=== PATIENT | female | born 1990 | race Caucasian/White ===

== ENCOUNTER 2018-03-30 11:39 | Emergency (ER) | payer OTHER ==
[~2018-03-30] VITALS: Ht 170.2 cm; Wt 98.9 kg
[~2018-03-30 11:39] MED LIST: CYCLOBENZAPRINE10 MG PO; DICLOFENAC SODI75 MG PO; FLONASE ALLERG9.9 ML NAS; GEODON40 MG PO; GRALISE600 MG PO; LAMICTAL200 MG PO; NORCO 10-325 T1 EACH PO; SUDAFED 12-HOU120 MG PO; VENLAFAXINE HC225 MG PO; XANAX1 MG PO
[2018-03-30] MEDS ORDERED: LASIX20 MG PO (11:56)
[2018-03-30] MEDS ORDERED: K-TAB ER20 MEQ PO (11:56)
--- NOTE | 2018-03-30 14:14 | EKG ---
[facility] [address] [address] [place], [place] [address] Signed Sinus tachycardia Otherwise normal ECG No previous ECGs available Confirmed by LETICIA FRANKLIN MD ([id number]) on 03/30/2018 2:14:15 PM Electronically Signed By: LETICIA FRANKLIN MD 03/30/18 1414 PATIENT NAME: SHADE WOLF KOURTNEY Electrocardiogram DATE OF : 86 PHYSICIAN: LETICIA FRANKLIN MD REPORT #: [id number] REPORT IS CONFIDENTIAL AND NOT TO BE RELEASED WITHOUT AUTHORIZATION
== END 2018-03-30 14:26 | disposition home or self-care (01) ==
LOC: ED 11:39
DX: R20.2 Paresthesia of skin (principal); G62.9 Polyneuropathy, unspecified; F32.9 Major depressive disorder, single episode, unspecified; F41.9 Anxiety disorder, unspecified; F31.9 Bipolar disorder, unspecified; F17.200 Nicotine dependence, unspecified, uncomplicated; Z79.891 Long term (current) use of opiate analgesic; Z79.899 Other long term (current) drug therapy
CPT/HCPCS: 70450; 80053; 81001; 83036; 83605; 83880; 84703; 85025; 85379; 93005; 93010; 99284; 99406

== ENCOUNTER 2020-02-27 16:36 | Inpatient (IN) | payer OTHER ==
[~2020-02-27] VITALS: Ht 170.2 cm; Wt 119.2 kg
--- OUTSIDE RECORDS SUMMARY | ~2020-02-27 | XMS | Encounter Summary ---
Demographics + + + | Address | [address] | | | [place] [address] | + + + | Home Phone | | + + + | Preferred Language | Unknown | + + + | Marital Status | Single | + + + | Sabianism Affiliation | NON | + + + | Race | White | + + + | Ethnic Group | Not or | + + + Author + + + | Author | [facility] | + + + | Organization | [facility] | + + + | Address | Unknown | + + + | Phone | Unavailable | + + + Support + + + + + | Name | Relationship | Address | Phone | + + + + + | Collette [place] | [place] | [place] | | + + + + + Care Team Providers + +------+ + | Care Process Worker Name | Role | Phone | + +------+ + | No Pcp Per Patient | PCP | Unavailable | + +------+ + Reason for Visit + + + | Reason | Comments | + + + | Pre-op evaluation | | + + + Encounter Details +--------+ + + + + | Date | Type | Department | Care Team | Description | +--------+ + + + + | 04/05/ | Telephone-S | Preoperative | | Pre-op evaluation | | 2019 | cheduled | Medicine Clinic at | | | | | | [facility] | | | | | | [address] | | | | | | Mail Code: OC8PM | | | | | | [facility] | | | | | | and Healing, | | | | | | [address] | | | | | | [place], [place] | | | | | | [address] | | | | | | [phone] | | | +--------+ + + + + Anesthesia Record + + + + + | Procedure Name | Responsible | Anesthesia Start | Anesthesia Stop Time | | | Anesthesiologist | Time | | + + + + + | EXCISIONAL BIOPSY | Saleem Rosas MD | 04/06/1916 | 04/06/19 1019 | | RIGHT THUMB SOFT | | | | | TISSUE MASS (Right ) | | | | + + + + + +----+---+ + + | Da | T | Event | Comment | | te | i | | | | | m | | | | | e | | | +----+---+ + + | 06 | 0 | Eq Check | Anesthesia machine checked Equipment verified | | /2 | 9 | | | | 7/ | 0 | | | | 20 | 9 | | | | 19 | | | | +----+---+ + + | | 0 | Pt. Check | Prior to anesthesia start, pt. Identified, examined, chart | | | 9 | | reviewed, PARQ held, anesthetic plan made or approved by | | | 1 | | attending anesthesiologist. NPO status confirmed as appropriate | | | 4 | | for procedure Preoperative evaluation: unchanged | +----+---+ + + | | 0 | | | | | 9 | | | | | 1 | | | | | 6 | | | +----+---+ + + | | 0 | An Start | | | | 9 | | | | | 1 | | | | | 6 | | | +----+---+ + + | | 0 | An Start | | | | 9 | Data | | | | 2 | | | | | 4 | | | +----+---+ + + | | 0 | O2 by FM | | | | 9 | | | | | 2 | | | | | 7 | | | +----+---+ + + | | 0 | Vitals | Monitors applied Vital signs checked Patient ready for anesthesia | | | 9 | Checked | | | | 2 | | | | | 7 | | | +----+---+ + + | | 0 | Ready | | | | 9 | | | | | 3 | | | | | 2 | | | +----+---+ + + | | 0 | Local | | | | 9 | Anesthetic | | | | 3 | by Surgeon | | | | 5 | | | +----+---+ + + | | 0 | Abx | | | | 9 | Administere | | | | 4 | d | | | | 1 | | | +----+---+ + + | | 0 | Timeout | | | | 9 | | | | | 4 | | | | | 4 | | | +----+---+ + + | | 0 | Incision | | | | 9 | | | | | 4 | | | | | 6 | | | +----+---+ + + | | 1 | Surgery end | | | | 0 | | | | | 0 | | | | | 8 | | | +----+---+ + + | | 1 | an stop | | | | 0 | data | | | | 1 | | | | | 4 | | | +----+---+ + + | | 1 | Anesthesia | | | | 0 | End | | | | 1 | | | | | 9 | | | +----+---+ + + | | 1 | Post-Op | | | | 1 | Page | | | | 0 | | | | | 0 | | | +----+---+ + + +------+ | Meds | +------+ + + + No medications | on file. | + + + + + | No agents on file. | + + + + | No blood administrations on file. | + + +--------+ + + + | Type | Details | Placement | Removal | +--------+ + + + | Incisi | 04/06/19; 936; Sameer Champion MD; | 04/06/19936 by | | | on | Right; thumb | Lata Connelly RN | | +--------+ + + + | Periph | 04/06/19; 0855; kai oliva rn; | 04/06/19 0855 by | 04/06/191116 by | | eral | Left; Hand; 20 g; None; Positive; | Kelly Kumar, | Grazyna Jeffrey RN | | IV | 04/06/19; 1117 | RN | | +--------+ + + + documented in this encounter Social History + + + +--------+ + | Tobacco Use | Types | Packs/Day | Years | Date | | | | | Used | | + + + +--------+ + | Current Every Day | Cigarettes | 0.5 | 10 | Started: 2006 | | Smoker | | | | | + + + +--------+ + + +------+---+---+ | Smokeless Tobacco: | Chew | | | | Current User | | | | + +------+---+---+ + + +---------+ + | Alcohol Use | Drinks/Week | oz/Week | Comments | + + +---------+ + | Not Currently | | | | + + +---------+ + + + + | Sex Assigned at [...] + + documented as of this encounter Patient Instructions Patient Instructions Zaida Orourke RN - 04/05/2019 11:31 AM PDTFormatting of this note m ight be different from the original. PREOPERATIVE INSTRUCTIONS Do not eat or drink anything after midnight the night before surgery. TAKE the following medications with a sip of water on the morning of surgery: GABAPENTIN 300 MG CAPSULE VENLAFAXINE ER 225 MG TABLET,EXTENDED RELEASE 24 HR OK to take the following medications with a sip of water on the morning of procedure As Nee ded/Directed: CYCLOBENZAPRINE 10 MG TABLET HYDROCODONE 5 MG-ACETAMINOPHEN 325 MG TABLET Do NOT take the following medications on the morning of surgery: KEFLEX ORAL DICLOFENAC 1 % TOPICAL GEL LAMOTRIGINE 200 MG TABLET HS TRAZODONE 150 MG TABLET ZIPRASIDONE 40 MG CAPSULE Unless Otherwise Directed by your Surgeon Do not take any Aspirin, vitamin E or non-ster oidal anti-inflammatory (NSAIDs i.e. Advil, Aleve, Ibuprofen) or herbal supplements seven da ys prior to your surgery. These drugs may interfere with normal blood clotting and may cause excessive bleeding and bruising during or after the surgery. If you are taking Coumadin (warfarin), Plavix or any other blood thinners please let you r surgical team know as medication changes will be necessary. If you need a pain medication for general purposes, use Tylenol as directed. If you are in doubt about any medications that you are taking, please contact our office . Important Guidelines Do not shave the surgical area Do not smoke, drink alcohol or use recreational drugs for 24 hours before your surgery Do not eat any hard candy or chew gum after midnight the night before your surgery. Watch for any change in your health condition. Let your surgeon know right away if you do not feel well. Do not wear makeup, perfume, lotions or powder. Do not wear any jewelry to the hospital. Wear loose, comfortable clothing. Bring the case and solution for your contact lenses or wear your glasses. Leave all your valuables at home. Allow enough travel time so you re not late for your check in for surgery. Take a bath or shower and remember to shampoo your hair using your usual hair product be fore your arrival at the hospital. Please remember to brush your teeth the night before and the morning of your procedure. Surgery Check in Locations Admitting [facility], ninth floor [facility] Surgery Check in Time: Someone from your surgeon's office or [facility] hospital will provide you with information regarding your check in time. If you have any questions about this, pl ease contact your surgeon's office. Going Home Your surgical team will decide when you are medically ready to go home. If you are released to go home on the same day as your procedure/surgery please note the following: You will not be able to drive. You will be required to have a competent adult drive you or accompany you by taxi or pub lic transportation on the day of discharge. It is also required that you have a competent adult assist you and look after you on the first night after you have undergone regional blocks (72 hours for patients going home with regional block pump), deep sedation, and/or general anesthesia. If you stayed in the hospital after surgery, please arrange for your ride to come for yo u around 9AM on the day your doctor says you can go home. Check out time is 11AM. If you have questions or concerns after you go home, call your doctor s office. If it is after office hours, call the [facility] radial drill operator for plastic at [phone] and ask them to page your doc tor. documented in this encounter Plan of Treatment Not on filedocumented as of this encounter Visit Diagnoses Not on filedocumented in this encounter"
--- OUTSIDE RECORDS SUMMARY | ~2020-02-27 | XMS | Encounter Summary ---
Demographics + + + | Address | [address] | | | [place] [address] | + + + | Home Phone | | + + + | Preferred Language | Unknown | + + + | Marital Status | Single | + + + | Taoist Affiliation | NON | + + + | Race | White | + + + | Ethnic Group | Not or | + + + Author + + + | Organization | Unknown | + + + | Address | Unknown | + + + | Phone | Unavailable | + + + Support + + + + + | Name | Relationship | Address | Phone | + + + + + | Collette [place] | [place] | [place] | | + + + + + Care Team Providers + +------+ + | Care Electromedical Equipment Technician Name | Role | Phone | + +------+ + | No Pcp Per Patient | PCP | Unavailable | + +------+ + Encounter Details +--------+--------+ + + + | Date | Type | Department | Care Team | Description | +--------+--------+ + + + | 05/31/ | Travel | | | | | 2019 | | | | | +--------+--------+ + + + Social History + + + +--------+ + [...] | | | + +------+---+---+ + + | Comments: 6-7 cigarettes/per day over the past week. | + + + + +---------+ + | Alcohol Use [...]
--- OUTSIDE RECORDS SUMMARY | ~2020-02-27 | XMS | Encounter Summary ---
Demographics + + + | Address | [address] | | | [place] [address] | + + + | Home Phone | | + + + | Preferred Language | Unknown | + + + | Marital Status | Single | + + + | Tenriism Affiliation | Unknown | + + + | Race | Unknown | + + + | Ethnic Group | Unknown | + + + Author + + + | Author | [facility] | | | and [place] | + + + | Organization | [facility] | | | [...] Team Providers + +------+ + | Care Tissue Technologist Name | Role | Phone | + +------+ + | Jerica Martinez | PCP | | + +------+ + Reason for Visit +---------+ + | Reason | Comments | +---------+ + | Results | | +---------+ + Encounter Details +--------+ + + + + | Date | Type | Department | Care Team | Description | +--------+ + + + + | 11/09/ | Telephone | [facility] | [place], | Results | | 2020 | | HOSPITAL NEUROLOGY | Jax, INSTRUMENT[address] | | | | | CLINIC [address] [place], | | | | | [address] [place], | [place] [address] | | | | | [place] [address] | [phone] | | | | | [phone] | | | +--------+ + + + [...] Description | +--------+---------+ + + + | 02/27/ | Office | Neurology | [place], | | | 2019 | Visit | | [address] | | | | | | [address] [place], | | | | | | [place] [address] | | | | | | [phone] | | | | | | | | | | | | Brittny Warren, | | | | | | MD [address] | | | | | | [place] | | | | | | [place] [address] | | | | | | [phone] | | | | | | | | +--------+---------+ + + + | 11/26/ | Office | Neurology | Seven Johns MD | | | 2020 | Visit | | [address] | | | | | | [place] | | | | | | [address] | | | | | | | | +--------+---------+ + + + documented as of this encounter Visit Diagnoses Not on filedocumented in this encounter"
--- OUTSIDE RECORDS SUMMARY | ~2020-02-27 | XMS | Encounter Summary ---
Demographics + + + | Address | [address] | | | [place] [address] | + + + | Home Phone [...] Author + + + | Author | [facility] | + + + | Organization | [facility] | + + + | Address [...] Team Providers + +------+ + | Care Combatant Swimmer Name | Role | Phone | + +------+ + | No Pcp Per Patient | PCP | Unavailable | + +------+ + Reason for Visit +--------+ + | Reason | Comments | +--------+ + | Pain | medication request | +--------+ + Encounter Details +--------+ + + + + | Date | Type | Department | Care Team | Description | +--------+ + + + + | 06/29/ | Telephone | Dermatology | [place], | Pain (medication | | 2019 | | Surgery at [facility] [address] | Kev Ashton MD [address] | request) | | | | [address] | [address] [place], | | | | | Mailcode: [id number] | [place] [address] | | | | | [facility] | [phone] | | | | | and Healing, | | | | | | Building [address], | | | | | | Floor [place], [place] | | | | | | [address] | | | | | | [phone] | | | +--------+ + + + [...]
--- OUTSIDE RECORDS SUMMARY | ~2020-02-27 | XMS | Encounter Summary ---
Demographics + + + | Address | [address] | | | [place] [address] | + + + | Home Phone | | + + + | Preferred Language | Unknown | + + + | Marital Status | Single | + + + | Alevism Affiliation | Unknown | + + + | Race | Unknown | + + + | Ethnic Group | Unknown | + + + Author + + + | Author | [facility] | | | and [place] | + + + | Organization | [facility] | | | and [...] Team Providers + +------+ + | Care Buckle Inspector Name | Role | Phone | + +------+ + | No, Physician | PCP | Unavailable | + +------+ + Encounter Details +--------+ + + + + | Date | Type | Department | Care Team | Description | +--------+ + + + + | 05/18/ | Orders Only | [facility] | Provider, | | | 2019 | | SYSTEM GENERIC OP | MD [address] | | | | | CONVERSION [address] | [place] | | | | | [address] [place], [place] | [place] [address] | | | | | [address] | | | | | | [phone] | | | +--------+ + + + [...] | | | | | | [address] [place], | | | | | | [place] [address] | | | | | | [phone] | | | | | | | | | | | | Brittny Warren, | | | | | | [address] | | | | | | [place] | | | | | | [place] [address] | | | | | | [phone] | | | | | | | | +--------+---------+ + + + | 11/26/ | Office | Neurology | Seven Johns MD | | | 2020 | Visit | | [address] | | | | | | [place], [place] | | | | | | [address] | | | | | | | | +--------+---------+ + + + documented as of this encounter Visit Diagnoses Not on filedocumented in this encounter"
--- OUTSIDE RECORDS SUMMARY | ~2020-02-27 | XMS | Encounter Summary ---
Demographics + + + | Address | [address] | | | [place] [address] | + + + | Home Phone | | + + + | Preferred Language | Unknown | + + + | Marital Status | Single | + + + | Scientology Affiliation | NON | + + + | Race | White | + + + | Ethnic Group | Not or | + + + Author + + + | Author | [facility] | + + + | Organization | [facility] | + + + | [...] Team Providers + +------+ + | Care Nursing Educator Name | Role | Phone | + +------+ + | No Pcp Per Patient | PCP | Unavailable | + +------+ + Encounter Details +--------+ + + + + | Date | Type | Department | Care Team | Description | +--------+ + + + + | 06/26/ | Pharmacy | [facility] | | | | 2019 | Visit | & [facility] | | | | | | [address] | | | | | | Mailcode: [place] | | | | | | [facility] and | | | | | | Healing, [address] | | | | | | [place], [place] | | | | | | [address] | | | | | | [phone] | | | +--------+ + + + [...]
--- OUTSIDE RECORDS SUMMARY | ~2020-02-27 | XMS | Encounter Summary ---
Demographics + + + | Address | [address] | | | [place] [address] | + + + | Home Phone | | + + + | Preferred Language | Unknown | + + + | Marital Status | Single | + + + | Restorationism Affiliation | NON | + + + | Race | White | + + + | Ethnic Group | Not or | + + + Author + + + | Author | [facility] | + + + | Organization | [facility] | + + + | Address [...] Team Providers + +------+ + | Care Packing House Laborer Name | Role | Phone | + +------+ + | No Pcp Per Patient | PCP | Unavailable | + +------+ + Encounter Details +--------+ + + + + | Date | Type | Department | Care Team | Description | +--------+ + + + + | 04/06/ | Procedure | [facility] Op [address] | | | | 2019 | Pass | [facility] | | | | | | [facility] | | | | | | Hospital Admitting | | | | | | Desk Located on the | | | | | | 9th floor | | | | | | [place], [place] | | | | | | [address] | | | +--------+ + + + [...]
--- OUTSIDE RECORDS SUMMARY | ~2020-02-27 | XMS | Encounter Summary ---
Demographics + + + | Address | [address] | | | [place] [address] | + + + | Home Phone | | + + + | Preferred Language | Unknown | + + + | Marital Status | Single | + + + | Sikhism Affiliation | Unknown | + + + | Race | Unknown | + + + | Ethnic Group | Unknown | + + + Author + + + | Author | [facility] | | | and [place] | + + + | Organization | [facility] | | | and [...] Team Providers + +------+ + | Care Multi Sensor Operator Name | Role | Phone | + +------+ + | Jerica Martinez | PCP | | + +------+ + Encounter Details +--------+ + + + + | Date | Type | Department | Care Team | Description | +--------+ + + + + | 11/08/ | Hospital | [facility] | [place], | Thoracic spine pain | | 2020 | Encounter | HOSPITAL XRAY [address] | [address] | | | | | [address] | [address] [place], | | | | | [place], [place] | [place] [address] | | | | | [address] | [phone] | | | | | [phone] | | | +--------+ + + + [...] under the | | 0 | | | | HCl-Naloxone HCl | tongue. | [...] | | | | | | [address] [place], | | | | | | [place] [address] | | | | | | [phone] | | | | | | | | | | | | Brittny Warren, | | | | | | MD [address] | | | | | | [place] | | | | | | [place] [address] | | | | | | [phone] | | | | | | | | +--------+---------+ + + + | 11/26/ | Office | Neurology | Seven Johns MD | | | 2020 | Visit | | [address] | | | | | | [place] | | | | | | [address] | | | | | | | | +--------+---------+ + + + documented as of this encounter Procedures + +--------+ + + + | Procedure Name | Priori | Date/Time | Associated Diagnosis | Comments | | | ty | | | | + +--------+ + + + | XR THORACIC SPINE 3 | Routin | 11/08/2019 | Thoracic spine | Results for this | | VW | e | 11:31 AM | pain | procedure are in the | | | | PST | | results section. | + +--------+ + + + documented in this encounter Results XR Thoracic Spine 3 Vw (11/08/2019 11:31 [...] + | Diagnosis | + + | Thoracic spine pain Pain in thoracic spine | + + documented in this encounter"
--- OUTSIDE RECORDS SUMMARY | ~2020-02-27 | XMS | Encounter Summary ---
Demographics + + + | Address | [address] | | | [place] [address] | + + + | Home Phone | | + + + | Preferred Language | Unknown | + + + | Marital Status | Single | + + + | Congregational Affiliation | NON | + + + [...] Team Providers + +------+ + | Care Terminal Superintendent Name | Role | Phone | + +------+ + | No Pcp Per Patient | PCP | Unavailable | + +------+ + Encounter Details +--------+ + + + + | Date | Type | Department | Care Team | Description | +--------+ + + + + | 06/05/ | MyChart | Orthopaedics | Isael Champion, | RE: thumb pain | | 2019 | Encounter | [facility] [place] | [address] | | | | | for Health and | [address] | | | | | Healing [address] | [place], [place] | | | | | Ave Mailcode: | [address] | | | | | [facility] | [phone] | | | | | Health and Healing, | | | | | | | | | | | | Floor [place], [place] | | | | | | [address] | | | | | | [phone] | | | +--------+ + + + [...]
--- OUTSIDE RECORDS SUMMARY | ~2020-02-27 | XMS | Encounter Summary ---
Demographics + + + | Address | [address] | | | [place] [address] | + + + | Home Phone | | + + + | Preferred Language | Unknown | + + + | Marital Status | Single | + + + | Sikhism Affiliation | NON | + + + | Race | White | + + + | Ethnic Group | Not or | + + + Author + + + | Author | [facility] | + + + | Organization | [facility] | + + + | [...] Team Providers + +------+ + | Care Peer Health Promoter Name | Role | Phone | + +------+ + | No Pcp Per Patient | PCP | Unavailable | + +------+ + Reason for Visit + + + | Reason | Comments | + + + | Medication requested | Pain meds question | + + + Encounter Details +--------+ + + + + | Date | Type | Department | Care Team | Description | +--------+ + + + + | 06/30/ | Telephone | Dermatology | Ryan, | Medication requested | | 2019 | | Surgery at [facility] [address] | Kev Ashton MD [address] | (Pain meds | | | | [address] | [address] [facility], | question) | | | | Mailcode: CH16D | [place] [address] | | | | | [facility] | [phone] | | | | | and Healing, | | | | | | Building | | | | | | [facility], [place] | | | | | | [address] | | | | | | [phone] | | | +--------+ + + + [...]
--- OUTSIDE RECORDS SUMMARY | ~2020-02-27 | XMS | Encounter Summary ---
Demographics + + + | Address | [address] | | | [place] [address] | + + + | Home Phone | | + + + | Preferred Language | Unknown | + + + | Marital Status | Single | + + + | Caodaism Affiliation | Unknown | + + + | Race | Unknown | + + + | Ethnic Group | Unknown | + + + Author + + + | Author | [facility] | | | and [place] | + + + | Organization | [facility] | | | [...] Team Providers + +------+ + | Care Esol Teacher Assistant Name | Role | Phone | + [...] [address] | | | | | [place] [address] | | | | | | [phone] | | | +--------+ + + + [...] | Neurology | Wayne, | | | 2020 | Visit | | [address] | | | | | | [address] [place], | | | | | | [place] [address] | | | | | | [phone] | | | | | | | | | | | | Brittny Warren, | | | | | | [address] | [address] | | [address], [place] | | | | | | [place] [address] | | | | | | [phone] | | | | | | | | +--------+---------+ + + + | 11/26/ | Office | Neurology | Seven Johns MD | | | 2020 | Visit | | [address] | | | | | | [place] | | | | | | [address] | | | | | | | | +--------+---------+ + + + documented as of this encounter Visit Diagnoses Not on filedocumented in this encounter"
--- OUTSIDE RECORDS SUMMARY | ~2020-02-27 | XMS | Encounter Summary ---
Demographics + + + | Address | [address] | | | [place] [address] | + + + | Home Phone | | + + + | Preferred Language | Unknown | + + + | Marital Status | Single | + + + | Congregation Affiliation | Unknown | + + + | Race | Unknown | + + + | Ethnic Group | Unknown | + + + Author + + + | Author | [facility] | | | and [place] | + + + | Organization | [facility] | | [...] Team Providers + +------+ + | Care Engineer Sergeant Name | Role | Phone | + +------+ + | Mindy Stewart | PCP | | | PA | | | + +------+ + Encounter Details +--------+ + + + + | Date | Type | Department | Care Team | Description | +--------+ + + + + | 12/28/ | Documentati Kapil LUX | Lili Serrano RN | | | 2019 | on | [facility] | | | | | | CLINIC [address] | | | | | | [address] [place], | | | | | | [place] [address] | | | | | | [phone] | | | +--------+ + + + [...] documented as of this encounter Progress Notes Lili Serrano RN - 12/28/2018 4:02 PM PDTSpoke with pt, and faxed lab orders from 9 to [facility] lab in [facility] for pt to /JUSTINE Adams documented in this encounter Plan of Treatment +--------+---------+ + + + | Date | Type | Specialty | Care Team | Description | +--------+---------+ + + + | 02/27/ | Office | Neurology | [place], | | | 2019 | Visit | | [address] | | | | | | [address] [place], | | | | | | [place] [address] | | | | | | [phone] | | | | | | | | | | | | Brittny Warren, | | | | | | [address] | | | | | | [address] | | | | | | [place] [address] | | | | | | [phone] | | | | | | | | +--------+---------+ + + + | 11/26/ | Office | Neurology | Seven Johns MD | | | 2020 | Visit | | [address] | | | | | | [place] | | | | | | [address] | | | | | | | | +--------+---------+ + + + documented as of this encounter Visit Diagnoses Not on filedocumented in this encounter"
--- OUTSIDE RECORDS SUMMARY | ~2020-02-27 | XMS | Encounter Summary ---
Demographics + + + | Address | [address] | | | [place] [address] | + + + | Home Phone | | + + + | Preferred Language | Unknown | + + + | Marital Status | Single | + + + | Mu-Ism Affiliation | NON | + + + [...] Team Providers + +------+ + | Care Surface Hydrologist Name | Role | Phone | + [...] Rd | | | | | [facility] | [place], [place] | | | | | Health and Healing, | [address] | | | | | | [phone] | | | | | Floor [place], [place] | | | | | | [address] | | | | | | [phone] | | | +--------+ + + + [...]
--- OUTSIDE RECORDS SUMMARY | ~2020-02-27 | XMS | Encounter Summary ---
Demographics + + + | Address | [address] | | | [place] [address] | + + + | Home Phone [...] Team Providers + +------+ + | Care Awning Hanger Helper Name | Role | Phone | + [...] | | | [address] [place], | [address] | | | | | [place] [address] | | | | | | [phone] | | | +--------+ + + + [...] | | | | | | [place] [address] | | | | | | [phone] | | | | | | | | | | | | Brittny Warren, | | | | | | [address] | | | | | | [address] [place] | | | | | | [place] [address] | | | | | | [phone] | | | | | | | | +--------+---------+ + + + | 11/26/ | Office | Neurology | Seven Johns MD | | | 2020 | Visit | | [address] | | | | | | [place] | | | | | | [address] | | | | | | | | +--------+---------+ + + + documented as of this encounter Visit Diagnoses + + | Diagnosis | + + | Chronic migraine - Primary Chronic migraine without aura, without mention of | | intractable migraine without mention of status migrainosus | + + documented in this encounter"
--- OUTSIDE RECORDS SUMMARY | ~2020-02-27 | XMS | Encounter Summary ---
Demographics + + + | Address | [address] | | | [place] [address] | + + + | Home Phone | | + + + | Preferred Language | Unknown | + + + | Marital Status | Single | + + + | Islam Affiliation | Unknown | + + + | Race | Unknown | + + + | Ethnic Group | Unknown | + + + Author + + + | Author | [facility] | | | and [place] | + + + | Organization | [facility] | | | [...] Team Providers + +------+ + | Care Art Education Professor Name | Role | Phone | + [...] [address] | | | | | [place] [address] | | | | | | [phone] | | | +--------+ + + + [...] | | | | | | [place] [address] | | | | | | [phone] | | | | | | | | | | | | Brittny Warren, | | | | | | [address] | | [address] | [address], [place] | | | | | | [place] [address] | | | | | | [phone] | | | | | | | | +--------+---------+ + + + | 11/26/ | Office | Neurology | Seven Johns MD | | | 2020 | Visit | | [address] | | | | | | [place] | | | | | | [id number] | | | | | | | | +--------+---------+ + + + documented as of this encounter Visit Diagnoses Not on filedocumented in this encounter"
--- OUTSIDE RECORDS SUMMARY | ~2020-02-27 | XMS | Encounter Summary ---
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[place] [address] | [phone] | radiculopathy; | | | | [phone] | | Chronic bilateral | | | [...] | | | | | [address] [place], | | | | | | [place] [address] | | | | | | [phone] | | | | | | | | | | | | Brittny Warren, | | | | | | MD [address] | | | | | | [address], [place] | | | | | | [place] [address] | | | | | | [phone] | | | | | | | | +--------+---------+ + + + | 11/26/ | Office | Neurology | Seven Johns MD | | | 2020 | Visit | | [address] | | | | | | [place] | | | | | | [address] | | | | | | | | +--------+---------+ + + + documented as of this encounter Procedures + +--------+ + + + | Procedure Name | Priori | Date/Time | Associated Diagnosis | Comments | | | ty | | | | + +--------+ + + + | UT INJECT TRIGGER | Routin | 09/19/2019 | [...]
--- OUTSIDE RECORDS SUMMARY | ~2020-02-27 | XMS | Encounter Summary ---
Demographics + + + | Address | [address] | | | [place] [address] | + + + | Home Phone [...] Author + + + | Author | [facility] | + + + | Organization | [facility] | + + + | Address [...] Team Providers + +------+ + | Care Web Press Operator Assistant Name | Role | Phone | + +------+ + | No Pcp Per Patient | PCP | Unavailable | + +------+ + Encounter Details +--------+--------+ + + + | Date | Type | Department | Care Team | Description | +--------+--------+ + + + | 03/17/ | Intake | Transfer Center | | N/A | | 2019 | | [address] | | | | | | [place], | | | | | | [place] [address] | | | +--------+--------+ + + + [...]
--- OUTSIDE RECORDS SUMMARY | ~2020-02-27 | XMS | Clinical Summary ---
Demographics + + + | Address | [address] | | | [place] [address] | + + + | Home Phone [...] Author + + + | Author | NON REVENUE LOCATIONS | + + + | Organization | NON REVENUE LOCATIONS | + + + | Address | Unknown | + + + | Phone | Unavailable | + + + Support + + + + + | Name | Relationship | Address | Phone | + + + + + | Collette [place] | ECON | [place] | | + + + + + Care Team Providers + +------+ + | Care Corporate Strategy Associate Name | Role | Phone | + +------+ + | No Pcp Per Patient | PCP | Unavailable | + +------+ + Source Comments CHIKI is fully live on both [facility] and [facility] InPatient.[facility] Allergies + + + + + + | Active Allergy | Reactions | Severity | Noted | Comments | | | | | Date | | + + + + + + | Sulfa (Sulfonamide | Nausea and Vomiting | Low | 03/17/20 | | | Antibiotics) | | | 19 | | + [...] | + + + +---------+------+------+-------+ | cyclobenzaprine 10 | Take 10 mg by mouth | | 0 | 06/0 | | Activ | | mg oral tablet | as needed. | | | 6/20 | | e | | | | | | 19 | | | + + + +---------+------+------+-------+ | gabapentin 300 mg | Take 300 mg by mouth | | 0 | 06/0 | | Activ | | oral capsule | four times daily. | | | 6/20 | | e | | | | | | 19 | | | + + + +---------+------+------+-------+ | lamoTRIgine 200 mg | Take 200 mg by mouth | | 0 | | | Activ | | oral tablet | once daily at | | | | | e | | | bedtime. | | | | | | + + + +---------+------+------+-------+ | ziprasidone | Take 40 mg by mouth | | 0 | | | Activ | | (GEODON) 40 mg oral | once daily at | | | | | e | | capsule | bedtime. | | | | | | + + + +---------+------+------+-------+ | traZODone 150 mg | Take 150 mg by mouth | | 0 | | | Activ | | oral tablet | once daily at | | | | | e | | | bedtime. | | | | | | + + + +---------+------+------+-------+ | diclofenac 1 % | Apply to affected | 100 g | 3 | 06/1 | | Activ | | topical gel | area four times | | | 9/20 | | e | | | daily as needed. | | | 19 | | | + + + +---------+------+------+-------+ | venlafaxine 225 mg | Take 225 mg by mouth | | 0 | | | Activ | | oral tablet | once daily in the | | | | | e | | extended release | morning. | | | | | | | 24hr | | | | | | | + + + +---------+------+------+-------+ | | Take 1 tablet by | 20 | 0 | 07/0 | | Activ | | HYDROcodone-acetamin | mouth every four | tablet | | 5/20 | | e | | ophen (NORCO) 10-325 | hours as needed (for | | | 19 | | | | mg oral tablet | pain.). Taper off | | | | | | | | medication. | | | | | | + + + +---------+------+------+-------+ +---+ + | | Additional | | | InformationPatient | | | not taking. Reported | | | on 04/19/2019 9:56 | | | AM | +---+ + + + +--------+---+------+---+-------+ | | Take 1 tablet by | 15 | 0 | 07/1 | | Activ | | HYDROcodone-acetamin | mouth every six | tablet | | 5/20 | | e | | ophen (NORCO) 5-325 | hours as needed (for | | | 19 | | | | mg oral tablet | pain.). Not to | | | | | | | | exceed 6 in 24 | | | | | | | | hours. | | | | | | + + +--------+---+------+---+-------+ | cloNIDine HCl 0.1 | Take 0.1 mg by | | 0 | | | Activ | | mg oral tablet | mouth. | | | | | e | + + +--------+---+------+---+-------+ | | Take 1 tablet by | 5 | 0 | 09/1 | | Activ | | HYDROcodone-acetamin | mouth every six | tablet | | 6/20 | | e | | ophen 5-325 mg oral | hours as needed for | | | 19 | | | | tablet | moderate pain. | | | | | | + + +--------+---+------+---+-------+ Active Problems + + + | Problem | Noted Date | + + + | Tobacco dependence due to cigarettes | 03/29/2019 | + + + | Finger mass, right | 03/29/2019 | + + + | Cigarette smoker | 03/29/2019 | + + + | Idiopathic peripheral neuropathy | 11/03/2018 | + + + + + | Overview: Current Treatment:Gabapentin | + + + + + | Fibromyalgia | 11/03/2018 | + + + | Cardiomyopathy | 09/23/2018 | + + + + + | Overview: - echo 09/06/18: Overall LV systolic function is | | mildly impaired with mild global hypokinesis and an EF between | | 45-50%, RV is normal in size and function, no clinically | | significant valvular abnormalities are present.- echo 09/06/18: | | Overall LV systolic function is mildly impaired with mild global | | hypokinesis and an EF between 45-50%, RV is normal in size and | | function, no clinically significant valvular abnormalities are | | present. | + + + + + | Thyroid nodule | 09/07/2018 | + + + | Abnormal thyroid blood test | 09/07/2018 | + + + Social History + + [...] + + + | Blood Pressure | 95/57 | 06/26/2019 7:45 AM | | | | | PDT | | + + + + + | Pulse | 68 | 06/26/2019 7:45 AM | | | | | PDT | | + + + + + | Temperature | 36.6 C (97.9 F) | 04/19/2019 9:55 AM | | | | | PDT | | + + + + + | Respiratory Rate | 12 | 06/26/2019 7:45 AM | | | | | PDT [...] + + + + Plan of Treatment + + + + + | Health Maintenance | Due Date | Last Done | Comments | + + + + + | Pneumococcal | | | | | vaccination (1 of 1 | 4 | | | | - PPSV23) | | | | + + + + + | Influenza (Flu) | | 07/04/2013 | | | vaccination (#1) | 9 | | | + + + + + Results Not on filefrom Last 3 Months Insurance + +--------+ +--------+-------+---------+--------+ | Payer | Benefi | Subscriber | Effect | Phone | Address | Type | | | t Plan | ID | anish | | | | | | / | | Dates | | | | | | Group | | | | | | + +--------+ +--------+-------+---------+--------+ | TELEVISION TECHNICIAN MEDICAID | TELEVISION TECHNICIAN | xxxxxxxx | 02/15/20 | | | Medica | | | [place] | | 18-Pre | | | id | | | [place] | | sent | | | | + +--------+ +--------+-------+---------+--------+ + +--------+ +--------+ + + | Guarantor Name | Accoun | Relation to | Date | Phone | Billing Address | | | t Type | Patient | of | | | | | | | | | | + +--------+ +--------+ + + | Linda Singleton | Person | Self | [birth year] | | [address] [place], | | | al/Aj | | 1990 | [phone] | [place] [address] | | | [place] | | | 6 (Home) | | + +--------+ +--------+ + + Advance Directives + + + + + | Code Status | Date | Date | Comments | | | Activated | Inactivated | | + + + + + | Full Code | 04/06/2019 | 04/06/2019 | | | | 8:17 AM | 5:23 PM | | + + + + +
--- OUTSIDE RECORDS SUMMARY | ~2020-02-27 | XMS | Encounter Summary ---
Demographics + + + | Address | [address] | | | [place] [address] | + + + | Home Phone | | + + + | Preferred Language | Unknown | + + + | Marital Status | Single | + + + | Jewish Affiliation | Unknown | + + + | Race | Unknown | + + + | Ethnic Group | Unknown | + + + Author + + + | Author | [facility] | | | and [place] | + + + | Organization | [facility] | | [...] Team Providers + +------+ + | Care Front End Loader Operator Name | Role | Phone | [...] | | [address] [place], [place] | [place] [address] | extremities | | | | [address] | [phone] | | | | | [phone] | | | +--------+ + + + [...] Office | Neurology | Wayne, | | 2019 | Visit | | [address] | | | | | | [address] [facility] [place], | | | | | | [place] [address] | | | | | | [phone] | | | | | | | | | | | | Brittny Warren, | | | | | | [address] | | | | | | [address] | | | | | | [place] [address] | | | | | | [phone] | | | | | | | | +--------+---------+ + + + | 11/26/ | Office | Neurology | Seven Johns MD | | | 2020 | Visit | | [address] | | | | | | [place], [place] | | | | | | [address] | | | | | | | | +--------+---------+ + + + documented as of this encounter Procedures + +--------+ + + + | Procedure Name | Priori | Date/Time | Associated Diagnosis | Comments | | | ty | | | | + +--------+ + + + | *TERMED* TX EEG | Routin | 11/27/2019 | Altered [...] was | | | reviewed using the Liftopia EEG digital system. During the | | [...]
--- OUTSIDE RECORDS SUMMARY | ~2020-02-27 | XMS | Encounter Summary ---
Demographics + + + | Address | [address] | | | [place] [address] | + + + | Home Phone | | + + + | Preferred Language | Unknown | + + + | Marital Status | Single | + + + | Oriental Orthodox Affiliation | Unknown | + + + | Race | Unknown | + + + | Ethnic Group | Unknown | + + + Author + + + | Author | [facility] | | | and [place] | + + + | Organization | [facility] | | [...] Team Providers + +------+ + | Care Apprentice Cosmetologist Name | Role | Phone | + +------+ + | No, Physician | PCP | Unavailable | + +------+ + Encounter Details +--------+ + + + + | Date | Type | Department | Care Team | Description | +--------+ + + + + | 03/26/ | Emergency | [facility] | Alejo Marino | Periosteal chondroma | | 2019 | | MEDICAL CENTER | DO Jef [address] | | | | | EMERGENCY CENTER | [address] [place], [place] | | | | | [address] [facility] | [address] | | | | | [place], [place] | | | | | | [address] | | | | | | [phone] | | | +--------+ + + + [...] | | | | | [address] [place], | | | | | | [place] [address] | | | | | | [phone] | | | | | | | | | | | | [place], | | | | | | MD [address] | | | | | | [address] | | | | | | [place] [address] | | | | | | [phone] | | | | | | | | +--------+---------+ + + + | 11/26/ | Office | Neurology | Seven Johns MD | | | 2020 | Visit | | [address] | | | | | | [place] | | | | | | [address] | | | | | | | [...] mass is mildly hyperintense to muscle on P0oxxcgbazfim with | | prominent predominant peripheral enhancement. [...] reaction wouldprobably be less likely.Signed by: Lashawn Rodriguez BruceSign Date/Time: | | 03/26/2019 9:11 PM [...] - 1.030 | EXTERNAL | | | [place], | | | LAB | | | [...] | | | Urine | performed at [facility];[address] | | LAB | | | | [address];[place] | | | | | | [address] | | | | + + + [...] | | | Ur | performed at [facility];[address] | | LAB | | | | [address];[place], [place] | | | | | | [address] | | | | + + + [...] EXTERNAL | | | | performed at [facility];888 | mmol/L | LAB | | | | [address];[place] | | | | | | [address] | | | | + + + [...] EXTERNAL | | | | performed at [facility] | | LAB | | | | [address];[place] | | | | | | [address] | | | | + + + [...] | | | Basophils | performed at [facility];[address] | K/uL | LAB | | | | [address];[place] | | | | | | [address] | | | | + + + [...] EXTERNAL | | | | performed at [facility] | | LAB | | | | [address];[place], [place] | | | | | | [address] | | | | + + + [...] | | | | | | [facility] traceable | | | | | | equation.Testing | | | | | | performed at [facility];[address] | | | | | | [facility];[place], [place] | | | | | | [address] | | | | + + + [...]
--- OUTSIDE RECORDS SUMMARY | ~2020-02-27 | XMS | Encounter Summary ---
Demographics + + + | Address | [address] | | | [place], [place] [address] | + + + | Home Phone | | + + + | Preferred Language | Unknown | + + + | Marital Status | Single | + + + | Pentecostalism Affiliation | NON | + + + | Race | White | + + + | Ethnic Group | Not or | + + + Author + + + | Author | [facility] | + + + | Organization | [facility] | + + + | [...] Team Providers + +------+ + | Care Guncotton Packer Name | Role | Phone | [...] | and other | [address] | [place], [place] | | | | | soft tissue | [address] | [address] | | | | | Neoplasm of | [place], | Phone: | | | | | uncertain | [place] [address] | [phone] | | | | | behavior of | Phone: | Fax: | | | | | bone and | [phone] | [phone] | | | | | articular | Fax: | | | | | | cartilage | [phone] | | | | | | Procedures | | | | | | | REQUEST TO | | | | | | | SURGERY | | | | | | | ANALYSIS CONSULTANT | | | | | | | MN EXCIS | | | | | | | SOFT TISSUE | | | | | | | LESION HAND | | | | | | | DEEP MN EXC | | | | | | | HAND TURN | | | | | | | DEEP>1.5CM | | | | | | | MN EXCIS | | | | | | | BENIGN BONE | | | | | | | LESN,PHALANX | | | | | | | MN PART | | | | | | | REMV | | | | | | | BONE,PROX/VA | | | | | | | D PHALANX | | | | | | | MN PART REMV | | | | | [...] | 2019 | Visit | [facility] [employer] | [address] | of skin of finger, | | | | for Health and | [address] | right (Primary Dx) | | | | Healing [address] | [place], [place] | | | | | Ave Mailcode: | [address] | | | | | [address] [facility] | [phone] | | | | | Health and Healing, | | | | | | [facility] | | | | | | Floor [place], [place] | | | | | | [address] | | | | | | [phone] | | | +--------+---------+ + + + [...] for consultation if would like. Defer to [facility] on systemic surveillance/staging as well. - will follow up with me as needed. Happy to see back for amputation if that is deemed nece ssary, or post-surgery if functional issues. Patient expressed understanding and agreement with plan. Please note - [employer] may be used in the creation of this note. While yessica cked, errors may still occur. Contact if questions/concerns. Isael Champion MD Log Cutter, Orthopaedic Oncology [facility] | Department of Orthopaedics & Rehabilitation documented [...]
--- OUTSIDE RECORDS SUMMARY | ~2020-02-27 | XMS | Clinical Summary ---
Demographics + + + | Address | [address] | | | [place] [address] | + + + | Home Phone | | + + + | Preferred Language | Unknown | + + + | Marital Status | Single | + + + | Denominational Affiliation | Unknown | + + + | Race | Unknown | + + + | Ethnic Group | Unknown | + + + Author + + + | Author | [facility] | | | and [place] | + + + | Organization | [facility] | | [...] Team Providers + +------+ + | Care Pediatric Hospitalist Name | Role | Phone | + [...] | 09/07/2018 | + + + Encounters +--------+ + + + + | Date | Type | Specialty | Care Team | Description | +--------+ + + + + | 02/20/ | Office | Neurology | [place], | Idiopathic | 2019 | Visit | | [address]ara | peripheral | | | | | | neuropathy (Primary | | | | | | Dx); Lumbosacral | | | | | | radiculopathy; | | | | | | Fibromyalgia | +--------+ + + + + | 12/10/ | Refill | Neurology | Sherrie Underwood MD | Medication Refill | 2019 | | | | | +--------+ + + + + | 12/08/ | Procedure | Neurology | Sherrie Underwood MD | Thoracic spine pain | 2019 | visit | | | (Primary Dx) | +--------+ + + + + | 11/30/ | Telephone | Neurology | Elinor Davidson RN | Results (EEG) | | 2020 | | | | | +--------+ + + + + from Last 3 Months [...] | | | | | | [place] [address] | | | | | | [phone] | | | | | | | | | | | | [place]ny [place], | | | | | | [address] | | | | | | [address] | | | | | | [place] [address] | | | | | | [phone] | | | | | | | | +--------+---------+ + + + | 11/26/ | Office | Neurology | Sherrie Underwood MD | | | 2020 | Visit | | [address] | | | | | | [place], [place] | | | | | | [address] | | | | | | | [...] | | + + + + + Procedures + +--------+ + + + | Procedure Name | Priori | Date/Time | Associated Diagnosis | Comments | | | ty | | | | + +--------+ + + + | IN INJECT TRIGGER | Routin | 12/08/2019 | Thoracic spine | Results for this | | POINT, 3+ MUSCLES | e | 3:45 PM | pain | procedure are in the | | | | PST | | results section. | + +--------+ + + + from Last 3 Months Results Trigger Point Injection Procedure (12/08/2019 3:45 PM PST) + + + | Narrative | Performed At | + + + | Sherrie Underwood MD 12/08/2019 4:13 PM Linda Singleton is [...] your patient. | | | Sincerely, SHERRIE UNDERWOOD M.D. Neurologist [phone] | | | Electronically signed NOTE: Part of this report was transcribed | | | using voice recognition software. Every effort | | | was made to ensure accuracy. However, inadvertent | | | computerize oil spraying machine operator errors may be present | | | | | + + + from Last 3 Months Insurance + +--------+ +--------+ [...] | [employer] | MODA | [id number] | | [phone] | | Medica | | MEDICAID HMO | HEALTH | | [id number]-Pr | 1 | | id | | | MDCD | | esent | | | | | | [place] | | | | | | + +--------+ +--------+ +---------+--------+ | [employer] | MODA | [id number] | | [phone] | | Medica | | MEDICAID HMO [...] [address] | | | al/Fam | | 1990 | [id number] | [place] [address] | | | [place]andro | | | 6 (Home) | | + +--------+ +--------+ + + | Linda Singleton | Person | Self | [birth year] | | [address] | | | al/Fam | | 1990 | [phone] | [place] [address] | | | alexandro | | | 6 (Home) | | + +--------+ +--------+ + + | Linda Singleton | Person | Self | [birth year] | | [address] | | | al/Fam | | 1990 | [phone] | [place] [address] | | | alexandro | | | 6 (Home) | | + +--------+ +--------+ + + Advance Directives + + + + + | Type | Date Recorded | Patient | Explanation | | | | Apprentice Lineman Third Step | | + + + + + | Power of | | | | | Dust Box Tender | | | | + + + + + | Advance | 11/27/2019 10:38 | | | | Directive | AM | | | + + + + +
--- OUTSIDE RECORDS SUMMARY | ~2020-02-27 | XMS | Encounter Summary ---
Demographics + + + | Address | [address] | | | [place], [place] [address] | + + + | Home Phone | | + + + | Preferred Language | Unknown | + + + | Marital Status | Single | + + + | Buddhist Affiliation | NON | + + + [...] Team Providers + +------+ + | Care Supervisor Microwave Name | Role | Phone | + [...]
--- OUTSIDE RECORDS SUMMARY | ~2020-02-27 | XMS | Encounter Summary ---
Demographics + + + | Address | [address] | | | [place] [address] | + + + | Home Phone | | + + + | Preferred Language | Unknown | + + + | Marital Status | Single | + + + | Confucianist Affiliation | Unknown | + + + | Race | Unknown | + + + | Ethnic Group | Unknown | + + + Author + + + | Author | [facility] | | | and [place] | + + + | Organization | [facility] | | | and [...] Team Providers + +------+ + | Care Sales And Service Specialist Name | Role | Phone | [...] | +--------+ + + + + | 03/18/ | Telephone | [place] [facility] | Seven Johns MD | Lab Results | | 2019 | | HOSPITAL NEUROLOGY | [address] | | | | | CLINIC [address] | [place], [place] | | | | | DR [place], | [address] | | | | | [place] [address] | | | | | | [phone] | | | +--------+ + + + [...] | | | | | | [place] [address] | | | | | | [phone] | | | | | | | | | | | | Brittny Warren, | | | | | | [address] | | | | | | [place] | | | | | | [place] [address] | | | | | | [phone] | | | | | | | | +--------+---------+ + + + | 11/26/ | Office | Neurology | Seven Johns MD | | | 2020 | Visit | | [address] | | | | | | [place] | | | | | | [phone] | | | | | | | | +--------+---------+ + + + documented as of this encounter Visit Diagnoses Not on filedocumented in this encounter"
--- OUTSIDE RECORDS SUMMARY | ~2020-02-27 | XMS | Encounter Summary ---
Demographics + + + | Address | [address] | | | [place] [address] | + + + | Home Phone | | + + + | Preferred Language | Unknown | + + + | Marital Status | Single | + + + | Quaker Affiliation | NON | + + + [...] Team Providers + +------+ + | Care Scrap Hooker Name | Role | Phone | + [...] [address] | | | | | Rd [facility] | [facility] | | | | | Hospital Admitting | [place], [place] | | | | | Desk Located on the | [address] | | | | | 9th floor | [phone] | | | | | [place], [place] | | | | | | [address] | Coleen Carpenter, | | | | | | [address] | | | | | | [facility] | | | | | | [place], [place] | | | | | | [address] | | | | | | [phone] | | | | | | | [...]
--- OUTSIDE RECORDS SUMMARY | ~2020-02-27 | XMS | Encounter Summary ---
Demographics + + + | Address | [address] | | | [place] [address] | + + + | Home Phone | | + + + | Preferred Language | Unknown | + + + | Marital Status | Single | + + + | Congregational Affiliation | Unknown | + + + | Race | Unknown | + + + | Ethnic Group | Unknown | + + + Author + + + | Author | [facility] | | | and [place] | + + + | Organization | [facility] | | | [...] Team Providers + +------+ + | Care Certified Welding Inspector Name | Role | Phone | [...] | DR [place], | [place] [address] | | | | | [place] [address] | [phone] | | | | | [phone] | | | +--------+ + + + [...] | | | | | | [place] [address] | | | | | | [phone] | | | | | | | | | | | | Brittny Warren, | | | | | | [address] | | | | | | [place] | | | | | | [place] [address] | | | | | | [phone] | | | | | | | | +--------+---------+ + + + | 11/26/ | Office | Neurology | Seven Johns MD | | | 2020 | Visit | | [address] | | | | | | [place] | | | | | | [address] | | | | | | | [...]
--- OUTSIDE RECORDS SUMMARY | ~2020-02-27 | XMS | Encounter Summary ---
Demographics + + + | Address | [address] | | | [place] [address] | + + + | Home Phone | | + + + | Preferred Language | Unknown | + + + | Marital Status | Single | + + + | Druze Affiliation | Unknown | + + + | Race | Unknown | + + + | Ethnic Group | Unknown | + + + Author + + + | Author | [facility] | | | and [place] | + + + | Organization | [facility] | | | and [...] Team Providers + +------+ + | Care Therapeutic Sales Specialist Name | Role | Phone | [...] 2019 | | HOSPITAL NEUROLOGY | Jax, FINISHING TUNNEL OPERATOR [address] | | | | | CLINIC [address] | [address] [place], | | | | | [address] [place], | [place] [address] | | | | | [place] [address] | [phone] | | | | | [phone] | | | +--------+--------+ + + + [...] | | | | | | [place] [address] | | | | | | [phone] | | | | | | | | | | | | Britt[place], | | | | | | MD [address] | | | | | | [address]IVE, [place] | | | | | | [place] [address] | | | | | | [phone] | | | | | | | | +--------+---------+ + + + | 11/26/ | Office | Neurology | Seven Johns MD | | | 2020 | Visit | | [address] | | | | | | [place] | | | | | | [address] | | | | | | | [...]
--- OUTSIDE RECORDS SUMMARY | ~2020-02-27 | XMS | Encounter Summary ---
Demographics + + + | Address | [address] | | | [place] [address] | + + + | Home Phone [...] Author + + + | Author | [facility] | + + + | Organization | [facility] | + + + | Address [...] Team Providers + +------+ + | Care Casing Flusher Name | Role | Phone | + [...] | | | Rd CHIKI Christianson | [facility] [address] | [place] | | | | Hospital Admitting | [place], [place] | | | | | Desk Located on the | [address] | | | | | 9th floor | [phone] | | | | | [place], [place] | | | | | | [address] | | | +--------+---------+ + + + [...] 04/06/2019 | | Attending Surgeon:Isael Champion MD Furnace Packer(s):Kev Strickland, | | Munir Pinon MD Preoperative [...] | | bluntly dissected off with a [place] and lesion grossly removed. I also used a rongeur | | to diamond picker some additional slightly abnormal-looking tissue. Once the [...] 04/06/2019 | | 10:12:33DT: 04/06/2019 10:42:16Job #: [id number] | |I, Isael Champion, was present and scrubbed for the entire procedure. | | | |Counts were correct at the end. | | | | | | | |Isael Champion MD | |DIANE/GHAZALA | | | | | | /[id number] | + + SURGICAL PATHOLOGY (04/06/2019 9:56 [...] PathologistPathology, | | | | | | [facility] | | | | | | [...] | | | | | | number [id number].A. | | | | | | Hand, [...] | + + + + + | [facility] | [address] | [place] [address] | | | PATHOLOGY | [address] [...] [place] | [address] | [place], [place] | | | [place] [facility] [place] | [address] | [address] | | | TESTS | | | [...] PDT | | | | | Starting [facility] 04/06/19 at 0817, | | | | | | | Until [facility] 04/06/19 at 0900 | | | | | | + +--------+ + +------+------+ + +---+ | | | + +---+ | acetaminophen (TYLENOL) tablet | | | 1 dose, Starting [facility] 04/06/19 at | | | 0819, Until [facility] 04/06/19 at 0900 | | + +---+ | | | + +---+ | fentaNYL (SUBLIMAZE) injection | | | 25-50 mcg 25-50 mcg, | | | intravenous, POSTPROCEDURE PRN, 8 | | | doses, Starting [facility] 04/06/19 at | | | 0948, Until [facility] 04/06/19 at 1718, | | | [...] PDT | | | | | Starting [facility] 04/06/19 at 0817, | | | | | | | Until [facility] 04/06/19 at 0901 | | | | | | + +-------+ +--------+---+---+ + +---+ | | | + +---+ | gabapentin (NEURONTIN) capsule | | | 1 dose, Starting [facility] 04/06/19 at | | | 0820, Until [facility] 04/06/19 at 0901 | | + +---+ | | | + +---+ + +-------+ +---------+---+---+ | HYDROcodone-acetaminophen | Given | 04/06/20 | 2 | | | | (NORCO) 5-325 mg tablet 1-2 | | 19 10:31 | tablets | | | | tablet 1-2 tablet, oral, EVERY 4 | | AM PDT | | | | | HOURS NEEDED, Starting [facility] | | | | | | | 04/06/19 at 1021, Until [facility] | | | | | | | 04/06/19 at 1718, moderate pain | | | | | | + +-------+ +---------+---+---+ + +---+ | | | + +---+ | HYDROcodone-acetaminophen | | | (NORCO) 5-325 mg tablet 1 dose, | | | Starting [facility] 04/06/19 at 1025, | | | Until [facility] 04/06/19 at 1031 | | + +---+ | | | + +---+ + +-------+ +--------+---+---+ | HYDROmorphone (DILAUDID) | Given | 04/06/20 | 0.5 mg | | | | injection 0.2-0.5 mg 0.2-0.5 mg, | | 19 10:40 | | | | | intravenous, POSTPROCEDURE PRN, | | AM PDT | | | | | Starting [facility] 04/06/19 at 0948, | | | | | | | Until [facility] 04/06/19 at 1718, | | | [...] | | | PRN, 1 dose, Starting [facility] 04/06/19 | | | at 0948, Until [facility] 04/06/19 at | | | 1718, nausea/vomiting, 1st line | | + +---+ | | | + +---+ documented in this encounter
--- OUTSIDE RECORDS SUMMARY | ~2020-02-27 | XMS | Encounter Summary ---
Demographics + + + | Address | [address] | | | [place] [address] | + + + | Home Phone [...] Author + + + | Author | [facility] | + + + | Organization | [facility] | + + + | Address [...] Team Providers + +------+ + | Care Energy Infrastructure Engineer Name | Role | Phone | [...] | | | uncertain | Good | [address] [facility] | | | | | behavior of | Carlos | [place] | | | | | connective | Medical | Rd | | | | | and other | [place] [address] | [place], [place] | | | | | soft tissue | Nw | [address] | | | | | Neoplasm of | [place], | Phone: | | | | | uncertain | [place] [address] | [phone] | | | | | behavior of | Phone: | Fax: | | | | | bone and | [phone] | [phone] | | | | | articular | Fax: | | | | | | cartilage | [phone] | | | | | | Procedures | | | | | | | REQUEST TO | | | | | | | SURGERY | | | | | | | ECHO VASCULAR TECHNOLOGIST | | | | | | | NV EXCIS | | | | | | | SOFT TISSUE | | | | | | | LESION HAND | | | | | | | DEEP NV EXC | | | | | | | HAND TURN | | | | | | | DEEP>1.5CM | | | | | | | NV EXCIS | | | | | | | BENIGN BONE | | | | | | | LESN,PHALANX | | | | | | | NV PART | | | | | | | REMV | | | | | | | BONE,PROX/MA | | | | | | | D PHALANX | | | | | | | NV PART REMV | | | | | [...] | 2019 | Orders | [facility] [facility] | [address] | | | | | for [facility] and | [place] | | | | | Healing [address] | [place], [place] | | | | | Marcie Mailcode: | [address] | | | | | [facility] | [phone] | | | | | Health and Healing, | | | | | | [facility] | | | | | | Floor [place], [place] | | | | | | [address] | | | | | | [phone] | | | +--------+ + + + [...]
--- OUTSIDE RECORDS SUMMARY | ~2020-02-27 | XMS | Encounter Summary ---
Demographics + + + | Address | [address] | | | [place] [address] | + + + | Home Phone [...] Providers + +------+ + | Care Manager Food Name | Role | Phone | + [...] | | | | CENTER [address] | [address] [place] | (Primary Dx) | | | | [place], [place] | [place] [address] | | | | | [address] | [phone] | | | | | [phone] | | | +--------+ + + + [...] be sent through Care Everywhere.Abdominal Pain, Adult (Wolof)documented in this encounter Medications at Time of [...] | | | | | | [address] [facility], | | | | | | [place] [address] | | | | | | [phone] | | | | | | | | | | | | Brittny Warren, | | | | | | [address] | | | | | | [place] | | | | | | [place] [address] | | | | | | [phone] | | | | | | | | +--------+---------+ + + + | 11/26/ | Office | Neurology | Seven Johns MD | | | 2020 | Visit | | [address] | | | | | | [place], [place] | | | | | | [address] | | | | | | | [...] - 1.030 | [facility] | | | [place], | | | [facility] | | [...] | | Urine | | | [facility] | | | | | | MEDICAL [...] Few (A) | None Seen /HPF | [facility] | | | Crystals, | | | [facility] | | [...] ST. | [address] | [place] | [phone] | | [facility] | | [address] | | | - LABORATORY | | [...] | Top Tube | | | [facility] | | [...] + + | [facility] | [address] | [place] | [phone] | | [facility] | | [address] | | | - LABORATORY | | [...] | | | Lavender | | | [facility] | | | Top Tube | | [...] + + | [facility] | [address] | [place] | [phone] | | [facility] | | [address] | | | - LABORATORY | | | | + + + + + Extra Blue Top Tube (05/30/2017 12:26 PM PDT) + +-------+ + + + | Component | Value | Ref Range | Performed | Pathologist | | | | | At | Signature | + +-------+ + + + | Extra Blue | Done | | [facility] | | [...] + | [facility] | [address] | [place] | [phone] | | [facility] | | [address] | | | - LABORATORY | | [...] | | | Serum | | | [facility] | | | | [...] + + | [facility] | [address] | [place] | [phone] | | [facility] | | [address] | | | - LABORATORY | | | | + + + + + Lipase (05/30/2017 12:26 PM PDT) + +-------+ + + + | Component | Value | Ref Range | Performed | Pathologist | | | | | At | Signature | + +-------+ + + + | Lipase | 26 | 0 - 60 U/L | [facility] | | | | | | [facility] | | | | | | MEDICAL | | | | | | CENTER - | | | | | | LABORATORY | | + +-------+ + + + + + | Specimen | + + | Blood | + + + + + + + | Performing | Address | City/State/[facility] | Phone Number | | Organization | | | | + + + + + | [facility] | [address] | [place] | [phone] | | [facility] | | [address] | | | - LABORATORY | | [...] | | | | mmol/L | [facility] | | | | | | MEDICAL | | | | | | CENTER - | | | | | | LABORATORY | | + + + + + + | K | 4.7 | 3.5 - 5.1 | [facility] | | | | | mmol/L | [facility] | | | | | [...] 10 | 7 - 18 mg/dL | [facility] | | | | | | [facility] | | | | | | MEDICAL | | | | | | CENTER - | | | | | | LABORATORY | | + + + + + + | Creatinine | 0.84 | 0.60 - 1.30 | [facility] | | | | | mg/dL | [facility] | | | | | | MEDICAL | | | | | | CENTER - | | | | | | LABORATORY | | + + + + + + | eGFR if not | >60Comment: GLOMERULAR | >=60 | [facility] | | | | FILTRATION | mL/min/1.73m2 | [facility] | | | TAJIK | RATE,ESTIMATED | | MEDICAL | | | | mL/min/1.56d2Ctph than | | CENTER - | | [...] 4.1 | 3.2 - 5.0 g/dL | [facility] | | | | [...] | bulin Ratio | | | [facility] | | | | | | MEDICAL | | | | | | CENTER - | | | | | | LABORATORY | | + + + + + + | BUN/Creatin | 11.9 | | [facility] | | | ine Ratio | | | [facility] | | [...] ST. | [address] | [place], [place] | [phone] | | [facility] | | [address] | | | - LABORATORY | | [...] | | | | M/uL | [facility] | | | | [...] | | | Eosinophils | | | [facility] | | [...] | | Lymphocytes | | K/uL | [facility] | | | | | | MEDICAL | | | | | | CENTER - | | | | | | LABORATORY | | + + + + + + | Absolute | 0.70 | 0.00 - 1.00 | [facility] | | | Monocytes | | K/uL | [facility] | | | | | | MEDICAL | | | | | | CENTER - | | | | | | LABORATORY | | + + + + + + | Absolute | 0.60 (H) | 0.00 - 0.40 | [facility] | | | Eosinophils | | K/uL | [facility] | | | | | | MEDICAL | | | | | | CENTER - | | | | | | LABORATORY | | + + + + + + | Absolute | 0.10 | 0.00 - 0.10 | [facility] | | | Basophils | | K/uL | [facility] | [...] + + | [facility] | [address] | [place] | [phone] | | [facility] | | [address] | | | - LABORATORY | | [...] | | | | | | Maalox. Shake well., | | | | | | + [...] | | | | | MAALOX. Erasmo mcclure., | | | | | | + +-------+ +--------+---+---+ +---+---+ | | | +---+---+ + +-------+ +------+---+---+ | ondansetron (ZOFRGAYLE MORET) | Given | 05/30/20 | 4 mg [...]
--- OUTSIDE RECORDS SUMMARY | ~2020-02-27 | XMS | Encounter Summary ---
Demographics + + + | Address | [address] | | | [place] [address] | + + + | Home Phone | | + + + | Preferred Language | Unknown | + + + | Marital Status | Single | + + + | Islam Affiliation | NON | + + + [...] Team Providers + +------+ + | Care Slipcover Cutter Name | Role | Phone | + [...]
--- OUTSIDE RECORDS SUMMARY | ~2020-02-27 | XMS | Encounter Summary ---
Demographics + + + | Address | [address] | | | [place] [address] | + + + | Home Phone [...] Team Providers + +------+ + | Care Contact Lens Edge Buffer Name | Role | Phone | + [...] | | | | | Procedures | [address] | [phone] | | | | | CONSULT TO | Phone: | Phone: | | | | | [facility] | [phone] | [phone] | | | | | SURGERY DC | Fax: | Fax: | | | | | MOHS,1 | [phone] | [phone] | | | | | STAGE,H/N/HF | | | | | | | /G DC MOHS | | | | | | | ADDL STAGE | | | | | | | DC MOHS | | | | | | | SURG, ADDL | | | | | | | BLOCK DC | | | | | | | REPR CMPL | | | | | | | WND | | | | | | | HEAD,FAC,SMILEY | | | | | | | D 1.1-2.5 | | | | | | | DC REPR CMPL | | | | | | | WND | | | | | | | HEAD,FAC,SMILEY | | | | | | | D 2.6-7.5 | | | | | | | DC | | | | | | | REP,FACE,GEN | | | | | | | ITAL,HAND,FT | | | | | | | +5CM/< DC | | | | | | | ADJ TISS | | | | | | | XFER | | | | | | | HEAD,FAC,SMILEY | | | | | | | D <10SQCM | | | | | | | DC ADJ TISS | | | | | | | XFER | | | | | | | HEAD,FAC,SMILEY | | | | | | | D 10.1-30 | | | | | | | DC SKIN | | | | | | | TISSUE | | | | | | | REARRANGEMEN | | | | | | | T DC SKIN | | | | | | | TISSUE | | | | | | | REARRANGEMEN | | | | | | | T ADD-ON DC | | | | | | | SPLIT | | | | | | | GRFT,HEAD,FA | | | | | | | C,HAND,FEET | | | | | | | <100CM DC | | | | | | | FULL THICK | | | | | | | GRFT | | | | | | | HEAD,FAC,SMILEY | | | | | | | D <20SQC DC | | | | | | | FULL THICK | | | | | | | GRFT | | | | | | | HEAD,FAC,MAX | | | | | | | ADD 20SQ DC | | | | | | | FORM SKIN | | | | | | | PEDICLE FLAP | | | | | | | | | | | | | | FACE,GEN,SMILEY | | | | | | | D DC | | | | | | | [...] | 2019 | | Surgery at [facility] [address] | Kev Ashton MD [address] | (SCC right thumb ) | | | | [address] | [address] [place], | | | | | Mailcode: [id number] | [place] [address] | | | | | [facility] | [phone] | | | | | and Healing, | | | | | | Building | | | | | | [place], [place] | | | | | | [address] | | | | | | [phone] | | | +--------+ + + + [...] mes. Repeat this process 3-5 times daily. [facility] DEPARTMENT OF DERMATOLOGY [address] [place] [address], WOUND CARE INSTRUCTIONS General Care-All Wounds [...] the second week, the graft should become environmental research scientist pink and will turn flesh colored, tho [...] than the day before. How to Reach [phone] Toll-free [phone] Evenings and Weekends: [phone] [facility] DEPARTMENT OF DERMATOLOGY [address] [place] [address], GRANULATING WOUND CARE INSTRUCTIONS General Care-All Wounds [...] redness, warmth and drainage) How to Reach [phone] Toll-free [phone] Evenings and Weekends: [phone] documented in this encounter Progress Notes Sumeet [...] procedure was processed, read and resulted in [facility] Dermatologic Surgery, [address] [facility] [place] [place] [address] MOHS MICROGRAPHIC SURGERY PROCEDURE NOTE 06/26/2019 ATTENDING SURGEON: Kev Davis M.D. INSTALLER APPRENTICE: Sumeet Baca M.D. Pretreatment lesion size of [...]
--- OUTSIDE RECORDS SUMMARY | ~2020-02-27 | XMS | Encounter Summary ---
Demographics + + + | Address | [address] | | | [place] [address] | + + + | Home Phone [...] Team Providers + +------+ + | Care Gas Tester Name | Role | Phone | + [...]
--- OUTSIDE RECORDS SUMMARY | ~2020-02-27 | XMS | Encounter Summary ---
Demographics + + + | Address | [address] | | | [place] [address] | + + + | Home Phone | | + + + | Preferred Language | Unknown | + + + | Marital Status | Single | + + + | Sikh Affiliation | Unknown | + + + [...] Team Providers + +------+ + | Care Fish Hatchery Specialist Name | Role | Phone | [...] | | | [address] [place], | [address] | | | | | [place] [address] | | | | | | [phone] | | | +--------+ + + + [...] this encounter Progress Notes Pedro Brock CC [facility] - 12/08/2019 3:45 PM PSTTrigger Point Thoracic. Patient had no c omplaints after trigger point, BP 110/65 Pulse 95. Patient given instructions verbally and tyron thapa, patient stated understanding and ambulated to [facility] without difficulty or assistance . Electronically signed by: TORI Alicia [facility] 12/08/2019 4:17 PM documented in this enc ounter Plan of Treatment +--------+---------+ + + + | Date | Type | Specialty | Care Team | Description | +--------+---------+ + + + | 02/27/ | Office | Neurology | [place], | | | 2019 | Visit | | [address] | | | | | [address] [place], | | | | | | [place] [address] | | | | | | [phone] | | | | | | | | | | | | Brittny Warren, | | | | | | [address] | | | | | | [address] | | | | | | [place] [address] | | | | | | [phone] | | | | | | | | +--------+---------+ + + + | 11/26/ | Office | Neurology | Seven Johns MD | | | 2020 | Visit | | [address] | | | | | | [place], [place] | | | | | | [address] | | | | | | | | +--------+---------+ + + + documented as of this encounter Procedures + +--------+ + + + | Procedure Name | Priori | Date/Time | Associated Diagnosis | Comments | | | ty | | | | + +--------+ + + + | ND INJECT TRIGGER | Routin | 12/08/2019 | [...]
--- OUTSIDE RECORDS SUMMARY | ~2020-02-27 | XMS | Encounter Summary ---
Demographics + + + | Address | [address] | | | [place], [place] [address] | + + + | Home Phone [...] Team Providers + +------+ + | Care Compliance Technician Name | Role | Phone | [...] | | | | cell cancer | [address] | Kev Ashton MD | | | | | of skin of | Earl Gonzalez | [address] | | | | | finger, | [address] | [address] | | | | | right | [place], [place] | [place] | | | | | Procedures | [address] | [address] | | | | | CONSULT TO | Phone: | Phone: | | | | | [facility] | [phone] | [phone] | | | | | SURGERY MO | Fax: | Fax: | | | | | MOHS,1 | [phone] | [phone] | | | | | STAGE,H/N/HF | | | | | | | /G MO MOHS | | | | | | | ADDL STAGE | | | | | | | MO MOHS | | | | | | | SURG, ADDL | | | | | | | BLOCK MO | | | | | | | REPR CMPL | | | | | | | WND | | | | | | | HEAD,FAC,SMILEY | | | | | | | D 1.1-2.5 | | | | | | | MO REPR CMPL | | | | | | | WND | | | | | | | HEAD,FAC,SMILEY | | | | | | | D 2.6-7.5 | | | | | | | MO | | | | | | | REP,FACE,GEN | | | | | | | ITAL,HAND,FT | | | | | | | +5CM/< MO | | | | | | | ADJ TISS | | | | | | | XFER | | | | | | | HEAD,FAC,SMILEY | | | | | | | D <10SQCM | | | | | | | MO ADJ TISS | | | | | | | XFER | | | | | | | HEAD,FAC,SMILEY | | | | | | | D 10.1-30 | | | | | | | MO SKIN | | | | | | | TISSUE | | | | | | | REARRANGEMEN | | | | | | | T MO SKIN | | | | | | | TISSUE | | | | | | | REARRANGEMEN | | | | | | | T ADD-ON MO | | | | | | | SPLIT | | | | | | | GRFT,HEAD,FA | | | | | | | C,HAND,FEET | | | | | | | <100CM MO | | | | | | | FULL THICK | | | | | | | GRFT | | | | | | | HEAD,FAC,SMILEY | | | | | | | D <20SQC MO | | | | | | | FULL THICK | | | | | | | GRFT | | | | | | | HEAD,FAC,MAX | | | | | | | ADD 20SQ MO | | | | | | | FORM SKIN | | | | | | | PEDICLE FLAP | | | | | | | | | | | | | | FACE,GEN,SMILEY | | | | | | | D MO | | | | | | | [...] | and other | [address] | [place], [place] | | | | | soft tissue | Nw | [address] | | | | | Neoplasm of | [place], | Phone: | | | | | uncertain | [place] [address] | [phone] | | | | | behavior of | Phone: | Fax: | | | | | bone and | [phone] | [phone] | | | | | articular | Fax: | | | | | | cartilage | [phone] | | | | | | Procedures | | | | | | | REQUEST TO | | | | | | | SURGERY | | | | | | | 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 | | | | | | | MO EXCIS | | | | | | | SOFT TISSUE | | | | | | | LESION HAND | | | | | | | DEEP MO EXC | | | | | | | HAND TURN | | | | | | | DEEP>1.5CM | | | | | | | MO EXCIS | | | | | | | BENIGN BONE | | | | | | | LESN,PHALANX | | | | | | | MO PART | | | | | | | REMV | | | | | | | BONE,PROX/VA | | | | | | | D PHALANX | | | | | | | MO PART REMV | | | | | [...] | 2019 | Visit | [facility] at [place] | Alvina Goldberg PA-C [address] | (Primary Dx); | | | | for Health and | [address] | Squamous cell cancer | | | | Healing [address] | [place], [place] | of skin of finger, | | | | Ave Mailcode: | [address] | right | | | | [address] [facility] | [phone] | | | | | Health and Healing, | | | | | | [facility] | | | | | | Floor [place], [place] | | | | | | [address] | | | | | | [phone] | | | +--------+---------+ + + + [...] next visit. ALVINA DAILEY PA-C [facility] [address] Mailcode: [place] [address] Associated attestation - Isael Champion [...]
--- OUTSIDE RECORDS SUMMARY | ~2020-02-27 | XMS | Clinical Summary ---
Demographics + + + | Address | [address] | | | [place] [address] | + + + | Home Phone | | + + + | Preferred Language | Unknown | + + + | Marital Status | Single | + + + | Zoroastrianism Affiliation | Unknown | + + + | Race | Unknown | + + + | Ethnic Group | Unknown | + + + Author + + + | Author | [facility] (Historical as of | | | 05-27-19) | + + + | Organization | [facility] (Historical as of | | | 05-27-19) | + + + | Address | Unknown | + + + | Phone | Unavailable | + + + Support + + +---------+ + | Name | Relationship | Address | Phone | + + +---------+ + | Collette Benavides | ECON | Unknown | | + + +---------+ + Care Team Providers + +------+ + | Care Galley Hand Name | Role | Phone | + +------+ + | None, Per Pt | PP | [phone] | + +------+ + Allergies + + [...] | + + + + + + Current Medications + + +-------+---------+------+------+-------+ | Prescription | Sig. | Disp. | Refills | Star | End | Statu | | | | | | t | Date | s | | | | | | Date | | | + + +-------+---------+------+------+-------+ | | Take 1 tablet by | | | | | Activ | | oxyCODONE-acetaminop | mouth every 4 (four) | | | | | e | | hen (PERCOCET) | hours as needed for | | | | | | | 10-325 MG per tablet | Pain. | | | | | | + + +-------+---------+------+------+-------+ | | Take 1 tablet by | | | | | Activ | | HYDROcodone-acetamin | mouth every 6 (six) | | | | | e | | ophen (NORCO) 10-325 | hours as needed for | | | | | | | MG per tablet | Pain. | | | | | | + + +-------+---------+------+------+-------+ | Venlafaxine HCl | Take by mouth. | | | | | Activ | | 225 MG TB24 | | | | | | e | + + +-------+---------+------+------+-------+ | cyclobenzaprine | Take 10 mg by mouth | | | | | Activ | | (FLEXERIL) 10 MG | 3 (three) times | | | | | e | | tablet | daily as needed for | | | | | | | | Muscle spasms. | | | | | | + + +-------+---------+------+------+-------+ | diclofenac | Take 75 mg by mouth | | | | | Activ | | (VOLTAREN) 50 MG EC | 2 (two) times daily. | | | | | e | | tablet | | | | | | | + + +-------+---------+------+------+-------+ | gabapentin | Take 300 mg by mouth | | | | | Activ | | (NEURONTIN) 600 MG | daily. | | | | | e | | tablet | | | | | | | + + +-------+---------+------+------+-------+ | LamoTRIgine 200 MG | Take 200 mg by mouth | | | | | Activ | | TB24 | daily. | | | | | e | + + +-------+---------+------+------+-------+ | ziprasidone | Take 40 mg by mouth | | | | | Activ | | (GEODON) 40 MG | 2 (two) times daily | | | | | e | | capsule | with meals. | | | | | | + + +-------+---------+------+------+-------+ | melatonin 3 MG | Take 12 mg by mouth | | | | | Activ | | TABS | nightly. | | | | | e | + + +-------+---------+------+------+-------+ Active Problems Not on file Social History + +-------+ +--------+------+ | Tobacco Use | Types | Packs/Day | Years | Date | | | | | Used | | + +-------+ +--------+------+ | Current Every Day | | 1 | | | | Smoker | | | | | + +-------+ +--------+------+ + + +---------+ + | Alcohol Use | Drinks/We | oz/Week | Comments | | | ek | | | + + +---------+ + | Yes | | | rare | + + +---------+ + + + + | Sex Assigned at | Date Recorded | | | | + + + | Not on file | | + + + Last Filed Vital Signs + + + + | Vital Sign | Reading | Time Taken | + + + + | Blood Pressure | 139/92 | 03/26/2019 10:40 PM PDT | + + + + | Pulse | 88 | 03/26/2019 10:40 PM PDT | + + + + | Temperature | 37.3 C (99.1 F) | 03/26/2019 5:28 PM PDT | + + + + | Respiratory Rate | 16 | 03/26/2019 10:40 PM PDT | + + + + | Oxygen Saturation | 99% | 03/26/2019 10:40 PM PDT | + + + + | Inhaled Oxygen | - | - | | Concentration | | | + + + + | Weight | 104.3 kg (230 lb) | 03/26/2019 8:16 PM PDT | + + + + | Height | - | - | + + + + | Body Mass Index | - | - | + + + + Plan of Treatment + + + + + | Health Maintenance | Due Date | Last Done | Comments | + + + + + | Vaccine: | 07/05/ | | | | Pneumococcal 19-64 | 7 | | | | (PPSV23 only) Medium | | | | | Risk (1 of 1 - | | | | | PPSV23) | | | | + + + + + | Vaccine: | | 03/02/2006, 05/12/2002 | | | Dtap/Tdap/Td (3 - | 1 | | | | Td) | | | | + + + + + | Cervical Cancer | | | | | Screening (Pap) | 8 | | | + + + + + | Vaccine: Influenza | | | | | (Season Ended) | 0 | | | + + + + + Results Not on filefrom Last 3 Months Insurance + +--------+ +------+-------+ + | Payer | Benefi | Subscriber | Type | Phone | Address | | | t Plan | ID | | | | | | / | | | | | | | Group | | | | | + +--------+ +------+-------+ + | MEDICAID | [employer] | [id number] | | | [address] | | | N | | | | [place], [place] | | | [place] | | | | [address] | | | [facility] | | | | | + +--------+ +------+-------+ + + +--------+ +--------+ + + | Guarantor Name | Accoun | Relation to | Date | Phone | Billing Address | | | t Type | Patient | of | | | | | | | | | | + +--------+ +--------+ + + | LINDA SINGLETON | Person | Self | [birth year] | Home: | [address] | | | al/Fam | | 1989 | [phone] [place] [address] | | | alexandro | | | [phone] | | + +--------+ +--------+ + +
--- OUTSIDE RECORDS SUMMARY | ~2020-02-27 | XMS | Encounter Summary ---
Demographics + + + | Address | [address] | | | [place] [address] | + + + | Home Phone [...] Providers + +------+ + | Care Front Office Supervisor Name | Role | Phone | [...] [facility] | | | | | | [address] | | | | | | Loop Physician's | | | | | | [place], [address] Floor | | | | | | [place], [place] | | | | | | [address] | | | | | | [phone] | | | +--------+ + + + [...]
--- OUTSIDE RECORDS SUMMARY | ~2020-02-27 | XMS | Encounter Summary ---
Demographics + + + | Address | [address] | | | [place] [address] | + + + | Home Phone | | + + + | Preferred Language | Unknown | + + + | Marital Status | Single | + + + | Church Affiliation | NON | + + + | Race | White | + + + | Ethnic Group | Not or | + + + Author + + + | Author | [facility] | + + + | Organization | [facility] | + + + | [...] Team Providers + +------+ + | Care Hay Baler Name | Role | Phone | + [...] | | | | | | | [place], [place] | | | | | | | [address] | | | | | | | Phone: | | | | | | | [phone] | | | | | | | Fax: | | | | | | | [phone] | + +--------+ + + + + Encounter Details +--------+---------+ + + + | Date | Type | Department | Care Team | Description | +--------+---------+ + + + | 03/29/ | Office | Orthopaedics | Isael Champion, | Finger mass, right | | 2019 | Visit | [facility] at [place] | [address] | (Primary Dx); | | | | for Health and | [address] | Tobacco dependence | | | | Healing [address] | [place], [place] | due to cigarettes; | | | | Ave Mailcode: | [address] | Cigarette smoker | | | | [address] [facility] | [phone] | | | | | Health and Healing, | | | | | | [facility] | | | | | | Floor [place], [place] | | | | | | [address] | | | | | | [phone] | | | +--------+---------+ + + + [...] - 03/29/2019 8:00 AM PDT [place] | [facility] Orthopaedic Oncology New Patient Visit Note Brief [...] referred from by Dr Fraser from the [facility] ED for a Chief Concern of right rene mb possible tumor. HPI: Ms Singleton is a 28 year old woman who lives in the [facility] who is here for evaluation of her [...] lives in [facility], works in [employer], smokes half pack a day, and d [...] signs are noted as recorded by the Catalogue Compiler. General: Alert, awake, and oriented x 3. [...] 03/26/19 was not immediately available (is at [facility]) but report notes possible per iosteal [...] occur. Contact if questions/concerns. Isael Champion MD Carbide Tool Maker, Orthopaedic Oncology [facility] | Department of Orthopaedics & Rehabilitation [...]
--- OUTSIDE RECORDS SUMMARY | ~2020-02-27 | XMS | Encounter Summary ---
Demographics + + + | Address | [address] | | | [place] [address] | + + + | Home Phone | | + + + | Preferred Language | Unknown | + + + | Marital Status | Single | + + + | Sabianist Affiliation | Unknown | + + + | Race | Unknown | + + + | Ethnic Group | Unknown | + + + Author + + + | Author | [facility] | | | and [place] | + + + | Organization | [facility] | | [...] Team Providers + +------+ + | Care Feather Baler Name | Role | Phone | [...] [address] | | | | | [place] [address] | | | | | | [phone] | | | +--------+--------+ + + + [...] | | | | | | [address] [facility], | | | | | | [place] [address] | | | | | | [phone] | | | | | | | | | | | | Brittny Warren, | | | | | | MD [address] | | | | | | [address] | | | | | | [place] [address] | | | | | | [phone] | | | | | | | | +--------+---------+ + + + | 11/26/ | Office | Neurology | Seven Johns MD | | | 2020 | Visit | | [address] | | | | | | [place] | | | | | | [id number] | | | | | | | | +--------+---------+ + + + documented as of this encounter Visit Diagnoses Not on filedocumented in this encounter"
--- OUTSIDE RECORDS SUMMARY | ~2020-02-27 | XMS | Encounter Summary ---
Demographics + + + | Address | [address] | | | [place] [address] | + + + | Home Phone [...] + + + | Author | [facility] | | | and [place] | + + + | Organization | [facility] | | | [...] Team Providers + +------+ + | Care Executive Assistant Name | Role | Phone | [...] | | | unspecified | [place], | [address] Phone: | | | | | Procedures | [place] | [phone] | | | | | Evaluate & | [address] | Fax: | | | | | Treat | Phone: | [phone] | | | | | | [phone] | | | | | | | Fax: | | | | | | | [phone] | | +--------+ + + + + + Encounter Details +--------+---------+ + + + | Date | Type | Department | Care Team | Description | +--------+---------+ + + + | 11/03/ | Office | [place] | Seven Johns MD | Other cardiomyopathy | | 2019 | Visit | HOSPITAL NEUROLOGY | [address] | ([facility]) (Primary Dx); | | | | CLINIC [address] | [place] | Fibromyalgia; | | | | DR RAMSEY [place], | [address] | 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 Patient Instructions [facility] Neurology Clinic Dr. Seven Johns, Neurologist Date:11/03/2018 [...] call JUSTINE Pearson or Dr. Johns at [facility] Neurology Clinic General Neck and Back Pain [...] are taking other medicines. You may use jmiy-usm-qfgyyow medicine to control pain, unless another pain [...] by your healthcare provider Date Last Reviewed: 04/10/201619994575-4503 The [employer]. [address] [place] [address], [place] [address]. All righ ts reserved. This information is [...] When you eat out, ask that the pipe and tank fabricator not add any salt to your dish. Don't eat fried or greasy foods. Be careful of bottled beverages. They can contain a lot of salt. Also check the labels of iwwr-pcl-xtttmgr medicines and supplements. They may be high [...] heart. These programs may be covered by [employer]. Other tips for home care: Limit how [...] talking to your healthcare provider first. Some zffp-ser-rjlofoy medicines and herbal supplements can increase your [...] hands, feet, or ankles Date Last Reviewed: 11/11/201619997996-[address] [employer] [place] [address], [place] [address]. All righ ts reserved. This information is [...] Arthritis Foundation www.arthritis.org National Fibromyalgia Association www.fmaware.org [place] Fibromyalgia Syndrome Association www.afsafund.org Date Last Reviewed: 11/24/201519991216-9072 The [employer] Report. [address] [place] [address], [place] [address]. All righ ts reserved. This information is [...] acupuncture, massage, and others. Date Last Reviewed: 09/10/201719996335-9201 The [employer] Report. [address] [place] [address], [place] [address]. All righ ts reserved. This information is [...] massage, and other methods. Date Last Reviewed: 10/11/201719993517-7310 The [employer] Report. [address] [place] [address], [place] [address]. All righ ts reserved. This information is [...] | | | | | | [place] [address] | | | | | | [phone] | | | | | | | | | | | | Brittny Warren | | | | | | [address] | | | | | | [address] | | | | | | [place] [address] | | | | | | [phone] | | | | | | | | +--------+---------+ + + + | 11/26/ | Office | Neurology | Seven Johns MD | | | 2020 | Visit | | [address] | | | | | | [place] | | | | | | [id number] | | | | | | | [...]
--- OUTSIDE RECORDS SUMMARY | ~2020-02-27 | XMS | Encounter Summary ---
Demographics + + + | Address | [address] | | | [place] [address] | + + + | Home Phone | | + + + | Preferred Language | Unknown | + + + | Marital Status | Single | + + + | Rastafari Affiliation | Unknown | + + + | Race | Unknown | + + + | Ethnic Group | Unknown | + + + Author + + + | Author | [facility] | | | and [place] | + + + | Organization | [facility] | | [...] Providers + +------+ + | Care Law Secretary Name | Role | Phone | + [...] | | [address] | | | | | [address] | [address] | | | | | [place] | [place] | | | | | [address] | [address] | | | | | [phone] | | | | | | | [...] | | | | | | [place] [address] | | | | | | [phone] | | | | | | | | | | | | Brittny Warren, | | | | | | [address] | | | | | | [address] | | | | | | [place] [address] | | | | | | [phone] | | | | | | | | +--------+---------+ + + + | 11/26/ | Office | Neurology | Seven Johns MD | | | 2020 | Visit | | [address] | | | | | | [place] | | | | | | [address] | | | | | | | [...] | color flow Doppler was perfomed at [facility]. Study: This was a technically | [...] 0.65 m/s | | | MV Dec [place]: 3.53 m/s2 MV DecT: 141.98 ms MV E Kamron: 0.50 | | | m/s MV E/A Ratio: 0.76 MV PHT: 41.17 ms MVA By PHT: 5.34 | | | cm2 Septal e': 0.07 m/s Septal E/e': 6.62 Lateral e': 0.09 | | | m/s Lateral E/e': 5.26 TR maxP.50 mmHg TR Vmax: 1.76 | | | m/s Pulmonary Function Technician: DBS Authenticated by: LILLIAM TEMPLE MD | | | Report Date/Time: 09-06-2018 19:15:59 | | + + + + + | Procedure Note | + + | Rufino Jules Conversion - 06/01/2019 5:01 PM PDT Patient Name: Carina Singleton of | | : 1990 Performing Physician: LILLIAM TEMPLE, | | MD INDICATIONS f | | luid overload CONCLUSIONS [...] | color flow Doppler was perfomed at [facility].Study: This was a technically adequate study.Left [...] cmLVIDd: 4.24 cmLVPWd: 1.03 cmLVOT Area: 3.57 qg5WIUA Diam: | | 2.13 cm%FS: 24.76 %EF(Teich): [...] (A-L): 16.54 ml/m2LAAs | | A2C: 12.34 ft0OJQWM A-L A2C: 34.87 mlLALs A2C: 3.70 cmLAAs A4C: 12.94 mv9LDJPZ | | A-L A4C: 37.17 mlLALs A4C: 3.82 cmRAAs: 12.97 dm2CTZNN A-L: 35.50 mlRAESV MOD: | | 33.85 mlRALs: 4.02 cmTAPSE: 1.97 cmAV maxP.44 mmHgAV meanP.72 mmHgAV | | Vmax: 1.16 m/Coco Vmean: 0.75 m/Coco VTI: 15.80 cmAVA Vmax: 2.77 cm2AVA (VTI): | | 3.00 mm7IGKS (Vmax): 0.00 cm2/m2AVAI (VTI): 0.00 cm2/m2LVOT maxP.28 mmHgLVOT | | meanP.74 mmHgLVSI Dopp: 21.48 ml/m2LVSV Dopp: 47.47 mlLVOT Vmax: 0.90 | | m/sLVOT Vmean: 0.62 m/sLVOT VTI: 13.27 cmMV A Kamron: 0.65 m/sMV Dec Loud[place]: 3.53 | | m/s2MV DecT: 141.98 msMV E Kamron: 0.50 m/sMV E/A Ratio: 0.76MV PHT: 41.17 msMVA By | | PHT: 5.34 lq8Lnuecx e': 0.07 m/sSeptal E/e': 6.62Lateral e': 0.09 m/sLateral | | E/e': 5.26TR maxP.50 mmHgTR Vmax: 1.76 m/s Pulmonary Function Technician: DBSAuthenticated by: | | Connie BRUNO Date/Time: [...] A Kamron: 0.65 m/s | |MV Dec Loud[place]: 3.53 m/s2 | |MV DecT: 141.98 ms | |MV E Kamron: 0.50 m/s | |MV E/A Ratio: 0.76 | |MV PHT: 41.17 ms | |MVA By PHT: 5.34 cm2 | |Septal e': 0.07 m/s | |Septal E/e': 6.62 | |Lateral e': 0.09 m/s | |Lateral E/e': 5.26 | |TR maxP.50 mmHg | |TR Vmax: 1.76 m/s | | | |Pulmonary Function Technician: DBS | |Authenticated by: LILLIAM TEMPLE MD [...]
--- OUTSIDE RECORDS SUMMARY | ~2020-02-27 | XMS | Encounter Summary ---
Demographics + + + | Address | [address] | | | [place] [address] | + + + | Home Phone | | + + + | Preferred Language | Unknown | + + + | Marital Status | Single | + + + | Restorationist Affiliation | NON | + + + [...] Team Providers + +------+ + | Care Grants Specialist Name | Role | Phone | [...] | | 2019 | | [facility] at [place] | [address] | | | | | for Health and | [address] | | | | | Healing [address] | [facility] [place] | | | | | Ave Mailcode: | [address] | | | | | [address] | [phone] | | | | | Health and Healing, | | | | | | | | | | | | Floor [place], [place] | | | | | | [address] | | | | | | [phone] | | | +--------+ + + + [...]
--- OUTSIDE RECORDS SUMMARY | ~2020-02-27 | XMS | Encounter Summary ---
Demographics + + + | Address | [address] | | | [place] [address] | + + + | Home Phone | | + + + | Preferred Language | Unknown | + + + | Marital Status | Single | + + + | Zoroastrianism Affiliation | NON | + + + | Race | White | + + + | Ethnic Group | Not or | + + + Author + + + | Author | [facility] | + + + | Organization | [facility] | + + + | Address | Unknown | + + + | Phone | Unavailable | + + + Support + + + + + | Name | Relationship | Address | Phone | + + + + + | Collette [place] | [place] | [place] | | + + + + + Care Team Providers + +------+ + | Care Boom Cat Operator Name | Role | Phone | [...] | 2019 | Visit | Medical at [facility] [address] | Surgical [address] | examination (Primary | | | | [address] | [address] | Dx) | | | | Mailcode: [id number] | Road [place], [place] | | | | | [facility] | [address] | | | | | and [place], | | | | | | Building | | | | | | Floor [place], [place] | | | | | | [address] | | | | | | [phone] | | | +--------+---------+ + + + [...]
--- OUTSIDE RECORDS SUMMARY | ~2020-02-27 | XMS | Encounter Summary ---
Demographics + + + | Address | [address] | | | [place] [address] | + + + | Home Phone [...] Team Providers + +------+ + | Care Personal Development Mentor Name | Role | Phone | + [...]
--- OUTSIDE RECORDS SUMMARY | ~2020-02-27 | XMS | Encounter Summary ---
Demographics + + + | Address | [address] | | | [place] [address] | + + + | Home Phone [...] Team Providers + +------+ + | Care Outside Contractor Sales Name | Role | Phone | + +------+ + | No Pcp Per Patient | PCP | Unavailable | + +------+ + Encounter Details +--------+ + + + + | Date | Type | Department | Care Team | Description | +--------+ + + + + | 06/27/ | Telephone | Dermatology | Ryan, | | | 2019 | | Surgery at [facility] [address] | Kev [place] MD [address] | | | | | [address] | [address] [place], | | | | | Mailcode: [address] | [place] [address] | | | | | [facility] | [phone] | | | | | and Healing, | | | | | | | | | | | | Floor [place], [place] | | | | | | [address] | | | | | | [phone] | | | +--------+ + + + [...]
--- OUTSIDE RECORDS SUMMARY | ~2020-02-27 | XMS | Encounter Summary ---
Demographics + + + | Address | [address] | | | [place] [address] | + + + | Home Phone [...] + + + | Author | [facility] | + + + | Organization | [facility] | + + + | [...] Team Providers + +------+ + | Care Cane Furniture Maker Name | Role | Phone | [...] | | | | | | [address] [place], [place] | | | | | | [address] | | | | | | [phone] | | | +--------+ + + + [...]
--- OUTSIDE RECORDS SUMMARY | ~2020-02-27 | XMS | Encounter Summary ---
Demographics + + + | Address | [address] | | | [place] [address] | + + + | Home Phone [...] + + + | Author | [facility] | + + + | Organization | [facility] | + + + | Address | [...] Providers + +------+ + | Care Pediatric Physician Assistant Name | Role | Phone | [...] [address] | | | | | [address] | [address] | | | | | [place], | [place], [place] | | | | | [place] [address] | [address] | | | | | [phone] | [phone] | | | | | | | [...] 04/06/2019 | | Attending Surgeon:Isael Champion MD Recooperer(s):Kev Strickland, | | Munir Pinon MD Preoperative [...] | | bluntly dissected off with a [place] and lesion grossly removed. I also used a rongeur | | to shrimp picker some additional slightly abnormal-looking tissue. Once [...] procedure. Counts were correct at the end.SAMIR Solnao/JOELDD: 04/06/2019 | | 10:12:33DT: 04/06/2019 10:42:16Job #: [id number] | |I, Isael Champion, was present and scrubbed for the entire procedure. | | | |Counts were correct at the end. | | | | | | | |Isael Champion MD | |DIANE/GHAZALA | | | | | | /[id number] | + + SURGICAL PATHOLOGY (04/06/2019 9:56 [...] PathologistPathology, | | | | | | [facility] | | | | | | University [...] | | | | | | number [id number].A. | | | | | | Hand, [...] | + + + + + | [facility] | [address] | [place] [address] | | | PATHOLOGY | [address] [...] CAL[place] | [address] | [place], [place] | | | [facility] | [address] | [address] | | | TESTS | | | [...] | | | | Starting [facility] 04/06/19 at 0817, | | | | | | | Until [facility] 04/06/19 at 0900 | | | | | | + +--------+ + +------+------+ + +---+ | | | + +---+ | acetaminophen (TYLENOL) tablet | | | 1 dose, Starting [facility] 04/06/19 at | | | 0819, Until [facility] 04/06/19 at 0900 | | + +---+ | | | + +---+ | fentaNYL (SUBLIMAZE) injection | | | 25-50 mcg 25-50 mcg, | | | intravenous, POSTPROCEDURE PRN, 8 | | | doses, Starting [facility] 04/06/19 at | | | 0948, Until [facility] 6/27/19 at 1718, | | | [...] | | | | Starting [facility] 04/06/19 at 0817, | | | [...] | | | | Starting [facility] 04/06/19 at 0948, | | | | | | | Until [facility] 04/06/19 at 1718, | | | [...] | | | | | CONTINUOUS, Starting [facility] 04/06/19 | anesthes | AM PDT [...] PRN, 1 | | | dose, Starting [facility] 04/06/19 at | | | 0948, [...] PRN, 1 dose, | | | Starting [facility] 04/06/19 at 0948, | | | Until [facility] 04/06/19 at 1718, | | | nausea/vomiting, 2nd line | | + +---+ | | | + +---+ | promethazine (PHENERGAN) | | | injection 6.25-12.5 mg 6.25-12.5 | | | mg, intravenous, POSTPROCEDURE | | | PRN, 1 dose, Starting [facility] 04/06/19 | | | at 0948, Until [facility] 04/06/19 at | | | 1718, nausea/vomiting, 1st line | | + +---+ | | | + +---+ documented in this encounter
--- OUTSIDE RECORDS SUMMARY | ~2020-02-27 | XMS | Encounter Summary ---
Demographics + + + | Address | [address] | | | [place] [address] | + + + | Home Phone | | + + + | Preferred Language | Unknown | + + + | Marital Status | Single | + + + | Mu-Ism Affiliation | Unknown | + + + | Race | Unknown | + + + | Ethnic Group | Unknown | + + + Author + + + | Author | [facility] | | | and [place] | + + + | Organization | [facility] | | | [...] Team Providers + +------+ + | Care Athlete Marketing Agent Name | Role | Phone | [...] | | | | | | [place] [address] | | | | | | [phone] | | | +--------+ + + + [...] | | | | | | [place] [address] | | | | | | [phone] | | | | | | | | | | | | Brittny Warren, | | | | | | [address] | | | | | | [place] | | | | | | [place] [address] | | | | | | [phone] | | | | | | | [...]
--- OUTSIDE RECORDS SUMMARY | ~2020-02-27 | XMS | Encounter Summary ---
Demographics + + + | Address | [address] | | | [place] [address] | + + + | Home Phone | | + + + | Preferred Language | Unknown | + + + | Marital Status | Single | + + + | Yazidism Affiliation | NON | + + + [...] Team Providers + +------+ + | Care Film Casting Operator Name | Role | Phone | [...] | 2019 | Encounter | [facility] at [employer] | [address] | | | | | for Health and | [address] | | | | | Healing [address] | [facility] [place] | | | | | Ave Mailcode: | [address] | | | | | [facility] | [phone] | | | | | Health and Healing, | | | | | | [facility] | | | | | | Floor [place], [place] | | | | | | [address] | | | | | | [phone] | | | +--------+ + + + [...]
--- OUTSIDE RECORDS SUMMARY | ~2020-02-27 | XMS | Encounter Summary ---
Demographics + + + | Address | [address] | | | [place] [address] | + + + | Home Phone [...] Team Providers + +------+ + | Care Ore Charger Name | Role | Phone | + [...] as of this encounter Progress Notes Interface, Nature Photographer In - 10/21/2006 1:03 AM PSTCLINIC DATE: 07/18/1998 MULTIDISCIPLINARY BREAST CLINIC REFERRING PHYSICIAN: Unknown. CHIEF COMPLAINT: Breast mass. HISTORY OF THE PRESENT ILLNESS: This is a 8-year-old female who recently noticed a breast lump on one side. Her mother says that a physician in [place] was concerned with possible cancer and may [...] M.D. Resident, General Surgery Shubham Aparicio M.D. Anesthesiology Medical Doctor, General Surgery Section of Surgical Oncology UGO/curtis cc: documente d in this encounter Plan of Treatment Not on filedocumented as of this encounter Visit Diagnoses Not on filedocumented in this encounter"
--- OUTSIDE RECORDS SUMMARY | ~2020-02-27 | XMS | Encounter Summary ---
Demographics + + + | Address | [address] | | | [place] [address] | + + + | Home Phone [...] Providers + +------+ + | Care Pediatric Surgeon Name | Role | Phone | + [...] Rd | | | | | [facility] | [place], [place] | | | | | Health and Healing, | [address] | | | | | | [phone] | | | | | Floor [place], [place] | | | | | | [address] | | | | | | [phone] | | | +--------+ + + + [...]
--- OUTSIDE RECORDS SUMMARY | ~2020-02-27 | XMS | Encounter Summary ---
Demographics + + + | Address | [address] | | | [place] [address] | + + + | Home Phone | | + + + | Preferred Language | Unknown | + + + | Marital Status | Single | + + + | Scientology Affiliation | Unknown | + + + | Race | Unknown | + + + | Ethnic Group | Unknown | + + + Author + + + | Author | [facility] | | | and [place] | + + + | Organization | [facility] | | | and [...] Team Providers + +------+ + | Care Utility Arborist Name | Role | Phone | + [...] | Visit | HOSPITAL NEUROLOGY | Jax, LAMINA SEARCH[address] | peripheral | | | | CLINIC [address] | [address] [place], | neuropathy (Primary | | | | [place], | [place] [address] | Dx); Lumbosacral | | | | [place] [address] | [phone] | radiculopathy; | | | | [phone] | | Fibromyalgia | +--------+---------+ + + [...] are taking other medicines. You may use zpvu-wer-uonmxhk medicine to control pain, unless another pain [...] by your healthcare provider Date Last Reviewed: 04/10/201619993721-1985 The [employer]. [address] [place] [address]. All righ ts reserved. This information is not intended as a substitute for professional medical care. Always follow your healthcare professional's instructions. documented in this encounter Progress Notes Jax Black, LAMINA SEARCHER - 02/21/2020 9:30 AM PDT Patient: Linda Singleton Medical Record: [id number] Date of Services: 02/21/2020 Referring Doctor: MADHAV [...] without any improvement in her symptoms. [facility] also uses essential oils, [...] are intact. There is no dysmetria on lilcnh-bl-txtr and vrtd-blow-rjdx. There are no abnormal or extraneous movements. [...] | | | | | | [place] [address] | | | | | | [phone] | | | | | | | | | | | | Brittny Warren, | | | | | | [address] | | | | | | [place] | | | | | | [place] [address] | | | | | | [phone] | | | | | | | | +--------+---------+ + + + | 11/26/ | Office | Neurology | Seven Johns MD | | | 2020 | Visit | | [address] | | | | | | [place], [place] | | | | | | [address] | | | | | | | [...]
--- OUTSIDE RECORDS SUMMARY | ~2020-02-27 | XMS | Encounter Summary ---
Demographics + + + | Address | [address] | | | [place] [address] | + + + | Home Phone | | + + + | Preferred Language | Unknown | + + + | Marital Status | Single | + + + | Taoism Affiliation | Unknown | + + + [...] Team Providers + +------+ + | Care Program Director Scouting Name | Role | Phone | + +------+ + PCP | Unavailable | + +------+ + Encounter Details +--------+ + + + + | Date | Type | Department | Care Team | Description | +--------+ + + + + | 11/07/ | Hospital | [facility] | | | | 2004 | Encounter | [facility] | | | | | | CENTER [address] | | | | | | [place] | | | | | | [address] | | | | | | [phone] | | | +--------+ + + + [...] | | | | | | [place] [address] | | | | | | [phone] | | | | | | | | | | | | Britt[place], | | | | | | MD [address] | | | | | | [place] | | | | | | [place] [address] | | | | | | [phone] | | | | | | | | +--------+---------+ + + + | 11/26/ | Office | Neurology | Seven Johns MD | | | 2020 | Visit | | [address] | | | | | | [place] | | | | | | [address] | | | | | | | | +--------+---------+ + + + documented as of this encounter Visit Diagnoses Not on filedocumented in this encounter"
--- OUTSIDE RECORDS SUMMARY | ~2020-02-27 | XMS | Encounter Summary ---
Demographics + + + | Address | [address] | | | [place] [address] | + + + | Home Phone [...] Providers + +------+ + | Care Polishing Wheel Setter Name | Role | Phone | [...] | 2019 | Encounter | [facility] [place] | [address] | | | | | for Health and | [address] | | | | | Healing [address] | [facility] [place] | | | | | Ave Mailcode: | [address] | | | | | [facility] | [phone] | | | | | Health and Healing, | | | | | | | | | | | | Floor [place], [place] | | | | | | [address] | | | | | | [phone] | | | +--------+ + + + [...]
--- OUTSIDE RECORDS SUMMARY | ~2020-02-27 | XMS | Encounter Summary ---
Demographics + + + | Address | [address] | | | [place] [address] | + + + | Home Phone [...] + + + | Author | [facility] | | | and [place] | + + + | Organization | [facility] | | [...] Team Providers + +------+ + | Care Vacuum System Tester Name | Role | Phone | + +------+ + PCP | Unavailable | + +------+ + Encounter Details +--------+ + + + + | Date | Type | Department | Care Team | Description | +--------+ + + + + | 05/07/ | Hospital | [facility] | Stacy Crawley, | | | 2012 | Encounter | HOSPITAL EMERGENCY | [address] | | | | | [address] | [place], [place] | | | | | [address] [place], [place] | [address] | | | | | [address] | [phone] | | | | | [phone] | | | +--------+ + + + [...] | | | | | | [address] [facility], | | | | | | [place] [address] | | | | | | [phone] | | | | | | | | | | | | Brittny Warren, | | | | | | [address] | | | | | | [place] | | | | | | [place] [address] | | | | | | [phone] | | | | | | | | +--------+---------+ + + + | 11/26/ | Office | Neurology | Seven Johns MD | | | 2020 | Visit | | [address] | | | | | | [place], [place] | | | | | | [address] | | | | | | | | +--------+---------+ + + + documented as of this encounter Visit Diagnoses Not on filedocumented in this encounter"
--- OUTSIDE RECORDS SUMMARY | ~2020-02-27 | XMS | Encounter Summary ---
Demographics + + + | Address | [address] | | | [place] [address] | + + + | Home Phone [...] + + + | Author | [facility] | + + + | Organization | [facility] | + + + | Address [...] Team Providers + +------+ + | Care Varnish Maker Name | Role | Phone | [...] | | 2019 | | [facility] at [place] | Clinic | | | | | for Health and | | | | | | Healing [address] | | | | | | Ave Mailcode: | | | | | | [address] [facility] | | | | | | Health and Healing, | | | | | | [facility] | | | | | | Floor [place], [place] | | | | | | [address] | | | | | | [phone] | | | +--------+ + + + [...] PDT MEDICAL REVIEW #3 Patient: Linda Singleton [id number] Problem: R thumb tumor, infection Records: CE Referring Provider: Dr Fraser [facility] ED Direct referral: N o History of cancer: None Images: March XR, CT Traveling to [facility]? YES past [place] Notes: Tumor vs UE? CAMELIA needed? Can [...] Have you [facility] this [facility] Hernan [facility] CE Do you have a referring provider? 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 no Note: We do not accept WC under [place] as they do not pay at [place] rates. Other out of state claims will only be accepted if they agree to pay at [place] rates docume nted in writing from adjustor. Can you confirm the insurance we will be billing for this visit? Medicaid Note: If OHP, please note which type. E.g. [place], [place], [employer], etc .) Reminder: Please create referrals for pts with: HMO, OHP, [place], Self-Pay, W/C, TPL an d ED Post- Ops Can you verify your Primary Care Provider? no Note: Please update Primary Care Provider in Therapydia. Are you a current smoker or tobacco [...] they d like to sign up for Thing5hart ? Don t forget to pull in CareEveryWhere Additional Comments: documented in this encounte r Plan of Treatment Not on filedocumented as of this encounter Visit Diagnoses Not on filedocumented in this encounter
--- OUTSIDE RECORDS SUMMARY | ~2020-02-27 | XMS | Encounter Summary ---
Demographics + + + | Address | [address] | | | [place] [address] | + + + | Home Phone | | + + + | Preferred Language | Unknown | + + + | Marital Status | Single | + + + | Shinto Affiliation | Unknown | + + + [...] Team Providers + +------+ + | Care [employer] Dean Name | Role | Phone | + [...] | Appointment | | 2018 | | [facility] NEUROLOGY | CC CRYOGENICS ENGINEER | | | | | CLINIC [address] | | | | | | DR [place], | | | | | | [place] [address] | | | | | | [phone] | | | +--------+ + + + [...] | | | | | | [place] [address] | | | | | | [phone] | | | | | | | | | | | | Brittny Warren, | | | | | | [address] | | | | | | [place] | | | | | | [place] [address] | | | | | | [phone] | | | | | | | | +--------+---------+ + + + | 11/26/ | Office | Neurology | Seven Johns MD | | | 2020 | Visit | | [address] | | | | | | [place] | | | | | | [address] | | | | | | | | +--------+---------+ + + + documented as of this encounter Procedures + +--------+ + + + | Procedure Name | Priori | Date/Time | Associated Diagnosis | Comments | | | ty | | | | + +--------+ + + + | YUE DUR[place], | Routin | 03/13/2019 | | [...] Performed at: [facility] [place] [facility] [facility] CLIA: [id number] - [address] | REFERENCE LAB | | [place] [address] | [facility] | + + + + + + + + | Performing | Address | City/State/Zipcode | Phone Number | | Organization | | | | + + + + + | REFERENCE LAB | [address] | [place] | [phone] | | [facility] | | [address] | | + + + + + | REFERENCE LAB | [address] | [place], [place] | [phone] | | [facility] | | [address] | | + + + + + [...] Performed at: [facility] CLIA: [id number] - [address] | REFERENCE LAB | | [place] [address] | [facility] | + + + + + + + + | Performing | Address | City/State/Zipcode | Phone Number | | Organization | | | | + + + + + | REFERENCE LAB | [address] | [place] | [phone] | | [facility] | | [address] | | + + + + + | REFERENCE LAB | [address] | [place], [place] | [phone] | | [facility] | | [address] | | + + + + + [place] Screen, Qual, Reflex (03/13/2019 2:03 PM PDT) + + [...] Performed at: [facility] CLIA: [id number] - [address] | REFERENCE LAB | | [place] [address] | [facility] | + + + + + + + + | Performing | Address | City/State/Zipcode | Phone Number | | Organization | | | | + + + + + | REFERENCE LAB | [facility] [place] | [place] | [phone] | | [facility] | | [address] | | + + + + + | REFERENCE LAB | [facility] [place] | [place] | [phone] | | [facility] | | [address] | | + + + + + Vitamin B-12 03/13/2019 2:03 PM PDT) + + + + + + | Component | Value | Ref Range | Performed | Pathologist | | | | | At | Signature | + + + + + + | Vitamin B12 | 1108Comment: Please | 232 - 1245 | REFERENCE | | | | note [...] + + | Testing Performed at: [facility] [place] [facility] CLIA: [id number] - [address] | REFERENCE LAB | | [place] [address] | [facility] | + + + + + + + + | Performing | Address | City/State/Zipcode | Phone Number | | Organization | | | | + + + + + | REFERENCE LAB | [address] | [place] | [phone] | | [facility] | | [address] | | + + + + + | REFERENCE LAB | [address] [facility] | [place] | [phone] | | [facility] | | [address] | | + + + + + documented in this encounter Visit Diagnoses Not on filedocumented in this encounter"
--- OUTSIDE RECORDS SUMMARY | ~2020-02-27 | XMS | Encounter Summary ---
Demographics + + + | Address | [address] | | | [place] [address] | + + + | Home Phone [...] Team Providers + +------+ + | Care Flower Grader Name | Role | Phone | + +------+ + PCP | Unavailable | + +------+ + Encounter Details +--------+ + + + + | Date | Type | Department | Care Team | Description | +--------+ + + + + | 03/19/ | Emergency | [facility] | Hunter Hernandez, | Contusion of right | | 2017 | | MEDICAL CENTER | [address] | thigh, initial | | | | EMERGENCY CENTER | [place], [place] | encounter; Elevated | | | | [address] | [address] | BP; Personal history | | | | [place] | | of fibromyalgia; | | | | [address] | | Acute leg pain, | | | | [phone] | | right | +--------+ + + [...] | | | | | | [place] [address] | | | | | | [phone] | | | | | | | | | | | | Brittny Warren, | | | | | | [address] | | | | | | [place] | | | | | | [place] [address] | | | | | | [phone] | | | | | | | | +--------+---------+ + + + | 11/26/ | Office | Neurology | Seven Johns MD | | | 2020 | Visit | | [address] | | | | | | [place], [place] | | | | | | [address] | | | | | | | [...] | | Waveform EIA Distal: , , FILM PRINTER Prox: 111.9, , triphasic FILM PRINTER Distal: , | | | , DFA Prox: 66.3, , triphasic SFA Prox: 96.1, , triphasic SFA Mid: | | | 123, , triphasic SFA Distal: 65, , triphasic POP Prox: 53, , | | | triphasic POP Mid: , , POP Distal: 58.5, , triphasic TRUE Prox: | | | 40.3, , triphasic TRUE Distal: 25.9, , triphasic REVENUE FIELD AGENT Prox: 43.6, , | | | triphasic REVENUE FIELD AGENT Distal: 49.9, , triphasic DAE Prox: 42.1, [...] Stenosis/ Doppler WaveformEIA Distal: , | | ,FILM PRINTER Prox: 111.9, , triphasicCFA Distal: , ,DFA [...] | |TRUE Distal: 25.9, , triphasic | |REVENUE FIELD AGENT Prox: 43.6, , triphasic | |REVENUE FIELD AGENT Distal: 49.9, , triphasic | |DAE Prox: [...]
--- OUTSIDE RECORDS SUMMARY | ~2020-02-27 | XMS | Encounter Summary ---
Demographics + + + | Address | [address] | | | [place] [address] | + + + | Home Phone | | + + + | Preferred Language | Unknown | + + + | Marital Status | Single | + + + | Nondenominational Affiliation | Unknown | + + + | Race | Unknown | + + + | Ethnic Group | Unknown | + + + Author + + + | Author | [facility] | | | and [place] | + + + | Organization | [facility] [...] Team Providers + +------+ + | Care Internal Combustion Engine Inspector Name | Role | Phone | [...] | | | | | Altered | [facility] | | | | | level of | [address] | [address] | | | | | consciousnes | [address] | [address] | | | | | s Jerking | [place], [place] | [place], [place] | | | | | movements of | [address] | [address] | | | | | extremities | Phone: | Phone: | | | | | Procedures | [phone] | [phone] | | | | | MRI Brain | Fax: | Fax: | | | | | w wo | [phone] | [phone] | | | | | Contrast | [...] | Required | | level of | [address] | [address] | | | | | [address]nes | [address] | [address], | | | | | s Jerking | [place], [place] | [place] | | | | | movements of | [address] | [place] | | | | | extremities | Phone: | [phone] Phone: | | | | | | [phone] | [phone] | | | | | | Fax: | Fax: | | | | | | [phone] | [phone] | + + + + + + [...] | CLINIC [address] | [address] [facility], | neuropathy (Primary | | | | [place], | [place] [address] | Dx); Lumbosacral | | | | [place] [address] | [phone] | radiculopathy; | | | | [phone] | | Fibromyalgia; | | | | [...] are taking other medicines. You may use uwud-yok-yhpmxwg medicine to control pain, unless another pain [...] by your healthcare provider Date Last Reviewed: 04/10/201619999832-8229 [employer]. [address] [place] [address]. All righ ts reserved. This information is [...] Injection education declined by patient. TORI Diaz STAMP PRESS OPERATOR pangler, JUVENTINO Neri - 11/08/2019 10:30 AM PST . Patient: Linda Singleton Medical Record: [id number] Date of Services: 11/08/2019 Referring Doctor: MADHAV [...] find a primary care provider in the [place] area after her PCP suddenly lef t. [...] undergoing workup with her PCP and an hydraulic billet maker for sig nificant hormone and white blood cell count abnormalities. Encounter Problem List Idiopathic peripheral neuropathy (Primary) Overview: Current Treatment:Gabapentin September 15, 2019: EMG/NCS: No evidence of peripheral neuropathy Lumbosacral radiculopathy Overview: September 15, 2018: EMG/NCS: No evidence of lumbosacral radiculopathy. Orders: - ketorolac (TORADOL) injection 60 mg Fibromyalgia Altered level of consciousness - * [place] [facility] Neurology - AMB Referral - EEG 24 [...] are intact. There is no dysmetria on vwstjx-wx-bxey and ivey-wykp-ktkh. There are no abnormal or extraneous movements. [...] | | 2019 | Visit | | [address] | | | | | | [address] [place], | | | | | | [place] [address] | | | | | | [phone] | | | | | | | | | | | | Brittny Warren, | | | | | | [address] | | | | | | [place], [place] | | | | | | [place] [address] | | | | | | [phone] | | | | | | | | +--------+---------+ + + + | 11/26/ | Office | Neurology | Sherrie Johns MD | | | 2020 | Visit | | [address] | | | | | | [place], [place] | | | | | | [address] | | | | | | | [...] | | Sincerely, SHERRIE JOHNS M.D. Neurologist [phone] | | | Electronically signed NOTE: Part of this report was transcribed | | | using voice recognition software. Every effort | | | was made to ensure accuracy. However, inadvertent | | | computerize solutions analyst errors may be present | | | | | + + + EEG 24 HR AMBULATORY MONITORING (11/27/2019 1:00 PM PST) + + + | Narrative | Performed At | + + + | [place] MD 11/28/2019 7:12 PM Name:Linda Dick | | Mani :1990 DATE OF SERVICE:11/27/2019 [...] was | | | reviewed using the [employer] EEG digital system. During the | | [...] this patient. | | | [place] MD11/28/20197:10 PM Electronically signed | | | | [...] is | | unremarkable.IMPRESSION: Normal.Dictated by: Hernan Bejaranoam | |COMPARISON STUDY: | |None | | [...]
--- OUTSIDE RECORDS SUMMARY | ~2020-02-27 | XMS | Encounter Summary ---
Demographics + + + | Address | [address] | | | [place] [address] | + + + | Home Phone | | + + + | Preferred Language | Unknown | + + + | Marital Status | Single | + + + | Muslim Affiliation | Unknown | + + + [...] Team Providers + +------+ + | Care Employee Development Manager Name | Role | Phone | [...] | | | [place], [place] | [place] [address] | | | | | [address] | [phone] | | | | | [phone] | | | +--------+ + + + [...] | | | | | | [place] [address] | | | | | | [phone] | | | | | | | | | | | | Brittny Warren | | | | | | [address] | | | | | | [place] | | | | | | [place] [address] | | | | | | [phone] | | | | | | | | +--------+---------+ + + + | 11/26/ | Office | Neurology | Seven Johns MD | | | 2020 | Visit | | [address] | | | | | | [place], [place] | | | | | | [address] | | | | | | | [...] + + | IMPRESSION: Transitional vertebrae lowest zoy-zpe-kzugqst | [facility] | | vertebrae. This [...] | vertebrae is present at the lowest yzd-mum-xyugmxs vertebrae with the | | | left transverse process articulating with the sacrum. Sclerosis is | | | present at this articulation. 5 rzf-yvr-kxqkkfy vertebrae are | | | present. For numbering purposes the lowest psy-bte-nwtihgq vertebrae | | | will be termed [...] | | is present at the lowest bde-qgt-gpqwfjs vertebrae with the left transverse process | | articulating with the sacrum. Sclerosis is present at this articulation.5 | | vha-uze-yntrmyb vertebrae are present. For numbering purposes the lowest | | gcd-emh-oeljjxa vertebrae will be termed L5.Pedicles are intact. The disc spaces and | | vertebral body heights are maintained. IUD device present..IMPRESSION: | | IMPRESSION:Transitional vertebrae lowest ykz-htx-usyrptr vertebrae. This finding can be | | associated with back pain.Dictated by: Bobby Chamberlain | |A transitional vertebrae is present at the lowest mzm-onj-ohknato vertebrae with the left t ransverse process articulating with the sacrum. Sclerosis is present at this articulation. | | | |5 ovj-asp-xzfgotc vertebrae are present. For numbering purposes the lowest urs-phw-cnxainl vertebrae will be termed L5. | | | |Pedicles are intact. The disc spaces and vertebral body heights are maintained. IUD devic e present.. | | | |IMPRESSION: | |IMPRESSION: | |Transitional vertebrae lowest vcs-rlg-rytuvqk vertebrae. This finding can be associated wi [...]
--- OUTSIDE RECORDS SUMMARY | ~2020-02-27 | XMS | Encounter Summary ---
Demographics + + + | Address | [address] | | | [place] [address] | + + + | Home Phone [...] + + + | Author | [facility] | | | and [place] | + + + | Organization | [facility] | | | [...] Providers + +------+ + | Care Wood Fence Erector Name | Role | Phone | + [...] 2020 | | HOSPITAL NEUROLOGY | Jax, MUSEUM EXHIBIT DESIGNER [address] | | | | | CLINIC [address] | [address] [place], | | | | | [address] [place], | [place] [address] | | | | | [place] [address] | [phone] | | | | | [phone] | | | +--------+ + + + [...] | | | | | [address] [place], | | | | | | [place] [address] | | | | | | [phone] | | | | | | | | | | | | Brittny Warren, | | | | | | MD [address] | | | | | | [place] | | | | | | [place] [address] | | | | | | [phone] | | | | | | | [...]
--- OUTSIDE RECORDS SUMMARY | ~2020-02-27 | XMS | Encounter Summary ---
Demographics + + + | Address | [address] | | | [place] [address] | + + + | Home Phone | | + + + | Preferred Language | Unknown | + + + | Marital Status | Single | + + + | Adventist Affiliation | Unknown | + + + [...] Team Providers + +------+ + | Care Covering Machine Operator Name | Role | Phone [...] | THERAPY [address] [place], | | | | | [place], [place] | [place] [address] | | | | | [address] | [phone] | | | | | [phone] | | | +--------+ + + + [...] of this encounter Progress Notes Lamin Palacios, ELECTRIC TRUCK DRIVER - 09/22/2019 11:00 AM PSTAwake and drowsy EEG performed, patient delmis ated study well. Win ented in this encounter Plan of Treatment +--------+---------+ + + + | Date | Type | Specialty | Care Team | Description | +--------+---------+ + + + | 02/27/ | Office | Neurology | Wayne, | | | 2019 | Visit | | [address] | | | | | | [address] [place], | | | | | | [place] [address] | | | | | | [phone] | | | | | | | | | | | | Brittny Warren | | | | | | [address] | | | | | | [place] | | | | | | [place] [address] | | | | | | [phone] | | | | | | | [...]
--- OUTSIDE RECORDS SUMMARY | ~2020-02-27 | XMS | Encounter Summary ---
Demographics + + + | Address | [address] | | | [place] [address] | + + + | Home Phone [...] Team Providers + +------+ + | Care Barn Operator Name | Role | Phone | [...] | | 2019 | | Faculty at [place] | [address] | | | | | for [facility] and | [address] | | | | | [place] [address] | [facility] [place] | | | | | Ave Mailcode: | [address] | | | | | [facility] | [phone] | | | | | Health and Healing, | | | | | | [facility] | | | | | | [place], [place] | | | | | | [address] | | | | | | [phone] | | | +--------+ + + + [...]
--- OUTSIDE RECORDS SUMMARY | ~2020-02-27 | XMS | Encounter Summary ---
Demographics + + + | Address | [address] | | | [place] [address] | + + + | Home Phone | | + + + | Preferred Language | Unknown | + + + | Marital Status | Single | + + + | Faith Affiliation | Unknown | + + + [...] Team Providers + +------+ + | Care Gynecology Teacher Name | Role | Phone | [...] | | hy (HCC) | Commercial | [address] | | | | | Procedures | [address] | Phone: | | | | | ECHO Stress | [address], | [phone] | | | | | Test | [place] | Fax: | | | | | Exercise [place] | [address] | [phone] | | | | | ECHO HEART | Phone: | | | | | | XTHORACIC, | [phone] | | | | | | STRESS/REST | Fax: | | | | | | [place] CV STRS | [phone] | | | | | | TST [...] | cardiomyopathy (HCC) | | | | [place], | [address] | | | | | [place] [address] | [address] | | | | | [phone] | [address] | | | | | | [phone] | | | | | | | [...] | | | | | | [place] [address] | | | | | | [phone] | | | | | | | | | | | | Brittny Warren, | | | | | | MD [address] | | | | | | [address], [place] | | | | | | [place] [address] | | | | | | [phone] | | | | | | | | +--------+---------+ + + + | 11/26/ | Office | Neurology | Seven Johns MD | | | 2020 | Visit | | [address] | | | | | | A [place] | | | | | | [address] | | | | | | | [...]
--- OUTSIDE RECORDS SUMMARY | ~2020-02-27 | XMS | Encounter Summary ---
Demographics + + + | Address | [address] | | | [place] [address] | + + + | Home Phone [...] Team Providers + +------+ + | Care Wheel Inspector Name | Role | Phone | [...] 2019 | | HOSPITAL NEUROLOGY | Jax, GERM DRIER [address] | | | | | CLINIC [address] | [address] [place], | | | | | [address] [place], | [place] [address] | | | | | [place] [address] | [phone] | | | | | [phone] | | | +--------+ + + + [...] | | | | | | [place] [address] | | | | | | [phone] | | | | | | | | | | | | Brittny Warren, | | | | | | MD [address] | | | | | | [place] | | | | | | [place] [address] | | | | | | [phone] | | | | | | | | +--------+---------+ + + + | 11/26/ | Office | Neurology | Seven Johns MD | | | 2020 | Visit | | [address] | | | | | | [place] | | | | | | [address] | | | | | | | | +--------+---------+ + + + documented as of this encounter Visit Diagnoses Not on filedocumented in this encounter"
--- OUTSIDE RECORDS SUMMARY | ~2020-02-27 | XMS | Encounter Summary ---
Demographics + + + | Address | [address] | | | [place] [address] | + + + | Home Phone [...] Team Providers + +------+ + | Care Museum Security Chief Name | Role | Phone | + [...] | | | | | unspecified | [place], | [address] Phone: | | | | | Procedures | [place] | [phone] | | | | | Evaluate & | [address] | Fax: | | | | | Treat | Phone: | [phone] | | | | | | [phone] | | | | | | | Fax: | | | | | | | [phone] | | +--------+ + + + + + Encounter Details +--------+---------+ + + + | Date | Type | Department | Care Team | Description | +--------+---------+ + + + | 06/06/ | Office | [place] [facility] | Wayne, | Chronic bilateral | | 2019 | Visit | HOSPITAL NEUROLOGY | Jax, 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 You may use ejon-cri-jlkqeny medicine to control pain, unless another pain [...] by your healthcare provider Date Last Reviewed: 04/10/201619994247-9965 [employer]. [address] [place] [address]. All righ ts reserved. This information is [...] you take. This includes prescription an d rpii-ncm-msuhvno medicines, vitamins, and herbs. Ask if any [...] speaking, walking, or seeing Date Last Reviewed: 12/09/201719998579-5438 [employer]. [address] [place] [address]. [address] [facility] ts reserved. This information is not intended as a substitute for professional medical care. Always follow your healthcare professional's instructions. documented in this encounter Progress Notes Jax Black FNP - 03/16/2019 9:45 AM PDT Patient: Linda Singleton Medical Record: [id number] Date of Services: 03/16/2019 Referring Doctor: MADHAV [...] find a primary care provider in the [place] area after her PCP suddenly lef t. [...] are intact. There is no dysmetria on aaohty-oi-ilps and aouu-lree-anuu. There are no abnormal or extraneous movements. [...] | | | | | | [place] [address] | | | | | | [phone] | | | | | | | | | | | | Brittny Warren | | | | | | [address] | | | | | | [place] | | | | | | [place] [address] | | | | | | [phone] | | | | | | | | +--------+---------+ + + + | 11/26/ | Office | Neurology | Seven Johns MD | | 2020 | Visit | | [address] | | | | | | [place], [place] | | | | | | [address] | | | | | | | | +--------+---------+ + + + documented as of this encounter Results Trigger Point Injection Procedure (09/19/2019 1:30 PM PST) + + + | Narrative | Performed At | + + + | Jax Black, [facility] 09/19/2019 2:00 PM WAYNE LUMBAR | | [...] | such as acupuncture treatments, massage therapy, qyex-vev-kbnwsou | | | heat patches, relaxation therapy, [...] + + | IMPRESSION: Transitional vertebrae lowest gcu-sto-aweqqti | [facility] | | vertebrae. This [...] | vertebrae is present at the lowest irh-pus-xfczlhx vertebrae with the | | | left transverse process articulating with the sacrum. Sclerosis is | | | present at this articulation. 5 kht-qir-uzenmzt vertebrae are | | | present. For numbering purposes the lowest rql-mvl-jzjpmxq vertebrae | | | will be termed [...] | | is present at the lowest uxp-jpo-zzljrro vertebrae with the left transverse process | | articulating with the sacrum. Sclerosis is present at this articulation.5 | | ewm-nhv-vwkohpg vertebrae are present. For numbering purposes the lowest | | hmz-znx-vueufpi vertebrae will be termed L5.Pedicles are intact. The disc spaces and | | vertebral body heights are maintained. IUD device present..IMPRESSION: | | IMPRESSION:Transitional vertebrae lowest slz-pbl-oqmhhrw vertebrae. This finding can be | | associated with back pain.Dictated by: Bobby Chamberlain | |A transitional vertebrae is present at the lowest mom-lpw-advudph vertebrae with the left t ransverse process articulating with the sacrum. Sclerosis is present at this articulation. | | | |5 eyb-sxs-kcvlite vertebrae are present. For numbering purposes the lowest jen-zms-fsjjapt vertebrae will be termed L5. | | | |Pedicles are intact. The disc spaces and vertebral body heights are maintained. IUD devic e present.. | | | |IMPRESSION: | |IMPRESSION: | |Transitional vertebrae lowest hxt-cdz-ekehhqy vertebrae. This finding can be associated wi [...]
--- OUTSIDE RECORDS SUMMARY | ~2020-02-27 | XMS | Encounter Summary ---
Demographics + + + | Address | [address] | | | [place] [address] | + + + | Home Phone | | + + + | Preferred Language | Unknown | + + + | Marital Status | Single | + + + | Mandaen Affiliation | NON | + + + [...] Team Providers + +------+ + | Care Order Administrator Name | Role | Phone | [...]
--- OUTSIDE RECORDS SUMMARY | ~2020-02-27 | XMS | Encounter Summary ---
Demographics + + + | Address | [address] | | | [place] [address] | + + + | Home Phone [...] Team Providers + +------+ + | Care Aeronautical Test Engineer Name | Role | Phone | [...] | 2019 | Encounter | Surgery at [facility] [address] | Kev Ashton MD [address] | | | | | [address] | [address] [place], | | | | | Mailcode: CH16D | [place] [address] | | | | | [facility] | [phone] | | | | | and Healing, | | | | | | Building | | | | | | Floor [place], [place] | | | | | | [address] | | | | | | [phone] | | | +--------+ + + + [...]
[~2020-02-27 16:36] MED LIST changes: -FLONASE ALLERG9.9 ML NAS; +FLUTICASONE PRO16 GM NAS; -GRALISE600 MG PO; +K-TAB ER20 MEQ PO; +LAMICTAL XR200 MG PO; -LAMICTAL200 MG PO; +LASIX20 MG PO; +NEURONTIN800 MG PO; -SUDAFED 12-HOU120 MG PO; +SUDOGEST30 MG PO
--- OUTSIDE RECORDS SUMMARY | 2020-02-27 16:40 | XMS ---
PreManage Notification: SHADE WOLF Security Bi Tri Operator Events No recent Security Events currently on file CRITERIA MET - [facility] - Has Care Guidelines - PDMP - [facility] - 2 Visits in 30 Days CARE PROVIDERS Jeff Junior Community Health Worker 05/29/2019-Current PHONE: [phone] RENATO FERNANDEZ Physician Mechanic Current PHONE: Unknown Guidelines Source: [employer] [facility] Guidelines Date: 03/17/2019 Care Coordination: Receives mental health services with [employer].\T\nbsp; Please contact [employer] with mental health concerns.\T\nbsp; [place]/Ton[place] Horowitz:\T\nbsp; \T\nbsp; Virgil:\T\nbsp; [phone]. E.D. VISIT COUNT (12 MO.) [address] [address] HUGO RienziSneha Avnedano TOTAL 5 NOTE: Visits indicate total known visits. ED/UCC VISIT TRACKING (12 MO.) 02/27/2020 16:37 [place] TYPE: Emergency COMPLAINT: - SOB, HEART RACING, L ARM NUMBNESS 02/17/2020 14:09 [facility] [place] TYPE: Emergency DIAGNOSES: - Other specified soft tissue disorders - LEFT FOOT PAIN 05/26/2019 15:20 [facility] [place] [facility] DIAGNOSES: - Headache - SEVERE HEADACHE [facility] TYPE: Emergency DIAGNOSES: - Thumb Pain - Hematuria - Benign neoplasm of bone and articular cartilage, unspecified 03/17/2019 09:13 [facility] [place] [facility]: Emergency DIAGNOSES: - POSSIBLE INFECTION RIGHT THUMB - Neoplasm of unspecified behavior of unspecified site INPATIENT VISIT TRACKING (12 MO.) No inpatient visits to display in this time frame [email or web address]
[2020-02-27] MEDS ORDERED: VALTREX500 MG PO (16:55)
[2020-02-27] MEDS ORDERED: DOXYCYCLINE HY100 MG PO (16:55)
[2020-02-27] MEDS ORDERED: LEVOXYL75 MCG PO (16:56)
[2020-02-27] MEDS ORDERED: TOPROL XL25 MG PO (16:56)
--- NOTE | 2020-02-28 12:10 | EKG ---
[facility] [address] [facility] [place], [place] [address] Signed Sinus tachycardia Otherwise normal ECG When compared with ECG of 30-MAR-2018 12:00, No significant change was found Confirmed by YINKA MARTINEZ DO ([id number]) on 02/28/2020 12:10:25 PM Electronically Signed By: YINKA MARTINEZ DO 02/28/20 1210 PATIENT NAME: SHADE WOLF KOURTNEY Electrocardiogram DATE OF : 86 PHYSICIAN: YINKA MARTINEZ DO REPORT #: [id number] REPORT IS CONFIDENTIAL AND NOT TO BE RELEASED WITHOUT AUTHORIZATION
[2020-02-29] MEDS ORDERED: AUGMENTIN 875-1 EACH PO (09:24)
[2020-02-29] MEDS ORDERED: VENLAFAXINE HC225 MG PO (09:47)
[2020-02-29] MEDS ORDERED: TRAZODONE HCL300 MG PO (09:48)
[2020-02-29] MEDS ORDERED: SUBOXONE 8 MG-1 EAC1 SL (09:48)
[2020-02-29] MEDS ORDERED: BUSPIRONE HCL30 MG PO (09:49)
[2020-02-29] MEDS ORDERED: ALDACTONE100 MG PO (09:50)
[2020-02-29] MEDS ORDERED: DICLOFENAC SODI75 MG PO (09:51)
[2020-02-29] MEDS ORDERED: FLOMAX0.4 MG PO (10:06)
[2020-02-29] MEDS ORDERED: VISTARIL25 MG PO (10:06)
[2020-02-29] MEDS ORDERED: IMITREX100 MG PO (10:10)
== END 2020-02-29 11:35 | disposition home or self-care (01) | DRG 871 ==
LOC: ED 16:36 → CCU 19:50 → MS 02-28 17:00
PROVIDERS: ADMIT Student in an Organized Health Care Education/Training Program
DX: A41.9 Sepsis, unspecified organism (principal); J18.9 Pneumonia, unspecified organism; J96.01 Acute respiratory failure with hypoxia; G43.909 Migraine, unspecified, not intractable, without status migrainosus; F17.220 Nicotine dependence, chewing tobacco, uncomplicated; F39 Unspecified mood [affective] disorder; G89.4 Chronic pain syndrome; M79.7 Fibromyalgia; E03.9 Hypothyroidism, unspecified; R00.0 Tachycardia, unspecified; Z88.2 Allergy status to sulfonamides; Z20.828 Contact with and (suspected) exposure to other viral communicable diseases; Z79.899 Other long term (current) drug therapy; Z79.51 Long term (current) use of inhaled steroids
CPT/HCPCS: 36415; 71045; 80048; 80053; 81001; 83605; 83735; 83880; 84484; 85025; 85379; 93005; 93010; 94760; 96365; 96375; 99285-25; 99406; J0456; J0696; J1650; J1885; J2405; J7030; J7060; J7121; U0002

== ENCOUNTER 2020-03-19 19:27 | Inpatient (IN) | payer OTHER ==
[~2020-03-19] VITALS: Ht 170.2 cm; Wt 122.5 kg
--- OUTSIDE RECORDS SUMMARY | ~2020-03-19 | XMS | Encounter Summary ---
Demographics + + + | Address | [address] | | | [place] [address] | + + + | Home Phone | | + + + | Preferred Language | Unknown | + + + | Marital Status | Single | + + + | Confucianist Affiliation | NON | + + + | Race | White | + + + | Ethnic Group | Not or | + + + Author + + + | Author | [facility] | + + + | Organization | [facility] | + + + | Address | Unknown | + + + | Phone | Unavailable | + + + Support + + + + + | Name | Relationship | Address | Phone | + + + + + | Collette [place]ame | [place] | [place] | | + + + + + Care Team Providers + +------+ + | Care Unemployment Benefits Claims Taker Name | Role | Phone | + +------+ + | Unknown | PCP | Unavailable | + +------+ + Reason for Visit + + + | Reason | Comments | + + + | Referral | R thumb | + + + Encounter Details +--------+ + + + + | Date | Type | Department | Care Team | Description | +--------+ + + + + | 03/17/ | Abstract | Orthopaedics | Note, Orthopedics | Referral (R thumb) | | 2019 | | [facility] at [facility] | Clinic | | | | | for Health and | | | | | | Healing [address] | | | | | | [address] Mailcode: | | | | | | [facility] | | | | | | Health and Healing, | | | | | | [facility] | | | | | | Floor [place], [place] | | | | | | [address] | | | | | | [phone] | | | +--------+ + + + + Social History + +-------+ +--------+------+ | Tobacco Use | Types | Packs/Day | Years | Date | | | | | Used | | + +-------+ +--------+------+ | Never Assessed | | | | | + +-------+ +--------+------+ + + + | Sex Assigned at | Date Recorded | | | | + + + | Not on file | | + + + + + + + | Job Start Date | Occupation | Industry | + + + + | Not on file | Not on file | Not on file | + + + + + + + + | Travel History | Travel Start | Travel End | + + + + + + | No recent travel history available. | + + documented as of this encounter Progress Noni Gimenez - 03/17/2019 4:12 PM PDT MEDICAL REVIEW #3 Patient: Linda Singleton [id number] Problem: R thumb tumor, infection Records: CE Referring Provider: Dr Fraser [facility] ED Direct referral: N o History of cancer: None Images: March XR, [facility] Traveling to [facility]? YES past [place] Notes: Tumor vs UE? CAMELIA needed? Can intake be placed ahead of time if applicable given distance? Imelda Campos - 2018 4:12 PM PDT Orthopaedics New Patient Record Check List Please ask the following questions: Comments Date requested Records/Imaging received? If so, what format? Where? What would you like to be seen for (body part and laterality)? R thumb tumor, infection Hx CA no Prior Surgery (for this body part)? no Have you seen anyone for this yet? [facility] ED, Hernan Fraser CE Do you have a referring provider? 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 no Note: We do not accept WC under [place] as they do not pay at [place] rates. Other out of state claims will only be accepted if they agree to pay at [place] rates docume nted in writing from adjustor. Can you confirm the insurance we will be billing for this visit? Medicaid Note: If OHP, please note which type. E.g. [place], [place], [employer], etc .) Reminder: Please create referrals for pts with: HMO, OHP, [place], Self-Pay, W/C, TPL an d ED Post- Ops Can you verify your Primary Care Provider? no Note: Please update Primary Care Provider in [employer] [place] Are you a current smoker or tobacco user? yes Height & Weight, if unable to locate in notes or chart. Last recorded patient height: No data found for Ht No data found for this vital: BMI Patient reported height: 5'7" Patient reported weight: 224 Note: If over provider BMI preference, for REVIEW. Are you diabetic? no Note: If over provider A1C preference, for REVIEW. Medical Review needed? Yes, no MRI. UE vs tumor? CAMELIA? Reminders: ? Ask patient if they d like to sign up for [facility] ? Don t forget to pull in CareEveryWhere Additional Comments: documented in this encounte r Plan of Treatment Not on filedocumented as of this encounter Visit Diagnoses Not on filedocumented in this encounter
--- OUTSIDE RECORDS SUMMARY | ~2020-03-19 | XMS | Encounter Summary ---
Demographics + + + | Address | [address] | | | [place] [address] | + + + | Home Phone | | + + + | Preferred Language | Unknown | + + + | Marital Status | Single | + + + | Jew Affiliation | NON | + + + | Race | White | + + + | Ethnic Group | Not or | + + + Author + + + | Author | [facility] | + + + | Organization | [facility] | + + + | Address [...] Team Providers + +------+ + | Care Tree Inspector Name | Role | Phone | + +------+ + PCP | Unavailable | + +------+ + Encounter Details +--------+ + + + + | Date | Type | Department | Care Team | Description | +--------+ + + + + | 07/27/ | Abstract | Rheumatology at | Unknown . | | | 2018 | | [facility] | | | | | | [address] | | | | | | [address] | | | | | | [place], [address] Floor | | | | | | [place], [place] | | | | | | [address] | | | | | | [phone] | | | +--------+ + + + [...] + + documented as of this encounter Plan of Treatment Not on filedocumented as of this encounter Visit Diagnoses Not on filedocumented in this encounter"
--- OUTSIDE RECORDS SUMMARY | ~2020-03-19 | XMS | Encounter Summary ---
Demographics + + + | Address | [address] | | | [place] [address] | + + + | Home Phone | | + + + | Preferred Language | Unknown | + + + | Marital Status | Single | + + + | Druze Affiliation | NON | + + + | Race | White | + + + | Ethnic Group | Not or | + + + Author + + + | Author | [facility] | + + + | Organization | [facility] | + + + | [...] Team Providers + +------+ + | Care Data Systems Manager Name | Role | Phone | + +------+ + | No Pcp Per Patient | PCP | Unavailable | + +------+ + Encounter Details +--------+ + + + + | Date | Type | Department | Care Team | Description | +--------+ + + + + | 04/06/ | Pharmacy | Outpatient Retail | | | | 2019 | Visit | [facility] | | | | | | [address] | | | | | | [address] [place], [place] | | | | | | [address] | | | | | | [phone] | | | +--------+ + + + + Social History + + [...]
--- OUTSIDE RECORDS SUMMARY | ~2020-03-19 | XMS | Encounter Summary ---
Demographics + + + | Address | [address] | | | [place] [address] | + + + | Home Phone | | + + + | Preferred Language | Unknown | + + + | Marital Status | Single | + + + | Episcopal Affiliation | NON | + + + | Race | White | + + + | Ethnic Group | Not or | + + + Author + + + | Author | [facility] | + + + | Organization | [facility] | + + + | [...] Team Providers + +------+ + | Care Junior Systems Administrator Name | Role | Phone | + +------+ + | No Pcp Per Patient | PCP | Unavailable | + +------+ + Encounter Details +--------+ + + + + | Date | Type | Department | Care Team | Description | +--------+ + + + + | 05/31/ | Hospital | Radiology/Imaging | Isael Champion, | | | 2019 | Encounter | Lab at [facility] [address] | [address] | | | | | Ranjit Jack Mailcode: | [address] | | | | | [facility] | [place], [place] | | | | | [facility], | [address] | | | | | | [phone] | | | | | Floor [place], [place] | | | | | | [address] | | | | | | [phone] | | | +--------+ + + + [...] + + documented as of this encounter Medications at Time of Discharge + + + +---------+ + + | Medication | Sig | Dispensed | Refills | Start | End Date | | | | | | Date | | + + + +---------+ + + | cloNIDine HCl 0.1 | Take 0.1 mg by | | 0 | | | | mg oral tablet | mouth. | | | | | + + + +---------+ + + | cyclobenzaprine 10 | Take 10 mg by mouth | | 0 | 03/16/20 | | | mg oral tablet | as needed. | | | 19 | | + + + +---------+ + + | diclofenac 1 % | Apply to affected | 100 g | 3 | 03/29/20 | | | topical gel | area four times | | | 19 | | | | daily as needed. | | | | | + + + +---------+ + + | gabapentin 300 mg | Take 300 mg by mouth | | 0 | 03/16/20 | | | oral capsule | four times daily. | | | 19 | | + + + +---------+ + + | | Take 1 tablet by | 20 | 0 | 04/14/20 | | | HYDROcodone-acetamin | mouth every four | tablet | | 19 | | | ophen (NORCO) 10-325 | hours as needed (for | | | | | | mg oral tablet | pain.). Taper off | | | | | | | medication. | | | | | + + + +---------+ + + | | Take 1 tablet by | 15 | 0 | 07/15/20 | | | HYDROcodone-acetamin | mouth every six | tablet | | 19 | | | ophen (NORCO) 5-325 | hours as needed (for | | | | | | mg oral tablet | pain.). Not to | | | | | | | exceed 6 in 24 | | | | | | | hours. | | | | | + + + +---------+ + + | lamoTRIgine 200 mg | Take 200 mg by mouth | | 0 | | | | oral tablet | once daily at | | | | | | | bedtime. | | | | | + + + +---------+ + + | traZODone 150 mg | Take 150 mg by mouth | | 0 | | | | oral tablet | once daily at | | | | | | | bedtime. | | | | | + + + +---------+ + + | venlafaxine 225 mg | Take 225 mg by mouth | | 0 | | | | oral tablet | once daily in the | | | | | | extended release | morning. | | | | | | 24hr | | | | | | + + + +---------+ + + | ziprasidone | Take 40 mg by mouth | | 0 | | | | (GEODON) 40 mg oral | once daily at | | | | | | capsule | bedtime. | | | | | + + + +---------+ + + documented as of this encounter Plan of Treatment Not on filedocumented as of this encounter Procedures + +--------+ + + + | Procedure Name | Priori | Date/Time | Associated Diagnosis | Comments | | | ty | | | | + +--------+ + + + | X-RAY HAND 3 VIEWS | Routin | 05/31/2019 | Squamous cell | Results for this | | RIGHT | e | 9:06 AM | cancer of skin of | procedure are in the | | | | PDT | finger, right | results section. | + +--------+ + + + documented in this encounter Results X-RAY HAND 3 VIEWS RIGHT (05/31/2019 9:06 AM PDT) + + | Specimen | + + | | + + + + + | Narrative | Performed At | + + + | EXAM: FINGER 3 VIEWS RIGHT, HAND 3 VIEWS RIGHT HISTORY: | [facility] | | Follow-up excision of right thumb mass on 04/06/2019. COMPARISON: | RADIOLOGY VOICE | | Outside radiograph and CT from 03/17/2019. FINDINGS: There has | RECOGNITION 2 | | been interval resection of the right thumb soft tissue mass. There is | | | increased cortication of the previously noted pressure erosion of the | | | thumb distal phalanx. There is no fracture or focal osseous | | | destruction noted. The joint spaces are preserved and is normal. There | | | is no significant soft tissue swelling. IMPRESSION: Interval | | | removal of right thumb soft tissue mass with increased cortication of | | | the distal phalanx mechanical erosion. I have personally reviewed | | | the images and, if necessary, edited the report. I agree with the | | | report as now presented. Final signature: Renetta Roca MD | | | 05/31/2019 10:47 AM Preliminary: Roberta Albarran MD Dictation | | | initiated: Roberta Albarran MD 05/31/2019 9:42 AM | | + + + + + | Procedure Note | + + | Service Account, Radiant Res In Interface - 05/31/2019 10:48 AM PDT EXAM: FINGER 3 | | VIEWS RIGHT, HAND 3 VIEWS RIGHT HISTORY: Follow-up excision of right thumb mass on | | 04/06/2019. COMPARISON: Outside radiograph and CT from 03/17/2019. FINDINGS: There has been | | interval resection of the right thumb soft tissue mass. There is increased cortication | | of the previously noted pressure erosion of the thumb distal phalanx. There is no | | fracture or focal osseous destruction noted. The joint spaces are preserved and is | | normal. There is no significant soft tissue swelling. IMPRESSION: Interval removal of | | right thumb soft tissue mass with increased cortication of the distal phalanx mechanical | | erosion. I have personally reviewed the images and, if necessary, edited the report. I | | agree with the report as now presented. Final signature: Renetta Roca MD | | 05/31/2019 10:47 AM Preliminary: Roberta Albarran MD Dictation initiated: Roberta Albarran MD | | 05/31/2019 9:42 AM | | | |Interval removal of right thumb soft tissue mass with increased cortication of the distal p halanx mechanical erosion. | | | |I have personally reviewed the images and, if necessary, edited the report. I agree with th e report as now presented. 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
--- OUTSIDE RECORDS SUMMARY | ~2020-03-19 | XMS | Encounter Summary ---
Demographics + + + | Address | [address] | | | [place] [address] | + + + | Home Phone | | + + + | Preferred Language | Unknown | + + + | Marital Status | Single | + + + | Adventist Affiliation | NON | + + + | Race | White | + + + | Ethnic Group | Not or | + + + Author + + + | Author | [facility] | + + + | Organization | [facility] | + + + | [...] Team Providers + +------+ + | Care Bridge Saw Operator Name | Role | Phone | + [...] [address] | | | | | [facility] | [place], [place] | | | | | [facility], | [address] | | | | | | [phone] | | | | | Floor [place], [place] | | | | | | [address] | | | | | | [phone] | | | +--------+ + + + [...] + +--------+ + + + | X-RAY FINGER 3 VIEWS | Routin | 05/31/2019 | Squamous cell | Results for this | | RIGHT | e | 9:05 AM | cancer of skin of | procedure are in the | | | | PDT | finger, right | results section. | + +--------+ + + + documented in this encounter Results X-RAY FINGER 3 VIEWS RIGHT (05/31/2019 9:05 AM PDT) + + | Specimen | [...] | report as now presented. Final signature: eRnetta Roca MD | | | 05/31/2019 10:47 [...]
--- OUTSIDE RECORDS SUMMARY | ~2020-03-19 | XMS | Encounter Summary ---
Demographics + + + | Address | [address] | | | [place] [address] | + + + | Home Phone | | + + + | Preferred Language | Unknown | + + + | Marital Status | Single | + + + | Sikhism Affiliation | Unknown | + + + | Race | Unknown | + + + | Ethnic Group | Unknown | + + + Author + + + | Author | [facility] | | | and [place] | + + + | Organization | [facility] | | | and [place] | + + + | Address | Unknown | + + + | Phone | Unavailable | + + + Support + + +---------+ + | Name | Relationship | Address | Phone | + + +---------+ + | Collette Benavides | ECON | Unknown | | + + +---------+ + Care Team Providers + +------+ + | Care Oracle Adf Consultant Name | Role | Phone | + +------+ + | Jerica Martinez | PCP | | + +------+ + Reason for Referral Diagnostic/Screening (Routine) +--------+--------+ + + + + | Status | Reason | Specialty | Diagnoses / | Referred By | Referred To | | | | | Procedures | Contact | Contact | +--------+--------+ + + + + | Closed | | | Diagnoses | Wayne | [facility] | | | | | Altered | [facility] | | | | | level of | AEST[address]TICIAN [address] | [address] | | | | | consciousnes | [address] [place] | [address] | | | | | s Jerking | [place], [place] | [place], [place] | | | | | movements of | [address] | [address] | | | | | extremities | Phone: | Phone: | | | | | Procedures | [phone] | [phone] | | | | | MRI Brain | Fax: | Fax: | | | | | w wo | [phone] | [phone] | | | | | Contrast | | | +--------+--------+ + + + + Consultation (Urgent) + + + + + + + | Status | Reason | Specialty | Diagnoses / | Referred By | Referred To | | | | | Procedures | Contact | Contact | + + + + + + + | Authorized | Specialty | Neurology | Diagnoses | Wayne, | Kelvin, | | | Services | | Altered | Jax, | Brittny Ashton, | | | Required | | level of | [address] | MD [address] | | | | | consciousnes | [address] | [address], | | | | | s Jerking | [place], [place] | [place] | | | | | movements of | [id number] | [place], [place] | | | | | extremities | Phone: | [phone] Phone: | | | | | | [phone] | [phone] | | | | | | Fax: | Fax: | | | | | | [phone] | [phone] | + + + + + + + Reason for Visit + + + | Reason | Comments | + + + | Back Pain | | + + + Encounter Details +--------+---------+ + + + | Date | Type | Department | Care Team | Description | +--------+---------+ + + + | 11/08/ | Office | [place] [facility] | [place], | Idiopathic | | 2020 | Visit | [facility] | JUVENTINO [address] | peripheral | | | | CL[facility] [address] | [address] [facility], | neuropathy (Primary | | | | [place], | [place] [address] | Dx); Lumbosacral | | | | [place] [address] | [phone] | radiculopathy; | | | | [phone] | | Fibromyalgia; | | | | | | Altered level of | | | | | | consciousness; | | | | | | Jerking movements of | | | | | | extremities; | | | | | | Thoracic spine pain | +--------+---------+ + + + Social History + + + +--------+------+ | Tobacco Use | Types | Packs/Day | Years | Date | | | | | Used | | + + + +--------+------+ | Current Every Day | Cigarettes | 1 | | | | Smoker | | | | | + + + +--------+------+ + +---+---+---+ | Smokeless Tobacco: | | | | | Never Used | | | | + +---+---+---+ + + +---------+ + | Alcohol Use | Drinks/Week | oz/Week | Comments | + + +---------+ + | No | | | Alcoholic | | | | | Drinks/day: rare | + + +---------+ + + + [...] + + documented as of this encounter Last Filed Vital Signs + + + + + | Vital Sign | Reading | Time Taken | Comments | + + + + + | Blood Pressure | 130/80 | 11/08/2019 10:30 AM | | | | | PST | | + + + + + | Pulse | 109 | 11/08/2019 10:30 AM | | | | | PST | | + + + + + | Temperature | - | - | | + + + + + | Respiratory Rate | 18 | 11/08/2019 10:30 AM | | | | | PST | | + + + + + | Oxygen Saturation | 94% | 11/08/2019 10:30 AM | | | | | PST | | + + + + + | Inhaled Oxygen | - | - | | | Concentration | | | | + + + + + | Weight | 114.8 kg (253 lb) | 11/08/2019 10:30 AM | | | | | PST | | + + + + + | Height | 167.6 cm (5' 6") | 11/08/2019 10:30 AM | | | | | PST | | + + + + + | Body Mass Index | 40.84 | 11/08/2019 10:30 AM | | | | | PST | | + + + + + documented in this encounter Patient Instructions Patient Instructions Jax Black FNP - 11/08/2019 10:30 AM PST General Neck and Back Pain Both neck and back pain are usually caused by injury to the muscles or ligaments of the spi ne. Sometimes the disks that separate each bone of the spine may cause pain by pressing on a nearby nerve. Back and neck pain may appear after a sudden twisting or bending force (such as in a car accident), or sometimes after a simple awkward movement. In either case, muscle spasm is often present and adds to the pain. Acute neck and back pain usually gets better in 1 to 2 weeks. Pain related to disk disease, arthritis in the spinal joints or spinal stenosis (narrowing of the spinal canal) can becom e chronic and last for months or years. Back and neck pain are common problems. Most people feel better in 1 or 2 weeks, and most o f the rest in 1 to 2 months. Most people can remain active. People have anddescribe pain differently. Pain can be sharp, stabbing, shooting, aching, cramping, or burning Movement, standing, bending, lifting, sitting, or walking may worsen the pain Pain can be localized to one spot or area, or it can be more generalized Pain can spread or radiate upwards, downwards, to the front, or go down your arms Muscle spasm may occur. Most of the time mechanical problems with the muscles or spine cause the pain. it is usuall y caused by an injury, whether known or not, to the muscles or ligaments. While illnesses ca n cause back pain, it is usually not caused by a serious illness. Pain is usually related to physical activity, whether sports, exercise, work, or normal activity. Sometimes it can occ ur without an identifiable cause. This can happen simply by stretching or moving wrong, with out noting pain at the time. Other causes include: Overexertion, lifting, pushing, pulling incorrectly or too aggressively. Sudden twisting, bending or stretching from an accident (car or fall), or accidental mov ement. Poor posture Poor conditioning, lack of regular exercise Spinal disc disease or arthritis Stress , or illness like appendicitis, bladder or kidney infection, pelvic infections Home care Forneck pain:Use a comfortable pillow that supports the head and keeps the spine in a neutral position. The position of the head should not be tilted forward or backward. When in bed, try to find a position of comfort. A firm mattress is best. Try lying flat on your back with pillows under your knees. You can also try lying on your side with your kn ees bent up towards your chest and a pillow between your knees. At first, do not try to stretch out the sore spots. If there is a strain, it is not like the good soreness you get after exercising without an injury. In this case, stretching may make it worse. Don't sit for long periods, as inlong car rides orother travel. This puts more stres s on the lower back than standing or walking. During the first 24 to 72 hours after an injury, apply an ice pack to the painful area f or 20 minutes and then remove it for 20 minutes over a period of 60 to 90 minutes or several times a day. You can alternate ice and heat therapies. Talk with your healthcare provider about the b est treatment for your back or neck pain. As a safety precaution, do not use a heating pad a t bedtime. Sleeping with a heating pad can lead to skin barnard or tissue damage. Therapeutic massage can help relax the back and neck muscles without stretching them. Be aware of safe lifting methods and do not lift anything over 15 pounds until all the p ain is gone. Medicines Talk to your healthcare provider before using medicine, especially if you have other medica l problems or are taking other medicines. You may use epqp-ekg-jnmfuqh medicine to control pain, unless another pain medicine was prescribed. If you have chronic conditions like diabetes, liver or kidney disease, stomach u lcers, gastrointestinal bleeding, or are taking blood thinner medicines. Be careful if you are given pain medicines, narcotics, or medicine for muscle spasm. The y can cause drowsiness, and can affect your coordination, reflexes, and judgment. Do not dri ve or operate heavy machinery. Follow-up care Follow up with your healthcare provider, or as advised. Physical therapy or further tests m ay be needed. If X-rays were taken, you will be notified of any new findings that may affect your care. Call 911 Call 911 if any of the following occur: Trouble breathing Confusion Very drowsy or trouble awakening Fainting or loss of consciousness Rapid or very slow heart rate Loss of bowel or bladder control When to seek medical advice Call your healthcare provider right away if any of these occur: Pain becomes worse or spreads into your arms or legs Weakness, numbness or pain in one or both arms or legs Numbness in the groin area Difficulty walking Fever of 100.4F (38C) or higher, or as directed by your healthcare provider Date Last Reviewed: 04/10/201619995397-4959 [employer]. [address] [place] [address]. All righ ts reserved. This information is not intended as a substitute for professional medical care. Always follow your healthcare professional's instructions. documented in this encounter Progress Notes Niyah Merlos CC CMA - 11/08/2019 10:30 AM PSTAfter obtaining consent, and per orders of Jax Black NP, injection of Toradol 60 mg was given by TORI Diaz MA. Patient tolerated well with no difficulties. Patient instructed to report any adverse re action to me immediately. Total Vial Size: 2 ml Amount Wasted: none Expiration Date: 08/11/21 Diagnosis: back pain Patient's own med: no Injection education declined by patient. TORI Diaz FLOOR MECHANIC pangler, JUVENTINO Neri - 11/08/2019 10:30 AM PST . Patient: Linda Singleton Medical Record: [id number] Date of Services: 11/08/2019 Referring Doctor: MADHAV Domingo Chief Complaint: Chronic low back pain, fibromyalgia, peripheral neuropathy History of Present Illness: The patient presents to the Neurology Clinic today for follow u p. This is an established patient of Dr. Johns, but is not known to me. The patient has a long-standing history, greater than 15 years of chronic low back pain. S he reports that her symptoms developed gradually with no inciting injury. The patient repor ts that she does have significant muscle spasms and tightness in both her upper and lower ba ck. She also continues to have radicular type pain and nerve pain extending down her bilate ral legs, left side greater than right. The patient did have x-rays of the lumbar spine in March 2019 which did not show any acute problems. She does have transitional vertebrae at th e lowest nonrib-bearing vertebrae. The patient also had an EMG/NCS done in September 2019 wh ich did not show any evidence of lumbosacral radiculopathy. She had a trigger point injecti on of the lumbar region done on September 19, 2019 with significant relief of her symptoms. The patient reports that she's been taking gabapentin 300 mg 4 times daily to help with her neuropathic pain. She also has cyclobenzaprine 10 mg 3 times daily to help with continued m uscle spasms. She reports that using this regimen, her pain is very tolerable. The patient has previously tried physical therapy in the past. She tried physical therapy approximatel y 1 year ago and went 1-2 times per week for 4 months with no improvement of her symptoms. She also had been following with a chiropractor without any improvement in her symptoms. Th e patient also uses essential oils, massage therapy, muscle rubs and heat to help with her c hronic pain symptoms. The patient also was found to have some numbness and tingling in her bilateral lower extrem ities with decreased sensation. An EMG/NCS was done in September 2019 and did not show any e vidence of neuropathy. She reports that the gabapentin also helps with the tingling and bur jeffry pain that she has in her bilateral lower extremities. The patient also has a history of fibromyalgia. The patient reports that the gabapentin al so helps her with her fibromyalgia pain. She reports that this is currently well controlled . The patient also has a history of bipolar depression. She also takes Lamictal for this. T he mental may also help her with some of her neuropathic symptoms. The patient is currently struggling to find a primary care provider in the [place] area after her PCP suddenly lef t. The patient reports that she has been having episodes of altered level of consciousness and rhythmic jerking in her sleep. At times, the patient is able to remember the episodes and she will feel very stiff and sore in the morning. No loss of bowel or bladder control, no t ongue biting. The patient reports that she has also been having episodes that she does not remember. She reports that the most recent episode occurred on the night of October 28 0. She reports that she had a friend staying with her. The friend told her that she had se veral episodes of rhythmic full body jerking which occurred during her sleep. This occurred off and on for approximately 1 hour. Again there was no loss of bowel or bladder control a nd no tongue biting. However, the patient did feel very stiff and sore the next day. She h ad no memory of this event. She does not typically have anyone staying with their associate d unsure if this is happening regularly during her sleep or not. The patient's mother does have a history of epilepsy. The patient is also currently undergoing workup with her PCP and an felt hat flanging operator for sig nificant hormone and white blood cell count abnormalities. Encounter Problem List Idiopathic peripheral neuropathy (Primary) Overview: Current Treatment:Gabapentin September 15, 2019: EMG/NCS: No evidence of peripheral neuropathy Lumbosacral radiculopathy Overview: September 15, 2018: EMG/NCS: No evidence of lumbosacral radiculopathy. Orders: - ketorolac (TORADOL) injection 60 mg Fibromyalgia Altered level of consciousness - * [facility] Neurology - AMB Referral - EEG 24 HR AMBULATORY MONITORING; Future; Expected date: 11/08/2019 Jerking movements of extremities - * [facility] Neu[facility] - AMB Referral - EEG 24 HR AMBULATORY MONITORING; Future; Expected date: 11/08/2019 Thoracic spine pain - XR Thoracic Spine 3 Vw; Future; Expected date: 11/08/2019 - Trigger Point Injection Procedure - ketorolac (TORADOL) injection 60 mg Past Surgical History: Procedure Laterality Date DILATION AND CURETTAGE OF UTERUS ORTHOPEDIC SURGERY Right ankle repair TONSILLECTOMY Allergies Allergen Reactions Sulfa Antibiotics Nausea And Vomiting Sulfamethoxazole-Trimethoprim Anxiety "out of body experience." Buprenorphine HCl-Naloxone HCl (SUBOXONE SL) busPIRone cyclobenzaprine diclofenac doxycycline fluconazole fluticasone gabapentin gabapentin lamoTRIgine levonorgestrel melatonin ondansetron spironolactone SUMAtriptan tamsulosin traZODone venlafaxine VENTOLIN HFA ziprasidone ketorolac, 60 mg, Intramuscular, Once Review of Symptoms: CONSTITUTIONAL: No weight loss, fever, chills, weakness or fatigue. HEENT: Eyes: No visual loss, blurred vision, double vision or yellow sclerae. Ears, Nose, Throat: No hearing loss, sneezing, congestion, runny nose or sore throat. SKIN: No rash or itching. CARDIOVASCULAR: No chest pain, chest pressure or chest discomfort. No palpitations or edema . RESPIRATORY: No shortness of breath, cough or sputum. GASTROINTESTINAL: No anorexia, nausea, vomiting or diarrhea. No abdominal pain or blood. GENITOURINARY: No burning on urination. NEUROLOGICAL: No headache, dizziness, syncope, paralysis, ataxia. No change in bowel or vidal dder control. + Neuropathy symptoms in bilateral lower extremities. Episodes of altered lev el of consciousness stiffness and rhythmic jerking occurring in sleep MUSCULOSKELETAL: No muscle, joint pain or stiffness. + Chronic low back pain with sciatica and radiculopathy. PSYCHIATRIC: No depression or anxiety. Neurological Examination: Vitals: 11/08/19 1030 BP: 130/80 Pulse: 109 Resp: 18 PainSc: 7 PainLoc: Back Mental status: The patient is alert, attentive, and oriented. Speech is clear and fluent with good repetit ion, comprehension, and naming. Cranial nerves: CN II: Visual jackson are full to confrontation. Fundoscopic exam is normal with sharp discs and no vascular changes. Pupils are 4 mm and briskly reactive to light with accomodation. CN III, IV, : Gaze in conjugate. No blurred or double vision. No visual field cuts. EOM intact. CN V: Facial sensation is intact. CN VII: Face is symmetric with normal eye closure and smile. CN VII: Hearing is normal to rubbing fingers CN IX, X: Palate elevates symmetrically. Phonation is normal. CN XI: Head turning and shoulder shrug are intact CN XII: Tongue is midline with normal movements and no atrophy. Motor: There is no pronator drift of out-stretched arms. Muscle bulk and tone are normal. Strength is 5/5 bilaterally. Reflexes: Reflexes are 1+ and symmetric at the biceps, triceps, knees, and ankles. Sensory: Light touch, pinprick, position sense, and vibration sense are impaired in bilateral lower extremities in stocking distribution up to the ankles. Coordination: Rapid alternating movements and fine finger movements are intact. There is no dysmetria on byzlvo-cf-uyum and ssgq-ehrs-olkc. There are no abnormal or extraneous movements. Romberg is absent. Gait/Stance: Posture is normal. Gait is steady with normal steps, base, arm swing, and turning. Heel and toe walking with mild difficulty. Clinical Impression: ICD-10-CM ICD-9-CM 1. Idiopathic peripheral neuropathy G60.9 356.9 2. Lumbosacral radiculopathy M54.17 724.4 ketorolac (TORADOL) injection 60 mg 3. Fibromyalgia M79.7 729.1 4. Altered level of consciousness R40.4 780.09 * [facility] Neurology - AMB Referr al EEG 24 HR AMBULATORY MONITORING MRI Brain w wo Contrast 5. Jerking movements of extremities R25.2 781.0 * [facility] - AMB Refer ral EEG 24 HR AMBULATORY MONITORING MRI Brain w wo Contrast 6. Thoracic spine pain M54.6 724.1 XR Thoracic Spine 3 Vw Trigger Point Injection Procedure ketorolac (TORADOL) injection 60 mg Plan: Chronic low back pain: Continue taking gabapentin 300 mg 4 times daily to help with neuropa thic pain. Plan for x-rays of the thoracic spine to further assess for the cause of her silvia n. Pending x-ray results, plan for trigger point injection of the mid back. Continue takin g Flexeril 10 mg 3 times daily as needed for muscle spasms. We also discussed home exercise and weight loss regimen Which can help her manage her chronic pain symptoms. Toradol 60 mg IM administered in clinic today for an acute flare of her chronic pain. Peripheral neuropathy: Continue to take gabapentin 300 mg 4 times daily to help with neurop athic pain. Fibromyalgia: The patient reports that her symptoms have been relatively stable. She repor ts that her pain is well-controlled using gabapentin and Flexeril at this time. She also co ntinues to use essential oils, CBD oil, massage and muscle rubs as well as heat to help with her chronic pain symptoms. No additional interventions needed at this time. Episodes of altered level of consciousness which occurred during sleep: Due to the patient' s family history of epilepsy, repeated stereotypical episodes occurring during sleep, and ab normal hormone levels. The patient should have an MRI of the brain with and without contras t to further investigate his symptoms. Rule out tumor and structural lesion causing seizure s. The patient will also be referred to Dr. Warren for a sleep evaluation. The patient mika uld also have a 24-hour EEG which is left on while she is sleeping to further characterize h er spells. Plan to follow up in 3 months with me and next available with Dr. Johns. JUVENTINO Dinh Electronically signed This note was transcribed using voice recognition software. There may be speech recognitio n errors which escaped detection during review. documented in thi s encounter Plan of Treatment +--------+---------+ + + + | Date | Type | Specialty | Care Team | Description | +--------+---------+ + + + | 11/26/ | Office | Neurology | Sherrie Johns MD | | | 2020 | Visit | | [address] | | | | | | [place] | | | | | | [address] | | | | | | | | +--------+---------+ + + + + +---------+--------+ + + | Name | Type | Priori | Associated Diagnoses | Order Schedule | | | | ty | | | + +---------+--------+ + + | MRI Brain w wo | Imaging | Routin | Altered level of | Expected: | | Contrast | | e | consciousness | 11/08/2019, Expires: | | | | | Jerking movements of | 11/08/2020 | | | | | extremities | | + +---------+--------+ + + + + +--------+ + + | Name | Type | Priori | Associated Diagnoses | Order Schedule | | | | ty | | | + + +--------+ + + | * [facility] | Outpatient | Routin | Altered level of | Ordered: 11/08/2019 | | [facility] - AMB | Referral | e | consciousness | | | Referral | | | Jerking movements of | | | | | | extremities | | + + +--------+ + + documented as of this encounter Results Trigger Point Injection Procedure (12/08/2019 3:45 PM PST) + + + | Narrative | Performed At | + + + | Sherrie Johns MD 12/08/2019 4:13 PM Linda Singleton is | | | a 29 y.o. female right handed seen for neurologic evaluation | | | with history of chronic , persistent thoracic spine pain with | | | acute exacerbation with prominent spasms and pain. she received | | | a trigger point injection today in the bilateral paraspinal T 6-7, | | | right paraspinal T 7-8 spine,and left paraspinal T9-10 muscles. | | | She initially received Lidocaine 1 % and once tolerated, given a | | | combination of Marcaine 5 % and Depomedrol. A total of depomedrol | | | 10 ml, 40 mg/ml were injected. she did not experience | | | palpitations, diaphoresis, chest pain, or near syncopal symptoms. | | | It is medically necessary she receives another trigger point | | | injection in 4-5 months if her symptoms recur to improve her quality | | | of life and activities of daily living. she was advised to place | | | a warm compress in the injected areas , 20 mins on and 20 mins off, | | | for a couple of hours, 2-3 times a day. I advised the patient | | | to call for any side effects or questions. Thank you for | | | allowing us in participating in the care of your patient. | | | Sincerely, SHERRIE JOHNS M.D. Neurologist [phone] | | | Electronically signed NOTE: Part of this report was transcribed | | | using voice recognition software. Every effort | | | was made to ensure accuracy. However, inadvertent | | | computerize set up mechanic stamping machines errors may be present | | | | | + + + EEG 24 HR AMBULATORY MONITORING (11/27/2019 1:00 PM PST) + + + | Narrative | Performed At | + + + | Brittny Warren MD 11/28/2019 7:12 PM Name:Linda Blair | | | Mani :1990 DATE OF SERVICE:11/27/2019 | | | 24 HOUR ELECTROENCEPHALOGRAM INTRODUCTION: This a digital | | | ambulatory video EEG recording of a 29 y.o. year-old female with | | | episodes of altered level of consciousness. This study was | | | performed to further ascertain the nature of the patient's spells. | | | This study utilized 20 channels of EEG derived from 21 scalp | | | electrodes placed over the frontal, temporal, parietal, occipital, | | | and central regions. The [employer] 10 | | | | | | 20 system of electrode placement was used. The recording was | | | started at 2:37 PM on 11/27/2019 and ended at 1:22 PM on 11/28/2019 | | | for a total record duration of approximately 22.5 hours. More than | | | 80% of the study included recorded video. RESULTS: The study was | | | reviewed using the [place] EEG digital system. During the | | | awake portions of the recording, a normal background pattern | | | consisting of 10 Hz was noted. The patient was asleep between | | | 11:53 PM and 10:13 AM. ABNORMAL POTENTIALS: No focal slow waves | | | or epileptiform discharges were seen. PUSH BUTTON/VOICE ENTRY | | | EVENTS: There were none IMPRESSION: Normal video ambulatory EEG | | | study. There was no electrographic evidence of a seizure disorder | | | during the 22.5 hour duration of this recording. Thank you for | | | the opportunity to participate in the care of this patient. | | | Brittny Warren, 11/28/20197:10 PM Electronically signed | | | | | + + + XR Thoracic Spine 3 Vw (11/08/2019 11:31 AM PST) + + | Specimen | + + | | + + + + + | Impressions | Performed At | + + + | Normal. Dictated by: Hernan Chamorro | | + + + + + + | Narrative | Performed At | + + + | EXAMINATION: XR THORACIC SPINE 3 VW HISTORY: thoracic spine | [facility] | | pain COMPARISON STUDY: None FINDINGS: Rib-bearing thoracic | | | vertebral bodies are normally aligned. Disc heights are normal. No | | | fracture or subluxation. No endplate degenerative change. | | | Visualized thorax is unremarkable. | | + + + + --+ | Procedure Note | + --+ | Jorge A, Rad Results In - 11/08/2019 2:01 PM PST EXAMINATION:XR THORACIC SPINE 3 | | VWHISTORY:thoracic spine painCOMPARISON STUDY:NoneFINDINGS:Rib-bearing thoracic | | vertebral bodies are normally aligned. Disc heights are normal. No fracture or | | subluxation. No endplate degenerative change. Visualized thorax is | | unremarkable.IMPRESSION: Normal.Dictated by: Hernan Tysonectronically Signed by: | | Hernan Chamorro on 11/08/2019 1:57 PM | |COMPARISON STUDY: | |None | | | |FINDINGS: | |Rib-bearing thoracic vertebral bodies are normally aligned. Disc heights are normal. No f racture or subluxation. No endplate degenerative change. Visualized thorax is unremarkable . | | | |IMPRESSION: | |Normal. | | | |Dictated by: Hernan Chamorro | | | | | + --+ + +---------+ + + | Performing | Address | City/State/Zipcode | Phone Number | | Organization | | | | + +---------+ + + | [facility] | | | | + +---------+ + + documented in this encounter Visit Diagnoses + + | Diagnosis | + + | Idiopathic peripheral neuropathy - Primary Unspecified hereditary and idiopathic | | peripheral neuropathy | + + | Lumbosacral radiculopathy Thoracic or lumbosacral neuritis or radiculitis, | | unspecified | + + | Fibromyalgia Mylagia and myositis, unspecified | + + | Altered level of consciousness Other alteration of consciousness | + + | Jerking movements of extremities Abnormal involuntary movements | + + | Thoracic spine pain Pain in thoracic spine | + + documented in this encounter Administered Medications + +--------+ +-------+------+ + | Medication Order | MAR | Action | Dose | Rate | Site | | | Action | Date | | | | + +--------+ +-------+------+ + | ketorolac (TORADOL) injection | Given | 11/08/19 | 60 mg | | Glut-Rig | | 60 mg 60 mg, Intramuscular, | | 20 11:27 | | | ht | | ONCE, 11/08/19 at 1115, For 1 | | AM PST | | | | | dose | | | | | | + +--------+ +-------+------+ + +---+---+ | | | +---+---+ documented in this encounter
--- OUTSIDE RECORDS SUMMARY | ~2020-03-19 | XMS | Encounter Summary ---
Demographics + + + | Address | [address] | | | [place] [address] | + + + | Home Phone | | + + + | Preferred Language | Unknown | + + + | Marital Status | Single | + + + | Presybeterian Affiliation | Unknown | + + + | Race | Unknown | + + + | Ethnic Group | Unknown | + + + Author + + + | Author | [facility] | | | and [place] | + + + | Organization | [facility] | | | and [...] Team Providers + +------+ + | Care Mural Artist Name | Role | Phone | + +------+ + | No, Physician | PCP | Unavailable | + +------+ + Reason for Visit + + + | Reason | Comments | + + + | Medication Question | | + + + Encounter Details +--------+ + + + + | Date | Type | Department | Care Team | Description | +--------+ + + + + | 10/19/ | Telephone | [facility] | [place], | Medication Question | | 2020 | | [facility] | Jax, [employer] [address] | | | | | [address] [place], | | | | | [address] [place], | [place] [address] | | | | | [place] [address] | [phone] | | | | | [phone] | | | +--------+ + + + [...] as of this encounter Plan of Treatment +--------+---------+ + + + | Date | Type | Specialty | Care Team | Description | +--------+---------+ + + + | 11/26/ | Office | Neurology | Seven Johns MD | | | 2020 | Visit | | [address] | | | | | | [place] | | | | | | [address] | | | | | | | | +--------+---------+ + + + documented as of this encounter Visit Diagnoses Not on filedocumented in this encounter"
--- OUTSIDE RECORDS SUMMARY | ~2020-03-19 | XMS | Encounter Summary ---
Demographics + + + | Address | [address] | | | [place] [address] | + + + | Home Phone | | + + + | Preferred Language | Unknown | + + + | Marital Status | Single | + + + | Religion Affiliation | Unknown | + + + | Race | Unknown | + + + | Ethnic Group | Unknown | + + + Author + + + | Author | [facility] | | | and [place] | + + + | Organization | [facility] | | | and [...] Team Providers + +------+ + | Care Scale Expert Name | Role | Phone | + +------+ + | Jerica Martinez | PCP | | + +------+ + Reason for Visit +---------+ + | Reason | Comments | +---------+ + | Results | EEG | +---------+ + Encounter Details +--------+ + + + + | Date | Type | Department | Care Team | Description | +--------+ + + + + | 11/30/ | Telephone | [facility] | Elinor Davidson RN | Results (EEG) | | 2019 | | HOSPITAL [facility]OLOGY | | | | | | CLINIC [address] | | | | | | [address] [place], | | | | | | [place] [address] | | | | | | [phone] | | | +--------+ + + + [...] [place] | | | | | | [address] | | | | | | | | +--------+---------+ + + + documented as of this encounter Visit Diagnoses Not on filedocumented in this encounter"
--- OUTSIDE RECORDS SUMMARY | ~2020-03-19 | XMS | Encounter Summary ---
Demographics + + + | Address | [address] | | | [place] [address] | + + + | Home Phone [...] Team Providers + +------+ + | Care Conservation Planner Name | Role | Phone | + +------+ + | No Pcp Per Patient | PCP | Unavailable | + +------+ + Encounter Details +--------+--------+ + + + | Date | Type | Department | Care Team | Description | +--------+--------+ + + + | 03/29/ | Travel | | | | | 2019 | | | | | +--------+--------+ + + + Social History + +-------+ +--------+------+ | Tobacco Use | Types | Packs/Day | Years | Date | | | | | Used | | + +-------+ +--------+------+ | Current Every Day | | | | | | Smoker | | | | | + +-------+ +--------+------+ + +------+---+---+ | Smokeless Tobacco: | Chew | | | | Current User | | | | + +------+---+---+ + + +---------+ + | Alcohol Use | Drinks/Week | oz/Week | Comments | + + +---------+ + | Yes | | | | + + +---------+ + + + + + | Alcohol Habits | Answer | Date Recorded | + + + + | How often do you have a drink containing | Monthly or less | 03/29/2019 | | alcohol? | | | + + + + | How many drinks containing alcohol do you | Not asked | | | have on a typical day when you are | | | | drinking? | | | + + + + | How often do you have six or more drinks on | Not asked | | | one occasion? | | | + + + + + + + | Sex Assigned [...]
--- OUTSIDE RECORDS SUMMARY | ~2020-03-19 | XMS | Encounter Summary ---
Demographics + + + | Address | [address] | | | [place] [address] | + + + | Home Phone | | + + + | Preferred Language | Unknown | + + + | Marital Status | Single | + + + | Alevism Affiliation | Unknown | + + + | Race | Unknown | + + + | Ethnic Group | Unknown | + + + Author + + + | Author | [facility] | | | and [place] | + + + | Organization | [facility] | | | and [...] Team Providers + +------+ + | Care Fitness Coordinator Name | Role | Phone | + +------+ + | No, Physician | PCP | Unavailable | + +------+ + Reason for Visit + + + | Reason | Comments | + + + | Medication Refill | | + + + Encounter Details +--------+ + + + + | Date | Type | Department | Care Team | Description | +--------+ + + + + | 05/05/ | Telephone | [facility] | Seven Johns MD | Medication Refill | | 2019 | | HOSPITAL [facility] | [address] | | | | | CL[address] | [place], [place] | | | | | [address] [place], | [address] | | | | | [place] [address] | | | | | | [phone] | | | +--------+ + + + [...] [place] | | | | | | [place] | | | | | | [id number] | | | | | | | | +--------+---------+ + + + documented as of this encounter Visit Diagnoses Not on filedocumented in this encounter"
--- OUTSIDE RECORDS SUMMARY | ~2020-03-19 | XMS | Encounter Summary ---
Demographics + + + | Address | [address] | | | [place] [address] | + + + | Home Phone | | + + + | Preferred Language | Unknown | + + + | Marital Status | Single | + + + | Confucianist Affiliation | Unknown | + + + | Race | Unknown | + + + | Ethnic Group | Unknown | + + + Author + + + | Author | [facility] | | | and [place] | + + + | Organization | [facility] | | | [...] Team Providers + +------+ + | Care Direct Of Real Estate Name | Role | Phone | + +------+ + | No, Physician | PCP | Unavailable | + +------+ + Reason for Visit + + + | Reason | Comments | + + + | Test Results | | + + + Encounter Details +--------+ + + + + | Date | Type | Department | Care Team | Description | +--------+ + + + + | 09/25/ | Telephone | [facility] | [place], | Test Results | | 2019 | | [facility] | Jax, SHELTERED [employer] EXECUTIVE [address] | | | | | [address] | [address] [place], | | | | | [address] [place], | [place] [address] | | | | | [place] [address] | [phone] | | | | | [phone] | | | +--------+ + + + [...] [place] | | | | | | [address] | | | | | | | | +--------+---------+ + + + documented as of this encounter Visit Diagnoses Not on filedocumented in this encounter"
--- OUTSIDE RECORDS SUMMARY | ~2020-03-19 | XMS | Encounter Summary ---
Demographics + + + | Address | [address] | | | [place] [address] | + + + | Home Phone | | + + + | Preferred Language | Unknown | + + + | Marital Status | Single | + + + | Evangelical Affiliation | Unknown | + + + | Race | Unknown | + + + | Ethnic Group | Unknown | + + + Author + + + | Author | [facility] | | | and [place] | + + + | Organization | [facility] | | | and [...] Team Providers + +------+ + | Care Vp Clinical Name | Role | Phone | + +------+ + | Mindy Stewart | PCP | | | PA | | | + +------+ + Reason for Visit + + + | Reason | Comments | + + + | Lab Results | | + + + Encounter Details +--------+ + + + + | Date | Type | Department | Care Team | Description | +--------+ + + + + | 03/15/ | Telephone | [facility] | Seven Johns MD | Lab Results | | 2019 | | HOSPITAL NE[facility]Y | [address] | | | | | CL[address] | [place], [place] | | | | | [address] [place], | [address] | | | | | [place] [address] | | | | | | [phone] | | | +--------+ + + + + Social History + + + +--------+------+ | Tobacco Use | Types | Packs/Day | Years | Date | | | | | Used | | + + + +--------+------+ | Current Every Day | Cigarettes | 0.5 | | | | Smoker | | | | | + + + +--------+------+ + +---+---+---+ | Smokeless Tobacco: | | | | | Never Used | | | | + +---+---+---+ + + +---------+ + | Alcohol Use | Drinks/Week | oz/Week | Comments | + + +---------+ + | No | | | | + + +---------+ [...] [place] | | | | | | [id number] | | | | | | | | +--------+---------+ + + + documented as of this encounter Visit Diagnoses Not on filedocumented in this encounter"
--- OUTSIDE RECORDS SUMMARY | ~2020-03-19 | XMS | Clinical Summary ---
Demographics + + + | Address | [address] | | | [place] [address] | + + + | Home Phone | | + + + | Preferred Language | Unknown | + + + | Marital Status | Single | + + + | Buddhism Affiliation | Unknown | + + + | Race | Unknown | + + + | Ethnic Group | Unknown | + + + Author + + + | Author | [facility] | | | and [place] | + + + | Organization | [facility] | | | [...] Team Providers + +------+ + | Care Desktop Publishing Operator Name | Role | Phone | + +------+ + | Jerica Martinez | PCP | | + +------+ + Allergies + + + + + + | Active Allergy | Reactions | Severity | Noted | Comments | | | | | Date | | + + + + + + | Sulfa Antibiotics | Nausea And Vomiting | Low | 03/17/20 | | | | | | 19 | | + + + + + + | Sulfamethoxazole-Tri | Anxiety | Low | 03/26/20 | "out of body | | methoprim | | | 19 | experience." | + + + + + + Medications + + + +---------+------+------+-------+ | Medication | Sig | Dispensed | Refills | Star | End | Statu | | | | | | t | Date | s | | | | | | Date | | | + + + +---------+------+------+-------+ | tamsulosin | Take 0.8 mg by mouth | | 0 | | | Activ | | (FLOMAX) 0.4 mg CAPS | nightly. | | | | | e | + + + +---------+------+------+-------+ | melatonin 5 mg | Take 10 mg by mouth | | 0 | | | Activ | | tablet | nightly as needed | | | | | e | | | for Insomnia. | | | | | | + + + +---------+------+------+-------+ | VENTOLIN HFA 108 | | | 0 | 06/1 | | Activ | | (90 Base) MCG/ACT | | | | 8/20 | | e | | inhaler | | | | 18 | | | + + + +---------+------+------+-------+ | diclofenac | | | 0 | 05/1 | | Activ | | (VOLTAREN) 75 mg EC | | | | 7/20 | | e | | tablet | | | | 19 | | | + + + +---------+------+------+-------+ | fluconazole | | | 0 | 07/1 | | Activ | | (DIFLUCAN) 150 mg | | | | 3/20 | | e | | tablet | | | | 18 | | | + + + +---------+------+------+-------+ | fluticasone | | | 0 | 05/2 | | Activ | | (FLONASE) 50 | | | | 0/20 | | e | | mcg/nasal spray | | | | 19 | | | + + + +---------+------+------+-------+ | levonorgestrel | 1 each by | | 0 | 05/1 | 05/1 | Activ | | (MIRENA, 52 MG,) 20 | Intrauterine route. | | | 4/20 | 2/20 | e | | MCG/24HR IUD | | | | 19 | 24 | | + + + +---------+------+------+-------+ | ondansetron | | | 0 | 09/1 | | Activ | | (ZOFRAN ODT) 8 mg | | | | 2/20 | | e | | disintegrating | | | | 18 | | | | tablet | | | | | | | + + + +---------+------+------+-------+ | cyclobenzaprine | Take 1 tablet by | 90 | 1 | 06/0 | | Activ | | (FLEXERIL) 10 mg | mouth 3 times daily | tablet | | 6/20 | | e | | tabletIndications: | as needed for Muscle | | | 19 | | | | Chronic bilateral | spasms. | | | | | | | low back pain with | | | | | | | | left-sided sciatica | | | | | | | + + + +---------+------+------+-------+ | SUMAtriptan | One tab at onset of | 20 | 2 | 07/2 | | Activ | | (IMITREX) 100 mg | migraine and can | tablet | | 620 | | e | | tablet | repeat in 45 mins up | | | 19 | | | | | to 2 per day | | | | | | + + + +---------+------+------+-------+ | lamoTRIgine | Take 200 mg by mouth | | 0 | | | Activ | | (LAMICTAL) 200 MG | once daily at | | | | | e | | tablet | bedtime. | | | | | | + + + +---------+------+------+-------+ | traZODone | 300 mg. | | 0 | | | Activ | | (DESYREL) 150 MG | | | | | | e | | tablet | | | | | | | + + + +---------+------+------+-------+ | venlafaxine | Take 225 mg by mouth | | 0 | | | Activ | | (EFFEXOR XR) 225 mg | once daily in the | | | | | e | | ER tablet | morning. | | | | | | + + + +---------+------+------+-------+ | ziprasidone | Take 40 mg by mouth | | 0 | | | Activ | | (GEODON) 40 mg | once daily at | | | | | e | | capsule | bedtime. | | | | | | + + + +---------+------+------+-------+ | doxycycline | Take 100 mg by mouth | | 0 | | | Activ | | (MONODOX) 100 mg | 2 times daily. | | | | | e | | capsule | | | | | | | + + + +---------+------+------+-------+ | spironolactone | Take 100 mg by mouth | | 0 | | | Activ | | (ALDACTONE) 100 MG | 2 times daily. | | | | | e | | tablet | | | | | | | + + + +---------+------+------+-------+ | busPIRone (BUSPAR) | Take 15 mg by mouth | | 0 | | | Activ | | 15 mg tablet | 3 times daily. | | | | | e | + + + +---------+------+------+-------+ | valACYclovir | | | 0 | 02/0 | | Activ | | (VALTREX) 500 mg | | | | 3/20 | | e | | tablet | | | | 20 | | | + + + +---------+------+------+-------+ | ergocalciferol | | | 0 | 02/1 | | Activ | | (VITAMIN D2) 1.25 mg | | | | 9/20 | | e | | (50,000 units) | | | | 20 | | | | capsule | | | | | | | + + + +---------+------+------+-------+ | | Take 1 tablet by | | 0 | 05/0 | | Activ | | HYDROcodone-acetamin | mouth. | | | 20 | | e | | ophen (NORCO) 5-325 | | | | 20 | | | | mg per tablet | | | | | | | + + + +---------+------+------+-------+ | hydrOXYzine | | | 0 | 04/0 | | Activ | | pamoate (VISTARIL) | | | | 7/20 | | e | | 25 mg capsule | | | | 20 | | | + + + +---------+------+------+-------+ | levothyroxine | Take 75 mcg by mouth | | 0 | 05/1 | | Activ | | (SYNTHROID) 75 mcg | Daily. | | | 1/20 | | e | | tablet | | | | 20 | | | + + + +---------+------+------+-------+ | | | | 0 | 04/2 | | Activ | | buprenorphine-naloxo | | | | 9/20 | | e | | ne (SUBOXONE) 8-2 mg | | | | 20 | | | | SL film | | | | | | | + + + +---------+------+------+-------+ | gabapentin | Take 1,200 mg by | | 0 | 04/2 | | Activ | | (NEURONTIN) 800 MG | mouth 3 times daily. | | | 720 | | e | | tablet | | | | 20 | | | + + + +---------+------+------+-------+ | metoprolol | Take 50 mg by mouth | | 0 | 02/0 | | Activ | | succinate | Daily. | | | 3/20 | | e | | (TOPROL-XL) 50 mg 24 | | | | 20 | | | | hr tablet | | | | | | | + + + +---------+------+------+-------+ | gabapentin | Take 100 mg by mouth | | 0 | | 05/1 | Disco | | (NEURONTIN) 100 mg | 4 times daily. One | | | | 3/20 | ntinu | | capsule | to two capsules | | | | 20 | ed | + + + +---------+------+------+-------+ | Buprenorphine | Place under the | | 0 | | 05/1 | Disco | | HCl-Naloxone HCl | tongue. | | | | 3/20 | ntinu | | (SUBOXONE SL) | | | | | 20 | ed | + + + +---------+------+------+-------+ | metoprolol | | | 0 | 02/0 | 05/1 | Disco | | succinate | | | | 3/20 | 3/20 | ntinu | | (TOPROL-XL) 50 mg 24 | | | | 20 | 20 | ed | | hr tablet | | | | | | | + + + +---------+------+------+-------+ | gabapentin | | | 0 | 02/1 | 05/1 | Disco | | (NEURONTIN) 400 mg | | | | 0/20 | 3/20 | ntinu | | capsule | | | | 20 | 20 | ed | + + + +---------+------+------+-------+ | gabapentin | TAKE ONE CAPSULE BY | 120 | 3 | 03/0 | 05/1 | Disco | | (NEURONTIN) 300 mg | MOUTH FOUR TIMES A | capsule | | 2/20 | 3/20 | ntinu | | capsule | DAY | | | 20 | 20 | ed | + + + +---------+------+------+-------+ Active Problems + + + | Problem | Noted Date | + + + | Lumbosacral radiculopathy | 09/15/2019 | + + + + + | Overview: September 15, 2018: EMG/NCS: No evidence of | | lumbosacral radiculopathy. | + + + + + | Cigarette smoker | 03/29/2019 | + + + | Finger mass, right | 03/29/2019 | + + + | Tobacco dependence due to cigarettes | 03/29/2019 | + + + | Mass of soft tissue of right upper extremity | 03/18/2019 | + + + + + | Overview: Mass right thumb. Symptomatic. Radial dorsal distal | | phalanx. By CT 1.2cm by 9cm by 1.0cm. | + + + + + | Fibromyalgia | 11/03/2018 | + + + | Idiopathic peripheral neuropathy | 11/03/2018 | + + + + + | Overview: Current Treatment:Gabapentin September 15, | | 2019: EMG/NCS: No evidence of peripheral neuropathy | + + + + + | Cardiomyopathy | 09/27/2018 | + + + + + | Overview: Overview: - echo 09/06/18: Overall LV systolic | | function is mildly impaired with mild global hypokinesis and an | | EF between 45-50%, RV is normal in size and function, no | | clinically significant valvular abnormalities are present. - echo | | 09/06/18: Overall LV systolic function is mildly impaired with | | mild global hypokinesis and an EF between 45-50%, RV is normal in | | size and function, no clinically significant valvular | | abnormalities are present.- echo 09/06/18: Overall LV systolic | | function is mildly impaired with mild global hypokinesis and an | | EF between 45-50%, RV is normal in size and function, no | | clinically significant valvular abnormalities are present. | + + + + + | Abnormal thyroid blood test | 09/07/2018 | + + + | Thyroid nodule | 09/07/2018 | + + + Encounters +--------+---------+ + + + | Date | Type | Specialty | Care Team | Description | +--------+---------+ + + + | 02/20/ | Office | Neurology | [place], | Idiopathic | | 2019 | Visit | | JUVENTINO Camara | peripheral | | | | | | neuropathy (Primary | | | | | | Dx); Lumbosacral | | | | | | radiculopathy; | | | | | | Fibromyalgia | +--------+---------+ + + + from Last 3 Months Immunizations + + + + | Name | Administration Dates | Next Due | + + + + | HIB, UNSPECIFIED | 12/01/1990 | | | FORMULATION | | | + + + + Social History + [...] recent travel history available. | + + Last Filed Vital Signs + + + + + | Vital Sign | Reading | Time Taken | Comments | + + + + + | Blood Pressure | 126/75 | 02/21/2020 9:57 AM | | | | | PDT | | + + + + + | Pulse | 102 | 02/21/2020 9:57 AM | | | | | PDT | | + + + + + | Temperature | 36.4 C (97.5 F) | 02/21/2020 9:57 AM | | | | | PDT | | + + + + + | Respiratory Rate | 16 | 02/21/2020 9:57 AM | | | | | PDT | | + + + + + | Oxygen Saturation | 98% | 02/21/2020 9:57 AM | | | | | PDT | | + + + + + | Inhaled Oxygen | - | - | | | Concentration | | | | + + + + + | Weight | 115.2 kg (254 lb) | 02/21/2020 9:57 AM | | | | | PDT | | + + + + + | Height | 170.2 cm (5' 7") | 02/21/2020 9:57 AM | | | | | PDT | | + + + + + | Body Mass Index | 39.78 | 02/21/2020 9:57 AM | | | | | PDT | | + + + + + Plan of Treatment +--------+---------+ + + + | Date | Type | Specialty | Care Team | Description | +--------+---------+ + + + | 11/26/ | Office | Neurology | Seven Johns MD | | | 2020 | Visit | | [address] | | | | | | [place] | | | | | | [address] | | | | | | | | +--------+---------+ + + + + + + + + | Health Maintenance | Due Date | Last Done | Comments | + + + + + | Vaccine: | | | | | Pneumococcal 19-64 | 4 | | | | (1 of 1 - PPSV23) | | | | + + + + + | Vaccine: | | | | | Dtap/Tdap/Td (1 - | 9 | | | | Tdap) | | | | + + + + + | Urine Drug Screening | | | | | | 4 | | | + + + + + | Cervical Cancer | | | | | Screening (Pap) | 8 | | | + + + + + | Vaccine: Influenza | | | | | (Season Ended) | 0 | | | + + + + + Results Not on filefrom Last 3 Months Insurance + +--------+ +--------+ +---------+--------+ | Payer | Benefi | Subscriber | Effect | Phone | Address | Type | | | t Plan | ID | anish | | | | | | / | | Dates | | | | | | Group | | | | | | + +--------+ +--------+ +---------+--------+ | [employer] | [employer] | [id number] | | [phone] | | Medica | | MEDICAID HMO | HEALTH | | [id number]-Pr | 1 | | id | | | MDCD | | esent | | | | | | [place] | | | | | | + +--------+ +--------+ +---------+--------+ | [employer] | [employer] | [id number] | | [phone] | | Medica | | MEDICAID HMO | HEALTH | | 018-Pr | 1 | | id | | | MDCD | | esent | | | | | | [place] | | | | | | + +--------+ +--------+ +---------+--------+ + +--------+ +--------+ + + | Guarantor Name | Accoun | Relation to | Date | Phone | Billing Address | | | t Type | Patient | of | | | | | | | | | | + +--------+ +--------+ + + | Linda Singleton | Person | Self | [birth year] | | [address] | | | al/Fam | | 1989 | [phone] | [place] [address] | | | [place] | | | 6 (Home) | | + +--------+ +--------+ + + | Linda Singleton | Person | Self | [birth year] | | [address] | | | al/Fam | | 1989 | [phone] | [place] [address] | | | alexandro | | | 6 (Home) | | + +--------+ +--------+ + + | Linda Singleton | Person | Self | [birth year] | | [address] | | | al/Fam | | 1989 | [phone] | [place] [address] | | | alexandro | | | 6 (Home) | | + +--------+ +--------+ + + Advance Directives + + + + + | Type | Date Recorded | Patient | Explanation | | | | Nurse Esthetician | | + + + + + | Power of | | | | | Mallet Cutter | | | | + + + + + | Advance | 11/27/2019 10:38 | | | | Directive | AM | | | + + + + +
--- OUTSIDE RECORDS SUMMARY | ~2020-03-19 | XMS | Encounter Summary ---
Demographics + + + | Address | [address] | | | [place] [address] | + + + | Home Phone | | + + + | Preferred Language | Unknown | + + + | Marital Status | Single | + + + | Druze Affiliation | Unknown | + + + | Race | Unknown | + + + | Ethnic Group | Unknown | + + + Author + + + | Author | [facility] | | | and [place] | + + + | Organization | [facility] | | | [...] Team Providers + +------+ + | Care Electrician Apprentice Powerhouse Name | Role | Phone | + +------+ + | No, Physician | PCP | Unavailable | + +------+ + Encounter Details +--------+ + + + + | Date | Type | Department | Care Team | Description | +--------+ + + + + | 05/18/ | Orders Only | [facility] | Provider, | | | 2019 | | SYSTEM GENERIC OP | MD [address] | | | | | CONVERSION [address] | [place]rie [place] | | | | | [address] [place], [place] | [place] [address] | | | | | [address] | | | | | | [phone] | | | +--------+ + + + [...] | 2020 | Visit | | [address] | | | | | | [place] | | | | | | [id number] | | | | | | | | +--------+---------+ + + + documented as of this encounter Visit Diagnoses Not on filedocumented in this encounter"
--- OUTSIDE RECORDS SUMMARY | ~2020-03-19 | XMS | Encounter Summary ---
Demographics + + + | Address | [address] | | | [place] [address] | + + + | Home Phone | | + + + | Preferred Language | Unknown | + + + | Marital Status | Single | + + + | Baptist Affiliation | NON | + + + [...] Team Providers + +------+ + | Care Colored Leather Setter Name | Role | Phone | + +------+ + | No Pcp Per Patient | PCP | Unavailable | + +------+ + Encounter Details +--------+--------+ + + + | Date | Type | Department | Care Team | Description | +--------+--------+ + + + | 04/19/ | Travel | | | | | [...]
--- OUTSIDE RECORDS SUMMARY | ~2020-03-19 | XMS | Encounter Summary ---
Demographics + + + | Address | [address] | | | [place] [address] | + + + | Home Phone | | + + + | Preferred Language | Unknown | + + + | Marital Status | Single | + + + | Mandaen Affiliation | Unknown | + + + | Race | Unknown | + + + | Ethnic Group | Unknown | + + + Author + + + | Author | [facility] | | | and [place] | + + + | Organization | [facility] | | | [...] Team Providers + +------+ + | Care Environmental Health Safety Engineer Name | Role | Phone | + +------+ + | No, Physician | PCP | Unavailable | + +------+ + Encounter Details +--------+ + + + + | Date | Type | Department | Care Team | Description | +--------+ + + + + | 05/05/ | Orders Only | [facility] | Seven Johns MD | Chronic migraine | | 2019 | | HOSPITAL NEUROLOGY | [address] | (Primary Dx) | | | | CLINIC [address] | [place] | | | | | [address] [place], | [address] | | | | | [place] [address] | | | | | | [phone] | | | +--------+ + + + [...] [place] | | | | | | [address] | | | | | | | | +--------+---------+ + + + documented as of this encounter Visit Diagnoses + + | Diagnosis | + + | Chronic migraine - Primary Chronic migraine without aura, without mention of | | intractable migraine without mention of status migrainosus | + + documented in this encounter"
--- OUTSIDE RECORDS SUMMARY | ~2020-03-19 | XMS | Encounter Summary ---
Demographics + + + | Address | [address] | | | [place] [address] | + + + | Home Phone | | + + + | Preferred Language | Unknown | + + + | Marital Status | Single | + + + | Hinduism Affiliation | NON | + + + | Race | White | + + + | Ethnic Group | Not or | + + + Author + + + | Author | [facility] | + + + | Organization | [facility] | + + + | Address [...] Team Providers + +------+ + | Care Risk Prevention Engineer Name | Role | Phone | + +------+ + | No Pcp Per Patient | PCP | Unavailable | + +------+ + Reason for Visit +---------+ + | Reason | Comments | +---------+ + | Post Op | excisional biopsy right thumb | +---------+ + PROC - Outpatient Surgery (Routine) +--------+--------+ + + + + | Status | Reason | Specialty | Diagnoses / | Referred By | Referred To | | | | | Procedures | Contact | Contact | +--------+--------+ + + + + | Closed | | Orthopedics | Diagnoses | [place], | Jaycee, | | | | | Neoplasm of | MD Jonathan | Isael Goldberg MD | | | | | uncertain | Good | [address] | | | | | behavior of | [place] | [address] | | | | | connective | Medical | [address] | | | | | and other | [address] | [place], [place] | | | | | soft tissue | [address] | [address] | | | | | Neoplasm of | [place], | Phone: | | | | | uncertain | [place] [address] | [phone] | | | | | behavior of | Phone: | Fax: | | | | | bone and | [phone] | [phone] | | | | | articular | Fax: | | | | | | cartilage | [phone] | | | | | | Procedures | | | | | | | REQUEST TO | | | | | | | SURGERY | | | | | | | SENIOR DIRECTOR OF STRATEGY | | | | | | | NH EXCIS | | | | | | | SOFT TISSUE | | | | | | | LESION HAND | | | | | | | DEEP NH EXC | | | | | | | HAND TURN | | | | | | | DEEP>1.5CM | | | | | | | NH EXCIS | | | | | | | BENIGN BONE | | | | | | | LESN,PHALANX | | | | | | | NH PART | | | | | | | REMV | | | | | | | BONE,PROX/OH | | | | | | | D PHALANX | | | | | | | NH PART REMV | | | | | | | BONE,DISTAL | | | | | | | PHALANX | | | +--------+--------+ + + + + Encounter Details +--------+---------+ + + + | Date | Type | Department | Care Team | Description | +--------+---------+ + + + | 05/31/ | Office | Orthopaedics | Isael Champion, | Squamous cell cancer | | 2019 | Visit | Faculty at [facility] | [address] | of skin of finger, | | | | for Health and | [address] | right (Primary Dx) | | | | Healing [address] | [place], [place] | | | | | Ave Mailcode: | [address] | | | | | [address] [facility] | [phone] | | | | | Health and Healing, | | | | | | [facility] | | | | | | Floor [place], [place] | | | | | | [address] | | | | | | [phone] | | | +--------+---------+ + + + Social History [...] | | + +------+---+---+ + + | Tobacco Cessation: Ready to Quit: No; Counseling Given: No | | Comments: 6-7 cigarettes/per day over the [...] + + + | Blood Pressure | - | - | | + + + + + | Pulse | - | - | | + + + + + | Temperature | - | - | | + + + + + | Respiratory Rate | - | - | | + + + + + | Oxygen Saturation | - | - | | + + + + + | Inhaled Oxygen | - | - | | | Concentration | | | | + + + + + | Weight | 99.3 kg (219 lb) | 05/31/2019 9:12 AM | | | | | PDT | | + + + + + | Height | 170.2 cm (5' 7") | 05/31/2019 9:12 AM | | | | | PDT | | + + + + + | Body Mass Index | 34.3 | 05/31/2019 9:12 AM | | | | | PDT | | + + + + + documented in this encounter Progress Notes Isael Champion MD - 05/31/2019 9:00 AM PDTOHSU | Orthopaedic Oncology Follow-up Note Diagnosis: 1. 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 Excision right thumb soft tissue mass 04/06/19 CC: f/u and planning HPI: Ms Singleton returns to clinic. The swelling in the right thumb has decreased. There is a small area of the wound which is painful and the skin has widened a bit but no drainage. No fevers/chills. Has stiffness. No new lumps/bumps. In the interim, discussed at [facility] and Hakan Reed and [place]. Referred t o Dr Davis for further opinion about management options. PE: Height 1.702 m (5' 7"), weight 99.3 kg (219 lb). Gen: NAD, A&Ox4 Resp: No increased WOB, no audible wheeze, no accessory breathing RUE with thumb wound on radial aspect. No drainage. Tenderness at mid portion. No palpable mass. The nail bed radial third has some chronic changes in the nail itself. Active FPL/EPL but stiff at MCP, IP joins ~25 deg. Decreased sensation at radial aspect of thumb, intact to light touch at distal and ulna aspect of thumb. Prompt cap refill. No epitrochlear or axill fernando lymphadenopathy. XR with some mechanical erosion of distal phalanx without cortical destruction or e/o eri bony invasion. 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 Again went over the diagnosis, and treatment options. Have discussed with Dr Reed and Dr Riley de los santos. Recommend MOHS procedure to attempt clearance/margins to minimize risk of local recurrence. There is still a risk of LR, or ultimately going on to amputation. We talked ab out this as well. - recommend calling Dr Davis's office for directly scheduling for MOHS procedure, as he had recommended. Can see him first in clinic for consultation if would like. Defer to [facility] on systemic surveillance/staging as well. - will follow up with me as needed. Happy to see back for amputation if that is deemed nece ssary, or post-surgery if functional issues. Patient expressed understanding and agreement with plan. Please note - [employer] may be used in the creation of this note. While yessica cked, errors may still occur. Contact if questions/concerns. Isael Champion MD Organisational Psychologist, Orthopaedic Oncology [facility] | Department of Orthopaedics & Rehabilitation documented in this encounter Plan of Treatment Not on filedocumented as of this encounter Results X-RAY HAND 3 VIEWS RIGHT (05/31/2019 9:06 AM PDT) + + | Specimen | + + | | + + + + + | Narrative | Performed At | + + + | EXAM: FINGER 3 VIEWS RIGHT, HAND 3 VIEWS RIGHT HISTORY: | [place] | | Follow-up excision of right thumb [...] Note | + + | Service Account, Radimos[facility] Res In Interface - 05/31/2019 10:48 AM [...] | | | + +---------+ + + X-RAY FINGER 3 VIEWS RIGHT (05/31/2019 9:05 [...] AM Preliminary: Roberta Albarran MD Dictation initiated: Robetra Albarran MD | | 05/31/2019 9:42 AM [...] cell cancer of skin of finger, right - Primary | + + documented in this encounter
--- OUTSIDE RECORDS SUMMARY | ~2020-03-19 | XMS | Encounter Summary ---
Demographics + + + | Address | [address] | | | [place] [address] | + + + | Home Phone | | + + + | Preferred Language | Unknown | + + + | Marital Status | Single | + + + | Latter-Day Affiliation | Unknown | + + + | Race | Unknown | + + + | Ethnic Group | Unknown | + + + Author + + + | Author | [facility] | | | and [place] | + + + | Organization | [facility] | | | [...] Team Providers + +------+ + | Care Digital Computer Operator Name | Role | Phone | + +------+ + | Jerica Martinez | PCP | | + +------+ + Encounter Details +--------+ + + + + | Date | Type | Department | Care Team | Description | +--------+ + + + + | 11/27/ | Hospital | [facility] | [place], | Altered level of | | 2020 | Encounter | HOSPITAL RESPIRATORY | [address] | consciousness; | | | | THERAPY [address] | [address] [place], | Jerking movements of | | | | [address] [place], [place] | [place] [address] | extremities | | | | [address] | [phone] | | | | | [phone] | | | +--------+ + + + [...] + + + +---------+ + + | busPIRone (BUSPAR) | Take 15 mg by mouth | | 0 | | | | 15 mg tablet | 3 times daily. | | | | | + + + +---------+ + + | cyclobenzaprine | Take 1 tablet by | 90 | 1 | 03/16/20 | | | (FLEXERIL) 10 mg | mouth 3 times daily | tablet | | 19 | | | tabletIndications: | as needed for Muscle | | | | | | Chronic bilateral | spasms. | | | | | | low back pain with | | | | | | | left-sided sciatica | | | | | | + + + +---------+ + + | diclofenac | | | 0 | 02/25/20 | | | (VOLTAREN) 75 mg EC | | | | 19 | | | tablet | | | | | | + + + +---------+ + + | doxycycline | Take 100 mg by mouth | | 0 | | | | (MONODOX) 100 mg | 2 times daily. | | | | | | capsule | | | | | | + + + +---------+ + + | fluconazole | | | 0 | 04/22/20 | | | (DIFLUCAN) 150 mg | | | | 18 | | | tablet | | | | | | + + + +---------+ + + | fluticasone | | | 0 | 02/28/20 | | | (FLONASE) 50 | | | | 19 | | | mcg/nasal spray | | | | | | + + + +---------+ + + | lamoTRIgine | Take 200 mg by mouth | | 0 | | | | (LAMICTAL) 200 MG | once daily at | | | | | | tablet | bedtime. | | | | | + + + +---------+ + + | levonorgestrel | 1 each by | | 0 | 02/22/20 | | | (MIRENA, 52 MG,) 20 | Intrauterine route. | | | 19 | 4 | | MCG/24HR IUD | | | | | | + + + +---------+ + + | melatonin 5 mg | Take 10 mg by mouth | | 0 | | | | tablet | nightly as needed | | | | | | | for Insomnia. | | | | | + + + +---------+ + + | metoprolol | Take 50 mg by mouth | | 0 | 11/13/19 | | | succinate | Daily. | | | 20 | | | (TOPROL-XL) 50 mg 24 | | | | | | | hr tablet | | | | | | + + + +---------+ + + | ondansetron | | | 0 | 06/22/20 | | | (ZOFRAN ODT) 8 mg | | | | 18 | | | disintegrating | | | | | | | tablet | | | | | | + + + +---------+ + + | spironolactone | Take 100 mg by mouth | | 0 | | | | (ALDACTONE) 100 MG | 2 times daily. | | | | | | tablet | | | | | | + + + +---------+ + + | SUMAtriptan | One tab at onset of | 20 | 2 | 05/05/20 | | | (IMITREX) 100 mg | migraine and can | tablet | | 19 | | | tablet | repeat in 45 mins up | | | | | | | to 2 per day | | | | | + + + +---------+ + + | tamsulosin | Take 0.8 mg by mouth | | 0 | | | | (FLOMAX) 0.4 mg CAPS | nightly. | | | | | + + + +---------+ + + | traZODone | 300 mg. | | 0 | | | | (DESYREL) 150 MG | | | | | | | tablet | | | | | | + + + +---------+ + + | valACYclovir | | | 0 | 11/13/19 | | | (VALTREX) 500 mg | | | | 20 | | | tablet | | | | | | + + + +---------+ + + | venlafaxine | Take 225 mg by mouth | | 0 | | | | (EFFEXOR XR) 225 mg | once daily in the | | | | | | ER tablet | morning. | | | | | + + + +---------+ + + | VENTOLIN HFA 108 | | | 0 | 06/18/20 | | | (90 Base) MCG/ACT | | | | 18 | | | inhaler | | | | | | + + + +---------+ + + | ziprasidone | Take 40 mg by mouth | | 0 | | | | (GEODON) 40 mg | once daily at | | | | | | capsule | bedtime. | | | | | + + + +---------+ + + | Buprenorphine | Place under the | | 0 | | 05/13/202 | | HCl-Naloxone HCl | tongue. | | | | 0 | | (SUBOXONE SL) | | | | | | + + + +---------+ + + | gabapentin | Take 100 mg by mouth | | 0 | | | | (NEURONTIN) 100 mg | 4 times daily. One | | | | 0 | | capsule | to two capsules | | | | | + + + +---------+ + + | gabapentin | Take 1 capsule by | 120 | 0 | 07/18/20 | | | (NEURONTIN) 300 mg | mouth 4 times daily. | capsule | | 19 | 0 | | capsule | | | | | | + + + +---------+ + + | gabapentin | | | 0 | 11/20/19 | | | (NEURONTIN) 400 mg | | | | 20 | 0 | | capsule | | | | | | + + + +---------+ + + | metoprolol | | | 0 | 11/13/19 | | | succinate | | | | 20 | 0 | | (TOPROL-XL) 50 mg 24 | | | | | | | hr tablet | | | | | | + + + +---------+ + + documented as of this encounter Progress Notes Lamin Palacios RRT - 11/27/2019 1:00 PM PST Setup Ambulatory EEG with video. Explain use of equipment to the patient. Linda will return EEG equipment tomorrow and staff will kodak nload study. document ed in this encounter Plan of Treatment +--------+---------+ + + + | Date | Type | Specialty | Care Team | Description | +--------+---------+ + + + | 11/26/ | Office | Neurology | Seven Johns MD | | | 2020 | Visit | | [address] | | | | | | [place] | | | | | | [address] | | | | | | | | +--------+---------+ + + + documented as of this encounter Procedures + +--------+ + + + | Procedure Name | Priori | Date/Time | Associated Diagnosis | Comments | | | ty | | | | + +--------+ + + + | *TERMED* ME EEG | Routin | 11/27/2019 | Altered level of | Results for this | | MONITORING/VIDEORECO | e | 1:00 PM | consciousness | procedure are in the | | RD | | PST | Jerking movements of | results section. | | | | | extremities | | + +--------+ + + + documented in this encounter Results EEG 24 HR AMBULATORY MONITORING (11/27/2019 1:00 [...] was | | | reviewed using the itzbig EEG digital system. During the | | [...] of this patient. | | | Brittny Warren MD:10 PM Electronically signed | | | | | + + + documented in this encounter Visit Diagnoses + + | Diagnosis | + + | Altered level of consciousness Other alteration of consciousness | + + | Jerking movements of extremities Abnormal involuntary movements | + + documented in this encounter"
--- OUTSIDE RECORDS SUMMARY | ~2020-03-19 | XMS | Encounter Summary ---
Demographics + + + | Address | [address] | | | [place] [address] | + + + | Home Phone | | + + + | Preferred Language | Unknown | + + + | Marital Status | Single | + + + | Samaritan Affiliation | Unknown | + + + | Race | Unknown | + + + | Ethnic Group | Unknown | + + + Author + + + | Author | [facility] | | | and [place] | + + + | Organization | [facility] | | [...] Team Providers + +------+ + | Care Global Category Manager Name | Role | Phone | [...] | | | | | | [place] [address] | | | | | | [phone] | | | +--------+ + + + [...] [place] | | | | | | [address] | | | | | | | | +--------+---------+ + + + documented as of this encounter Visit Diagnoses Not on filedocumented in this encounter"
--- OUTSIDE RECORDS SUMMARY | ~2020-03-19 | XMS | Encounter Summary ---
Demographics + + + | Address | [address] | | | [place], [place] [address] | + + + | Home Phone | | + + + | Preferred Language | Unknown | + + + | Marital Status | Single | + + + | Mandaeism Affiliation | NON | + + + | Race | White | + + + | Ethnic Group | Not or | + + + Author + + + | Author | [facility] | + + + | Organization | [facility] | + + + | [...] Team Providers + +------+ + | Care Ammunition Assembly Laborer Name | Role | Phone | + +------+ + | No Pcp Per Patient | PCP | Unavailable | + +------+ + Encounter Details +--------+ + + + + | Date | Type | Department | Care Team | Description | +--------+ + + + + | 03/29/ | Telephone | Orthopaedics | Isael Champion, | | | 2019 | | Faculty at [place] | [address] | | | | | for Health and | [address] | | | | | Healing [address] | [facility] [place] | | | | | Ave Mailcode: | [address] | | | | | [facility] | [phone] | | | | | Health and Healing, | | | | | | | | | | | | Floor [place], [place] | | | | | | [address] | | | | | | [phone] | | | +--------+ + + + [...]
--- OUTSIDE RECORDS SUMMARY | ~2020-03-19 | XMS | Encounter Summary ---
Demographics + + + | Address | [address] | | | [place], [place] [address] | + + + | Home Phone | | + + + | Preferred Language | Unknown | + + + | Marital Status | Single | + + + | Tenriism Affiliation | NON | + + + | Race | White | + + + | Ethnic Group | Not or | + + + Author + + + | Author | [facility] | + + + | Organization | [facility] | + + + [...] Team Providers + +------+ + | Care Seed Packer Name | Role | Phone | + +------+ + | No Pcp Per Patient | PCP | Unavailable | + +------+ + Encounter Details +--------+ + + + + | Date | Type | Department | Care Team | Description | +--------+ + + + + | 06/27/ | Telephone | Dermatology | [place], | | | 2019 | | Surgery at [facility] [address] | Kev Ashton MD [address] | | | | | [address] | [address] [place], | | | | | Mailcode: [id number] | [place] [address] | | | | | [facility] | [phone] | | | | | and Healing, | | | | | | | | | | | | Floor [place], [place] | | | | | | [address] | | | | | | [phone] | | | +--------+ + + + [...]
--- OUTSIDE RECORDS SUMMARY | ~2020-03-19 | XMS | Encounter Summary ---
Demographics + + + | Address | [address] | | | [place] [address] | + + + | Home Phone | | + + + | Preferred Language | Unknown | + + + | Marital Status | Single | + + + | Christian Affiliation | Unknown | + + + | Race | Unknown | + + + | Ethnic Group | Unknown | + + + Author + + + | Author | [facility] | | | and [place] | + + + | Organization | [facility] | | | [...] Team Providers + +------+ + | Care Knife Edger Name | Role | Phone | + +------+ + | Mindy Stewart | PCP | | | [place] | | | + +------+ + Reason for Visit + + + | Reason | Comments | + + + | 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 | + + + Evaluate & Treat (Routine) +--------+ + + + + + | Status | Reason | Specialty | Diagnoses / | Referred By | Referred To | | | | | Procedures | Contact | Contact | +--------+ + + + + + | Closed | Specialty | Neurology | Diagnoses | Terry, | Andreas, | | | Services | | Hereditary | Mindy | Seven Goldberg MD | | | Required | | and | MADHAV Mejia | [address] | | | | | idiopathic | [address] [place] | | | | | neuropathy, | [address] | [place], [place] | | | | | unspecified | [place], | [address] Phone: | | | | | Procedures | [place] | [phone] | | | | | Evaluate & | [address] | Fax: | | | | | Treat | Phone: | [phone] | | | | | | [phone] | | | | | | | Fax: | | | | | | | [phone] | | +--------+ + + + + + Encounter Details +--------+---------+ + + + | Date | Type | Department | Care Team | Description | +--------+---------+ + + + | 11/03/ | Office | [place] [facility] | Seven Johns MD | Other cardiomyopathy | | 2019 | Visit | [facility] | [address] | ([facility]) (Primary Dx); | | | | CLINIC [address] | [place] | Fibromyalgia; | | | | [address] [place], | [id number] | Idiopathic | | | | [place] [address] | | peripheral | | | | [phone] | | neuropathy; Numbness | +--------+---------+ + + + Social History [...] + + + | Blood Pressure | 125/80 | 11/03/2018 10:10 AM | | | | | PST | | + + + + + | Pulse | 97 | 11/03/2018 10:10 AM | | | | | PST | | + + + + + | Temperature | - | - | | + + + + + | Respiratory Rate | 16 | 11/03/2018 10:10 AM | | | | | PST | | + + + + + | Oxygen Saturation | 97% | 11/03/2018 10:10 AM | | | | | PST | | + + + + + | Inhaled Oxygen | - | - | | | Concentration | | | | + + + + + | Weight | 114.3 kg (252 lb) | 11/03/2018 10:10 AM | | | | | PST | | + + + + + | Height | 170.2 cm (5' 7") | 11/03/2018 10:10 AM | | | | | PST | | + + + + + | Body Mass Index | 39.47 | 11/03/2018 10:10 AM | | | | | PST | | + + + + + documented in this encounter Patient Instructions Patient Instructions Seven Johns MD - 11/03/2018 10:15 AM PSTFormatting of this note mi ght be different from the original. Patient Instructions [facility] Dr. Seven Johns, Neurologist Date:11/03/2018 Name:Linda Singleton :..1990 Please schedule next follow up appt with Vignesh in 4 months for Peripheral neuropathy, idi opathic Hx Cardiomyopathy Hx Depression You have the following tests/procedures ordered: Orders Placed This Encounter Procedures EMG Study- Lower Extremity ADINA Screen, Qual, Reflex Cryoglobulin Protein Electrophoresis, Serum Vitamin B-12 Treatment Option- massage, Acupuncture, Over the counter heat patches (icy hot, thermacare, salonpas) , over the counter creams (aspercream, bengay cream, emu oi l), Relaxation therapy, Water therapy, Cortisone shots, Toradol Injections Increase gabapentin at bedtime dose, 700 mg at bedtime, daytime, one ab TID while awake Obtain radiologic tests and blood test Any Questions please call JUSTINE Pearson or Dr. Johns at [facility] General Neck and Back Pain Both neck [...] are taking other medicines. You may use hafd-lwc-xxkaufg medicine to control pain, unless another pain [...] by your healthcare provider Date Last Reviewed: 04/10/201619993398-8684 [facility]. [address] [place] [address], [place] [address]. All righ ts reserved. This information is not intended as a substitute for professional medical care. Always follow your healthcare professional's instructions. Discharge Instructions for Cardiomyopathy Cardiomyopathymeans that your heart is not working as itnormally should. This condition can make it more difficult to do things that may have been easy for you in the past. But wi th proper treatment and some lifestyle changes,you and your healthcare provider can help y our heart do its job. Home care Work hard to remove the salt from your diet. Here are tips: Limit canned, dried, packaged, and fast foods. Don t add salt to your food at the table. Season foods with herbs instead of salt when you cook. When you eat out, ask that the second chef not add any salt to your dish. Don't eat fried or greasy foods. Be careful of bottled beverages. They can contain a lot of salt. Also check the labels of pyez-ocd-dmqgowv medicines and supplements. They may be high in so dium. Ask your pharmacist or provider if you need help finding a low-salt product. Be as active as you can. Ask your healthcare provider how to get started: Simple activities such as walking or gardening can help. Find activities you enjoy and make them a priority. Cardiac rehabilitation programs can help you reach your activity goals. You exercise whi le staff closely watches the stress on your heart. These programs may be covered by [employer]. Other tips for home care: Limit how much fluid you have each day. Your healthcare provider will tell you how much is safe. Break the smoking habit. Enroll in a stop-smoking program to improve your chances of suc cess. Join smoking cessation support groups or ask your healthcare provider about nicotine r eplacement products. Take your medicines exactly as directed. Don t skip doses. Don t stop taking your me dicines without talking to your healthcare provider first. Some jabl-roy-hekjbpu medicines and herbal supplements can increase your heart rate or b lood pressure. This can put extra stress on your heart. Check with your pharmacist to see if products are heart-safe and won't interact with other medicines you take. Visit your healthcare provider regularly. Mention any problems with your treatment plan. Together you can find a plan that works for you. Weigh yourself at the same time each day. The best time is in the morning after you wake up and after urinating. Wear the same clothing each time. Keep a written record of your roxana ly weight. Limit how much alcohol you drink. Too much alcohol isn't good for the heart. Healthcare providers advise no more than 1 drink per day for women and 2 drinks per day for men. Follow-up care Make a follow-up appointment as directed by our staff. When to call your healthcare provider Call your healthcare provider right away if you have any of the following: You gain more than 2 pounds in 1 day, more than 5 pounds in 1 week, or whatever weight g ain you were told to report by your healthcare provider New or increasedchest pain that doesn't get better with medicine New or increasedshortness of breath or coughing Weakness in the muscles of your face, arms, or legs Trouble speaking Rapid pulse or pounding heartbeat Fainting, or feeling dizzy or lightheaded New or increased swelling in your hands, feet, or ankles Date Last Reviewed: 11/11/201619998225-1303 [employer]. [address] [place] [address], [place] [address]. All righ ts reserved. This information is not intended as a substitute for professional medical care. Always follow your healthcare professional's instructions. Managing Fibromyalgia Fibromyalgia is a chronic illness that causes pain in specific points on the body, stiffnes s, and fatigue. But it doesn t have to keep you from doing what you enjoy. You can feel be tter. You and your healthcare provider can work together to develop a plan. Take medications as directed You may be given medications to help reduce pain and improve sleep. Several medications are approved to treat fibromyalgia. Two were originally designed to alonzo at depression. They are duloxetine, andmilnacipran.A third, called pregaballin, was crow quintero to treat nerve pain. Other medications include pain relievers such as acetaminophen or stronger narcotics. These may be prescribed short term. NSAIDs (non-steroidal anti-inflammatory drugs) include aspirin, ibuprofen and naproxen are used to relieve pain. Get exercise Gentle exercise can help lessen your pain. Try these tips: Choose activities that are gentle on your joints, such as walking, biking, and swimming or other water exercises. Don t push yourself too hard. Build up your strength and endurance slowly, over time. Stick to it. For the most relief, exercise should become part of your daily life. Get a good night s rest To help you get more sleep, try the tips below: Sleep only in a bed, not on a couch or chair. Don t watch TV, read, or work in bed. Go to bed and get up at the same time each day. Try to avoid naps. Avoid alcohol, caffeine, and tobacco for at least 3 hours before going to bed. Avoid fluids in the evening to avoid having to get up to urinate. Other things you can do No one knows what causes fibromyalgia. But stress, poor eating habits, and extra weight can make it worse. These tips may help you feel better: Eat a balanced diet with plenty of fruits and vegetables, whole grains, lean protein, an d low-fat or nonfat dairy products. Maintain a healthy weight. Learn ways to reduce or manage the stress in your life. Ask your healthcare provider for resources to help you make changes. Or check out the re sources below. Resources Arthritis Foundation www.arthritis.org National Fibromyalgia Association www.fmaware.org [place] Fibromy[employer] Association www.afsafund.org Date Last Reviewed: 11/24/201519993478-1017 [facility]. [address] [place] [address], [place] [address]. All righ ts reserved. This information is not intended as a substitute for professional medical care. Always follow your healthcare professional's instructions. What is Peripheral Neuropathy? Peripheral neuropathy symptoms often start in the toes and move up the foot. Peripheral neuropathy is a disease of the nerves. It most often startsin your feet and ma y also eventually affect the arms. It can affect sensory, motor, or both functions. It may c ause pain or make you unable to sense pain. Sometimes, weakness occurs as well. Lack of pain and weakness makes you more likely to injure yourself without knowing it. But you can learn ways to protect your feet from injury. When nerves are diseased Nerves in your feet carry signals to your brain. Your brain reads those signals and interpr ets them as sensations. When nerves in your feet are diseased, signals may be disrupted or c hanged.The result may be a lack of feeling (numbness)in your feet or other symptoms, suc h as tingling or pain. Symptoms mask pain Symptoms of peripheral neuropathy usually start in your toes. The symptoms slowly spread up your feet and legs as more nerve is affected. These symptoms may decrease sensation in your feet or mask pain. Without pain, you may not notice a cut or even a bone fracture. Cuts may become infected. Fractures may heal poorly and lead to foot deformity. Common causes of peripheral neuropathy Some common causes of peripheral neuropathy include: Diabetes or other endocrine disorders Toxins (such as alcohol) Nutritional deficiencies (such as Vitamin B-12) Kidney disease Injury Repetitive stress (such as carpal tunnel syndrome) Autoimmune disease Cancer and tumors Chemotherapy cancer treatment Arthritis Advanced age Neurological disorders Infection Diagnosis and treatment Diagnosis of peripheral neuropathy includes a complete history and physical exam. Tests i nclude blood tests and imaging often help find the cause. Special nerve tests are often help ful including nerve conduction velocity studies (NCV), and electromyography (EMG). NCV helps find evidence of poor conduction of nerve signals. EMG helps tell whether symptoms are caus ed by muscle or nerve disorders. Treatment focuses on treating the underlying disorder and treating the symptoms usingmedi cines, injections, TENS (transcutaneous electrical nerve stimulation), acupuncture, massage, and others. Date Last Reviewed: 09/10/201719997488-0473 [facility]. [address] [place] [address], [place] [address]. All righ ts reserved. This information is not intended as a substitute for professional medical care. Always follow your healthcare professional's instructions. Treating Peripheral Neuropathy Peripheral neuropathy is a disease of the nerves. It most often startsin your feet andm ay alsoeventuallyaffect the arms.Itmay cause pain ormay make you unable to sense p ain.Sometimes, weakness occurs as well.Lack of painand weaknessmakesyou more likel y to injure yourself without knowing it. Learn ways to protect your feet. Check your feet daily for wounds you may not have felt. Av oid barnard by testing bath water with your elbow before stepping in. Also,always wear shoes to prevent injury. Regular foot care If you have foot numbness, you may not notice cutting yourself while trimming your nails. T o prevent problems, your healthcare provider may ask you to visit for nail and callus trimmi ng. See your provider for foot care as often as suggested. Check your feet daily Catch problems early by checking your feet every day for changes. Look at the top and botto m of your feet, your heels, and between your toes. It may help to use a mirror. If this is h mounika, ask someone to check for you. Call your healthcare provider if you notice a wound, ulce ration, ingrown nail, or any changes in your feet. This includes increased heat, swelling, n umbness, tingling, pain, and redness. Wear proper footwear Always wear shoes and socks, even indoors. Ask your healthcare provider how to choose the r ight shoe. After buying shoes, bring them to your doctor to be checked for proper fit. Take new shoes off every hour or so to check for red pressure areas on your feet. Each time you p ut on your shoes, use your fingers first to feel inside for foreign objects. Common causes of peripheral neuropathy Some common causes of peripheral neuropathy include: Diabetes or other endocrine disorders Toxins (such as alcohol) Nutritional deficiencies (such as Vitamin B-12) Kidney disease Injury Repetitive stress (such as carpal tunnel syndrome) Autoimmune disease Cancer and tumors Chemotherapy Arthritis Advanced age Heredity Infection Diagnosis and treatment Diagnosis of peripheral neuropathy includes a complete history and physical exam. Lab jose luis ts including blood work and imaging often help determine the cause. Special nerve tests are often helpful including nerve conduction velocity studies (NCV), and electromyography (EMG). Treatment focuses on treating the underlying disorder and treating symptoms through the use of medicines, injections, TENS (transcutaneous electrical nerve stimulation), acupuncture, massage, and other methods. Date Last Reviewed: 10/11/201719990604-9142 [facility]. [address] [place] [address], [place] [address]. All righ ts reserved. This information is not intended as a substitute for professional medical care. Always follow your healthcare professional's instructions. documented in this encounter Plan of Treatment +--------+---------+ + + + | Date | Type | Specialty | Care Team | Description | +--------+---------+ + + + | 11/26/ | Office | Neurology | Seven Johns MD | | | 2020 | Visit | | [address] | | | | | | [place] | | | | | | [address] | | | | | | | | +--------+---------+ + + + + + +--------+ + + | Name | Type | Priori | Associated Diagnoses | Order Schedule | | | | ty | | | + + +--------+ + + | EMG Study- Lower | Procedures | Routin | Idiopathic | Ordered: 11/03/2018 | | Extremity | | e | peripheral | | | | | | neuropathy Numbness | | + + +--------+ + + | ADINA Screen, Qual, | Lab | Routin | Idiopathic | 1 Occurrences | | Reflex | | e | peripheral | starting 11/03/2018 | | | | | neuropathy Numbness | until 11/03/2019 | + + +--------+ + + | Cryoglobulin | Lab | Routin | Idiopathic | 1 Occurrences | | | | e | peripheral | starting 11/03/2018 | | | | | neuropathy Numbness | until 11/03/2019 | + + +--------+ + + | Protein | Lab | Routin | Idiopathic | 1 Occurrences | | Electrophoresis, | | e | peripheral | starting 11/03/2018 | | Serum | | | neuropathy Numbness | until 11/03/2019 | + + +--------+ + + | Vitamin B-12 | Lab | Routin | Idiopathic | 1 Occurrences | | | | e | peripheral | starting 11/03/2018 | | | | | neuropathy Numbness | until 11/03/2019 | + + +--------+ + + documented as of this encounter Procedures + +--------+ + + + | Procedure Name | Priori | Date/Time | Associated Diagnosis | Comments | | | ty | | | | + +--------+ + + + | LABS - EXTERNAL SCAN | | 12/12/2018 | | Results for this | | | | 12:00 AM | | procedure are in the | | | | PST | | results section. | + +--------+ + + + documented in this encounter Results LABS - EXTERNAL SCAN (12/12/2018 12:00 AM PST) + + + | Narrative | Performed At | + + + | Ordered by an | | | unspecified provider. | | + + + documented in this encounter Visit Diagnoses + + | Diagnosis | + + | Other cardiomyopathy (HCC) - Primary | + + | Fibromyalgia Mylagia and myositis, unspecified | + + | Idiopathic peripheral neuropathy Unspecified hereditary and idiopathic peripheral | | neuropathy | + + | Numbness Disturbance of skin sensation | + + documented in this encounter
--- OUTSIDE RECORDS SUMMARY | ~2020-03-19 | XMS | Encounter Summary ---
Demographics + + + | Address | [address] | | | [place], [place] [address] | + + + | Home Phone [...] Team Providers + +------+ + | Care Ged Tutor Name | Role | Phone | + +------+ + | No Pcp Per Patient | PCP | Unavailable | + +------+ + Reason for Visit AUTH/CERT +--------+--------+ + + + + | Status | Reason | Specialty | Diagnoses / | Referred By | Referred To | | | | | Procedures | Contact | Contact | +--------+--------+ + + + + | | | | | | | +--------+--------+ + + + + Encounter Details +--------+---------+ + + + | Date | Type | Department | Care Team | Description | +--------+---------+ + + + | 04/06/ | Surgery | 6A Intra Op [id number] | Isael Champion, | EXCISIONAL BIOPSY | | 2019 | | [facility] | [address] | RIGHT THUMB SOFT | | | | Rd [facility] [place] | [facility] [address] | TISSUE MASS | | | | Hospital Admitting | [place], [place] | | | | | Desk Located on the | [address] | | | | | 9th floor | [phone] | | | | | [place], [place] | | | | | | [address] | | | +--------+---------+ + + + [...] + + + | Blood Pressure | 109/64 | 04/06/2019 11:00 AM | | | | | PDT | | + + + + + | Pulse | 91 | 04/06/2019 11:00 AM | | | | | PDT | | + + + + + | Temperature | 36.5 C (97.7 F) | 04/06/2019 10:45 AM | | | | | PDT | | + + + + + | Respiratory Rate | 24 | 04/06/2019 11:00 AM | | | | | PDT | | + + + + + | Oxygen Saturation | 96% | 04/06/2019 11:00 AM | | | | | PDT | | + + + + + | Inhaled Oxygen | - | - | | | Concentration | | | | + + + + + | Weight | 105 kg (231 lb 7.7 | 04/06/2019 8:00 AM | | | | oz) | PDT | | + + + + + | Height | 170.2 cm (5' 7") | 04/06/2019 8:00 AM | | | | | PDT | | + + + + + | Body Mass Index | 36.26 | 04/06/2019 8:00 AM | | | | | PDT | | + + + + + documented in this encounter Medications at Time of Discharge [...] as of this encounter Plan of Treatment + +---------+--------+ + + | Name | Type | Priori | Associated Diagnoses | Order Schedule | | | | ty | | | + +---------+--------+ + + | INTRAPROCEDURE | Imaging | Routin | | One Time for 1 | | IMAGING | | e | | Occurrences starting | | | | | | 04/06/2019 until | | | | | | 04/06/2019, 1 | | | | | | completed | + +---------+--------+ + + documented as of this encounter Procedures + +--------+ + + + | Procedure Name | Priori | Date/Time | Associated Diagnosis | Comments | | | ty | | | | + +--------+ + + + | OPERATION RECORD | | 04/06/2019 | | Results for this | | | | 10:42 AM | | procedure are in the | | | | PDT | | results section. | + +--------+ + + + | SURGICAL PATHOLOGY | Routin | 04/06/2019 | | Results for this | | | e | 9:56 AM | | procedure are in the | | | | PDT | | results section. | + +--------+ + + + | UPPER EXTREMITY SOFT | Electi | 04/06/2019 | RIGHT THUMB SOFT | | | TISSUE PROCEDURE | ve | 9:21 AM | TISSUE MASS | | | | Surgic | PDT | | | | | al | | | | + +--------+ + + + | HCG URINE, POC | Urgent | 04/06/2019 | Mass of finger of | Results for this | | | | 9:05 AM | right hand | procedure are in the | | | | PDT | | results section. | + +--------+ + + + | INTRAPROCEDURE | Routin | 04/06/2019 | | Results for this | | IMAGING | e | 8:17 AM | | procedure are in the | | | | PDT | | results section. | + +--------+ + + + | CARDIOLOGY | | 04/06/2019 | | Results for this | | | | 12:00 AM | | procedure are in the | | | | PDT | | results section. | + +--------+ + + + documented in this encounter Results OPERATION RECORD (04/06/2019 10:42 AM PDT) + + | Procedure Note | + + | Isael Champion MD - 04/06/2019 10:42 AM PDT Date of Service: 04/06/2019 | | Attending Surgeon:Isael Champion MD Datastage Developer(s):Kev Strickland, | | Munir Pinon MD Preoperative Diagnosis: Right thumb surface | | lesion of soft tissue, but on or arising from the periosteum.Postoperative Diagnosis: | | Right thumb surface lesion of soft tissue, but on or arising from the | | periosteum.Procedures Performed: 1.Excision, right thumb soft tissue mass, deep, 2 x 2 | | x 2.5 cm.2.Curettage, right thumb distal phalanx.Anesthesia: MAC with local | | anesthetic.Estimated Blood Loss: 15 cc.Implants: None.Specimens: Thumb soft tissue | | mass for permanent pathology.Complications: None.Findings: There was a soft tissue | | lesion which was partially translucent and solid, but soft, that was down to and | | involving the periosteum with some bone effacement, but was not grossly invading it. It | | was grossly completely removed. There was also some evidence of a prior incision into | | the mass.Indications: Ms. Singleton is a 28-year-old woman who had the slow onset of a | | soft tissue mass of the right thumb that became increasingly painful. She was | | previously seen in the emergency department, there was concern for abscess and went a | | jesus it, found a soft tissue mass, then obtained imaging and she was referred. Talked | | to her about options for treatment and recommended an excisional biopsy of soft tissue | | and potentially bone. Talked about risks, including ongoing pain, damage to surrounding | | structures, recurrence, need for further surgery. 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 | | She expressed a good understanding, wished to proceed, and signed informed | | consent.Description Of Procedure: The patient was greeted in the preoperative holding | | area. Consent was confirmed, site was marked. She was brought to the operating | | theater, received some sedation, monitored anesthetic care. We initially prepped the | | hand and infiltrated a thumb block at the metacarpal level with 1% lidocaine and 0.25% | | bupivacaine without epinephrine. We then prepped and draped the right upper extremity. | | She received preoperative antibiotics per routine and time-out was done. We marked out | | a longitudinal radial, slightly dorsal longitudinal incision over the soft tissue mass, | | but avoiding the nail bed. We came sharply through skin and down onto the capsule of | | the lesion. We then carefully dissected around it using scissors. It did look like the | | tumor capsule had previously been violated, making this a bit challenging to remove the | | entire mass. We worked proximally, distally, volarly and dorsally, carefully | | spreading. It did have some attachments to the underlying periosteum, but then this was | | bluntly dissected off with a [place] and lesion grossly removed. I also used a rongeur | | to sheepskin pickler some additional slightly abnormal-looking tissue. Once the soft tissue | | component had been grossly removed we then used a curette to curettage the distal | | phalanx and especially the periosteum. There was an indentation of the bone and some | | effacement, but no evidence of gross invasion. To supplement this curettage and | | hopefully limit the risk of recurrence then used an argon beam on the distal phalanx. | | Once we were satisfied with the curettage we then copiously irrigated. There was | | complete hemostasis. We used a 3-0 nylon in horizontal mattress fashion for 2 stitches. | | The hand was washed and dried. A sterile dressing was placed. She was transferred to | | a stretcher and taken to PACU in stable condition.Postoperative Plan: To go home | | today. Pain control. She should elevate. She can take anti-inflammatories. We will | | follow permanent pathology and see her back in a couple of weeks for a wound check and | | to remove her stitches. I, Isael Champion, was present and scrubbed for the entire | | procedure. Counts were correct at the end.SAMIR Solano/DIANAD: 04/06/2019 | | 10:12:33DT: 04/06/2019 10:42:16Job #: [id number] | |I, Isael Champion, was present and scrubbed for the entire procedure. | | | |Counts were correct at the end. | | | | | | | |Isael Champion MD | |DIANE/GHAZALA | | | | | | /[id number] | + + SURGICAL PATHOLOGY (04/06/2019 9:56 AM PDT) + + + + + + | Component | Value | Ref Range | Performed | Pathologist | | | | | At | Signature | + + + + + + | Clinical | The patient is a 28 | | [facility] | | | History | year-old woman with a | | DEPARTMENT | | | | right thumb soft tissue | | OF | | | | mass. | | PATHOLOGY | | + + + + + + | Final | Skin, right thumb soft | | [facility] | Electronically | | Pathologic | tissue mass, excision: | | DEPARTMENT | signed by | | Diagnosis | Verrucous | | OF | Beata Lin | | | proliferation suspicious | | PATHOLOGY | MD Vincent on | | | for | | | 04/14/2019 at | | | verrucous/well-different | | | 2:00 PM | | | iated squamous cell | | | | | | carcinoma; see | | | | | | comment.Comment: H&E | | | | | | sections show | | | | | | keratinocytic | | | | | | verruciform | | | | | | proliferation with an | | | | | | endophytic, broad and | | | | | | rounded base and | | | | | | numerous dyskeratotic | | | | | | keratinocytes; many | | | | | | sections have marked | | | | | | tangential sectioning | | | | | | making evaluation | | | | | | challenging. 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 It is noted | | | | | | that tumor is adjacent | | | | | | to the nailbed; if the | | | | | | tumor involves the nail, | | | | | | the differential | | | | | | diagnosis would include | | | | | | nail keratoacanthoma | | | | | | (another form of | | | | | | well-differentiated | | | | | | squamous cell | | | | | | carcinoma). The | | | | | | specimen/tumor is | | | | | | received fragmented, | | | | | | precluding margin | | | | | | assessment. Dr. Muse | | | | | | [facility] | | | | | | Dermatopathology, has | | | | | | reviewed this case and | | | | | | agrees.Case seen by:Eliel | | | | | | MD Ceasar | | | | | | | | | | | | Pathology | | | | | | Lauro Kimbrough | | | | | | MD Vincent | | | | | | | | | | | | PathologistPathology, | | | | | | [facility] | | | | | | University electronic | | | | | | signature indicates that | | | | | | I have personally | | | | | | reviewed all diagnostic | | | | | | slides, the gross and/or | | | | | | microscopic portion of | | | | | | this report and | | | | | | formulated the final | | | | | | diagnosis. | | | | + + + + + + | Gross | Received is one specimen | | [facility] | | | Description | in a fresh container | | DEPARTMENT | | | | labeled with the | | OF | | | | patient's name (initials | | PATHOLOGY | | | | AAR) and medical record | | | | | | number [id number]. | | | | | | Hand, RIGHT THUMB SOFT | | | | | | TISSUE MASS: Received | | | | | | labeled "hand right | | | | | | thumb soft tissue | | | | | | mass-1" 2 Telfa pads and | | | | | | a 1.5 x 1.4 x 1.0 cm | | | | | | aggregate of pink-white | | | | | | to red-brown, nodular, | | | | | | firm fragments of | | | | | | tissue. The cut | | | | | | surfaces white-kevin, | | | | | | homogenous and dull. | | | | | | Specimen is entirely | | | | | | submitted in cassette | | | | | | A1.(MED) | | | | + + + + + + | Ancillary | Analyte specific | | [facility] | | | Information | reagents are used in | | DEPARTMENT | | | | many laboratory tests | | OF | | | | necessary for standard | | PATHOLOGY | | | | medical care. This test | | | | | | was developed and its | | | | | | performance | | | | | | characteristics | | | | | | determined by [facility] | | | | | | laboratories. It has | | | | | | not been cleared or | | | | | | approved by the US Food | | | | | | and Drug Administration | | | | | | (FDA). FDA does not | | | | | | require this test to go | | | | | | through premarket FDA | | | | | | review. This test is | | | | | | used for clinical | | | | | | purposes. It should not | | | | | | be regarded as | | | | | | investigational or for | | | | | | research. This | | | | | | laboratory is certified | | | | | | under the Clinical | | | | | | Laboratory Improvement | | | | | | Amendments (CLIA) as | | | | | | qualified to perform | | | | | | high complexity clinical | | | | | | laboratory testing. | | | | + + + + + + + + | Specimen | + + | Tissue - Hand | | structure (body | | structure) | + + + + + + + | Performing | Address | City/State/Zipcode | Phone Number | | Organization | | | | + + + + + | [facility] | [address] | [place] [address] | | | PATHOLOGY | [address] | | | + + + + + HCG URINE, POC (04/06/2019 9:05 AM PDT) + + + + + + | Component | Value | Ref Range | Performed | Pathologist | | | | | At | Signature | + + + + + + | HCG URINE, | Negative | Negative | [facility] - | | | POC | | | [facility] | | | | | | [facility] | | | | | | OF CARE | | | | | | TESTS | | + + + + + + + + | Specimen | + + | Urine - Urine | | (substance) | + + + + + + + | Performing | Address | City/State/Zipcode | Phone Number | | Organization | | | | + + + + + | [facility] | [address] | [place], [place] | | | [facility] | [address] | [address] | | | TESTS | | | | + + + + + INTRAPROCEDURE IMAGING (04/06/2019 8:17 AM PDT) + + | Specimen | + + | | + + + + + | Narrative | Performed At | + + + | See admission or procedure notes for details of any intraprocedure | [facility] | | images obtained. | RADIOLOGY | + + + + +---------+ + + | Performing | Address | City/State/Zipcode | Phone Number | | Organization | | | | + +---------+ + + | [facility] | | | | + +---------+ + + CARDIOLOGY (04/06/2019 12:00 AM PDT) + + + | Narrative | Performed At | + + + | | | + + + documented in this encounter Visit Diagnoses Not on filedocumented in this encounter Administered Medications + +--------+ + +------+------+ | Medication Order | MAR | Action | Dose | Rate | Site | | | Action | Date | | | | + +--------+ + +------+------+ | acetaminophen (TYLENOL) tablet | Given | 04/06/20 | 1,000 mg | | | | 1,000 mg 1,000 mg, oral, | | 19 9:00 | | | | | PREPROCEDURE ONCE, 1 dose, | | AM PDT | | | | | Starting [facility] 04/06/19 at 0817, | | | | | | | Until [facility] 04/06/19 at 0900 | | | | | | + +--------+ + +------+------+ + +---+ | | | + +---+ | acetaminophen (TYLENOL) tablet | | | 1 dose, Starting [facility] 04/06/19 at | | | 0819, Until [facility] 04/06/19 at 0900 | | + +---+ | | | + +---+ | fentaNYL (SUBLIMAZE) injection | | | 25-50 mcg 25-50 mcg, | | | intravenous, POSTPROCEDURE PRN, 8 | | | doses, Starting [facility] 04/06/19 at | | | 0948, Until [facility] 04/06/19 at 1718, | | | severe pain while in Phase I | | | Recovery | | + +---+ | | | + +---+ + +-------+ +--------+---+---+ | gabapentin (NEURONTIN) capsule | Given | 04/06/20 | 300 mg | | | | 600 mg 600 mg, oral, | | 19 9:01 | | | | | PREPROCEDURE ONCE, 1 dose, | | AM PDT | | | | | Starting [facility] 04/06/19 at 0817, | | | | | | | Until [facility] 04/06/19 at 0901 | | | | | | + +-------+ +--------+---+---+ + +---+ | | | + +---+ | gabapentin (NEURONTIN) capsule | | | 1 dose, Starting [facility] 04/06/19 at | | | 0820, Until [facility] 04/06/19 at 0901 | | + +---+ | | | + +---+ + +-------+ +---------+---+---+ | HYDROcodone-acetaminophen | Given | 04/06/20 | 2 | | | | (NORCO) 5-325 mg tablet 1-2 | | 19 10:31 | tablets | | | | tablet 1-2 tablet, oral, EVERY 4 | | AM PDT | | | | | HOURS NEEDED, Starting [facility] | | | | | | | 04/06/19 at 1021, Until [facility] | | | | | | | 04/06/19 at 1718, moderate pain | | | | | | + +-------+ +---------+---+---+ + +---+ | | | + +---+ | HYDROcodone-acetaminophen | | | (NORCO) 5-325 mg tablet 1 dose, | | | Starting [facility] 04/06/19 at 1025, | | | Until [facility] 04/06/19 at 1031 | | + +---+ | | | + +---+ + +-------+ +--------+---+---+ | HYDROmorphone (DILAUDID) | Given | 04/06/20 | 0.5 mg | | | | injection 0.2-0.5 mg 0.2-0.5 mg, | | 19 10:40 | | | | | intravenous, POSTPROCEDURE PRN, | | AM PDT | | | | | Starting [facility] 04/06/19 at 0948, | | | | | | | Until [facility] 04/06/19 at 1718, | | | | | | | moderate pain while in Phase I | | | | | | | Recovery | | | | | | + +-------+ +--------+---+---+ +-------+ +--------+---+---+ | Given | 04/06/20 | 0.2 mg | | | | | 19 10:27 | | | | | | AM PDT | | | | +-------+ +--------+---+---+ +---+---+ | | | +---+---+ + + + +---+---+---+ | lactated ringers IV 10 mL/hr, | given by | 04/06/20 | | | | | intravenous, PROCEDURE | | 19 9:53 | | | | | CONTINUOUS, Starting [facility] 04/06/19 | anesthes | AM PDT | | | | | at 0830, Until Wed04/06/19 at | iology | | | | | | 1718 | | | | | | + + + +---+---+---+ +---------+ + + +---+ | New Bag | 06/27/20 | 10 mL/hr | 10 mL/hr | | | | 19 9:02 | | | | | | AM PDT | | | | +---------+ + + +---+ + +---+ | | | + +---+ | lactated ringers IV 500 mL, | | | intravenous, POSTPROCEDURE PRN, 1 | | | dose, Starting [facility] 04/06/19 at | | | 0948, Until [facility] 04/06/19 at 1718, | | | nausea/vomiting due to | | | dehydration | | + +---+ | | | + +---+ | lactated ringers IV 500 mL, | | | intravenous, POSTPROCEDURE PRN, 1 | | | dose, Starting [facility] 04/06/19 at | | | 0948, Until [facility] 04/06/19 at 1718, | | | systolic blood pressure less than | | | 80 mmHg. 1st line | | + +---+ | | | + +---+ | lidocaine (XYLOCAINE) 10 mg/mL | | | (1 %) injection subcutaneous, | | | PREPROCEDURE PRN, Starting [facility] | | | 04/06/19 at 0817, Until [facility] | | | 04/06/19 at 1718, IV start | | + +---+ | | | + +---+ + +-------+ +-------+---+ + | lidocaine 1%-bupivacine 0.25% | Given | 04/06/20 | 10 mL | | Surgical | | injection INTRAPROCEDURE PRN, | | 19 10:04 | | | Site | | [facility] 04/06/19 at 0923, | | AM PDT | | | | | Until [facility] 04/06/19 at 1013 | | | | | | + +-------+ +-------+---+ + +-------+ +-------+---+ + | Given | 04/06/20 | 10 mL | | Surgical | | | 19 9:37 | | | Site | | | AM PDT | | | | +-------+ +-------+---+ + +---+---+ | | | +---+---+ + +-------+ + +---+ + | NaCl 0.9 % irrigation | Given | 04/06/20 | 1,000 mL | | Surgical | | INTRAPROCEDURE PRN, Starting [facility] | | 19 9:27 | | | Site | | 04/06/19 at 0927, Until [facility] | | AM PDT | | | | | 04/06/19 at 1013 | | | | | | + +-------+ + +---+ + + +---+ | | | + +---+ | naloxone (NARCAN) injection | | | intravenous, POSTPROCEDURE PRN, | | | [facility] 04/06/19 at 0948, | | | Until [facility] 04/06/19 at 1718, | | | hypopnea | | + +---+ | | | + +---+ | ondansetron (ZOFRAN) injection | | | 4 mg 4 mg, intravenous, | | | POSTPROCEDURE PRN, 1 dose, | | | Starting [facility] 04/06/19 at 0948, | | | Until [facility] 04/06/19 at 1718, | | | nausea/vomiting, 2nd line | | + +---+ | | | + +---+ | promethazine (PHENERGAN) | | | injection 6.25-12.5 mg 6.25-12.5 | | | mg, intravenous, POSTPROCEDURE | | | PRN, 1 dose, Starting [facility] 04/06/19 | | | at 0948, Until [facility] 04/06/19 at | | | 1718, nausea/vomiting, 1st line | | + +---+ | | | + +---+ documented in this encounter
--- OUTSIDE RECORDS SUMMARY | ~2020-03-19 | XMS | Encounter Summary ---
Demographics + + + | Address | [address] | | | [place] [address] | + + + | Home Phone | | + + + | Preferred Language | Unknown | + + + | Marital Status | Single | + + + | Anabaptist Affiliation | NON | + + + | Race | White | + + + | Ethnic Group | Not or | + + + Author + + + | Author | [facility] | + + + | Organization | [facility] | + + + | Address | Unknown | + + + | Phone | Unavailable | + + + Support + + + + + | Name | Relationship | Address | Phone | + + + + + | Collette Adame | [place] | [place] | | + + + + + Care Team Providers + +------+ + | Care Embalmer Apprentice Name | Role | Phone | + [...] | | 2019 | | Surgery at [facility] [address] | Kev Ashton MD [address] | (Pain meds | | | | [address] | [address] [facility], | question) | | | | Mailcode: [id number] | [place] [address] | | | | | [facility] | [phone] | | | | | and Healing, | | | | | | Building | | | | | | [facility], [place] | | | | | | [address] | | | | | | [phone] | | | +--------+ + + + [...]
--- OUTSIDE RECORDS SUMMARY | ~2020-03-19 | XMS | Encounter Summary ---
Demographics + + + | Address | [address] | | | [place] [address] | + + + | Home Phone [...] + + + | Author | [facility] | + + + | Organization | [facility] | + + + | [...] Team Providers + +------+ + | Care Dispatcher Electric Power Name | Role | Phone | + [...] at | | | | | | [facility] | | | | | | [address] | | | | | | Mail Code: [id number] | | | | | | [facility] | | | | | | and Healing, | | | | | | [address] | | | | | | [place], [place] | | | | | | [address] | | | | | | [phone] | | | +--------+ + + + [...] Hand; 20 g; None; Positive; | Kelly uKmar, | Grazyna Jeffrey RN | | IV [...] your procedure. Surgery Check in Locations Admitting [facility], ninth floor [facility] Surgery Check in Time: Someone from your surgeon's office or [facility] hospital will provide you with information regarding [...] it is after office hours, call the [facility] tower hoist operator at [phone] and ask them to page your doc tor. documented in this encounter Plan of Treatment Not on filedocumented as of this encounter Visit Diagnoses Not on filedocumented in this encounter"
--- OUTSIDE RECORDS SUMMARY | ~2020-03-19 | XMS | Encounter Summary ---
Demographics + + + | Address | [address] | | | [place] [address] | + + + | Home Phone | | + + + | Preferred Language | Unknown | + + + | Marital Status | Single | + + + | Holiness Affiliation | Unknown | + + + [...] Team Providers + +------+ + | Care Travel Agent Name | Role | Phone | + [...] | | | unspecified | [place], | [address] Phone: | | | | | Procedures | [place] | [phone] | | | | | Evaluate & | [address] | Fax: | | | | | Treat | Phone: | [phone] | | | | | | [phone] | | | | | | | Fax: | | | | | | | [phone] | | +--------+ + + + + + Encounter Details +--------+---------+ + + + | Date | Type | Department | Care Team | Description | +--------+---------+ + + + | 11/03/ | Office | [facility] | Seven Johns MD | Other cardiomyopathy | | 2019 | Visit | [facility]OSP[facility] | [address] | ([facility]) (Primary Dx); | | | | CLINIC [address] | [place] | Fibromyalgia; | | | | DR [place], | [address] | 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 Patient Instructions [facility] Neurology Clinic Dr. Seven Johns, Neurologist Date:11/03/2018 [...] call JUSTINE Pearson or Dr. Johns at [facility] Neurology Clinic General Neck and Back Pain [...] are taking other medicines. You may use wqkj-piy-votqyah medicine to control pain, unless another pain [...] by your healthcare provider Date Last Reviewed: 04/10/201619994910-3137 [employer]. [address] [place] [address], [place] [address]. All righ ts reserved. This information is [...] When you eat out, ask that the data processing clerk not add any salt to your dish. Don't eat fried or greasy foods. Be careful of bottled beverages. They can contain a lot of salt. Also check the labels of jgqy-ndo-vadqgsr medicines and supplements. They may be high [...] heart. These programs may be covered by [employer]. Other tips for home care: Limit how [...] talking to your healthcare provider first. Some vyjg-hvc-qxivhlr medicines and herbal supplements can increase your [...] hands, feet, or ankles Date Last Reviewed: 11/11/201619992079-2031 [employer] [address] [place] [address], [place] [address]. All righ ts reserved. This information is [...] Arthritis Foundation www.arthritis.org National Fibromyalgia Association www.fmaware.org [place] Fibromyalgia Syndrome Association www.afsafund.org Date Last Reviewed: 11/24/201519995397-5348 [employer]. [address] [place] [address], [place] [address]. All righ ts reserved. This information is [...] acupuncture, massage, and others. Date Last Reviewed: 09/10/201719993492-5091 [employer]. [address] [place] [address], [place] [address]. All righ ts reserved. This information is [...] massage, and other methods. Date Last Reviewed: 10/11/201719998812-3511 [employer]. [address] [place] [address], [place] [address]. All righ ts reserved. This information is [...] [place] | | | | | | [address] | | | | | | | [...]
--- OUTSIDE RECORDS SUMMARY | ~2020-03-19 | XMS | Encounter Summary ---
Demographics + + + | Address | [address] | | | [place] [address] | + + + | Home Phone | | + + + | Preferred Language | Unknown | + + + | Marital Status | Single | + + + | Pentecostal Affiliation | NON | + + + [...] Team Providers + +------+ + | Care Holistic Pulser Name | Role | Phone | + [...]
--- OUTSIDE RECORDS SUMMARY | ~2020-03-19 | XMS | Encounter Summary ---
Demographics + + + | Address | [address] | | | [place] [address] | + + + | Home Phone [...] Team Providers + +------+ + | Care Tar Chaser Name | Role | Phone | + +------+ + | No Pcp Per Patient | PCP | Unavailable | + +------+ + Encounter Details +--------+--------+ + + + | Date | Type | Department | Care Team | Description | +--------+--------+ + + + | 07/12/ | Travel | | | | | [...]
--- OUTSIDE RECORDS SUMMARY | ~2020-03-19 | XMS | Encounter Summary ---
Demographics + + + | Address | [address] | | | [place] [address] | + + + | Home Phone | | + + + | Preferred Language | Unknown | + + + | Marital Status | Single | + + + | Jew Affiliation | Unknown | + + + [...] Team Providers + +------+ + | Care Dealer Compliance Representative Name | Role | Phone | + +------+ + | No, Physician | PCP | Unavailable | + +------+ + Reason for Visit + + + | Reason | Comments | + + + | Back Pain | | + + + | Fibromyalgia | | + + + Evaluate & Treat [...] | | | unspecified | [place], | [address] Phone: | | | | | Procedures | [place] | [phone] | | | | | Evaluate & | [address] | Fax: | | | | | Treat | Phone: | [phone] | | | | | | [phone] | | | | | | | Fax: | | | | | | | [phone] | | +--------+ + + + + + Encounter Details +--------+---------+ + + + | Date | Type | Department | Care Team | Description | +--------+---------+ + + + | 06/06/ | Office | [facility] | [place], | Chronic bilateral | | 2019 | Visit | HOSPITAL [facility] | Jax, [address] | low back pain with | | | | CLINIC [address] | [address], | left-sided sciatica | | | | DR [place], | [place] [address] | (Primary Dx); | | | | [place] [address] | [phone] | Idiopathic | | | | [phone] | | peripheral | | | | | | neuropathy; | | | | | | Fibromyalgia | +--------+---------+ + + + Social History [...] + + + | Blood Pressure | 122/74 | 03/16/2019 9:46 AM | | | | | PDT | | + + + + + | Pulse | 89 | 03/16/2019 9:46 AM | | | | | PDT | | + + + + + | Temperature | - | - | | + + + + + | Respiratory Rate | 18 | 03/16/2019 9:46 AM | | | | | PDT | | + + + + + | Oxygen Saturation | 99% | 03/16/2019 9:46 AM | | | | | PDT | | + + + + + | Inhaled Oxygen | - | - | | | Concentration | | | | + + + + + | Weight | 103.4 kg (228 lb) | 03/16/2019 9:46 AM | | | | | PDT | | + + + + + | Height | 170.2 cm (5' 7") | 03/16/2019 9:46 AM | | | | | PDT | | + + + + + | Body Mass Index | 35.71 | 03/16/2019 9:46 AM | | | | | PDT | | + + + + + documented in this encounter Patient Instructions Patient Instructions Jax Black FNP - 03/16/2019 9:45 AM PDT General Neck and Back Pain Both neck [...] are taking other medicines. You may use jjpp-pqh-hjbrfbl medicine to control pain, unless another pain [...] by your healthcare provider Date Last Reviewed: 04/10/201619995783-6727 [employer]. [address] [place] [address]. All righ ts reserved. This information is not intended as a substitute for professional medical care. Always follow your healthcare professional's instructions. Peripheral Neuropathy Peripheral neuropathy is the result of damage to the peripheral nerves. It usually affects the arms or legs, and causes a change in physical feeling. Sometimes it causes weakness in t he muscles. You may feel tingling, numbness or shooting pains. Symptoms may be more common a t night. Skin may be extra sensitive to light touch or temperature changes. Neuropathy may be caused by a complication of a chronic disease such as diabetes, virus or bacterial infections, or physical injury. A ruptured disk with pressure on the spinal nerve may also lead to the problem. Certain vitamin deficiencies may also lead to it. It may also be caused by exposure to certain drugs or chemicals. Home care Tell the healthcare provider about all medicines you take. This includes prescription an d ssrz-ahw-cbuhlgt medicines, vitamins, and herbs. Ask if any of the medicines may be causin g your problems. Don't make any changes to prescription medicines without talking to your he althcare provider first. You may be prescribed medicines to help relieve the tingling feeling or for pain. Take a ll medicines as directed. A numb hand or foot may be more prone to injury. To help protect it: ? Always use oven mitts. ? Test water with an unaffected hand or foot. ? Use caution when trimming nails. File sharp areas. ? Wear shoes that fit well to avoid pressure points, blisters, and ulcers. ? Inspect your hands and feet carefully (including the soles of your feet and between your toes) at least once a week. If you see red areas, sores, or other problems, tell your health care provider. Follow-up care Follow up with your doctor or as advised by our staff. You may need further testing or eval uation. When to seek medical advice Call your healthcare provider right away if any of the following occur: Redness, swelling, cracking, or ulcer on any numb area, especially the feet New symptoms of numbness or muscle weakness numbness Loss of bowel or bladder control Slurred speech, confusion, or trouble speaking, walking, or seeing Date Last Reviewed: 12/09/201719992109-9608 [employer]. [address] [place] [address]. All [facility] ts reserved. This information is not intended as a substitute for professional medical care. Always follow your healthcare professional's instructions. documented in this encounter Progress Notes Jax Black FNP - 03/16/2019 9:45 AM PDT Patient: Linda Singleton Medical Record: [id number] Date of Services: 03/16/2019 Referring Doctor: MADHAV Weston Chief Complaint: Chronic low back pain, fibromyalgia, [...] ba ck. She also continues to have radiculopathy and nerve pain extending down her bilateral le gs, left side greater than right. The patient reports that she's been taking gabapentin 300 mg 4 times daily to help with her neuropathic pain. She also has cyclobenzaprine 10 mg 3 t imes daily to help with continued muscle spasms. She reports that using this regimen, her p ain is very tolerable. The patient has previously tried physical therapy in the past. She tried physical therapy approximately 1 year ago and went 1-2 times per week for 4 months wit h no improvement of her symptoms. She also had been following with a chiropractor without a ny improvement in her symptoms. The patient also uses essential oils, massage therapy, musc le rubs and heat to help with her chronic pain symptoms. The patient also was found to have some numbness and tingling in her bilateral lower extrem ities with decreased sensation. An EMG/NCS was previously ordered but has not yet been comp leted. She reports that the gabapentin also helps with the tingling and burning pain that s he has in her bilateral lower extremities. The [...] find a primary care provider in the [place] area after her PCP suddenly lef t. Encounter Problem List Chronic bilateral low back pain with left-sided sciatica (Primary) - Gabapentin; Take 1 capsule by mouth 4 times daily. Dispense: 120 capsule; Refill: 3 - XR Lumbar Spine 2 or 3 Vw; Future; Expected date: 03/16/2019 - Trigger Point Injection Procedure - Cyclobenzaprine HCl; Take 1 tablet by mouth 3 times daily as needed for Muscle spasms . Dispense: 90 tablet; Refill: 1 Idiopathic peripheral neuropathy Overview: Current Treatment:Gabapentin Orders: - Gabapentin; Take 1 capsule by mouth 4 times daily. Dispense: 120 capsule; Refill: 3 Fibromyalgia Past Surgical History: Procedure Laterality Date DILATION AND CURETTAGE OF UTERUS ORTHOPEDIC SURGERY Right ankle repair TONSILLECTOMY No Known Allergies Current Medications: cyclobenzaprine diclofenac doxycycline fluconazole fluticasone gabapentin lamoTRIgine levonorgestrel melatonin ondansetron spironolactone sulfamethoxazole-trimethoprim tamsulosin traZODone Venlafaxine HCl (EFFEXOR XR PO) VENTOLIN HFA ziprasidone Review of Symptoms: CONSTITUTIONAL: No weight loss, [...] + Neuropathy symptoms in bilateral lower extremities. MUSCULOSKELETAL: No muscle, joint pain or stiffness. + Chronic low back pain with sciatica and radiculopathy. PSYCHIATRIC: No depression or anxiety. Neurological Examination: Vitals: 03/16/19 0946 BP: 122/74 Pulse: 89 Resp: 18 PainSc: 6 PainLoc: Back Mental status: The patient is [...] are intact. There is no dysmetria on ldytcp-yh-laxb and fgbb-iyzw-uziq. There are no abnormal or extraneous movements. Romberg is absent. Gait/Stance: Posture is normal. Gait is steady with normal steps, base, arm swing, and turning. Heel and toe walking with mild difficulty. Clinical Impression: ICD-10-CM ICD-9-CM 1. Chronic bilateral low back pain with left-sided sciatica M54.42 724.2 gabapentin (NEURON TIN) 300 mg capsule G89.29 724.3 XR Lumbar Spine 2 or 3 Vw 338.29 Trigger Point Injection Procedure cyclobenzaprine (FLEXERIL) 10 mg tablet 2. Idiopathic peripheral neuropathy G60.9 356.9 gabapentin (NEURONTIN) 300 mg capsule 3. Fibromyalgia M79.7 729.1 Plan: Chronic low back pain: Continue taking gabapentin 300 mg 4 times daily to help with neuropa thic pain. Plan for x-rays of the lumbar spine to further assess for the cause of her pain. Pending x-ray results, plan for trigger point injection of the low back. Continue taking Flexeril 10 mg 3 times daily as needed for muscle spasms. We also discussed home exercise a nd weight loss regimen Which can help her manage her chronic pain symptoms. Peripheral neuropathy: Continue to take gabapentin 300 mg 4 times daily to help with neurop athic pain. Plan to reschedule EMG/NCS which was previously ordered. Labs workup has been negative thus far. Fibromyalgia: The patient reports that her symptoms have been relatively stable. She repor ts that her pain is well-controlled using gabapentin and Flexeril at this time. She also co ntinues to use essential oils, CBD oil, massage and muscle rubs as well as heat to help with her chronic pain symptoms. No additional interventions needed at this time. Plan to follow up in 4-5 months and next available with Dr. Johns. JUVENTINO [...] [place] | | | | | | [id number] | | | | | | | | +--------+---------+ + + + documented as of this encounter Results Trigger Point Injection Procedure (09/19/2019 1:30 PM PST) + + + | Narrative | Performed At | + + + | Jax [place], [facility] 09/19/2019 2:00 PM [facility] | | | TRIGGER POINT INJECTION Date: 09/19/2019 Referred by: No | | | Physician on file Patient: Linda Singleton : 1990 | | | History of Present Illness: Linda Singleton is a 29 y.o. year | | | old female seen for neurologic evaluation and management with | | | signifigant hisory of chronic, persistent low back pain. This is | | | the patient's first trigger point injection. Procedure: | | | Linda Singleton received a trigger point injection at paraspinal | | | level and posterior superior iliac spine bilaterally at Erector | | | Spinae, Gluteus Medius and Gluteus Erasmo. The patient initially | | | received LIDOCAINE 1% and thereafter a combination of DEPO-MEDROL | | | and MARCAINE, total DEPO-MEDROL 10 mL, 40 mg/mL were injected and | | | did not experience any palpitations, diaphoresis, chest pain, or | | | shortness or breath after this procedure. Recommendation: The | | | patient was advised to place a warm compress in the injected areas | | | 20 minutes on, 20 minutes off 2 hours after the injection and to | | | repeat the same warm compresses in the afternoon and evening. In | | | addition, it is medically necessary for this patient to receive | | | another trigger point injection in about 4-5 months in the event | | | that symptoms recur to improve their quality of life such as | | | activities of daily living. The patient has been given medical | | | education for other options for neck, thoracic and lumbosacral spine | | | such as acupuncture treatments, massage therapy, fsqj-pxj-mmsvaot | | | heat patches, relaxation therapy, water therapy and Cortisone shots. | | | The patient will call with any increased signs or symptoms. The | | | patient has been instructed to contact me for any increase in signs | | | and symptoms. Thank you for allowing me to participate in the care | | | of this patient, I recommend follow up in 3-4 weeks. Jax | | | JUVENTINO Black | | + + + XR Lumbar Spine 2 or 3 Vw (03/16/2019 11:01 AM PDT) + + | Specimen | + + | | + + + + + | Impressions | Performed At | + + + | IMPRESSION: Transitional vertebrae lowest nhc-yne-nqxhyna | [facility] | | vertebrae. This finding can be associated with back pain. | | | Dictated by: Bobby Chamberlain | | + + + + + + | Narrative | Performed At | + + + | EXAMINATION: XR LUMBAR SPINE 2 OR 3 VW HISTORY: chronic low | [facility] | | back pain COMPARISON STUDY: None. FINDINGS: A transitional | | | vertebrae is present at the lowest noj-kzf-temogds vertebrae with the | | | left transverse process articulating with the sacrum. Sclerosis is | | | present at this articulation. 5 kov-sjs-uiizonj vertebrae are | | | present. For numbering purposes the lowest lxi-wfh-kfniork vertebrae | | | will be termed L5. Pedicles are intact. The disc spaces and | | | vertebral body heights are maintained. IUD device present.. | | + + + + + | Procedure Note | + + | Jorge A, Rad Results In - 03/16/2019 11:41 AM PDT EXAMINATION:XR LUMBAR SPINE 2 OR 3 | | VWHISTORY:chronic low back painCOMPARISON STUDY:None.FINDINGS:A transitional vertebrae | | is present at the lowest bwh-ofz-kjkapzk vertebrae with the left transverse process | | articulating with the sacrum. Sclerosis is present at this articulation.5 | | pjy-zgt-osfwxzj vertebrae are present. For numbering purposes the lowest | | sst-syp-iukyaop vertebrae will be termed L5.Pedicles are intact. The disc spaces and | | vertebral body heights are maintained. IUD device present..IMPRESSION: | | IMPRESSION:Transitional vertebrae lowest zrw-pgi-pidepxf vertebrae. This finding can be | | associated with back pain.Dictated by: Bobby Chamberlain | |A transitional vertebrae is present at the lowest bij-cpy-thbszim vertebrae with the left t ransverse process articulating with the sacrum. Sclerosis is present at this articulation. | | | |5 rzj-eex-rijhjxp vertebrae are present. For numbering purposes the lowest vwj-vaf-zhimjeu vertebrae will be termed L5. | | | |Pedicles are intact. The disc spaces and vertebral body heights are maintained. IUD devic e present.. | | | |IMPRESSION: | |IMPRESSION: | |Transitional vertebrae lowest xyx-cgt-fqmqapv vertebrae. This finding can be associated wi th back pain. | | | |Dictated by: Bobby Chamberlain | | | | | + + + +---------+ + + | Performing | Address | City/State/Zipcode | Phone Number | | Organization | | | | + +---------+ + + | [facility] | | | | + +---------+ + + documented in this encounter Visit Diagnoses + + | Diagnosis | + + | Chronic bilateral low back pain with left-sided sciatica - Primary | + + | Idiopathic peripheral neuropathy Unspecified hereditary and idiopathic peripheral | | neuropathy | + + | Fibromyalgia Mylagia and myositis, unspecified | + + documented in this encounter
--- OUTSIDE RECORDS SUMMARY | ~2020-03-19 | XMS | Encounter Summary ---
Demographics + + + | Address | [address] | | | [place] [address] | + + + | Home Phone | | + + + | Preferred Language | Unknown | + + + | Marital Status | Single | + + + | Hindu Affiliation | NON | + + + | Race | White | + + + | Ethnic Group | Not or | + + + Author + + + | Author | [facility] | + + + | Organization | [facility] | + + + | Address [...] Team Providers + +------+ + | Care Wood Cut Engraver Name | Role | Phone | + +------+ + | No Pcp Per Patient | PCP | Unavailable | + +------+ + Encounter Details +--------+ + + + + | Date | Type | Department | Care Team | Description | +--------+ + + + + | 06/27/ | Telephone | Dermatology | Ryan, | | | 2019 | | Surgery at [facility] [address] | Kev Ashton MD [address] | | | | | [address] | [place], | | | | | Mailcode: [id number] | [place] [address] | | | | | [facility] | [phone] | | | | | and Healing, | | | | | | | | | | | | Floor [place], [place] | | | | | | [address] | | | | | | [phone] | | | +--------+ + + + [...]
--- OUTSIDE RECORDS SUMMARY | ~2020-03-19 | XMS | Encounter Summary ---
Demographics + + + | Address | [address] | | | [place] [address] | + + + | Home Phone [...] + + | Author | [facility] | | | and [place] | + + + | Organization | [facility] | | | and [...] Team Providers + +------+ + | Care Farm Machinery Set Up Mechanic Name | Role | Phone | + +------+ + | No, Physician | PCP | Unavailable | + +------+ + Reason for Visit + + + | Reason | Comments | + + + | Procedure | | + + + Encounter Details +--------+ + + + + | Date | Type | Department | Care Team | Description | +--------+ + + + + | 09/19/ | Procedure | [facility] | [place], | Altered level of | | 2019 | visit | [facility] | Jax, [address] | consciousness | | | | CLINIC [address] [place], | (Primary Dx); | | | | [address] [place], | [place] [address] | Lumbosacral | | | | [place] [address] | [phone] | radiculopathy; | | | | [phone] | | Chronic bilateral | | | | | | low back pain with | | | | | | left-sided sciatica | +--------+ + + + + Social [...] + + + | Blood Pressure | 127/79 | 09/19/2019 1:26 PM | | | | | PST | | + + + + + | Pulse | 87 | 09/19/2019 1:26 PM | | | | | PST | | + + + + + | Temperature | - | - | | + + + + + | Respiratory Rate | 18 | 09/19/2019 1:26 PM | | | | | PST | | + + + + + | Oxygen Saturation | 99% | 09/19/2019 1:26 PM | | | | | PST | | + + + + + | Inhaled Oxygen | - | - | | | Concentration | | | | + + + + + | Weight | 108 kg (238 lb) | 09/19/2019 1:26 PM | | | | | PST | | + + + + + | Height | 167.6 cm (5' 6") | 09/19/2019 1:26 PM | | | | | PST | | + + + + + | Body Mass Index | 38.41 | 09/19/2019 1:26 PM | | | | | PST | | + + + + + documented in this encounter Patient Instructions Patient Instructions Jax Black FNP - 09/19/2019 1:30 PM PSTApply warm compresses to the injection sites for 20 minutes on and 20 minutes off for 2 hours starting a couple o f hours after the procedure. You may repeat it again the next day. You can apply moist hea t to your aching areas as needed thereafter. No lifting, pushing, pulling objects greater than 5 pounds (about the size of a 1/2 gallon of milk) for the first week after the procedure. Showers only please, no bathing or soaking the injection sites in water for the first week. If you experience increased dizziness, drowsiness, chest pain or palpitations, immediately call your Neurologist's office, go to the Emergency Room or call 911. Please contact our clinic within 48 hours if you experience persistent pain. If you have a ny concerns or questions after the trigger point injection: Thank you! documented in this encounter Progress Notes Jax Black FNP - 09/19/2019 1:30 PM PST Patient reports worsening full body jerking. She reports that these episodes typically occ ur just before or shortly after falling asleep and involved both sides of her body. She rep orts an altered level of consciousness but is awake during these episodes. She denies any p ostictal phase. EEG ordered to rule out seizure activity and follow-up appointment was move d up. General Appearance: The patient is alert and in no acute distress. Vitals: 09/19/19 1326 BP: 127/79 Pulse: 87 Resp: 18 PainSc: 8 PainLoc: Back documented in thi s encounter Plan of Treatment +--------+---------+ + + + | Date | Type | Specialty | Care Team | Description | +--------+---------+ + + + | 11/26/ | Office | Neurology | Seven Johns MD | | | 2020 | Visit | | [address] | | | | | | [place] | | | | | | [address] | | | | | | | | +--------+---------+ + + + documented as of this encounter Procedures + +--------+ + + + | Procedure Name | Priori | Date/Time | Associated Diagnosis | Comments | | | ty | | | | + +--------+ + + + | [place] INJECT TRIGGER | Routin | 09/19/2019 | Chronic bilateral | Results for this | | POINT, 3+ MUSCLES | e | 1:30 PM | low back pain with | procedure are in the | | | | PST | left-sided sciatica | results section. | + +--------+ + + + documented in this encounter Results EEG (09/22/2019 11:00 AM PST) + + + | Narrative | Performed At | + + + | Brittny Warren MD 09/22/2019 12:44 PM Name:Linda Blair | | | Mani :1990 DATE OF SERVICE: 09/22/2019 | | | STUDY: ELECTROENCEPHALOGRAM INTRODUCTION: This is a | | | digital EEG recording with a record length of 20 minutes. The | | | patient is a 29 y.o. year-old female with episodes of altered mental | | | status and jerking movements. BACKGROUND RHYTHM: The patient | | | has a well defined background pattern of 10 Hz. This activity is | | | more prominent posteriorly, symmetrical, and synchronous. It | | | attenuates with eye opening and returns with eye closing. | | | Drowsiness is appreciated by the attenuation and slowing of the | | | patient's background activities. ABNORMAL POTENTIALS: No focal | | | slow waves or epileptiform discharges are seen. | | | HYPERVENTILATION/PHOTIC STIMULATION: Hyperventilation was not | | | performed. Photic stimulation was without significant effect. | | | IMPRESSION: Normal awake and drowsy EEG. Thank you for the | | | opportunity to participate in the care of this patient. | | | Brittny Warren MD09/22/201912:43 PM Electronically signed | | + + + documented in this encounter Visit Diagnoses + + | Diagnosis | + + | Altered level of consciousness - Primary Other alteration of consciousness | + + | Lumbosacral radiculopathy Thoracic or lumbosacral neuritis or radiculitis, | | unspecified | + + | Chronic bilateral low back pain with left-sided sciatica | + + documented in this encounter Administered Medications + +--------+ +--------+------+ + | Medication Order | MAR | Action | Dose | Rate | Site | | | Action | Date | | | | + +--------+ +--------+------+ + | bupivacaine (MARCAINE) 0.5% | Given | 09/19/20 | 10 mLs | | Other | | injection 10 mL 10 mL, Other, | | 19 1:57 | | | (Comment | | ONCE, 09/19/19 at 1415, For 1 | | PM PST | | | ) | | dose, IM, | | | | | | + +--------+ +--------+------+ + +---+---+ | | | +---+---+ + +-------+ +--------+---+ + | lidocaine 1% injection 20 mL | Given | 09/19/20 | 20 mLs | | Other | | 20 mL, Intramuscular, ONCE, Tue | | 19 1:57 | | | (Comment | | 09/19/19 at 1415, For 1 dose | | PM PST | | | ) | + +-------+ +--------+---+ + +---+---+ | | | +---+---+ + +-------+ +--------+---+ + | methylPREDNISolone acetate | Given | 09/19/20 | 400 mg | | Other | | (DEPO-MEDROL) 40 mg/mL injection | | 19 1:58 | | | (Comment | | 400 mg 400 mg, Intramuscular, | | PM PST | | | ) | | ONCE, 09/19/19 at 1415, For 1 | | | | | | | dose, Not for IV use., | | | | | | + +-------+ +--------+---+ + +---+---+ | | | +---+---+ documented in this encounter
--- OUTSIDE RECORDS SUMMARY | ~2020-03-19 | XMS | Encounter Summary ---
Demographics + + + | Address | [address] | | | [place] [address] | + + + | Home Phone | | + + + | Preferred Language | Unknown | + + + | Marital Status | Single | + + + | Mormonism Affiliation | NON | + + + [...] Team Providers + +------+ + | Care Principal Archaeologist Name | Role | Phone | + +------+ + | No Pcp Per Patient | PCP | Unavailable | + +------+ + Encounter Details +--------+--------+ + + + | Date | Type | Department | Care Team | Description | +--------+--------+ + + + | 04/06/ | Travel | | | | | [...]
--- OUTSIDE RECORDS SUMMARY | ~2020-03-19 | XMS | Encounter Summary ---
Demographics + + + | Address | [address] | | | [place] [address] | + + + | Home Phone [...] Author + + + | Author | [facility] | + + + | Organization | [facility] | + + + | Address [...] Team Providers + +------+ + | Care Mock Up Maker Name | Role | Phone | + +------+ + | No Pcp Per Patient | PCP | Unavailable | + +------+ + Encounter Details +--------+ + + + + | Date | Type | Department | Care Team | Description | +--------+ + + + + | 06/27/ | Telephone | Dermatology | Ryan, | | | 2019 | | Surgery at [facility] [address] | Kev Ashton MD [address] | | | | | [address] | [address] [place], | | | | | Mailcode: [id number] | [place] [address] | | | | | [facility] | [phone] | | | | | and Healing, | | | | | | | | | | | | Floor [place], [place] | | | | | | [address] | | | | | | [phone] | | | +--------+ + + + [...]
--- OUTSIDE RECORDS SUMMARY | ~2020-03-19 | XMS | Encounter Summary ---
Demographics + + + | Address | [address] | | | [place] [address] | + + + | Home Phone [...] + + + | Author | [facility] | | | and [place] | + + + | Organization | [facility] | | | [...] Team Providers + +------+ + | Care Superintendent Menagerie Name | Role | Phone | + +------+ + | No, Physician | PCP | Unavailable | + +------+ + Encounter Details +--------+ + + + + | Date | Type | Department | Care Team | Description | +--------+ + + + + | 09/06/ | Orders Only | [facility] | Mindy Stewart | | | 2018 | | [address] | [address] | | | | | [address] | [address] | | | | | [place] | [place] | | | | | [address] | [address] | | | | | [phone] | [phone] | | | | | | | | +--------+ + + + [...] [place] | | | | | | [address] | | | | | | | | +--------+---------+ + + + documented as of this encounter Procedures + +--------+ + + + | Procedure Name | Priori | Date/Time | Associated Diagnosis | Comments | | | ty | | | | + +--------+ + + + | ECHO INTERPRETATION | Routin | 09/06/2018 | | Results for this | | OF OUTSIDE FILMS | e | 12:28 PM | | procedure are in the | | | | PST | | results section. | + +--------+ + + + documented in this encounter Results ECHO Interpretation of Outside Films (09/06/2018 12:28 PM PST) + + | Specimen | + + | | + + + + + | Impressions | Performed At | + + + | 1. Overall left ventricular systolic function is mildly impaired | | | with mild global hypokinesis and an EF between 45 - 50 %. 2. The | | | right ventricle is normal in size and function. 3. No clinically | | | significant valvular abnormalities are present. | | + + + + + + | Narrative | Performed At | + + + | Patient Name: Linda Singleton Date of : 1990 | | | Performing Physician: LILLIAM TEMPLE MD | | | | | | INDICATIONS fluid overload CONCLUSIONS | | | 1. Overall left ventricular systolic function is mildly impaired with | | | mild global hypokinesis and an EF between 45 - 50 %. 2. The right | | | ventricle is normal in size and function. 3. No clinically significant | | | valvular abnormalities are present. FINDINGS -------- ECG | | | rhythm: Sinus ECG rhythm: tachycardia (HR 106 bpm). Study: A | | | 2-dimensional transthoracic echocardiogram with m-mode, spectral and | | | color flow Doppler was perfomed at [facility]. Study: This was a technically | | | adequate study. Left Ventricle: Overall left ventricular systolic | | | function is mildly impaired with, an EF between 45 - 50 %. Left | | | Ventricle: The left ventricle cavity size is normal. Left Ventricle: | | | Left ventricular wall thickness is normal. Left Ventricle: There is | | | mild global hypokinesis of LV contractility. Left Ventricle: The | | | diastolic filling pattern is normal for the age of the patient. Right | | | Ventricle: The right ventricle is normal in size and function. Left | | | Atrium: The left atrium is normal in size. Right Atrium: The right | | | atrium is normal in size. Aortic Valve: The aortic valve is | | | trileaflet, and appears anatomically normal. No aortic stenosis or | | | regurgitation. Mitral Valve: Normal appearing mitral valve. Mitral | | | Valve: No mitral regurgitation. Mitral Valve: Mild prolapse of the | | | anterior mitral valve leaflet. Tricuspid Valve: The tricuspid valve | | | appears structurally normal. Tricuspid Valve: Trace tricuspid | | | regurgitation present. Tricuspid Valve: There is no evidence of | | | pulmonary hypertension. Tricuspid Valve: The right ventricular | | | systolic pressure (pulmonary artery systolic pressure), as measured by | | | Doppler, is 18 - 23 mm Hg. Pulmonic Valve: Pulmonic valve appears | | | structurally normal. Pulmonic Valve: Trace pulmonic regurgitation. | | | Pericardium: There is no pericardial effusion. IVC/Hepatic Veins: | | | The inferior vena cava is normal in size and collapses > 50 % with | | | sniff, indicating normal central venous pressures. Aorta: The aortic | | | root, ascending aorta and aortic arch are normal. Mass: No mass | | | visualized Thrombus: No clot visualized Thrombus: No vegetation | | | visualized. Septum: No ASD observed. Septum: No VSD observed. | | | Septum: Lipomatous Hypertrophy of the atrial septum is present | | | MEASUREMENTS Ao asc: 2.80 cm Ao sinus: 3.37 cm | | | Ao st junct: 3.05 cm IVC: 1.52 cm LA Diam: 2.87 cm | | | EDV(Teich): 80.63 ml IVSd: 1.01 cm LVIDd: 4.24 cm LVPWd: | | | 1.03 cm LVOT Area: 3.57 cm2 LVOT Diam: 2.13 cm %FS: | | | 24.76 % EF(Teich): 49.40 % ESV(Teich): 40.79 ml LVIDs: | | | 3.19 cm SV(Teich): 39.84 ml RVIDd: 2.56 cm LVEF MOD A2C: | | | 61.65 % SV MOD A2C: 69.40 ml LVEF MOD A4C: 55.93 % SV MOD | | | A4C: 55.10 ml EF Biplane: 58.32 % LVEDV MOD BP: 106.34 ml | | | LVESV MOD BP: 44.32 ml LVEDV MOD A2C: 112.58 ml LVLd A2C: | | | 7.91 cm LVEDV MOD A4C: 98.51 ml LVLd A4C: 7.74 cm LVESV MOD | | | A2C: 43.17 ml LVLs A2C: 6.40 cm LVESV MOD A4C: 43.41 ml | | | LVLs A4C: 6.07 cm LAESV(A-L): 36.56 ml LAESV Index (A-L): | | | 16.54 ml/m2 LAAs A2C: 12.34 cm2 LAESV A-L A2C: 34.87 ml LALs | | | A2C: 3.70 cm LAAs A4C: 12.94 cm2 LAESV A-L A4C: 37.17 ml | | | LALs A4C: 3.82 cm RAAs: 12.97 cm2 RAESV A-L: 35.50 ml | | | RAESV MOD: 33.85 ml RALs: 4.02 cm TAPSE: 1.97 cm AV maxPG: | | | 5.44 mmHg AV meanP.72 mmHg AV Vmax: 1.16 m/s AV | | | Vmean: 0.75 m/s AV VTI: 15.80 cm JESENIA Vmax: 2.77 cm2 JESENIA | | | (VTI): 3.00 cm2 AVAI (Vmax): 0.00 cm2/m2 AVAI (VTI): 0.00 | | | cm2/m2 LVOT maxP.28 mmHg LVOT meanP.74 mmHg LVSI | | | Dopp: 21.48 ml/m2 LVSV Dopp: 47.47 ml LVOT Vmax: 0.90 m/s | | | LVOT Vmean: 0.62 m/s LVOT VTI: 13.27 cm MV A [place]: 0.65 m/s | | | MV Dec [place]: 3.53 m/s2 MV DecT: 141.98 ms MV E [place]: 0.50 | | | m/s MV E/A Ratio: 0.76 MV PHT: 41.17 ms MVA By PHT: 5.34 | | | cm2 Septal e': 0.07 m/s Septal E/e': 6.62 Lateral e': 0.09 | | | m/s Lateral E/e': 5.26 TR maxP.50 mmHg TR Vmax: 1.76 | | | m/s Photo Producer: DBS Authenticated by: LILLIAM TEMPLE MD | | | Report Date/Time: 09-06-2018 19:15:59 | | + + + + + | Procedure Note | + + | Jorge A, Rad Conversion - 06/01/2019 5:01 PM PDT Patient Name: Carina Singleton of | | : 1990 Performing Physician: LILLIAM TEMPLE, | | INDICATIONS f | | luid overload CONCLUSIONS 1. Overall left ventricular systolic function is | | mildly impaired with mild global hypokinesis and an EF between 45 - 50 %.2. The right | | ventricle is normal in size and function. 3. No clinically significant valvular | | abnormalities are present. FINDINGS--------ECG rhythm: SinusECG rhythm: tachycardia (HR | | 106 bpm).Study: A 2-dimensional transthoracic echocardiogram with m-mode, spectral and | | color flow Doppler was perfomed at [facility].Study: This was a technically adequate study.Left | | Ventricle: Overall left ventricular systolic function is mildly impaired with, an EF | | between 45 - 50 %.Left Ventricle: The left ventricle cavity size is normal.Left | | Ventricle: Left ventricular wall thickness is normal.Left Ventricle: There is mild | | global hypokinesis of LV contractility.Left Ventricle: The diastolic filling pattern is | | normal for the age of the patient.Right Ventricle: The right ventricle is normal in size | | and function.Left Atrium: The left atrium is normal in size.Right Atrium: The right | | atrium is normal in size.Aortic Valve: The aortic valve is trileaflet, and appears | | anatomically normal. No aortic stenosis or regurgitation.Mitral Valve: Normal appearing | | mitral valve.Mitral Valve: No mitral regurgitation.Mitral Valve: Mild prolapse of the | | anterior mitral valve leaflet.Tricuspid Valve: The tricuspid valve appears structurally | | normal.Tricuspid Valve: Trace tricuspid regurgitation present.Tricuspid Valve: There is | | no evidence of pulmonary hypertension.Tricuspid Valve: The right ventricular systolic | | pressure (pulmonary artery systolic pressure), as measured by Doppler, is 18 - 23 mm | | Hg.Pulmonic Valve: Pulmonic valve appears structurally normal.Pulmonic Valve: Trace | | pulmonic regurgitation.Pericardium: There is no pericardial effusion.IVC/Hepatic Veins: | | The inferior vena cava is normal in size and collapses > 50 % with sniff, indicating | | normal central venous pressures.Aorta: The aortic root, ascending aorta and aortic arch | | are normal.Mass: No mass visualizedThrombus: No clot visualizedThrombus: No vegetation | | visualized.Septum: No ASD observed.Septum: No VSD observed.Septum: Lipomatous | | Hypertrophy of the atrial septum is present MEASUREMENTS Ao asc: 2.80 cmAo | | sinus: 3.[address] junct: 3.05 cmIVC: 1.52 cmLA Diam: 2.87 cmEDV(Teich): | | 80.63 mlIVSd: 1.01 cmLVIDd: 4.24 cmLVPWd: 1.03 cmLVOT Area: 3.57 [id number] Diam: | | 2.13 cm%FS: 24.76 %EF(Teich): 49.40 %ESV(Teich): 40.79 mlLVIDs: 3.19 | | cmSV(Teich): 39.84 mlRVIDd: 2.56 cmLVEF MOD A2C: 61.65 %SV MOD A2C: 69.40 mlLVEF | | MOD A4C: 55.93 %SV MOD A4C: 55.10 mlEF Biplane: 58.32 %LVEDV MOD BP: 106.34 | | mlLVESV MOD BP: 44.32 mlLVEDV MOD A2C: 112.58 mlLVLd A2C: 7.91 cmLVEDV MOD A4C: | | 98.51 mlLVLd A4C: 7.74 cmLVESV MOD A2C: 43.17 mlLVLs A2C: 6.40 cmLVESV MOD A4C: | | 43.41 mlLVLs A4C: 6.07 cmLAESV(A-L): 36.56 mlLAESV Index (A-L): 16.54 ml/m2LAAs | | A2C: 12.34 [id number] A-L A2C: 34.87 mlLALs A2C: 3.70 cmLAAs A4C: 12.94 [id number] | | A-L A4C: 37.17 mlLALs A4C: 3.82 cmRAAs: 12.97 [id number] A-L: 35.50 mlRAESV MOD: | | 33.85 mlRALs: 4.02 cmTAPSE: 1.97 cmAV maxP.44 mmHgAV meanP.72 mmHgAV | | Vmax: 1.16 m/Coco Vmean: 0.75 m/Coco VTI: 15.80 cmAVA Vmax: 2.77 cm2AVA (VTI): | | 3.00 gi3XVPL (Vmax): 0.00 cm2/m2AVAI (VTI): 0.00 cm2/m2LVOT maxP.28 mmHgLVOT | | meanP.74 mmHgLVSI Dopp: 21.48 ml/m2LVSV Dopp: 47.47 mlLVOT Vmax: 0.90 | | m/sLVOT Vmean: 0.62 m/sLVOT VTI: 13.27 cmMV A [place]: 0.65 m/sMV Dec [place]: 3.53 | | m/s2MV DecT: 141.98 msMV E [place]: 0.50 m/sMV E/A Ratio: 0.76MV PHT: 41.17 msMVA By | | PHT: 5.34 [id number] e': 0.07 m/sSeptal E/e': 6.62Lateral e': 0.09 m/sLateral | | E/e': 5.26TR maxP.50 mmHgTR Vmax: 1.76 m/s Photo Producer: DBSAuthenticated by: | | Connie BRUNO Date/Time: 09-06-2018 19:15:59 IMPRESSION: 1. Overall left | | ventricular systolic function is mildly impaired with mild global hypokinesis and an EF | | between 45 - 50 %.2. The right ventricle is normal in size and function. 3. No | | clinically significant valvular abnormalities are present. | |MEASUREMENTS | | | |Ao asc: 2.80 cm | |Ao sinus: 3.37 cm | |Ao st junct: 3.05 cm | |IVC: 1.52 cm | |LA Diam: 2.87 cm | |EDV(Teich): 80.63 ml | |IVSd: 1.01 cm | |LVIDd: 4.24 cm | |LVPWd: 1.03 cm | |LVOT Area: 3.57 cm2 | |LVOT Diam: 2.13 cm | |%FS: 24.76 % | |EF(Teich): 49.40 % | |ESV(Teich): 40.79 ml | |LVIDs: 3.19 cm | |SV(Teich): 39.84 ml | |RVIDd: 2.56 cm | |LVEF MOD A2C: 61.65 % | |SV MOD A2C: 69.40 ml | |LVEF MOD A4C: 55.93 % | |SV MOD A4C: 55.10 ml | |EF Biplane: 58.32 % | |LVEDV MOD BP: 106.34 ml | |LVESV MOD BP: 44.32 ml | |LVEDV MOD A2C: 112.58 ml | |LVLd A2C: 7.91 cm | |LVEDV MOD A4C: 98.51 ml | |LVLd A4C: 7.74 cm | |LVESV MOD A2C: 43.17 ml | |LVLs A2C: 6.40 cm | |LVESV MOD A4C: 43.41 ml | |LVLs A4C: 6.07 cm | |LAESV(A-L): 36.56 ml | |LAESV Index (A-L): 16.54 ml/m2 | |LAAs A2C: 12.34 cm2 | |LAESV A-L A2C: 34.87 ml | |LALs A2C: 3.70 cm | |LAAs A4C: 12.94 cm2 | |LAESV A-L A4C: 37.17 ml | |LALs A4C: 3.82 cm | |RAAs: 12.97 cm2 | |RAESV A-L: 35.50 ml | |RAESV MOD: 33.85 ml | |RALs: 4.02 cm | |TAPSE: 1.97 cm | |AV maxP.44 mmHg | |AV meanP.72 mmHg | |AV Vmax: 1.16 m/s | |AV Vmean: 0.75 m/s | |AV VTI: 15.80 cm | |JESENIA Vmax: 2.77 cm2 | |JESENIA (VTI): 3.00 cm2 | |AVAI (Vmax): 0.00 cm2/m2 | |AVAI (VTI): 0.00 cm2/m2 | |LVOT maxP.28 mmHg | |LVOT meanP.74 mmHg | |LVSI Dopp: 21.48 ml/m2 | |LVSV Dopp: 47.47 ml | |LVOT Vmax: 0.90 m/s | |LVOT Vmean: 0.62 m/s | |LVOT VTI: 13.27 cm | |MV A [place]: 0.65 m/s | |MV Dec [place]: 3.53 m/s2 | |MV DecT: 141.98 ms | |MV E [place]: 0.50 m/s | |MV E/A Ratio: 0.76 | |MV PHT: 41.17 ms | |MVA By PHT: 5.34 cm2 | |Septal e': 0.07 m/s | |Septal E/e': 6.62 | |Lateral e': 0.09 m/s | |Lateral E/e': 5.26 | |TR maxP.50 mmHg | |TR Vmax: 1.76 m/s | | | |Photo Producer: DBS | |Authenticated by: LILLIAM TEMPLE MD | |Report Date/Time: 09-06-2018 19:15:59 | | | |IMPRESSION: | |1. Overall left ventricular systolic function is mildly impaired with mild global hypokines is and an EF between 45 - 50 %. | |2. The right ventricle is normal in size and function. 3. No clinically significant valvula r abnormalities are present. | + + documented in this encounter Visit Diagnoses Not on filedocumented in this encounter"
--- OUTSIDE RECORDS SUMMARY | ~2020-03-19 | XMS | Encounter Summary ---
Demographics + + + | Address | [address] | | | [place] [address] | + + + | Home Phone [...] Team Providers + +------+ + | Care Operations Planner Name | Role | Phone | + +------+ + PCP | Unavailable | + +------+ + Encounter Details +--------+ + + + + | Date | Type | Department | Care Team | Description | +--------+ + + + + | 11/07/ | Hospital | [facility] | | | | 2004 | Encounter | [facility] [address] | | | | | | [place] | | | | | | [address] | | | | | | [phone] | | | +--------+ + + + [...] [place] | | | | | | [address] | | | | | | | | +--------+---------+ + + + documented as of this encounter Visit Diagnoses Not on filedocumented in this encounter"
--- OUTSIDE RECORDS SUMMARY | ~2020-03-19 | XMS | Encounter Summary ---
Demographics + + + | Address | [address] | | | [place] [address] | + + + | Home Phone | | + + + | Preferred Language | Unknown | + + + | Marital Status | Single | + + + | Jehovah'S Witness Affiliation | Unknown | + + + | Race | Unknown | + + + | Ethnic Group | Unknown | + + + Author + + + | Author | [facility] | | | and [place] | + + + | Organization | [facility] | | [...] Team Providers + +------+ + | Care Manager Music Name | Role | Phone | + [...] | visit | HOSPITAL NEUROLOGY | Jax, UTILITY SERVICE WORKER [address] | consciousness | | | | CLINIC [address] [place], | (Primary Dx); | | | | [address] [place], | [place] [address] | Lumbosacral | | | | [place] [address] | [phone] | radiculopathy; | | | | [phone] | | Chronic bilateral | | | [...] | + +--------+ + + + | [place] INJECT TRIGGER | Routin | 09/19/2019 | [...]
--- OUTSIDE RECORDS SUMMARY | ~2020-03-19 | XMS | Encounter Summary ---
Demographics + + + | Address | [address] | | | [place] [address] | + + + | Home Phone | | + + + | Preferred Language | Unknown | + + + | Marital Status | Single | + + + | Protestant Affiliation | NON | + + + | Race | White | + + + | Ethnic Group | Not or | + + + Author + + + | Author | [facility] | + + + | Organization | [facility] | + + + | Address [...] Team Providers + +------+ + | Care Commercial Real Estate Manager Name | Role | Phone | + +------+ + | No Pcp Per Patient | PCP | Unavailable | + +------+ + Reason for Referral PROC - Outpatient Surgery (Routine) +--------+--------+ + [...] | | | uncertain | Good | [address] [facility] | | | | | behavior of | [address] | [address] | | | | | connective | Medical | [address] | | | | | and other | [place] [address] | [place], [place] | | | | | soft tissue | Nw | [address] | | | | | Neoplasm of | [place], | Phone: | | | | | uncertain | [place] [address] | [phone] | | | | | behavior of | Phone: | Fax: | | | | | bone and | [phone] | [phone] | | | | | articular | Fax: | | | | | | cartilage | [phone] | | | | | | Procedures | | | | | | | REQUEST TO | | | | | | | SURGERY | | | | | | | [facility] | | | | | | | FL EXCIS | | | | | | | SOFT TISSUE | | | | | | | LESION HAND | | | | | | | DEEP FL EXC | | | | | | | HAND TURN | | | | | | | DEEP>1.5CM | | | | | | | FL EXCIS | | | | | | | BENIGN BONE | | | | | | | LESN,PHALANX | | | | | | | FL PART | | | | | | | REMV | | | | | | | BONE,PROX/HI | | | | | | | D PHALANX | | | | | | | FL PART REMV | | | | | | | BONE,DISTAL | | | | | | | PHALANX | | | +--------+--------+ + + + + Reason for Visit + + + | Reason | Comments | + + + | Pre-Admission | | + + + Encounter Details +--------+ + + + + | Date | Type | Department | Care Team | Description | +--------+ + + + + | 03/29/ | PreAdmit | Orthopaedics | Isael Champion, | Pre-Admission | | 2019 | Orders | [facility] at [place] | [address] | | | | | for [facility] and | [address] | | | | | Healing [address] | [place], [place] | | | | | Marcie Mailcode: | [address] | | | | | [facility] | [phone] | | | | | Health and Healing, | | | | | | [facility] | | | | | | Floor [place], [place] | | | | | | [address] | | | | | | [phone] | | | +--------+ + + + [...] filedocumented as of this encounter Visit Diagnoses + + | Diagnosis | + + | Mass of finger of right hand - Primary Localized superficial swelling, mass, or lump | + + documented in this encounter"
--- OUTSIDE RECORDS SUMMARY | ~2020-03-19 | XMS | Encounter Summary ---
Demographics + + + | Address | [address] | | | [place] [address] | + + + | Home Phone | | + + + | Preferred Language | Unknown | + + + | Marital Status | Single | + + + | Amish Affiliation | NON | + + + | Race | White | + + + | Ethnic Group | Not or | + + + Author + + + | Author | [facility] | + + + | Organization | [facility] | + + + | Address [...] Team Providers + +------+ + | Care Biofuels Production Technician Name | Role | Phone | [...] | | | | | | [address] [place], [place] | | | | | | [address] | | | | | | [phone] | | | +--------+ + + + [...]
--- OUTSIDE RECORDS SUMMARY | ~2020-03-19 | XMS | Encounter Summary ---
Demographics + + + | Address | [address] | | | [place] [address] | + + + | Home Phone | | + + + | Preferred Language | Unknown | + + + | Marital Status | Single | + + + | Baptist Affiliation | Unknown | + + + [...] Team Providers + +------+ + | Care Delivery Professional Name | Role | Phone | + [...] | | J[address]ON [address] | [address] [place], | | | | | [place], [place] | [place] [address] | | | | | [address] | [phone] | | | | | [phone] | | | +--------+ + + + [...] [place] | | | | | | [address] | | | | | | | [...]
--- OUTSIDE RECORDS SUMMARY | ~2020-03-19 | XMS | Encounter Summary ---
Demographics + + + | Address | [address] | | | [place] [address] | + + + | Home Phone | | + + + | Preferred Language | Unknown | + + + | Marital Status | Single | + + + | Scientologist Affiliation | Unknown | + + + | Race | Unknown | + + + | Ethnic Group | Unknown | + + + Author + + + | Author | [facility] | | | and [place] | + + + | Organization | [facility] | | | [...] Team Providers + +------+ + | Care Financial Planning Assistant Name | Role | Phone | + +------+ + | No, Physician | PCP | Unavailable | + +------+ + Encounter Details +--------+ + + + + | Date | Type | Department | Care Team | Description | +--------+ + + + + | 09/15/ | Procedure | [place] | Brittny Warren | Lumbosacral | | 2019 | visit | [facility] | MD [address] | radiculopathy | | | | CLINIC [address] | [address] | | | | | [address] [place], | [place] [address] | | | | | [place] [address] | [phone] | | | | | [phone] | | | +--------+ + + + [...] + + + | Blood Pressure | 123/68 | 09/15/2019 2:38 PM | | | | | PST | | + + + + + | Pulse | 86 | 09/15/2019 2:38 PM | | | | | PST | | + + + + + | Temperature | - | - | | + + + + + | Respiratory Rate | 16 | 09/15/2019 2:38 PM | | | | | PST | | + + + + + | Oxygen Saturation | 99% | 09/15/2019 2:38 PM | | | | | PST | | + + + + + | Inhaled Oxygen | - | - | | | Concentration | | | | + + + + + | Weight | 103.4 kg (228 lb) | 09/15/2019 2:38 PM | | | | | PST | | + + + + + | Height | 170 cm (5' 6.93") | 09/15/2019 2:38 PM | | | | | PST | | + + + + + | Body Mass Index | 35.79 | 09/15/2019 2:38 PM | | | | | PST | | + + + + + documented in this encounter Progress Notes Brittny Warren MD - 09/15/2019 2:45 PM PSTEMG tolerated well. Results explained to patient. She has a neurology follow-up next week. documented in this encounter Plan of Treatment +--------+---------+ + + + | Date | Type | Specialty | Care Team | Description | +--------+---------+ + + + | 11/26/ | Office | Neurology | Seven Johns MD | | | 2020 | Visit | | [address] | | | | | | [place] | | | | | | [address] | | | | | | | | +--------+---------+ + + + documented as of this encounter Procedures + +--------+ + + + | Procedure Name | Priori | Date/Time | Associated Diagnosis | Comments | | | ty | | | | + +--------+ + + + | EMG | Routin | 09/15/2019 | Lumbosacral | Results for this | | | e | 2:45 PM | radiculopathy | procedure are in the | | | | PST | | results section. | + +--------+ + + + | EMG | Routin | 09/15/2019 | Lumbosacral | Results for this | | | e | 2:45 PM | radiculopathy | procedure are in the | | | | PST | | results section. | + +--------+ + + + documented in this encounter Results EMG-[facility] (09/15/2019 2:45 PM PST) + + + | Narrative | Performed At | + + + | Brittny Warren MD 09/15/2019 3:07 PM Please see scanned | | | report. | | + + + documented in this encounter Visit Diagnoses + + | Diagnosis | + + | Lumbosacral radiculopathy Thoracic or lumbosacral neuritis or radiculitis, | | unspecified | + + documented in this encounter
--- OUTSIDE RECORDS SUMMARY | ~2020-03-19 | XMS | Encounter Summary ---
Demographics + + + | Address | [address] | | | [place] [address] | + + + | Home Phone | | + + + | Preferred Language | Unknown | + + + | Marital Status | Single | + + + | Synagogue Affiliation | NON | + + + | Race | White | + + + | Ethnic Group | Not or | + + + Author + + + | Author | [facility] | + + + | Organization | [facility] | + + + | Address [...] Team Providers + +------+ + | Care Green Chain Off Bearer Name | Role | Phone | + [...] | 2019 | Encounter | [facility] at [place] | [address] | | | | | for Health and | [address] | | | | | Healing [address] | [place], [place] | | | | | Ave Mailcode: | [address] | | | | | [facility] | [phone] | | | | | Health and Healing, | | | | | | | | | | | | Floor [place], [place] | | | | | | [address] | | | | | | [phone] | | | +--------+ + + + [...]
--- OUTSIDE RECORDS SUMMARY | ~2020-03-19 | XMS | Encounter Summary ---
Demographics + + + | Address | [address] | | | [place] [address] | + + + | Home Phone | | + + + | Preferred Language | Unknown | + + + | Marital Status | Single | + + + | Congregation Affiliation | Unknown | + + + | Race | Unknown | + + + | Ethnic Group | Unknown | + + + Author + + + | Author | [facility] | | | and [place] | + + + | Organization | [facility] | | | [...] Team Providers + +------+ + | Care Resident Physician Name | Role | Phone | + +------+ + | No, Physician | PCP | Unavailable | + +------+ + Reason for Visit + + + | Reason | Comments | + + + | Medication Refill | | + + + Encounter Details +--------+--------+ + + + | Date | Type | Department | Care Team | Description | +--------+--------+ + + + | 07/18/ | Refill | [facility] [facility] | Wayne, | Medication Refill | | 2019 | | HOSPITAL [facility]OLOGY | Jax, SPD MANA[address] | | | | | CLIN[address] | [address] [place], | | | | | [address] [place], | [place] [address] | | | | | [place] [address] | [phone] | | | | | [phone] | | | +--------+--------+ + + + [...] [place] | | | | | | [address] | | | | | | | | +--------+---------+ + + + documented as of this encounter Visit Diagnoses + + | Diagnosis | + + | Idiopathic peripheral neuropathy Unspecified hereditary and idiopathic peripheral | | neuropathy | + + | Chronic bilateral low back pain with left-sided sciatica | + + documented in this encounter"
--- OUTSIDE RECORDS SUMMARY | ~2020-03-19 | XMS | Clinical Summary ---
Demographics + + + | Address | [address] | | | [place] [address] | + + + | Home Phone [...] Team Providers + +------+ + | Care Manufacturers Service Representative Name | Role | Phone | [...] [place] | | | | | | [address] | | | | | | | [...] | [employer] | MODA | [id number] | | [phone] | | Medica | | MEDICAID HMO | HEALTH | | [id number]-Pr | 1 | | id | | | MDCD | | esent | | | | | | [place] | | | | | | + +--------+ +--------+ +---------+--------+ | [employer] | MODA | [id number] | | [phone] | | Medica | | MEDICAID HMO [...] | 1989 | [phone] | [place] [address] | | | alexandro | | | 6 (Home) | | + +--------+ +--------+ + + | Linda Singleton | Person | Self | [birth year] | | [address] | | | al/Fam | | 1989 | [phone] | [place] [address] | | | alexandro | | | 6 (Home) | | + +--------+ +--------+ + + | Linda Singleton | Person | Self | [birth year] | | [address] | | | al/Fam | | 1989 | [phone] | [place] [address] | | | alexandro | | | 6 (Home) | | + +--------+ +--------+ + + Advance Directives + + + + + | Type | Date Recorded | Patient | Explanation | | | | Guide Travel | | + + + + + | Power of | | | | | Uniform Room Attendant | | | | + + + + + | Advance | 11/27/2019 10:38 | | | | Directive | AM | | | + + + + +
--- OUTSIDE RECORDS SUMMARY | ~2020-03-19 | XMS | Encounter Summary ---
Demographics + + + | Address | [address] | | | [place] [address] | + + + | Home Phone | | + + + | Preferred Language | Unknown | + + + | Marital Status | Single | + + + | Hinduism Affiliation | Unknown | + + + | Race | Unknown | + + + | Ethnic Group | Unknown | + + + Author + + + | Author | [facility] | | | and [place] | + + + | Organization | [facility] | | | [...] Team Providers + +------+ + | Care Concert Pianist Name | Role | Phone | + [...] | | [address] | [address] | | | | | [address] | [address] | | | | | [place] | [place] | | | | | [address] | [address] | | | | | [phone] | [phone] | | | | | | | [...] [place] | | | | | | [address] | | | | | | | [...] | color flow Doppler was perfomed at [facility]. Study: This was a technically | | [...] 0.65 m/s | | | MV Dec Menard: 3.53 m/s2 MV DecT: 141.98 ms MV E Kamron: 0.50 | | | m/s MV E/A Ratio: 0.76 MV PHT: 41.17 ms MVA By PHT: 5.34 | | | cm2 Septal e': 0.07 m/s Septal E/e': 6.62 Lateral e': 0.09 | | | m/s Lateral E/e': 5.26 TR maxP.50 mmHg TR Vmax: 1.76 | | | m/s Furniture Shampooer: DBS Authenticated by: LILLIAM TEMPLE MD | [...] | color flow Doppler was perfomed at [facility].Study: This was a technically adequate study.Left | [...] cmLVIDd: 4.24 cmLVPWd: 1.03 cmLVOT Area: 3.57 [id number] Diam: | | 2.13 cm%FS: 24.76 %EF(Teich): [...] (A-L): 16.54 ml/m2LAAs | | A2C: 12.34 [id number] A-L A2C: 34.87 mlLALs A2C: 3.70 cmLAAs A4C: 12.94 [id number] | | A-L A4C: 37.17 mlLALs A4C: 3.82 cmRAAs: 12.97 [id number] A-L: 35.50 mlRAESV MOD: | | 33.85 mlRALs: 4.02 cmTAPSE: 1.97 cmAV maxP.44 mmHgAV meanP.72 mmHgAV | | Vmax: 1.16 m/Coco Vmean: 0.75 m/Coco VTI: 15.80 cmAVA Vmax: 2.77 cm2AVA (VTI): | | 3.00 ve2VWFW (Vmax): 0.00 cm2/m2AVAI (VTI): 0.00 cm2/m2LVOT maxP.28 mmHgLVOT | | meanP.74 mmHgLVSI Dopp: 21.48 ml/m2LVSV Dopp: 47.47 mlLVOT Vmax: 0.90 | | m/sLVOT Vmean: 0.62 m/sLVOT VTI: 13.27 cmMV A Kamron: 0.65 m/sMV Dec Menard: 3.53 | | m/s2MV DecT: 141.98 msMV E Kamron: 0.50 m/sMV E/A Ratio: 0.76MV PHT: 41.17 msMVA By | | PHT: 5.34 in3Fihynk e': 0.07 m/sSeptal E/e': 6.62Lateral e': 0.09 m/sLateral | | E/e': 5.26TR maxP.50 mmHgTR Vmax: 1.76 m/s Furniture Shampooer: DBSAuthenticated by: | | Connie BRUNO Date/Time: [...] A Kamron: 0.65 m/s | |MV Dec Menard: 3.53 m/s2 | |MV DecT: 141.98 ms | |MV E Kamron: 0.50 m/s | |MV E/A Ratio: 0.76 | |MV PHT: 41.17 ms | |MVA By PHT: 5.34 cm2 | |Septal e': 0.07 m/s | |Septal E/e': 6.62 | |Lateral e': 0.09 m/s | |Lateral E/e': 5.26 | |TR maxP.50 mmHg | |TR Vmax: 1.76 m/s | | | |Furniture Shampooer: DBS | |Authenticated by: LILLIAM TEMPLE MD [...]
--- OUTSIDE RECORDS SUMMARY | ~2020-03-19 | XMS | Encounter Summary ---
Demographics + + + | Address | [address] | | | [place] [address] | + + + | Home Phone | | + + + | Preferred Language | Unknown | + + + | Marital Status | Single | + + + | Bahai Affiliation | NON | + + + | Race | White | + + + | Ethnic Group | Not or | + + + Author + + + | Author | [facility] | + + + | Organization | [facility] | + + + | [...] Team Providers + +------+ + | Care College Recruiter Name | Role | Phone | + +------+ + | No Pcp Per Patient | PCP | Unavailable | + +------+ + Reason for Referral Other (Routine) +--------+--------+ + + + + | Status | Reason | Specialty | Diagnoses / | Referred By | Referred To | | | | | Procedures | Contact | Contact | +--------+--------+ + + + + | Closed | | Dermatology | Diagnoses | Jaycee, | | | | | | Squamous | Isael Goldberg, | Ryan | | | | | cell cancer | [address] | Kev Ashton MD | | | | | of skin of | [address] | [address] | | | | | finger, | [address] | Ave | | | | | right | [place], [place] | [place], [place] | | | | | Procedures | [address] | [address] | | | | | CONSULT TO | Phone: | Phone: | | | | | [facility] | [phone] | [phone] | | | | | SURGERY CT | Fax: | Fax: | | | | | MOHS,1 | [phone] | [phone] | | | | | STAGE,H/N/HF | | | | | | | /G CT MOHS | | | | | | | ADDL STAGE | | | | | | | CT MOHS | | | | | | | SURG, ADDL | | | | | | | BLOCK CT | | | | | | | REPR CMPL | | | | | | | WND | | | | | | | HEAD,FAC,SMILEY | | | | | | | D 1.1-2.5 | | | | | | | CT REPR CMPL | | | | | | | WND | | | | | | | HEAD,FAC,SMILEY | | | | | | | D 2.6-7.5 | | | | | | | CT | | | | | | | REP,FACE,GEN | | | | | | | ITAL,HAND,FT | | | | | | | +5CM/< CT | | | | | | | ADJ TISS | | | | | | | XFER | | | | | | | HEAD,FAC,SMILEY | | | | | | | D <10SQCM | | | | | | | CT ADJ TISS | | | | | | | XFER | | | | | | | HEAD,FAC,SMILEY | | | | | | | D 10.1-30 | | | | | | | CT SKIN | | | | | | | TISSUE | | | | | | | REARRANGEMEN | | | | | | | T CT SKIN | | | | | | | TISSUE | | | | | | | REARRANGEMEN | | | | | | | T ADD-ON CT | | | | | | | SPLIT | | | | | | | GRFT,HEAD,FA | | | | | | | C,HAND,FEET | | | | | | | <100CM CT | | | | | | | FULL THICK | | | | | | | GRFT | | | | | | | HEAD,FAC,SMILEY | | | | | | | D <20SQC CT | | | | | | | FULL THICK | | | | | | | GRFT | | | | | | | HEAD,FAC,MAX | | | | | | | ADD 20SQ CT | | | | | | | FORM SKIN | | | | | | | PEDICLE FLAP | | | | | | | | | | | | | | FACE,GEN,SMILEY | | | | | | | D CT | | | | | | | DELAY/SECTN | | | | | | | FLAP | | | | | | | FACE,GENIT,H | | | | | | | AND,FT Mohs | | | | | | | | | | +--------+--------+ + + + + Reason for Visit +---------+ + | Reason | Comments | +---------+ + | Post Op | | +---------+ + PROC - Outpatient Surgery (Routine) +--------+--------+ + + + + | Status | Reason | Specialty | Diagnoses / | Referred By | Referred To | | | | | Procedures | Contact | Contact | +--------+--------+ + + + + | Closed | | Orthopedics | Diagnoses | Steffi, | Jaycee, | | | | | Neoplasm of | MD Jonathan | Isael Goldberg MD | | | | | uncertain | Good | [address] | | | | | behavior of | [place] | [address] | | | | | connective | Medical | [address] | | | | | and other | [address] | [place], [place] | | | | | soft tissue | [place] | [address] | | | | | Neoplasm of | [place], | Phone: | | | | | uncertain | [place] [address] | [phone] | | | | | behavior of | Phone: | Fax: | | | | | bone and | [phone] | [phone] | | | | | articular | Fax: | | | | | | cartilage | [phone] | | | | | | Procedures | | | | | | | REQUEST TO | | | | | | | SURGERY | | | | | | | SOLE MOLDER | | | | | | | CT EXCIS | | | | | | | SOFT TISSUE | | | | | | | LESION HAND | | | | | | | DEEP CT EXC | | | | | | | HAND TURN | | | | | | | DEEP>1.5CM | | | | | | | CT EXCIS | | | | | | | BENIGN BONE | | | | | | | LESN,PHALANX | | | | | | | CT PART | | | | | | | REMV | | | | | | | BONE,PROX/NE | | | | | | | D PHALANX | | | | | | | CT PART REMV | | | | | | | BONE,DISTAL | | | | | | | PHALANX | | | +--------+--------+ + + + + Encounter Details +--------+---------+ + + + | Date | Type | Department | Care Team | Description | +--------+---------+ + + + | 04/19/ | Office | Orthopaedics | Reese [place], | Finger mass, right | | 2019 | Visit | [facility] at [place] | Alvina Goldberg PA-C [address] | (Primary Dx); | | | | for Health and | [address] | Squamous cell cancer | | | | Healing [address] | [place], [place] | of skin of finger, | | | | Ave Mailcode: | [address] | right | | | | [facility] | [phone] | | | | | Health and Healing, | | | | | | [facility] | | | | | | Floor [place], [place] | | | | | | [address] | | | | | | [phone] | | | +--------+---------+ + + + [...] + + + + | Temperature | 36.6 C (97.9 F) | 04/19/2019 9:55 AM | | | | | PDT [...] | Weight | 105 kg (231 lb 8 oz) | 04/19/2019 9:55 AM | | | | | PDT | | + + + + + | Height | 170.2 cm (5' 7") | 04/19/2019 9:55 AM | | | | | PDT | | + + + + + | Body Mass Index | 36.26 | 04/19/2019 9:55 AM | | | | | PDT | | + + + + + documented in this encounter Progress Notes Alvina Lee PA-C - 04/19/2019 9:35 AM PDTPOST OP NOTE Diagnosis: 1. 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 Excision right thumb soft tissue mass 04/06/19 History: Linda [place] is a 28 y.o. female 2 weeks s/p excision of mass right thumb. Currently s he is activity as tolerated. Pain is well-controlled without narcotics. She is keeping the t humb wrapped when at work. No problems with incision, fevers or chills. Exam: General: Alert and orietned There were no vitals taken for this visit. Musk: Examination of the right thumb demonstrates incision healing well, no signs of infect ion. Some swelling around nail bed. Minimal sensation at pad and incisional area. Good ROM. Pathology: Verrucous proliferation suspicious for verrucous/well-differentiated squamous cell carcinom a; see comment. A/P: Linda Singleton is a 28 y.o. female 2 weeks s/p removal of low grade squamous cell c arcinoma of thumb - Discussed pathology with patient. - Pt to be activity as tolerated - F/U in 4 weeks or sooner if problems. - Advised pt to call or return to clinic for any development of fevers/chills, redness or d rainage from wound. - Imaging studies to be done prior to next visit xrays 3 views thumb. - Dr. Champion will discuss surveillance plans at the next visit. ALVINA DAILEY PA-C ORTHOPAEDICS AT [facility] [address] Mailcode: [facility] [address] Associated attestation - Isael Champion MD - 05/16/2019 5:58 AM PDTAgree with note/darío n. Discussed at [facility] and with Dr Reed. Plan also to refer to Dr Ryan marin the diagnosis, for additional opinion about options for local control. Follow-up with bhaskar bauman as well. 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
--- OUTSIDE RECORDS SUMMARY | ~2020-03-19 | XMS | Encounter Summary ---
Demographics + + + | Address | [address] | | | [place] [address] | + + + | Home Phone | | + + + | Preferred Language | Unknown | + + + | Marital Status | Single | + + + | Buddhist Affiliation | Unknown | + + + | Race | Unknown | + + + | Ethnic Group | Unknown | + + + Author + + + | Author | [facility] | | | and [place] | + + + | Organization | [facility] | | [...] Team Providers + +------+ + | Care Spectrograph Operator Name | Role | Phone | [...] | | | [place], [place] | [place] [address] | | | | | [address] | [phone] | | | | | [phone] | | | +--------+ + + + [...] [place] | | | | | | [address] | | | | | | | [...]
--- OUTSIDE RECORDS SUMMARY | ~2020-03-19 | XMS | Encounter Summary ---
Demographics + + + | Address | [address] | | | [place] [address] | + + + | Home Phone | | + + + | Preferred Language | Unknown | + + + | Marital Status | Single | + + + | Nondenominational Affiliation | Unknown | + + + [...] Team Providers + +------+ + | Care Installation Coordinator Name | Role | Phone | + +------+ + | No, Physician | PCP | Unavailable | + +------+ + Encounter Details +--------+ + + + + | Date | Type | Department | Care Team | Description | +--------+ + + + + | 03/16/ | Hospital | [facility] | [place], | Chronic bilateral | | 2019 | Encounter | [facility] [address] | [address] | low back pain with | | | | [address] | [address] [place], | left-sided sciatica | | | | [place], [place] | [place] [address] | | | | | [address] | [phone] | | | | | [phone] | | | +--------+ + + + [...] HFA 108 | | | 0 | 03/28/20 | | | (90 Base) MCG/ACT | | | | 18 | | | inhaler | | | | | | + + + +---------+ + + | cyclobenzaprine | Take 10 mg by mouth | | 0 | 03/16/20 | | | (FLEXERIL) 10 mg | as needed. | | | 19 | 9 | | tablet | | | | | | + + + +---------+ + + | doxycycline | Take 50 mg by mouth | | 0 | | | | (MONODOX) 50 MG | 2 times daily. | | | | 9 | | capsule | | | | | | + + + +---------+ + + | gabapentin | Take 300 mg by mouth | | 0 | 03/16/20 | | | (NEURONTIN) 300 mg | four times daily. | | | 19 | 9 | | capsule | | | | | | + + + +---------+ + + | gabapentin | Take 1 capsule by | 120 | 3 | 03/16/20 | | | (NEURONTIN) 300 mg | mouth 4 times daily. | capsule | | 19 | 9 | | capsuleIndications: | | | | | | | Idiopathic | | | | | | | peripheral | | | | | | | neuropathy, Chronic | | | | | | | bilateral low back | | | | | | | pain with left-sided | | | | | | | sciatica | | | | | | + + + +---------+ + + | lamoTRIgine | Take 200 mg by mouth | | 0 | | | | (LAMICTAL) 200 MG | Daily. | | | | 9 | | tablet | | | | | | + + + +---------+ + + | spironolactone | Take 50 mg by mouth | | 0 | | | | (ALDACTONE) 50 mg | 2 times daily. | | | | 9 | | tablet | | | | | | + + + +---------+ + + | | | | 0 | 03/15/20 | | | sulfamethoxazole-tri | | | | 19 | 9 | | methoprim (BACTRIM | | | | | | | DS) 800-160 mg per | | | | | | | tablet | | | | | | + + + +---------+ + + | traZODone | Take 150 mg by mouth | | 0 | | | | (DESYREL) 150 MG | nightly. | | | | 9 | | tablet | | | | | | + + + +---------+ + + | Venlafaxine HCl | Take 250 mg by mouth | | 0 | | | | (EFFEXOR XR PO) | Daily. | | | | 9 | + + + +---------+ + + | ziprasidone | Take 40 mg by mouth | | 0 | | | | (GEODON) 40 mg | Daily. | | | | 9 | | capsule | | | | [...] [place] | | | | | | [address] | | | | | | | | +--------+---------+ + + + documented as of this encounter Procedures + +--------+ + + + | Procedure Name | Priori | Date/Time | Associated Diagnosis | Comments | | | ty | | | | + +--------+ + + + | XR LUMBAR SPINE 2 OR | Routin | 03/16/2019 | Chronic bilateral | Results for this | | 3 VW | e | 11:01 AM | low back pain with | procedure are in the | | | | PDT | left-sided sciatica | results section. | + +--------+ + + + documented in this encounter Results XR Lumbar Spine 2 or 3 Vw (03/16/2019 11:01 AM PDT) + + | Specimen | + + | | + + + + + | Impressions | Performed At | + + + | IMPRESSION: Transitional vertebrae lowest hep-wbk-oaqmdsy | [facility] | | vertebrae. This [...] | vertebrae is present at the lowest zqi-ram-ijkdjiz vertebrae with the | | | left transverse process articulating with the sacrum. Sclerosis is | | | present at this articulation. 5 yhw-kts-eawwnlo vertebrae are | | | present. For numbering purposes the lowest mxl-trn-ovntugm vertebrae | | | will be termed [...] | | is present at the lowest mee-pzc-zhdplzn vertebrae with the left transverse process | | articulating with the sacrum. Sclerosis is present at this articulation.5 | | zzt-yto-ojyeoop vertebrae are present. For numbering purposes the lowest | | itb-qno-yjcuevs vertebrae will be termed L5.Pedicles are intact. The disc spaces and | | vertebral body heights are maintained. IUD device present..IMPRESSION: | | IMPRESSION:Transitional vertebrae lowest fcg-nan-biqaiei vertebrae. This finding can be | | associated with back pain.Dictated by: Bobby Chamberlain | |A transitional vertebrae is present at the lowest ahe-dkl-wepwyrb vertebrae with the left t ransverse process articulating with the sacrum. Sclerosis is present at this articulation. | | | |5 qwi-ahb-hqilakr vertebrae are present. For numbering purposes the lowest ozd-aje-jppehqb vertebrae will be termed L5. | | | |Pedicles are intact. The disc spaces and vertebral body heights are maintained. IUD devic e present.. | | | |IMPRESSION: | |IMPRESSION: | |Transitional vertebrae lowest utr-rba-lhizymx vertebrae. This finding can be associated wi [...]
--- OUTSIDE RECORDS SUMMARY | ~2020-03-19 | XMS | Encounter Summary ---
Demographics + + + | Address | [address] | | | [place] [address] | + + + | Home Phone | | + + + | Preferred Language | Unknown | + + + | Marital Status | Single | + + + | Presybeterian Affiliation | NON | + + + | Race | White | + + + | Ethnic Group | Not or | + + + Author + + + | Author | [facility] | + + + | Organization | [facility] | + + + | Address | Unknown | + + + | Phone | Unavailable | + + + Support + + + + + | Name | Relationship | Address | Phone | + + + + + | Collette [place] | [place] | [place] | | + + + + + Care Team Providers + +------+ + | Care Ornamental Machine Operator Name | Role | Phone | + +------+ + | No Pcp Per Patient | PCP | Unavailable | + +------+ + Encounter Details +--------+ + + + + | Date | Type | Department | Care Team | Description | +--------+ + + + + | 06/26/ | Pharmacy | [facility] | | | | 2019 | Visit | [facility] | | | | | | [address] | | | | | | Mailcode: [place] | | | | | | [facility] and | | | | | | Healing, [address] | | | | | | [place], [place] | | | | | | [address] | | | | | | [phone] | | | +--------+ + + + [...]
--- OUTSIDE RECORDS SUMMARY | ~2020-03-19 | XMS | Encounter Summary ---
Demographics + + + | Address | [address] | | | [place] [address] | + + + | Home Phone | | + + + | Preferred Language | Unknown | + + + | Marital Status | Single | + + + | Yarsani Affiliation | NON | + + + | Race | White | + + + | Ethnic Group | Not or | + + + Author + + + | Author | [facility] | + + + | Organization | [facility] | + + + | [...] Team Providers + +------+ + | Care Product Support Analyst Name | Role | Phone | + [...] | | 2019 | | Surgery at [facility] [address] | Kev Ashton MD [address] | (Pain meds | | | | [address] | [address] [facility], | question) | | | | Mailcode: [facility]16[facility] | [place] [address] | | | | | [facility] | [phone] | | | | | and Healing, | | | | | | Building | | | | | | [facility], [place] | | | | | | [address] | | | | | | [phone] | | | +--------+ + + + [...]
--- OUTSIDE RECORDS SUMMARY | ~2020-03-19 | XMS | Clinical Summary ---
Demographics + + + | Address | [address] | | | [place] [address] | + + + | Home Phone | | + + + | Preferred Language | Unknown | + + + | Marital Status | Single | + + + | Christian Affiliation | NON | + + + [...] Team Providers + +------+ + | Care White Work Cleaner Name | Role | Phone | + +------+ + | No Pcp Per Patient | PCP | Unavailable | + +------+ + Source Comments [facility] is fully live on both [facility] and [facility] Allergies + + + + + + [...] | | | + +--------+ +--------+-------+---------+--------+ | MECHANICAL ENGINEERING LECTURER MEDICAID | MECHANICAL ENGINEERING LECTURER | xxxxxxxx | 02/15/20 | | | [...] | | 1990 | [phone] | [place] [address] | | | alexandro | | | [...]
--- OUTSIDE RECORDS SUMMARY | ~2020-03-19 | XMS | Encounter Summary ---
Demographics + + + | Address | [address] | | | [place] [address] | + + + | Home Phone | | + + + | Preferred Language | Unknown | + + + | Marital Status | Single | + + + | Alevism Affiliation | NON | + + + [...] + + + + + | Collette [place] | [place] | [place] | | + + + + + Care Team Providers + +------+ + | Care Director Human Services Name | Role | Phone | + [...] | and other | [address] | [place], [place] | | | | | soft tissue | [address] | [address] | | | | | Neoplasm of | [place], | Phone: | | | | | uncertain | [place] [address] | [phone] | | | | | behavior of | Phone: | Fax: | | | | | bone and | [phone] | [phone] | | | | | articular | Fax: | | | | | | cartilage | [phone] | | | | | | Procedures | | | | | | | REQUEST TO | | | | | | | SURGERY | | | | | | | WASTE CHOPPER | | | | | | | MD EXCIS | | | | | | | SOFT TISSUE | | | | | | | LESION HAND | | | | | | | DEEP MD EXC | | | | | | | HAND TURN | | | | | | | DEEP>1.5CM | | | | | | | MD EXCIS | | | | | | | BENIGN BONE | | | | | | | LESN,PHALANX | | | | | | | MD PART | | | | | | | REMV | | | | | | | BONE,PROX/WY | | | | | | | D PHALANX | | | | | | | MD PART REMV | | | | | [...] | 2019 | Visit | [facility] | [address] | of skin of finger, | | | | for Health and | [address] | right (Primary Dx) | | | | Healing [address] | [place], [place] | | | | | Ave Mailcode: | [address] | | | | | [facility] | [phone] | | | | | Health and Healing, | | | | | | [facility] | | | | | | Floor [place], [place] | | | | | | [address] | | | | | | [phone] | | | +--------+---------+ + + + [...] for consultation if would like. Defer to [facility] on systemic surveillance/staging as well. - will follow up with me as needed. Happy to see back for amputation if that is deemed nece ssary, or post-surgery if functional issues. Patient expressed understanding and agreement with plan. Please note - [employer] may be used in the creation of this note. While yessica cked, errors may still occur. Contact if questions/concerns. Isael Champion MD Director Check, Orthopaedic Oncology [facility] | Department of Orthopaedics & Rehabilitation [...] |Preliminary: Roberta Albarran MD | |Dictation initiated: Roberat Albarran MD 05/31/2019 9:42 AM | + [...]
--- OUTSIDE RECORDS SUMMARY | ~2020-03-19 | XMS | Encounter Summary ---
Demographics + + + | Address | [address] | | | [place] [address] | + + + | Home Phone | | + + + | Preferred Language | Unknown | + + + | Marital Status | Single | + + + | Sabianist Affiliation | NON | + + + | Race | White | + + + | Ethnic Group | Not or | + + + Author + + + | Author | [facility] | + + + | Organization | [facility] | + + + | [...] Team Providers + +------+ + | Care Enrollment Eligibility Representative Name | Role | Phone | [...] [facility] | | | | | | [address] | | | | | | [address] [facility] | | | | | | [place], [address] | | | | | | [place], [place] | | | | | | [address] | | | | | | [phone] | | | +--------+ + + + [...]
--- OUTSIDE RECORDS SUMMARY | ~2020-03-19 | XMS | Encounter Summary ---
Demographics + + + | Address | [address] | | | [place] [address] | + + + | Home Phone [...] + + + | Author | [facility] | | | and [place] | + + + | Organization | [facility] | | | [...] Team Providers + +------+ + | Care Clinical Researcher Name | Role | Phone | + +------+ + | Jerica Martinez PA-C | PCP | | + +------+ + Reason for Visit + + + | Reason | Comments | + + + | Abdominal Pain | | + + + Encounter Details +--------+ + + + + | Date | Type | Department | Care Team | Description | +--------+ + + + + | 05/30/ | Emergency | [facility] | Carmelo Maria | Abdominal pain, | | 2017 | | [facility] | MD Saleem [address] | unspecified location | | | | CENTER [address] | [address] [place] | (Primary Dx) | | | | [place], [place] | [place] [address] | | | | | [address] | [phone] | | | | | [phone] | | | +--------+ + + + [...] this encounter Last Filed Vital Signs + +---------+ + + | Vital Sign | Reading | Time Taken | Comments | + +---------+ + + | Blood Pressure | 137/95 | 05/30/2017 11:48 AM | | | | | PDT | | + +---------+ + + | Pulse | 96 | 05/30/2017 11:48 AM | | | | | PDT | | + +---------+ + + | Temperature | - | - | | + +---------+ + + | Respiratory Rate | - | - | | + +---------+ + + | Oxygen Saturation | 100% | 05/30/2017 11:48 AM | | | | | PDT | | + +---------+ + + | Inhaled Oxygen | - | - | | | Concentration | | | | + +---------+ + + | Weight | - | - | | + +---------+ + + | Height | - | - | | + +---------+ + + | Body Mass Index | - | - | | + +---------+ + + documented in this encounter Discharge Instructions AttachmentsThe following attachments cannot be sent through Care Everywhere.Abdominal Pain, Adult (Maori)documented in this encounter Medications at Time of Discharge + + + +---------+ + + | Medication | Sig | Dispensed | Refills | Start | End Date | | | | | | Date | | + + + +---------+ + + | cyclobenzaprine | Take 10 mg by mouth | | 0 | | | | (FLEXERIL) 10 mg | 3 times daily as | | | | 9 | | tablet | needed for Muscle | | | | | | | spasms. | | | | | + + + +---------+ + + | diclofenac | Place 1 patch onto | | 0 | | | | (FLECTOR) 1.3% PTCH | the skin 2 times | | | | 9 | | | daily. | | | | | + + + +---------+ + + | famotidine | Take 1 tablet by | 60 | 0 | 05/30/20 | | | (PEPCID) 20 mg | mouth 2 times daily. | tablet | | 17 | 9 | | tablet | | | | | | + + + +---------+ + + | gabapentin | Take 600 mg by mouth | | 0 | | | | (NEURONTIN) 600 MG | nightly. | | | | 9 | | tablet | | | | | | + + + +---------+ + + | | Take 1-2 tablets by | | 0 | | | | HYDROcodone-acetamin | mouth EVERY 4 TO 6 | | | | 9 | | ophen (NORCO) 10-325 | HOURS NEEDED for | | | | | | mg per tablet | Pain. | | | | | + + + +---------+ + + | lamoTRIgine | Take 200 mg by mouth | | 0 | | | | (LAMICTAL) 200 MG | Daily. | | | | 9 | | tablet | | | | | | + + + +---------+ + + | ondansetron | Take 1 tablet by | 9 | 0 | 05/30/20 | | | (ZOFRAN ODT) 4 mg | mouth every 8 hours | tablet | | 17 | 7 | | disintegrating | as needed for up to | | | | | | tablet | 3 days. | | | | | + + + +---------+ + + | pseudoePHEDrine | Take 30 mg by mouth | | 0 | | | | (SUDAFED) 30 mg | 4 times daily. | | | | 9 [...] [place] | | | | | | [id number] | | | | | | | | +--------+---------+ + + + documented as of this encounter Procedures + +--------+ + + + | Procedure Name | Priori | Date/Time | Associated Diagnosis | Comments | | | ty | | | | + +--------+ + + + | URINALYSIS WITH | STAT | 05/30/2017 | | Results for this | | MICROSCOPIC WITH | | 12:59 PM | | procedure are in the | | CULTURE IF INDICATED | | PDT | | results section. | + +--------+ + + + | EXTRA LAVENDER TOP | Routin | 05/30/2017 | | Results for this | | TUBE | e | 12:26 PM | | procedure are in the | | | | PDT | | results section. | + +--------+ + + + | EXTRA GREEN TOP TUBE | Routin | 05/30/2017 | | Results for this | | | e | 12:26 PM | | procedure are in the | | | | PDT | | results section. | + +--------+ + + + | EXTRA BLUE TOP TUBE | Routin | 05/30/2017 | | Results for this | | | e | 12:26 PM | | procedure are in the | | | | PDT | | results section. | + +--------+ + + + | CBC WITH | STAT | 05/30/2017 | | Results for this | | DIFFERENTIAL | | 12:26 PM | | procedure are in the | | | | PDT | | results section. | + +--------+ + + + | , SERUM, | STAT | 05/30/2017 | | Results for this | | QUAL | | 12:26 PM | | procedure are in the | | | | PDT | | results section. | + +--------+ + + + | LIPASE | STAT | 05/30/2017 | | Results for this | | | | 12:26 PM | | procedure are in the | | | | PDT | | results section. | + +--------+ + + + | COMPREHENSIVE | STAT | 05/30/2017 | | Results for this | | METABOLIC PANEL | | 12:26 PM | | procedure are in the | | | | PDT | | results section. | + +--------+ + + + documented in this encounter Results Urinalysis with Microscopic with Culture if Indicated (05/30/2017 12:59 PM PDT) + + + + + + | Component | Value | Ref Range | Performed | Pathologist | | | | | At | Signature | + + + + + + | Color, | Straw | Light Yellow, | [facility] | | | Urine | | Yellow, Straw | [facility] | | | | | | [facility] | | | | | | [facility] - | | | | | | LABORATORY | | + + + + + + | Clarity | Clear | Clear | [facility] | | | | | | [facility] | | | | | | [facility] | | | | | | [facility] - | | | | | | LABORATORY | | + + + + + + | pH, Urine | 6.0 | 5.0 - 8.0 | [facility] | | | | | | [facility] | | | | | | [facility] | | | | | | C[facility] - | | | | | | LABORATORY | | + + + + + + | Specific | 1.002 | 1.001 - 1.030 | [facility] | | | [place], | | | [facility] | | | Urine | | | MEDICAL | | | | | | CENTER - | | | | | | LABORATORY | | + + + + + + | Protein, | Negative | Negative | [facility] | | | Urine | | | [facility] | | | | | | [facility] | | | | | | CENTER - | | | | | | LABORATORY | | + + + + + + | Blood, | Negative | Negative | [facility] | | | Urine | | | [facility] | | | | | | [facility] | | | | | | CENTER - | | | | | | LABORATORY | | + + + + + + | Glucose, | Negative | Negative | [facility] | | | Urine | | | [facility] | | | | | | [facility] | | | | | | CENTER - | | | | | | LABORATORY | | + + + + + + | Ketones, | Negative | Negative | [facility] | | | Urine | | | [facility] | | | | | | [facility] | | | | | | CENTER - | | | | | | LABORATORY | | + + + + + + | Bilirubin, | Negative | Negative | [facility] | | | Urine | | | [facility] | | | | | | [facility] | | | | | | CENTER - | | | | | | LABORATORY | | + + + + + + | Nitrite, | Negative | Negative | [facility] | | | Urine | | | [facility] | | | | | | [facility] | | | | | | CENTER - | | | | | | LABORATORY | | + + + + + + | Leukocyte | Negative | Negative | [facility] | | | Esterase, | | | [facility] | | | Urine | | | MEDICAL | | | | | | CENTER - | | | | | | LABORATORY | | + + + + + + | Urobilinoge | Negative | 0.2 mg/dL, 1.0 | [facility] | | | n, Urine | | mg/dL, Negative | [facility] | | | | | | [facility] | | | | | | CENTER - | | | | | | LABORATORY | | + + + + + + | White Blood | 2-5 (A) | 0 - 2 /HPF | [facility] | | | Cells, | | | [facility] | | | Urine | | | MEDICAL | | | | | | CENTER - | | | | | | LABORATORY | | + + + + + + | Red Blood | 0-2 | 0 - 2 /HPF | [facility] | | | Cells, | | | [facility] | | | Urine | | | MEDICAL | | | | | | CENTER - | | | | | | LABORATORY | | + + + + + + | Squamous | 50-100 (A) | 0 - 2 /LPF | [facility] | | | Epithelial | | | [facility] | | | Cells, | | | MEDICAL | | | Urine | | | CENTER - | | | | | | LABORATORY | | + + + + + + | Bacteria, | 1+ (A) | Negative /HPF | [facility] | | | Urine | | | [facility] | | | | | | MEDICAL | | | | | | CENTER - | | | | | | LABORATORY | | + + + + + + | Amorphous | Few (A) | None Seen /HPF | [facility] | | | Crystals, | | | [facility] | | | Urine | | | MEDICAL | | | | | | CENTER - | | | | | | LABORATORY | | + + + + + + + + | Specimen | + + | Urine | + + + + + + + | Performing | Address | City/State/Zipcode | Phone Number | | Organization | | | | + + + + + | [facility] | [address] | [place] | [phone] | | [facility] | | [address] | | | - LABORATORY | | | | + + + + + Extra Green Top Tube (05/30/2017 12:26 PM PDT) + +-------+ + + + | Component | Value | Ref Range | Performed | Pathologist | | | | | At | Signature | + +-------+ + + + | Extra Green | Done | | [facility] | | | Top Tube | | | [facility] | | | | | | [facility] | | | | | | CENTER - | | | | | | LABORATORY | | + +-------+ + + + + + | Specimen | + + | Blood | + + + + + + + | Performing | Address | City/State/Zipcode | Phone Number | | Organization | | | | + + + + + | [facility] | [address] | [place] | [phone] | | [facility] | | [address] | | | - LABORATORY | | | | + + + + + Extra Lavender Top Tube (05/30/2017 12:26 PM PDT) + +-------+ + + + | Component | Value | Ref Range | Performed | Pathologist | | | | | At | Signature | + +-------+ + + + | Extra | Done | | [facility] | | | Lavender | | | [facility] | | | Top Tube | | | MEDICAL | | | | | | CENTER - | | | | | | LABORATORY | | + +-------+ + + + + + | Specimen | + + | Blood | + + + + + + + | Performing | Address | City/State/Zipcode | Phone Number | | Organization | | | | + + + + + | [facility] | [address] | [place] | [phone] | | [facility] | | [address] | | | - LABORATORY | | | | + + + + + Extra Blue Top Tube (05/30/2017 12:26 PM PDT) + +-------+ + + + | Component | Value | Ref Range | Performed | Pathologist | | | | | At | Signature | + +-------+ + + + | Extra Blue | Done | | [facility] | | | Top Tube | | | [facility] | | | | | | MEDICAL | | | | | | CENTER - | | | | | | LABORATORY | | + +-------+ + + + + + | Specimen | + + | Blood | + + + + + + + | Performing | Address | City/State/Zipcode | Phone Number | | Organization | | | | + + + + + | [facility] | [address] | [place] | [phone] | | [facility] | | [address] | | | - LABORATORY | | | | + + + + + , Serum, Qual (05/30/2017 12:26 PM PDT) + + + + + + | Component | Value | Ref Range | Performed | Pathologist | | | | | At | Signature | + + + + + + | hCG Screen, | Negative | Negative | [facility] | | | Serum | | | [facility] | | | | | | MEDICAL | | | | | | CENTER - | | | | | | LABORATORY | | + + + + + + + + | Specimen | + + | Blood | + + + + + + + | Performing | Address | City/State/Zipcode | Phone Number | | Organization | | | | + + + + + | [facility] | [address] | [place] | [phone] | | [facility] | | [address] | | | - LABORATORY | | | | + + + + + Lipase (05/30/2017 12:26 PM PDT) + +-------+ + + + | Component | Value | Ref Range | Performed | Pathologist | | | | | At | Signature | + +-------+ + + + | Lipase | 26 | 0 - 60 U/L | [facility] | | [facility] | | [facility] | | | | | | CENTER - | | | | | | LABORATORY | | + +-------+ + + + + + | Specimen | + + | Blood | + + + + + + + | Performing | Address | City/State/Zipcode | Phone Number | | Organization | | | | + + + + + | [facility] | [address] | [place] | [phone] | | [facility] | | [address] | | | - LABORATORY | | | | + + + + + Comprehensive Metabolic Panel (05/30/2017 12:26 PM PDT) + + + + + + | Component | Value | Ref Range | Performed | Pathologist | | | | | At | Signature | + + + + + + | Na | 134 (L) | 136 - 149 | [facility] | | | | | mmol/L | [facility] | | | | | | MEDICAL | | | | | | CENTER - | | | | | | LABORATORY | | + + + + + + | K | 4.7 | 3.5 - 5.1 | [facility] | | | | | mmol/L | [facility] | | | | | | MEDICAL | | | | | | CENTER - | | | | | | LABORATORY | | + + + + + + | Cl | 101 | 98 - 109 mmol/L | [facility] | | | | | | [facility] | | | | | | MEDICAL | | | | | | CENTER - | | | | | | LABORATORY | | + + + + + + | CO2 | 27 | 24 - 31 mmol/L | [facility] | | | | | | [facility] | | | | | | MEDICAL | | | | | | CENTER - | | | | | | LABORATORY | | + + + + + + | Anion Gap | 6 | 3 - 16 mmol/L | [facility] | | | | | | [facility] | | | | | | MEDICAL | | | | | | CENTER - | | | | | | LABORATORY | | + + + + + + | Glucose | 95 | 70 - 109 mg/dL | [facility] | | | | | | [facility] | | | | | | MEDICAL | | | | | | CENTER - | | | | | | LABORATORY | | + + + + + + | BUN | 10 | 7 - 18 mg/dL | [facility] | | | | | | [facility] | | | | | | MEDICAL | | | | | | CENTER - | | | | | | LABORATORY | | + + + + + + | Creatinine | 0.84 | 0.60 - 1.30 | [facility] | | | | | mg/dL | [facility] | | | | | | MEDICAL | | | | | | CENTER - | | | | | | LABORATORY | | + + + + + + | eGFR if not | >60Comment: GLOMERULAR | >=60 | [facility] | | | | FILTRATION | mL/min/1.73m2 | [facility] | | | ENGLISH | RATE,ESTIMATED | | MEDICAL | | | | mL/min/1.28s8Fzln than | | CENTER - | | | | 60 Chronic kidney | | LABORATORY | | | | disease,if found over a | | | | | | 3-month period.Less than | | | | | | 15 Kidney failureFor | | | | | | | | | | | | Americans,multiply the | | | | | | calculated GFR by 1.21. | | | | | | | | | | + + + + + + | Calcium | 8.9 | 8.3 - 10.5 | [facility] | | | | | mg/dL | [facility] | | | | | | MEDICAL | | | | | | CENTER - | | | | | | LABORATORY | | + + + + + + | Albumin | 4.1 | 3.2 - 5.0 g/dL | [facility] | | | | | | [facility] | | | | | | MEDICAL | | | | | | CENTER - | | | | | | LABORATORY | | + + + + + + | Bilirubin | 0.4Comment: This is an | 0.1 - 1.5 mg/dL | [facility] | | | Total | appended report. These | | [facility] | | | | results have been | | MEDICAL | | | | appended to a previously | | CENTER - | | | | preliminary verified | | LABORATORY | | | | report. | | | | + + + + + + | Total | 6.6 | 6.0 - 7.8 g/dL | [facility] | | | Protein | | | [facility] | | | | | | MEDICAL | | | | | | CENTER - | | | | | | LABORATORY | | + + + + + + | AST | 23Comment: This is an | 10 - 42 U/L | [facility] | | | | appended report. These | | [facility] | | | | results have been | | MEDICAL | | | | appended to a previously | | CENTER - | | | | preliminary verified | | LABORATORY | | | | report. | | | | + + + + + + | ALT | 20Comment: This is an | 6 - 45 U/L | [facility] | | | | appended report. These | | [facility] | | | | results have been | | MEDICAL | | | | appended to a previously | | CENTER - | | | | preliminary verified | | LABORATORY | | | | report. | | | | + + + + + + | Alkaline | 63Comment: This is an | 40 - 110 U/L | [facility] | | | Phosphatase | appended report. These | | [facility] | | | | results have been | | MEDICAL | | | | appended to a previously | | CENTER - | | | | preliminary verified | | LABORATORY | | | | report. | | | | + + + + + + | Globulin | 2.5 | 2.1 - 3.8 g/dL | [facility] | | | | | | [facility] | | | | | | MEDICAL | | | | | | CENTER - | | | | | | LABORATORY | | + + + + + + | Albumin/Lucinda | 1.6 | 0.8 - 2.0 | [facility] | | | bulin Ratio | | | [facility] | | | | | | MEDICAL | | | | | | CENTER - | | | | | | LABORATORY | | + + + + + + | BUN/Creatin | 11.9 | | [facility] | | | ine Ratio | | | [facility] | | | | | | MEDICAL | | | | | | CENTER - | | | | | | LABORATORY | | + + + + + + + + | Specimen | + + | Blood | + + + + + + + | Performing | Address | City/State/Zipcode | Phone Number | | Organization | | | | + + + + + | [facility] | [address] | [place] | [phone] | | [facility] | | [address] | | | - LABORATORY | | | | + + + + + CBC with Differential (05/30/2017 12:26 PM PDT) + + + + + + | Component | Value | Ref Range | Performed | Pathologist | | | | | At | Signature | + + + + + + | WBC | 9.1 | 4.0 - 11.0 K/uL | [facility] | | | | | | [facility] | | | | | | MEDICAL | | | | | | CENTER - | | | | | | LABORATORY | | + + + + + + | RBC | 4.49 | 3.70 - 5.20 | [facility] | | | | | M/uL | [facility] | | | | | | MEDICAL | | | | | | CENTER - | | | | | | LABORATORY | | + + + + + + | Hemoglobin | 13.3 | 11.5 - 16.0 | [facility] | | | | | g/dL | [facility] | | | | | | MEDICAL | | | | | | CENTER - | | | | | | LABORATORY | | + + + + + + | Hematocrit | 39.5 | 34.0 - 47.0 % | [facility] | | | | | | [facility] | | | | | | MEDICAL | | | | | | CENTER - | | | | | | LABORATORY | | + + + + + + | MCV | 87.9 | 83.0 - 101.0 fL | [facility] | | | | | | [facility] | | | | | | MEDICAL | | | | | | CENTER - | | | | | | LABORATORY | | + + + + + + | MCH | 29.7 | 28.0 - 35.0 pg | [facility] | | | | | | [facility] | | | | | | [facility]ICAL | | | | | | CENTER - | | | | | | LABORATORY | | + + + + + + | MCHC | 33.8 | 32.0 - 36.0 | [facility] | | | | | g/dL | [facility] | | | | | | MEDICAL | | | | | | CENTER - | | | | | | LABORATORY | | + + + + + + | RDW-CV | 13.1 | <15.0 % | [facility] | | | | | | [facility] | | | | | | MEDICAL | | | | | | CENTER - | | | | | | LABORATORY | | + + + + + + | Platelet | 358 | 140 - 440 K/uL | [facility] | | | Count | | | [facility] | | | | | | MEDICAL | | | | | | CENTER - | | | | | | LABORATORY | | + + + + + + | MPV | 8.4 | fL | [facility] | | | | | | [facility] | | | | | | MEDICAL | | | | | | CENTER - | | | | | | LABORATORY | | + + + + + + | % | 57.5 | 45.0 - 82.0 % | [facility] | | | Neutrophils | | | [facility] | | | | | | MEDICAL | | | | | | CENTER - | | | | | | LABORATORY | | + + + + + + | % | 28.2 | 20.0 - 45.0 % | [facility] | | | Lymphocytes | | | [facility] | | | | | | MEDICAL | | | | | | CENTER - | | | | | | LABORATORY | | + + + + + + | % Monocytes | 7.3 | 4.0 - 12.0 % | [facility] | | | | | | [facility] | | | | | | MEDICAL | | | | | | CENTER - | | | | | | LABORATORY | | + + + + + + | % | 6.4 (H) | 0.0 - 5.0 % | [facility] | | | Eosinophils | | | [facility] | | | | | | MEDICAL | | | | | | CENTER - | | | | | | LABORATORY | | + + + + + + | % Basophils | 0.6 | 0.0 - 1.0 % | [facility] | | | | | | [facility] | | | | | | MEDICAL | | | | | | CENTER - | | | | | | LABORATORY | | + + + + + + | Absolute | 5.20 | 1.80 - 8.50 | [facility] | | | Neutrophils | | K/uL | [facility] | | | | | | MEDICAL | | | | | | CENTER - | | | | | | LABORATORY | | + + + + + + | Absolute | 2.60 | 0.60 - 3.20 | [facility] | | | Lymphocytes | | K/uL | [facility] | | | | | | MEDICAL | | | | | | CENTER - | | | | | | LABORATORY | | + + + + + + | Absolute | 0.70 | 0.00 - 1.00 | [facility] | | | Monocytes | | K/uL | [facility] | | | | | | MEDICAL | | | | | | CENTER - | | | | | | LABORATORY | | + + + + + + | Absolute | 0.60 (H) | 0.00 - 0.40 | [facility] | | | Eosinophils | | K/uL | [facility] | | | | | | MEDICAL | | | | | | CENTER - | | | | | | LABORATORY | | + + + + + + | Absolute | 0.10 | 0.00 - 0.10 | [facility] | | | Basophils | | K/uL | [facility] | | | | | | MEDICAL | | | | | | CENTER - | | | | | | LABORATORY | | + + + + + + + + | Specimen | + + | Blood | + + + + + + + | Performing | Address | City/State/Zipcode | Phone Number | | Organization | | | | + + + + + | [facility] | [address] | [place] | [phone] | | [facility] | | [address] | | | - LABORATORY | | | | + + + + + documented in this encounter Visit Diagnoses + + | Diagnosis | + + | Abdominal pain, unspecified location - Primary | + + documented in this encounter Administered Medications + +--------+ +--------+------+------+ | Medication Order | MAR | Action | Dose | Rate | Site | | | Action | Date | | | | + +--------+ +--------+------+------+ | aluminum & magnesium | Given | 05/30/20 | 30 mLs | | | | hydroxide-simethicone (MAALOX | | 17 12:53 | | | | | PLUS REGULAR STRENGTH) 200-200-20 | | PM PDT | | | | | mg/5 mL suspension 30 mL 30 mL, | | | | | | | Oral, ONCE, 05/30/17 at 1215, | | | | | | | For 1 dose, Mix lidocaine and | | | | | | | Maalox. Erasmo mcclure., | | | | | | + +--------+ +--------+------+------+ +---+---+ | | | +---+---+ + +-------+ +-------+---+---+ | famotidine (PEPCID) tablet 20 | Given | 05/30/20 | 20 mg | | | | mg 20 mg, Oral, ONCE, Sun | | 17 12:53 | | | | | 05/30/17 at 1215, For 1 dose | | PM PDT | | | | + +-------+ +-------+---+---+ +---+---+ | | | +---+---+ + +-------+ +--------+---+---+ | lidocaine (XYLOCAINE) 2% | Given | 05/30/20 | 10 mLs | | | | viscous solution 10 mL 10 mL, | | 17 12:53 | | | | | Oral, ONCE, 05/30/17 at 1215, | | PM PDT | | | | | For 1 dose, Mix lidocaine and | | | | | | | MAALOX. Erasmo arrington, | | | | | | + +-------+ +--------+---+---+ +---+---+ | | | +---+---+ + +-------+ +------+---+---+ | ondansetron (ZOFRAN ODT) | Given | 05/30/20 | 4 mg | | | | disintegrating tablet 4 mg 4 mg, | | 17 12:53 | | | | | Oral, ONCE, 05/30/17 at 1215, | | PM PDT | | | | | For 1 dose | | | | | | + +-------+ +------+---+---+ +---+---+ | | | +---+---+ documented in this encounter"
--- OUTSIDE RECORDS SUMMARY | ~2020-03-19 | XMS | Encounter Summary ---
Demographics + + + | Address | [address] | | | [place] [address] | + + + | Home Phone | | + + + | Preferred Language | Unknown | + + + | Marital Status | Single | + + + | Sabianism Affiliation | Unknown | + + + | Race | Unknown | + + + | Ethnic Group | Unknown | + + + Author + + + | Author | [facility] | | | and [place] | + + + | Organization | [facility] | | | and [...] Team Providers + +------+ + | Care Cut Out Marker Name | Role | Phone | + +------+ + | No, Physician | PCP | Unavailable | + +------+ + Encounter Details +--------+ + + + + | Date | Type | Department | Care Team | Description | +--------+ + + + + | 05/18/ | Orders Only | [facility] | Provider, | | | 2019 | | [facility] | MD [address] | | | | | [address] | [place] | | | | | [address] [place], [place] | [place] [address] | | | | | [address] | | | | | | [phone] | | | +--------+ + + + [...] [place] | | | | | | [phone] | | | | | | | | +--------+---------+ + + + documented as of this encounter Visit Diagnoses Not on filedocumented in this encounter"
--- OUTSIDE RECORDS SUMMARY | ~2020-03-19 | XMS | Encounter Summary ---
Demographics + + + | Address | [address] | | | [place], [place] [address] | + + + | Home Phone | | + + + | Preferred Language | Unknown | + + + | Marital Status | Single | + + + | Orthodox Affiliation | NON | + + + | Race | White | + + + | Ethnic Group | Not or | + + + Author + + + | Author | [facility] | + + + | Organization | [facility] | + + + | Address | Unknown | + + + | Phone | Unavailable | + + + Support + + + + + | Name | Relationship | Address | Phone | + + + + + | Collette Adame | [place] | [address] | | + + + + + Care Team Providers + +------+ + | Care Industrial Hire Sales Assistant Name | Role | Phone | [...] 2019 | | Surgery at [facility] [address] | Kev Ashton MD [address] | request) | | | | [address] | Ran[address] [place], | | | | | Mailcode: [id number] | [place] [address] | | | | | [facility] | [phone] | | | | | [facility], | | | | | | [address], | | | | | | Floor [place], [place] | | | | | | [address] | | | | | | [phone] | | | +--------+ + + + [...]
--- OUTSIDE RECORDS SUMMARY | ~2020-03-19 | XMS | Encounter Summary ---
Demographics + + + | Address | [address] | | | [place] [address] | + + + | Home Phone [...] Team Providers + +------+ + | Care Employment Case Manager Name | Role | Phone | + +------+ + | Jerica Martinez | PCP | | + +------+ + Reason for Visit + + + | Reason | Comments | + + + | Procedure | TPI Thoracic | + + + Encounter Details +--------+ + + + + | Date | Type | Department | Care Team | Description | +--------+ + + + + | 12/08/ | [facility] | Seven Johns MD | Thoracic spine pain | | 2020 | visit | [facility] | [address] | (Primary Dx) | | | | CLINIC [address] | [place] | | | | | [address] [place], | [address] | | | | | [place] [address] | | | | | | [phone] | | | +--------+ + + + [...] + + | Pulse | 91 | 12/08/2019 3:36 PM | | | | | PST | | + + + + + | Temperature | - | - | | + + + + + | Respiratory Rate | 19 | 12/08/2019 3:36 PM | | | | | PST | | + + + + + | Oxygen Saturation | 95% | 12/08/2019 3:36 PM | | | | | PST | | + + + + + | Inhaled Oxygen | - | - | | | Concentration | | | | + + + + + | Weight | 116.6 kg (257 lb) | 12/08/2019 3:36 PM | | | | | PST | | + + + + + | Height | 167.6 cm (5' 6") | 12/08/2019 3:36 PM | | | | | PST | | + + + + + | Body Mass Index | 41.48 | 12/08/2019 3:36 PM | | | | | PST | | + + + + + documented in this encounter Progress Notes Pedro Brock CC [facility] - 12/08/2019 3:45 PM PSTTrigger Point Thoracic. Patient had no c omplaints after trigger point, BP 110/65 Pulse 95. Patient given instructions verbally and tyron thapa, patient stated understanding and [facility]ulated [facility] without difficulty or assistance . Electronically signed by: TORI Alicia [facility] 12/08/2019 4:17 PM documented in this enc ounter Plan of Treatment +--------+---------+ + + + | Date | Type | Specialty | Care Team | Description | +--------+---------+ + + + | 11/26/ | Office | Neurology | Seven Johns MD | | | 2020 | Visit | | [address] | | | | | | [place] | | | | | | [address] | | | | | | | | +--------+---------+ + + + documented as of this encounter Procedures + +--------+ + + + | Procedure Name | Priori | Date/Time | Associated Diagnosis | Comments | | | ty | | | | + +--------+ + + + | [facility] INJECT TRIGGER | Routin | 12/08/2019 | Thoracic spine | Results for this | | POINT, 3+ MUSCLES | e | 3:45 PM | pain | procedure are in the | | | | PST | | results section. | + +--------+ + + + documented in this encounter Visit Diagnoses + + | Diagnosis | + + | Thoracic spine pain - Primary Pain in thoracic spine | + + documented in this encounter Administered Medications + +--------+ +--------+------+------+ | Medication Order | MAR | Action | Dose | Rate | Site | | | Action | Date | | | | + +--------+ +--------+------+------+ | bupivacaine (MARCAINE) 0.5% | Given | 12/08/19 | 10 mLs | | | | injection 10 mL 10 mL, Other, | | 20 4:13 | | | | | ONCE, 12/08/19 at 1630, For 1 | | PM PST | | | | | dose, IM, | | | | | | + +--------+ +--------+------+------+ +---+---+ | | | +---+---+ + +-------+ +--------+---+ + | lidocaine 1% injection 20 mL | Given | 12/08/19 | 20 mLs | | Other | | 20 mL, Intramuscular, ONCE, Fri | | 20 4:13 | | | (Comment | | 12/08/19 at 1630, For 1 dose | | PM PST | | | ) | + +-------+ +--------+---+ + +---+---+ | | | +---+---+ + +-------+ +--------+---+ + | methylPREDNISolone acetate | Given | 12/08/19 | 400 mg | | Other | | (DEPO-MEDROL) 40 mg/mL injection | | 20 4:13 | | | (Comment | | 400 mg 400 mg, Intramuscular, | | PM PST | | | ) | | ONCE, 12/08/19 at 1630, For 1 | | | | | | | dose, Not for IV use., | | | | | | + +-------+ +--------+---+ + +---+---+ | | | +---+---+ documented in this encounter
--- OUTSIDE RECORDS SUMMARY | ~2020-03-19 | XMS | Encounter Summary ---
Demographics + + + | Address | [address] | | | [place] [address] | + + + | Home Phone | | + + + | Preferred Language | Unknown | + + + | Marital Status | Single | + + + | Buddhism Affiliation | Unknown | + + + | Race | Unknown | + + + | Ethnic Group | Unknown | + + + Author + + + | Author | [facility] | | | and [place] | + + + | Organization | [facility] | | | [...] Team Providers + +------+ + | Care Stave Machine Tender Name | Role | Phone | + +------+ + | No, Physician | PCP | Unavailable | + +------+ + Encounter Details +--------+ + + + + | Date | Type | Department | Care Team | Description | +--------+ + + + + | 03/26/ | Emergency | [facility] | Alejo Marino | Periosteal chondroma | | 2019 | | [facility]ENTER | DO [address] | | | | | EMERGENCY CENTER | [address] [place], [place] | | | | | [address] [facility] | [address] | | | | | [place], [place] | | | | | | [address] | | | | | | [phone] | | | +--------+ + + + [...] + + + | Blood Pressure | 139/92 | 03/26/2019 10:41 PM | | | | | PDT | | + + + + + | Pulse | 88 | 03/26/2019 10:41 PM | | | | | PDT | | + + + + + | Temperature | 37.3 C (99.1 F) | 03/26/2019 10:41 PM | | | | | PDT | | + + + + + | Respiratory Rate | 16 | 03/26/2019 10:41 PM | | | | | PDT | | + + + + + | Oxygen Saturation | - | - | | + + + + + | Inhaled Oxygen | - | - | | | Concentration | | | | + + + + + | Weight | 104.3 kg (230 lb) | 03/26/2019 10:41 PM | | | | | PDT | | + + + + + | Height | - | - | | + + + + + | Body Mass Index | 36.02 | 03/16/2019 9:46 AM | | | [...] | diclofenac | | | 0 | // | | | (VOLTAREN) 75 mg EC [...] | fluticasone | | | 0 | // | | | (FLONASE) 50 | | [...] [place] | | | | | | [address] | | | | | | | | +--------+---------+ + + + documented as of this encounter Procedures + +--------+ + + + | Procedure Name | Priori | Date/Time | Associated Diagnosis | Comments | | | ty | | | | + +--------+ + + + | MRI HAND RIGHT W WO | Routin | 03/26/2019 | | Results for this | | CONTRAST | e | 8:29 PM | | procedure are in the | | | | PDT | | results section. | + +--------+ + + + | URINALYSIS, REFLEX | Routin | 03/26/2019 | | Results for this | | MICROSCOPIC AND/OR | e | 6:20 PM | | procedure are in the | | CULTURE | | PDT | | results section. | + +--------+ + + + | HCG, URINE, QUAL | Routin | 03/26/2019 | | Results for this | | | e | 6:20 PM | | procedure are in the | | | | PDT | | results section. | + +--------+ + + + | EXTERNAL LAB: CBC | Routin | 03/26/2019 | | Results for this | | | e | 6:16 PM | | procedure are in the | | | | PDT | | results section. | + +--------+ + + + | CULTURE, BLOOD, 2ND | STAT | 03/26/2019 | | Results for this | | SPECIMEN (NON-ORD) | | 6:16 PM | | procedure are in the | | | | PDT | | results section. | + +--------+ + + + | CULTURE, BLOOD | STAT | 03/26/2019 | | Results for this | | | | 6:16 PM | | procedure are in the | | | | PDT | | results section. | + +--------+ + + + | SEDIMENTATION RATE, | Routin | 03/26/2019 | | Results for this | | AUTOMATED | e | 6:16 PM | | procedure are in the | | | | PDT | | results section. | + +--------+ + + + | C-REACTIVE PROTEIN | Routin | 03/26/2019 | | Results for this | | | e | 6:16 PM | | procedure are in the | | | | PDT | | results section. | + +--------+ + + + | LACTIC ACID | Routin | 03/26/2019 | | Results for this | | | e | 6:16 PM | | procedure are in the | | | | PDT | | results section. | + +--------+ + + + | COMPREHENSIVE | Routin | 03/26/2019 | | Results for this | | METABOLIC PANEL | e | 6:16 PM | | procedure are in the | | | | PDT | | results section. | + +--------+ + + + documented in this encounter Results MRI Hand Right w wo Contrast (03/26/2019 8:29 PM PDT) + + | Specimen | + + | | + + + + + | Impressions | Performed At | + + + | Soft tissue mass involving the radial aspect of the thumb at the | | | level of the distal phalanx as detailed above with saucerization of | | | the underlying distal phalanx. Probably the most likely | | | consideration, given the location and MRI features, is that of a | | | periosteal chondroma. Other neoplastic lesions or foreign body | | | granulomatous reaction would probably be less likely. Signed by: | | | Lashawn Rodriguez, Francisco Sign Date/Time: 03/26/2019 9:11 PM | | + + + + + + | Narrative | Performed At | + + + | MRI RIGHT HAND WITH AND WITHOUT CONTRAST CLINICAL INFORMATION: | | | Mass on thumb. COMPARISON: None PROCEDURE: Coronal and sagittal | | | T1. Coronal, sagittal, and axial T2. Axial PD. Sedation: None. | | | FINDINGS: There is a soft tissue mass measuring 12 x 12 x 10 mm along | | | the radial aspect of the distal phalanx of the thumb. This does | | | extend proximally to the level of the interphalangeal joint, though | | | without evidence of joint involvement. There is saucerization of | | | underlying bone with marrow edema. The mass is mildly hyperintense | | | to muscle on T1 precontrast with prominent predominant peripheral | | | enhancement. The mass is predominantly T2 hyperintense. No | | | evidence of tendon involvement. Probably the most likely | | | consideration given the location and MRI features is that of a a | | | periosteal chondroma. No other significant findings. | | + + + + + | Procedure Note | + + | Jorge A, Rad Conversion - 05/23/2019 9:28 PM PDT MRI RIGHT HAND WITH AND WITHOUT | | CONTRASTCLINICAL INFORMATION:Mass on thumb.COMPARISON:NonePROCEDURE:Coronal and sagittal | | T1. Coronal, sagittal, and axial T2. Axial PD.Sedation: None.FINDINGS:There is a soft | | tissue mass measuring 12 x 12 x 10 mm along the radialaspect of the distal phalanx of | | the thumb. This does extend proximallyto the level of the interphalangeal joint, though | | without evidence ofjoint involvement. There is saucerization of underlying bone | | withmarrow edema. The mass is mildly hyperintense to muscle on [id number] with | | prominent predominant peripheral enhancement. Themass is predominantly T2 hyperintense. | | No evidence of tendoninvolvement. Probably the most likely consideration given the | | locationand MRI features is that of a a periosteal chondroma.No other significant | | findings.IMPRESSION: Soft tissue mass involving the radial aspect of the thumb at the | | levelof the distal phalanx as detailed above with saucerization of theunderlying distal | | phalanx. Probably the most likely consideration,given the location and MRI features, is | | that of a periosteal chondroma.Other neoplastic lesions or foreign body granulomatous | | reaction wouldprobably be less likely.Signed by: Lashawn Rodriguez, BruceSign Date/Time: | | 03/26/2019 9:11 PM | |involvement. Probably the most likely consideration given the location | |and MRI features is that of a a periosteal chondroma. | |No other significant findings. | |IMPRESSION: | |Soft tissue mass involving the radial aspect of the thumb at the level | |of the distal phalanx as detailed above with saucerization of the | |underlying distal phalanx. Probably the most likely consideration, | |given the location and MRI features, is that of a periosteal chondroma. | |Other neoplastic lesions or foreign body granulomatous reaction would | |probably be less likely. | |Signed by: Lashawn Rodriguez Bruce | |Sign Date/Time: 03/26/2019 9:11 PM | + + Urinalysis, Reflex Microscopic and/or Culture (03/26/2019 6:20 PM PDT) + + + + + + | Component | Value | Ref Range | Performed | Pathologist | | | | | At | Signature | + + + + + + | Color | STRAW | | EXTERNAL | | | | | | LAB | | + + + + + + | Clarity | CLEAR | | EXTERNAL | | | | | | LAB | | + + + + + + | Specific | 1.006 | 1.002 - 1.030 | EXTERNAL | | | [place], | | | LAB | | | Urine | | | | | + + + + + + | Leukocyte | NEGATIVE | | EXTERNAL | | | [place], | | | LAB | | | Urine | | | | | + + + + + + | Nitrite, | NEGATIVE | | EXTERNAL | | | Urine | | | LAB | | + + + + + + | Urobilinoge | NORMAL | mg/dL | EXTERNAL | | | n, Urine | | | LAB | | + + + + + + | Protein, | NEGATIVE | mg/dL | EXTERNAL | | | Urine | | | LAB | | + + + + + + | pH, Urine | 7.0 | 5.0 - 8.0 | EXTERNAL | | | | | | LAB | | + + + + + + | Blood, | NEGATIVE | | EXTERNAL | | | Urine | | | LAB | | + + + + + + | Ketones | NEGATIVE | mg/dL | EXTERNAL | | | | | | LAB | | + + + + + + | Bilirubin, | NEGATIVE | | EXTERNAL | | | Urine | | | LAB | | + + + + + + | Glucose, | NEGATIVEComment: Testing | mg/dL | EXTERNAL | | | Urine | performed at [facility];[address] | | LAB | | | | [address];[place] | | | | | | [address] | | | | + + + + + + + + | Specimen | + + | | + + + +---------+ + + | Performing | Address | City/State/Zipcode | Phone Number | | Organization | | | | + +---------+ + + | EXTERNAL LAB | | | | + +---------+ + + , Urine, Qual (03/26/2019 6:20 PM PDT) + + + + + + | Component | Value | Ref Range | Performed | Pathologist | | | | | At | Signature | + + + + + + | Preg Test, | NEGATIVEComment: Testing | | EXTERNAL | | | Ur | performed at [facility];[address] | | LAB | | | | [address];[place], [place] | | | | | | [address] | | | | + + + + + + + + | Specimen | + + | Urine specimen | | (specimen) | + + + +---------+ + + | Performing | Address | City/State/Zipcode | Phone Number | | Organization | | | | + +---------+ + + | EXTERNAL LAB | | | | + +---------+ + + Culture, Blood, 2nd Specimen (03/26/2019 6:16 PM PDT) + + | Specimen | + + | Blood specimen | | (specimen) | + + + + + | Narrative | Performed At | + + + | Specimen Description BLOOD, PERIPHERAL DRAW | EXTERNAL LAB | | SPECIAL REQUESTS RAC CULTURE | | | NO GROWTH 6 DAYS | | + + + + +---------+ + + | Performing | Address | City/State/Zipcode | Phone Number | | Organization | | | | + +---------+ + + | EXTERNAL LAB | | | | + +---------+ + + Culture, Blood (03/26/2019 6:16 PM PDT) + + | Specimen | + + | Blood specimen | | (specimen) | + + + + + | Narrative | Performed At | + + + | Specimen Description BLOOD, PERIPHERAL DRAW | EXTERNAL LAB | | SPECIAL REQUESTS LAC CULTURE | | | NO GROWTH 6 DAYS | | + + + + +---------+ + + | Performing | Address | City/State/Zipcode | Phone Number | | Organization | | | | + +---------+ + + | EXTERNAL LAB | | | | + +---------+ + + Lactic Acid (03/26/2019 6:16 PM PDT) + + + + + + | Component | Value | Ref Range | Performed | Pathologist | | | | | At | Signature | + + + + + + | Lactate | 0.9Comment: Testing | 0.4 - 2.0 | EXTERNAL | | | | performed at [facility];[address] | mmol/L | LAB | | | | [address];[place], [place] | | | | | | [address] | | | | + + + + + + + + | Specimen | + + | | + + + +---------+ + + | Performing | Address | City/State/Zipcode | Phone Number | | Organization | | | | + +---------+ + + | EXTERNAL LAB | | | | + +---------+ + + Sedimentation rate, automated (03/26/2019 6:16 PM PDT) + + + + + + | Component | Value | Ref Range | Performed | Pathologist | | | | | At | Signature | + + + + + + | Sed Rate | 16Comment: Testing | 0 - 20 mm/Hr | EXTERNAL | | | | performed at [facility];[address] | | LAB | | | | [address];[place], [place] | | | | | | [address] | | | | + + + + + + + + | Specimen | + + | Blood specimen | | (specimen) | + + + +---------+ + + | Performing | Address | City/State/Zipcode | Phone Number | | Organization | | | | + +---------+ + + | EXTERNAL LAB | | | | + +---------+ + + External Lab: CBC (03/26/2019 6:16 PM PDT) + + + + + + | Component | Value | Ref Range | Performed | Pathologist | | | | | At | Signature | + + + + + + | WBC | 8.55 | 3.80 - 11.00 | EXTERNAL | | | | | K/uL | LAB | | + + + + + + | Red Blood | 4.41 | 3.70 - 5.10 | EXTERNAL | | | Cells | | M/uL | LAB | | | Counted | | | | | + + + + + + | Hemoglobin | 13.4 | 11.3 - 15.5 | EXTERNAL | | | | | g/dL | LAB | | + + + + + + | Hematocrit, | 40.0 | 34.0 - 46.0 % | EXTERNAL | | | POC | | | LAB | | + + + + + + | MCV | 90.7 | 80.0 - 100.0 fl | EXTERNAL | | | | | | LAB | | + + + + + + | MCH | 30.4 | 27.0 - 34.0 pg | EXTERNAL | | | | | | LAB | | + + + + + + | MCHC | 33.5 | 32.0 - 35.5 | EXTERNAL | | | | | g/dL | LAB | | + + + + + + | RDW-CV | 45.9 | 37 - 53 fl | EXTERNAL | | | | | | LAB | | + + + + + + | Platelet | 408 (H) | 150 - 400 K/uL | EXTERNAL | | | Count | | | LAB | | | Plasma | | | | | + + + + + + | MPV | 8.8 | fl | EXTERNAL | | | | | | LAB | | + + + + + + | Differentia | AUTOMATED | | EXTERNAL | | | l Type | | | LAB | | + + + + + + | % Segmented | 56.15 | % | EXTERNAL | | | | | | LAB | | | Neutrophils | | | | | + + + + + + | % | 27.66 | % | EXTERNAL | | | Lymphocytes | | | LAB | | + + + + + + | % Monocytes | 8.05 | % | EXTERNAL | | | | | | LAB | | + + + + + + | % | 7.60 | % | EXTERNAL | | | Eosinophils | | | LAB | | + + + + + + | % Basophils | 0.54 | % | EXTERNAL | | | | | | LAB | | + + + + + + | Absolute | 4.80 | 1.90 - 7.40 | EXTERNAL | | | Segmented | | K/uL | LAB | | | Neutrophils | | | | | + + + + + + | Absolute | 2.36 | 1.00 - 3.90 | EXTERNAL | | | Lymphocytes | | K/uL | LAB | | + + + + + + | Absolute | 0.69 | 0.00 - 0.80 | EXTERNAL | | | Monocytes | | K/uL | LAB | | + + + + + + | Absolute | 0.65 (H) | 0.00 - 0.50 | EXTERNAL | | | Eosinophils | | K/uL | LAB | | + + + + + + | Absolute | 0.05Comment: Testing | 0.00 - 0.10 | EXTERNAL | | | Basophils | performed at [facility];[address] | K/uL | LAB | | | | [address];[place], [place] | | | | | | [address] | | | | + + + + + + + + | Specimen | + + | Blood specimen | | (specimen) | + + + +---------+ + + | Performing | Address | City/State/Zipcode | Phone Number | | Organization | | | | + +---------+ + + | EXTERNAL LAB | | | | + +---------+ + + C-Reactive Protein (03/26/2019 6:16 PM PDT) + + + + + + | Component | Value | Ref Range | Performed | Pathologist | | | | | At | Signature | + + + + + + | CRP | <0.4Comment: Testing | mg/dL | EXTERNAL | | | | performed at [facility] | | LAB | | | | [facility], [place] | | | | | | [address] | | | | + + + + + + + + | Specimen | + + | Blood specimen | | (specimen) | + + + +---------+ + + | Performing | Address | City/State/Zipcode | Phone Number | | Organization | | | | + +---------+ + + | EXTERNAL LAB | | | | + +---------+ + + Comprehensive Metabolic Panel (03/26/2019 6:16 PM PDT) + + + + + + | Component | Value | Ref Range | Performed | Pathologist | | | | | At | Signature | + + + + + + | Na | 144 | 135 - 145 | EXTERNAL | | | | | mmol/L | LAB | | + + + + + + | K | 4.0 | 3.5 - 4.9 | EXTERNAL | | | | | mmol/L | LAB | | + + + + + + | Cl | 112 (H) | 99 - 109 mmol/L | EXTERNAL | | | | | | LAB | | + + + + + + | CO2 | 26 | 23 - 32 mmol/L | EXTERNAL | | | | | | LAB | | + + + + + + | Anion Gap | 10 | 5 - 20 mmol/L | EXTERNAL | | | | | | LAB | | + + + + + + | Glucose, | 104 (H) | 65 - 99 mg/dL | EXTERNAL | | | Fasting | | | LAB | | + + + + + + | BUN | 10 | 8 - 25 mg/dL | EXTERNAL | | | | | | LAB | | + + + + + + | Creatinine | 0.86 | 0.50 - 1.00 | EXTERNAL | | | | | mg/dL | LAB | | + + + + + + | BUN/Creatin | 12 | | EXTERNAL | | | ine Ratio | | | LAB | | + + + + + + | Calcium | 8.5 | 8.5 - 10.5 | EXTERNAL | | | | | mg/dL | LAB | | + + + + + + | Protein, | 6.3 | 6.3 - 8.2 g/dL | EXTERNAL | | | Total | | | LAB | | + + + + + + | Albumin | 4.2 | 3.6 - 5.0 g/dL | EXTERNAL | | | | | | LAB | | + + + + + + | Globulin | 2.1 | 1.3 - 4.9 g/dL | EXTERNAL | | | | | | LAB | | + + + + + + | A/G Ratio | 2.0 | 1.0 - 2.4 | EXTERNAL | | | | | | LAB | | + + + + + + | Bilirubin | <0.2 | 0.1 - 1.5 mg/dL | EXTERNAL | | | Total | | | LAB | | + + + + + + | ALP, | 69 | 35 - 115 U/L | EXTERNAL | | | External | | | LAB | | + + + + + + | AST | 10 | 10 - 45 U/L | EXTERNAL | | | | | | LAB | | + + + + + + | ALT | 11 | 10 - 65 U/L | EXTERNAL | | | | | | LAB | | + + + + + + | Estimated | >60Comment: GFR <60: | mL/min/1.73m2 | EXTERNAL | | | GFR | CHRONIC KIDNEY DISEASE, | | LAB | | | | IF FOUND OVER A 3 MONTH | | | | | | PERIOD.GFR <15: KIDNEY | | | | | | FAILURE.FOR | | | | | | AMERICANS, MULTIPLY THE | | | | | | CALCULATED GFR BY | | | | | | 1.210.This eGFR is | | | | | | calculated using the | | | | | | MDRD IDMS traceable | | | | | | equation.Testing | | | | | | performed at [facility];[address] | | | | | | [address];[place], [place] | | | | | | [address] | | | | + + + + + + + + | Specimen | + + | Blood specimen | | (specimen) | + + + +---------+ + + | Performing | Address | City/State/Zipcode | Phone Number | | Organization | | | | + +---------+ + + | EXTERNAL LAB | | | | + +---------+ + + documented in this encounter Visit Diagnoses + + | Diagnosis | + + | 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
--- OUTSIDE RECORDS SUMMARY | ~2020-03-19 | XMS | Encounter Summary ---
Demographics + + + | Address | [address] | | | [place] [address] | + + + | Home Phone [...] + + + | Author | [facility] | | | and [place] | + + + | Organization | [facility] | | | and [...] Team Providers + +------+ + | Care Senior Java Architect Name | Role | Phone | + [...] | | | 2019 | on | [facility] | | | | | | CLINIC [address] | | | | | | [address] [place], | | | | | | [place] [address] | | | | | | [phone] | | | +--------+ + + + [...] + documented as of this encounter Progress Lili Su RN - 12/28/2018 4:02 PM PDTSpoke with pt, and faxed lab orders from 9 to [facility] lab in [facility] for pt to /JUSTINE Adams documented in [...] [place] | | | | | | [address] | | | | | | | | +--------+---------+ + + + documented as of this encounter Visit Diagnoses Not on filedocumented in this encounter"
--- OUTSIDE RECORDS SUMMARY | ~2020-03-19 | XMS | Encounter Summary ---
Demographics + + + | Address | [address] | | | [place] [address] | + + + | Home Phone [...] + + + | Author | [facility] | + + + | Organization | [facility] | + + + | [...] Team Providers + +------+ + | Care Assembler Deck And Hull Name | Role | Phone | + [...] +--------+--------+ + + + + Encounter Details +--------+ + + + + | Date | Type | Department | Care Team | Description | +--------+ + + + + | 04/06/ | Anesthesia | 6A Intra Op [address]181 | Saleem Rosas, | | | 2019 | Event | [facility] | [address] | | | | | [address] [facility] | [facility] | | | | | Hospital Admitting | [place], [place] | | | | | Desk Located on the | [address] | | | | | 9th floor | [phone] | | | | | [place], [place] | | | | | | [address] | Coleen Carpenter, | | | | | | [address] | | | | | | [facility] | | | | | | [place], [place] | | | | | | [address] | | | | | | [phone] | | | | | | | | +--------+ + + + + Anesthesia Record + + + + + | Procedure Name | Responsible | Anesthesia Start | Anesthesia Stop Time | | | Anesthesiologist | Time | | + + + + + | EXCISIONAL BIOPSY | Saleem Rosas MD | 04/06/19 0916 | 04/06/19 1019 | | RIGHT THUMB [...] | | | 9 | | reviewed, [place] held, anesthetic plan made or approved by [...] | Meds | +------+ + + + | Name | Total | + + + | midazolam | 2 mg | + + + | fentaNYL | 50 mcg | + + + | propofol INF | 376,425 mcg | + + + | ceFAZolin (ANCEF) injection 2 g | 2 g | + + + | ketorolac | 30 mg | + + + | lactated ringers IV | 600 mL | + + + + + | Name | + + | O2 FR Avance (Total Liters) | + + | Air FR Avance (l/min) | + + | Insp Sevo | + + | Et Sevo | + + | O2 Flow Rate (Total Liters) | + + + + | No blood administrations on file. | + + +--------+ + + + | Type | Details | Placement | Removal | +--------+ + + + | Incisi | 04/06/19; 936; Sameer Champion MD; | 04/06/19936 by | | | on | Right; thumb | Lata Connelly RN | | +--------+ + + + | Periph | 04/06/19; 854; kai oliva rn; | 04/06/1957 by | 04/06/19 1117 by | | eral | Left; Hand; [...] in this encounter Administered Medications + +--------+ +------+------+------+ | Medication Order | MAR | Action | Dose | Rate | Site | | | Action | Date | | | | + +--------+ +------+------+------+ | ceFAZolin (ANCEF) injection 2 g | Given | 04/06/20 | 2 g | | | | 2 g, intravenous, PREPROCEDURE | | 19 9:41 | | | | | ONCE, 1 dose, Starting Grace | | AM PDT | | | | | 04/06/19 at 0817, Until Grace | | | | | | | 04/06/19 at 0941 | | | | | | + +--------+ +------+------+------+ +---+---+ | | | +---+---+ + +-------+ +--------+---+---+ | fentaNYL (SUBLIMAZE) injection | Given | 04/06/20 | 50 mcg | | | | INTRAPROCEDURE PRN, Starting Grace | | 19 9:32 | | | | | 04/06/19 at 0932, Until Grace | | AM PDT | | | | | 04/06/19 at 1018 | | | | | | + +-------+ +--------+---+---+ +---+---+ | | | +---+---+ + +-------+ +-------+---+---+ | ketorolac (TORADOL) injection | Given | 04/06/20 | 30 mg | | | | INTRAPROCEDURE PRN, Starting Grace | | 19 10:15 | | | | | 04/06/19 at 1015, Until Grace | | AM PDT | | | | | 04/06/19 at 1020 | | | | | | + +-------+ +-------+---+---+ +---+---+ | | | +---+---+ + + + +---+---+---+ | lactated ringers IV 10 mL/hr, | given by | 04/06/20 | | | | | intravenous, PROCEDURE | | 19 9:53 | | | | | CONTINUOUS, Starting Grace 04/06/19 | anesthes | AM PDT | | | | | at 0830, Until Grace 04/06/19 at | iology | | | | | | 1718 | | | | | | + + + +---+---+---+ +---------+ + + +---+ | New Bag | 04/06/20 | 10 mL/hr | 10 mL/hr | | | | 19 9:02 | | | | | | AM PDT | | | | +---------+ + + +---+ +---+---+ | | | +---+---+ + +-------+ +------+---+---+ | midazolam (PF) (VERSED) | Given | 04/06/20 | 2 mg | | | | injection INTRAPROCEDURE PRN, | | 19 9:19 | | | | | Starting Grace 04/06/19 at 0919, | | AM PDT | | | | | Until Grace 04/06/19 at 1018 | | | | | | + +-------+ +------+---+---+ +---+---+ | | | +---+---+ + + + + +--------+---+ | propofol (DIPRIVAN) injection | Rate/Dos | 04/06/20 | 85 | 53.55 | | | INTRAPROCEDURE CONTINUOUS PRN, | e Change | 19 9:52 | mcg/kg/m | mL/hr | | | Starting Grace 04/06/19 at 0934, | | AM PDT | in | | | | Until Grace 04/06/19 at 1018 | | | | | | + + + + +--------+---+ + + + + +---+ | Rate/Dose Change | 04/06/20 | 75 | 47.25 | | | | 19 9:40 | mcg/kg/m | mL/hr | | | | AM PDT | in | | | + + + + +---+ | Rate/Dose Change | 04/06/20 | 100 | 63 mL/hr | | | | 19 9:37 | mcg/kg/m | | | | | AM PDT | in | | | + + + + +---+ +---+---+ | | | +---+---+ documented in this encounter"
--- OUTSIDE RECORDS SUMMARY | ~2020-03-19 | XMS | Encounter Summary ---
Demographics + + + | Address | [address] | | | [place] [address] | + + + | Home Phone | | + + + | Preferred Language | Unknown | + + + | Marital Status | Single | + + + | Episcopalian Affiliation | NON | + + + [...] Providers + +------+ + | Care Corporate Recruiter Name | Role | Phone | + +------+ + | No Pcp Per Patient | PCP | Unavailable | + +------+ + Encounter Details +--------+ + + + + | Date | Type | Department | Care Team | Description | +--------+ + + + + | 06/07/ | MyChart | Orthopaedics | Isael Champion, | thumb | | 2019 | Encounter | [facility] [place] | [address] | | | | | for Health and | [address] | | | | | Healing [address] | [facility] [place] | | | | | Ave Mailcode: | [address] | | | | | [address] | [phone] | | | | | Health and Healing, | | | | | | [facility] | | | | | | Floor [place], [place] | | | | | | [address] | | | | | | [phone] | | | +--------+ + + + [...]
--- OUTSIDE RECORDS SUMMARY | ~2020-03-19 | XMS | Encounter Summary ---
Demographics + + + | Address | [address] | | | [place] [address] | + + + | Home Phone [...] Team Providers + +------+ + | Care Press Box Custodian Name | Role | Phone | + +------+ + | No Pcp Per Patient | PCP | Unavailable | + +------+ + Reason for Visit +--------+ + | Reason | Comments | +--------+ + | Other | infection | +--------+ + Encounter Details +--------+ + + + + | Date | Type | Department | Care Team | Description | +--------+ + + + + | 04/11/ | Telephone | Orthopaedics | Isael Champion, | Other (infection) | | 2019 | | [facility] at [place] | [address] | | | | | for [facility] and | [address] | | | | | [place] [address] | [facility] [place] | | | | | Ave Mailcode: | [address] | | | | | [address] | [phone] | | | | | Health and Healing, | | | | | | [facility] | | | | | | [place], [place] | | | | | | [address] | | | | | | [phone] | | | +--------+ + + + [...]
--- OUTSIDE RECORDS SUMMARY | ~2020-03-19 | XMS | Encounter Summary ---
Demographics + + + | Address | [address] | | | [place] [address] | + + + | Home Phone [...] Author + + + | Author | [facility] | + + + | Organization | [facility] | + + + | [...] Team Providers + +------+ + | Care Client Account Manager Name | Role | Phone | [...] | | | | | Sherrell Ugal[place], | | | | | | [place] [address] | | | +--------+--------+ + + + [...]
--- OUTSIDE RECORDS SUMMARY | ~2020-03-19 | XMS | Encounter Summary ---
Demographics + + + | Address | [address] | | | [place] [address] | + + + | Home Phone | | + + + | Preferred Language | Unknown | + + + | Marital Status | Single | + + + | Evangelical Affiliation | NON | + + + | Race | White | + + + | Ethnic Group | Not or | + + + Author + + + | Author | [facility] | + + + | Organization | [facility] | + + + | Address [...] Team Providers + +------+ + | Care Embedded Software Architect Name | Role | Phone | [...] | 2019 | Encounter | [facility] at [place] | [address] | | | | | for Health and | [address] | | | | | Healing [address] | [place], [place] | | | | | Ave Mailcode: | [address] | | | | | [facility] | [phone] | | | | | Health and Healing, | | | | | | | | | | | | Floor [place], [place] | | | | | | [address] | | | | | | [phone] | | | +--------+ + + + [...]
--- OUTSIDE RECORDS SUMMARY | ~2020-03-19 | XMS | Encounter Summary ---
Demographics + + + | Address | [address] | | | [place] [address] | + + + | Home Phone [...] Team Providers + +------+ + | Care Crating And Moving Estimator Name | Role | Phone | + +------+ + | No Pcp Per Patient | PCP | Unavailable | + +------+ + Encounter Details +--------+ + + + + | Date | Type | Department | Care Team | Description | +--------+ + + + + | 06/22/ | MyChart | Dermatology | Ryan, | RE: infection | | 2019 | Encounter | Surgery at [facility] [address] | Kev Ashton MD [address] | | | | [address] | [address] [place], | | | | | Mailcode: [id number] | [place] [address] | | | | | [facility] | [phone] | | | | | and Healing, | | | | | | Building | | | | | | Floor [place], [place] | | | | | | [address] | | | | | | [phone] | | | +--------+ + + + [...]
--- OUTSIDE RECORDS SUMMARY | ~2020-03-19 | XMS | Encounter Summary ---
Demographics + + + | Address | [address] | | | [place] [address] | + + + | Home Phone | | + + + | Preferred Language | Unknown | + + + | Marital Status | Single | + + + | Rastafarian Affiliation | NON | + + + | Race | White | + + + | Ethnic Group | Not or | + + + Author + + + | Author | [facility] | + + + | Organization | [facility] | + + + | Address [...] Team Providers + +------+ + | Care Table Games Shift Manager Name | Role | Phone | + +------+ + | No Pcp Per Patient | PCP | Unavailable | + +------+ + Reason for Visit + + + | Reason | Comments | + + + | Mohs' chemosurgery | SCC right thumb | + + + Other (Routine) +--------+--------+ + + + + | Status | Reason | Specialty | Diagnoses / | Referred By | Referred To | | | | | Procedures | Contact | Contact | +--------+--------+ + + + + | Closed | | Dermatology | Diagnoses | Jaycee, | | | | | | Squamous | Isael R, | Leitenberger, | | | | | cell cancer | MD [address] | Kev Ashton MD | | | | | of skin of | Earl Carlos | [address] | | | | | finger, | [address] | Ave | | | | | right | [place] | [place] | | | | | Procedures | [id number] | [phone] | | | | | CONSULT TO | Phone: | Phone: | | | | | [facility] | [phone] | [phone] | | | | | SURGERY [place] | Fax: | Fax: | | | | | MOHS,1 | [phone] | [phone] | | | | | STAGE,H/N/HF | | | | | | | /G [place] MOHS | | | | | | | ADDL STAGE | | | | | | | [place] MOHS | | | | | | | SURG, ADDL | | | | | | | BLOCK [place] | | | | | | | REPR CMPL | | | | | | | WND | | | | | | | HEAD,FAC,SMILEY | | | | | | | D 1.1-2.5 | | | | | | | [place] REPR CMPL | | | | | | | WND | | | | | | | HEAD,FAC,SMILEY | | | | | | | D 2.6-7.5 | | | | | | | [place] | | | | | | | REP,FACE,GEN | | | | | | | ITAL,HAND,FT | | | | | | | +5CM/< [place] | | | | | | | ADJ TISS | | | | | | | XFER | | | | | | | HEAD,FAC,SMILEY | | | | | | | D <10SQCM | | | | | | | [place] ADJ TISS | | | | | | | XFER | | | | | | | HEAD,FAC,SMILEY | | | | | | | D 10.1-30 | | | | | | | [place] SKIN | | | | | | | TISSUE | | | | | | | REARRANGEMEN | | | | | | | T [place] SKIN | | | | | | | TISSUE | | | | | | | REARRANGEMEN | | | | | | | T ADD-ON [place] | | | | | | | SPLIT | | | | | | | GRFT,HEAD,FA | | | | | | | C,HAND,FEET | | | | | | | <100CM [place] | | | | | | | FULL THICK | | | | | | | GRFT | | | | | | | HEAD,FAC,SMILEY | | | | | | | D <20SQC [place] | | | | | | | FULL THICK | | | | | | | GRFT | | | | | | | HEAD,FAC,MAX | | | | | | | ADD 20SQ [place] | | | | | | | FORM SKIN | | | | | | | PEDICLE FLAP | | | | | | | | | | | | | | FACE,GEN,SMILEY | | | | | | | D [place] | | | | | | | [...] + + + + | 06/26/ | Procedure | Dermatology | Ryan, | Kayla' chemosurgery | | 2019 | | Surgery at [facility] [address] | Kev Ashton MD [address] | (SCC right thumb ) | | | | [address] | [address] [place], | | | | | Mailcode: [id number] | [place] [address] | | | | | [facility] | [phone] | | | | | and Healing, | | | | | | Building | | | | | | [place], [place] | | | | | | [address] | | | | | | [phone] | | | +--------+ + + + [...] +---------+ + + | Blood Pressure | 95/57 | 06/26/2019 7:45 AM | | | | | PDT | | + +---------+ + + | Pulse | 68 | 06/26/2019 7:45 AM | | | | | PDT | | + +---------+ + + | Temperature | - | - | | + +---------+ + + | Respiratory Rate | 12 | 06/26/2019 7:45 AM | | | | | PDT | | + +---------+ + + | Oxygen Saturation | - [...] +---------+ + + documented in this encounter Patient Instructions Patient Instructions Farhat Lopez MA - 06/26/2019 7:30 AM PDTDirections for vinegar s oak: Use 1 tablespoon of white vinegar in [address] gauze or washcloth in the solution to moisten. Apply to crusted areas for 20 minut es. If the vinegar soaks cause stinging, it is OK to use plain lukewarm water. After the vinegar (or plain water) soak, gently cleanse the skin with a mild cleanser us ing gauze or a washcloth. The goal of the soaking and cleansing is to clean off the yellow c rusting that develops and prevent infection. The following is only for patients who are using the soak to remove the formation of crusts : Liberally apply ointment or moisturizer. Reapply ointment or moisturizer as often as needed to keep treated areas moist at all ti mes. Repeat this process 3-5 times daily. [facility] DEPARTMENT OF DERMATOLOGY [address] [place] [address], WOUND CARE INSTRUCTIONS General Care-All Wounds ? Do not get your pressure bandage wet. ? For discomfort and pain, we encourage you to take Tylenol, Ibuprofen, or Aleve, following recommended dosing instructions on the bottle. (If taking Tylenol, do not exceed 3 grams in one 24-hour period.) Or if you were given a prescription for pain, take it as directed. ? Apply ice (or frozen vegetables) wrapped in a thin dishtowel over the surgical site for 1 0-15 minutes at a time every hour for the first day. This will help with pain and swelling. ? If bleeding occurs, hold direct pressure for 20 minutes. If the bleeding does not stop, please call the office. ? Bruising can range from none to dark purple in areas surrounding the wound. Applying pres sure to the wound helps prevent bruising, which is why we use a larger pressure dressing for the first 24 hours after surgery. Although they can be unsightly, bruises will fade. ? Avoid aspirin, alcohol, and smoking for 5 days after your procedure, as this can increase your risk of bleeding and bruising. ? Reduce strenuous activity for the first week. ? Avoid bending over or heavy lifting if your stitches are on your face or scalp. The heali ng skin is fragile so it is best to avoid rigorous activity such as contact sports, or runni ng-especially if the stitches are in a place where the skin stretches with movement, like th e knee. ? For wounds on the arms or legs, keep site elevated above the heart for the first 24 hours . ? For lip wounds, avoid hard, crunchy food for several days. Expect swelling for up to 1 we ek. Site ? Do not remove the bandage over the site for 1 week. This bandage will be removed by you in one week. Do not get bandage wet. ? After the bandage has been removed , you will wash and dry the graft site daily and apply a thin layer of petrolatum ointment on the graft several times a day for the first month. Y ou do not have to cover it again after the 1 week bandage is removed. What to Expect---Site ? When the bandage is removed after one week, the site will appear dark pink/purple and cru sty around the edges. It will be appear flat or concave at first. The skin edges will be pin k, but should lighten each day. ? By the second week, the graft should become heat welder plastics pink and will turn flesh colored, tho ugh it could take up to 2-3 months for the site to appear more flesh-colored, smooth and ble nded. ? You may experience numbness--that is usually temporary. ? If the graft continues to get darker and is more crusty in spite of regular use of petrol atum ointment after the 1 week bandage is removed, it may be failing. Call the Office If... ? Any of the bandages become saturated with blood. If your site bleeds, hold direct pressur e for 20 minutes and phone the clinic. ? You are having a great deal of pain, not relieved by Tylenol, Ibuprofen, Aleve, or your p rescription medication. Pain after 48 hours is not typically expected though depending on th e size, location, and depth of your wound you may experience pain longer. ? The wound appears to be worse instead of better each day (Increased pain, redness, warmth and drainage) ? Your graft bandage becomes wet with drainage or is more painful than the day before. How to Reach [phone] Toll-free [phone] Evenings and Weekends: [phone] [facility]PART[facility] OF DERMATOLOGY [address] [place] [address], GRANULATING WOUND CARE INSTRUCTIONS General Care-All Wounds ? Do not get your pressure bandage wet. ? For discomfort and pain, we encourage you to take Tylenol, Ibuprofen, or Aleve, following recommended dosing instructions on the bottle. (If taking Tylenol, do not exceed 3 grams in one 24-hour period.) Or if you were given a prescription for pain, take it as directed. ? Apply ice over the surgical site for 10-15 minutes at a time every hour the first day. ? If bleeding occurs, hold direct pressure for 20 minutes. If the bleeding does not stop, please call the office. ? Bruising can range from none to dark purple in areas surrounding the wound. Applying pres sure to the woud helps prevent bruising, which is why we use a larger pressure dressing for the first 24 hours after surgery. Although they can be unsightly, bruises will fade. ? Avoid aspirin, ibuprofen, alcohol and smoking for the first 5 days after your procedure, as this can increase your risk of bleeding and bruising. ? Reduce strenuous activity for the first week. ? For wounds on the arms or legs, keep site elevated above the heart as often as you can fo r the first 24 hours. ? For lip wounds, avoid hard, crunchy food for several days. Expect swelling for up to 1 we ek. Granulating Wound Care ? Remove your pressure bandage in 24 hours. ? Clean open area daily with soap and water to gently remove dried blood, crust, and draina ge. ? After cleansing, apply a thin layer of petrolatum ointment, cover with a telfa and tape i n place. ? You may get this area wet while bathing after 24 hours, although take caution with a forc eful stream. ? For wounds on arms and limbs, wrap with akua wrap during day. Elevate as much as possible over the first week. What to Expect----Granulating Wounds ? Wound will appear wet at first, with a pink base. Keep it moist with petrolatum ointment and a dressing. Do not allow crusts or scabs to form. If any scabs begin to form, soak the w ound with water and gently remove the crusts once they re moist. It is easy to remove soft ened crusts gently while bathing or showering. ? These wounds heal from the sides and the bottom. As it heals, it should become pink and n ew skin should fill in toward the center. ? These wounds may take a long period of time to heal depending on size and location. o Usually it will take 4-6 weeks before the skin heals over. Call the Office If... ? Any of the bandages become saturated with blood. If your site bleeds, hold direct pressur e for 20 minutes straight. If this does not help, call the office. ? You are having a great deal of pain, not relieved by Tylenol, Ibuprofen, Aleve, or your p rescription medication. Pain after 48 hours is not typically expected though depending on th e size, location, and depth of your wound you may experience pain longer. ? The wound appears to be worse instead of better each day (Increased pain, redness, warmth and drainage) How to Reach [phone] Toll-free [phone] Evenings and Weekends: [phone] documented in this encounter Progress Notes Sumeet Baca MD - 06/26/2019 7:30 AM PDTChief Complaint: Squamous Cell Carcinoma locate d on the right thumb. Referring Physician: Jaycee History of Present Illness: Patient presents with the above diagnosis which has been present for months. There have be en no previous treatments. Past Medical History reviewed. Review of Systems: Negative for other skin complaints. Negative for constitutional sympto ms. Physical Examination: BP 95/57 (BP Location: Left upper arm, Patient Position: Sitting) | Pulse 68 | Resp 12 Patient is alert and oriented. Extra ocular movements are intact. Located on the right th umb is a scar. 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 Mohs micrographic surgery is indicated because of location, ill defined borders, incomplete treatment. The procedure and alternatives were discussed, questions were answered and the risks includ ing but not limited to infection, bleeding, scarring, unsatisfactory results, nerve damage a nd recurrence were explained. Using a mirror, the patient identified the site of the biopsi ed cancer. I marked the site and the patient confirmed the location using a mirror. The pat ient felt comfortable and wished to proceed with Mohs surgery later on today. Tissue obtained during this procedure was processed, read and resulted in [facility] Dermatologic Surgery, [address] [facility] [place] [address] MOHS MICROGRAPHIC SURGERY PROCEDURE NOTE 06/26/2019 ATTENDING SURGEON: Kev Davis M.D. INCIDENT RESPONSE ENGINEER: Sumeet Baca M.D. Pretreatment lesion size of 2.0x 1.4 cm. STAGE 1: The patient was placed supine on the operating room table. The wound was defined and infiltrated with 1% Lidocaine with Epinephrine. The area was then debulked. Initial ex cisions were made around the clinical and debulk markings and hemostasis was obtained by gloria ctrodessication. A dressing was placed. Tissue was divided into 7 specimens which were map ped, color coded at their margins, and frozen sectioning was performed. Microscopic tumor w as found persisting in 2 of the specimens. The histology showed full thickness epithelial h yperplasia with dyskeratotic and pleomorphic keratinocytes extending broadly through the ent mac epidermis and papillary dermis, reticular dermis and subcutaneous tissue. STAGE 2: The patient was returned to the operative suite. The area of positivity was deli neated, infiltrated with 1% Lidocaine with Epinephrine, and excised. Tissue was divided int o 12 specimens which were again marked, color-coded, and frozen sectioning was performed. Hemostasis was obtained in the usual manner, and a dressing placed. Histology showed sparse perivascular lymphocytic infiltrate. To prevent recurrence and residual nail growth, any remaining matrix was treated with chemi pilar matricectomy with phenol 88% x 3 minutes was performed to ablate the remaining nail matr ix. Following surgery, the defect measures as follows: 2.8cm x 2.2cm. CONDITION AT TERMINATION OF THERAPY: Carcinoma removed. CLOSURE: Secondary Intention documented in this encounter Plan of Treatment Not on filedocumented as of this encounter Procedures + +--------+ + + + | Procedure Name | Priori | Date/Time | Associated Diagnosis | Comments | | | ty | | | | + +--------+ + + + | PROCEDURE NOTE | Routin | 07/11/2019 | | Results for this | | | e | 12:49 PM | | procedure are in the | | | | PDT | | results section. | + +--------+ + + + | NAZARIO VÁZQUEZ SURG, ADDL | Routin | 06/27/2019 | Squamous cell | | | BLOCK | e | 10:44 AM | carcinoma of right | | | | | PDT | hand | | + +--------+ + + + | NAZARIO LLOYDL STAGE | Routin | 06/27/2019 | Squamous cell | | | | e | 10:44 AM | carcinoma of right | | | | | PDT | hand | | + +--------+ + + + | NAZARIO VÁZQUEZ,1 | Routin | 06/27/2019 | Squamous cell | | | STAGE,H/N/HF/G | e | 10:44 AM | carcinoma of right | | | | | PDT | hand | | + +--------+ + + + documented in this encounter Results PROCEDURE NOTE (07/11/2019 12:49 PM PDT)documented in this encounter Visit Diagnoses + + | Diagnosis | + + | Squamous cell carcinoma of right hand - Primary | + + | Skin cancer Unspecified malignant neoplasm of skin, site unspecified | + + documented in this encounter Administered Medications + +--------+ + +------+------+ | Medication Order | MAR | Action | Dose | Rate | Site | | | Action | Date | | | | + +--------+ + +------+------+ | cephALEXin (KEFLEX) capsule | Given | 06/26/20 | 1,000 mg | | | | 1,000 mg 1,000 mg, oral, ONCE, 1 | | 19 8:05 | | | | | dose, 06/26/19 at 1030 | | AM PDT | | | | + +--------+ + +------+------+ +---+---+ | | | +---+---+ documented in this encounter"
--- OUTSIDE RECORDS SUMMARY | ~2020-03-19 | XMS | Encounter Summary ---
Demographics + + + | Address | [address] | | | [place] [address] | + + + | Home Phone | | + + + | Preferred Language | Unknown | + + + | Marital Status | Single | + + + | Mormon Affiliation | NON | + + + | Race | White | + + + | Ethnic Group | Not or | + + + Author + + + | Author | [facility] | + + + | Organization | [facility] | + + + | Address | Unknown | + + + | Phone | Unavailable | + + + Support + + + + + | Name | Relationship | Address | Phone | + + + + + | Collette [place] | [place] | [place] | | + + + + + Care Team Providers + +------+ + | Care Eap Counselor Name | Role | Phone | + [...] | | | | | Aftab MONET [facility] | | | | | | Hospital Admitting | | | | | | Desk Located on the | | | | | | 9th floor | | | | | | [place], [place] | | | | | | [address] | | | +--------+ + + + [...]
--- OUTSIDE RECORDS SUMMARY | ~2020-03-19 | XMS | Encounter Summary ---
Demographics + + + | Address | [address] | | | [place] [address] | + + + | Home Phone | | + + + | Preferred Language | Unknown | + + + | Marital Status | Single | + + + | Taoism Affiliation | NON | + + + | Race | White | + + + | Ethnic Group | Not or | + + + Author + + + | Author | [facility] | + + + | Organization | [facility] | + + + | Address [...] Team Providers + +------+ + | Care Glass Or Mirror Inspector Name | Role | Phone | [...] | | | | | [place] [place], | | | | | | [place] [address] | | | +--------+--------+ + + + [...]
--- OUTSIDE RECORDS SUMMARY | ~2020-03-19 | XMS | Encounter Summary ---
Demographics + + + | Address | [address] | | | [place] [address] | + + + | Home Phone | | + + + | Preferred Language | Unknown | + + + | Marital Status | Single | + + + | Voodoo Affiliation | Unknown | + + + | Race | Unknown | + + + | Ethnic Group | Unknown | + + + Author + + + | Author | [facility] | | | and [place] | + + + | Organization | [facility] | | | [...] + +------+ + | Care Environmental Health Physician Name | Role | Phone | [...] 2019 | | HOSPITAL NEUROLOGY | Jax, POWER PLANT TECHNICIAN [address] | | | | | CLINIC [address] [place], | | | | | [address] [place], | [place] [address] | | | | | [place] [address] | [phone] | | | | | [phone] | | | +--------+--------+ + + + [...] | 11/26/ | Office | Neurology | Seevn Johns MD | | | 2020 | Visit | | [address] | | | | | | [place] | | | | | | [address] | | | | | | | [...]
--- OUTSIDE RECORDS SUMMARY | ~2020-03-19 | XMS | Clinical Summary ---
Demographics + + + | Address | [address] | | | [place] [address] | + + + | Home Phone | | + + + | Preferred Language | Unknown | + + + | Marital Status | Single | + + + | Temple Affiliation | Unknown | + + + | Race | Unknown | + + + | Ethnic Group | Unknown | + + + Author + + + | Author | [facility] | | | and [place] | + + + | Organization | [facility] | | [...] Team Providers + +------+ + | Care Roofing Contractor Name | Role | Phone | + [...] [place] | | | | | | [address] | | | | | | | [...] | [employer] | [employer] | [id number] | | [phone] | | Medica | | MEDICAID HMO | HEALTH | | [id number]-Pr | 1 | | id | | | MDCD | | esent | | | | | | [place] | | | | | | + +--------+ +--------+ +---------+--------+ | [employer] | [employer] | [id number] | | [phone] | | Medica | | MEDICAID HMO [...] | 1989 | [phone] | [place] [address] | | | alexandro | | | 6 (Home) | | + +--------+ +--------+ + + | Linda Singleton | Person | Self | [birth year] | [address] | | | al/Fam | | 1989 | [phone] | [place] [address] | | | alexandro | | | 6 (Home) | | + +--------+ +--------+ + + | Linda Singleton | Person | Self | [birth year] | | [address] | | | al/Fam | | 1989 | [phone] | [place] [address] | | | alexandro | | | 6 (Home) | | + +--------+ +--------+ + + Advance Directives + + + + + | Type | Date Recorded | Patient | Explanation | | | | Soa Engineer | | + + + + + | Power of | | | | | Surveillance Investigator | | | | + + + + + | Advance | 11/27/2019 10:38 | | | | Directive | AM | | | + + + + +
--- OUTSIDE RECORDS SUMMARY | ~2020-03-19 | XMS | Encounter Summary ---
Demographics + + + | Address | [address] | | | [place] [address] | + + + | Home Phone | | + + + | Preferred Language | Unknown | + + + | Marital Status | Single | + + + | Rastafarian Affiliation | Unknown | + + + | Race | Unknown | + + + | Ethnic Group | Unknown | + + + Author + + + | Author | [facility] | | | and [place] | + + + | Organization | [facility] | | [...] Team Providers + +------+ + | Care Design Maintenance Engineer Name | Role | Phone | + +------+ + PCP | Unavailable | + +------+ + Encounter Details +--------+ + + + + | Date | Type | Department | Care Team | Description | +--------+ + + + + | 03/19/ | Emergency | [facility] | Hunter Hernandez, | Contusion of right | | 2017 | | MEDICAL CENTER | [address] | thigh, initial | | | | EMERGENCY CENTER | [place], [place] | encounter; Elevated | | | | [address] | [address] | BP; Personal history | | | | [place] | | of fibromyalgia; | | | | [address] | | Acute leg pain, | | | | [phone] | | right | +--------+ + + + + Social [...] [place] | | | | | | [address] | | | | | | | | +--------+---------+ + + + documented as of this encounter Procedures + +--------+ + + + | Procedure Name | Priori | Date/Time | Associated Diagnosis | Comments | | | ty | | | | + +--------+ + + + | VAS LOWER EXTREMITY | Routin | 03/19/2017 | | Results for this | | ARTERIES RIGHT | e | 5:37 PM | | procedure are in the | | | | PDT | | results section. | + +--------+ + + + | HISTORICAL LAB PANEL | Routin | 03/19/2017 | | Results for this | | RESULT | e | 4:09 PM | | procedure are in the | | | | PDT | | results section. | + +--------+ + + + documented in this encounter Results VAS Lower Extremity Arteries Right (03/19/2017 5:37 PM PDT) + + | Specimen | + + | | + + + + + | Impressions | Performed At | + + + | 1. Arteries of the right lower leg are widely patent at all | | | levels, without evidence of intramural hematoma, thrombosis, or mass | | | displacement. 2. Triphasic waveforms are visualized throughout all | | | arteries. No stenosis identified. 3. Three-vessel runoff is | | | visualized in the calf. | | + + + + + + | Narrative | Performed At | + + + | LINDA Perez RIDDLE US LOWER EXTREMITY ARTERIAL RIGHT 03/19/2017 5:37 | | | PM History: 26 years. Female. Following injury with trauma | | | to the right leg. Large bruise in the lateral thigh rule out | | | arterial injury. Technique: A high-resolution grayscale duplex | | | transducer with color and pulsed Doppler capability was utilized for | | | imaging, with storm scale and color image recording in multiple | | | anatomical planes. Comparison Exam: None | | | Right: PSV / Stenosis/ Doppler | | | Waveform EIA Distal: , , CIRCUITS ENGINEER Prox: 111.9, , triphasic CIRCUITS ENGINEER Distal: , | | | , DFA Prox: 66.3, , triphasic SFA Prox: 96.1, , triphasic SFA Mid: | | | 123, , triphasic SFA Distal: 65, , triphasic POP Prox: 53, , | | | triphasic POP Mid: , , POP Distal: 58.5, , triphasic TRUE Prox: | | | 40.3, , triphasic TRUE Distal: 25.9, , triphasic MULTIPLE SPINDLE SCREW MACHINE OPERATOR Prox: 43.6, , | | | triphasic MULTIPLE SPINDLE SCREW MACHINE OPERATOR Distal: 49.9, , triphasic DAE Prox: 42.1, , triphasic | | | DAE Distal: 27.9, , triphasic | | + + + + + | Procedure Note | + + | Jorge A, Rad Conversion - 05/25/2019 8:49 AM PDT LINDA GONZALEZ LOWER EXTREMITY | | ARTERIAL RIGHT03/19/2017 5:37 PM History: 26 years. Female. Following injury with | | trauma to the right leg. Large bruise in the lateral thigh rule out arterial injury. | | Technique: A high-resolution grayscale duplex transducer with color and pulsed Doppler | | capability was utilized for imaging, with storm scale and color image recording in | | multiple anatomical planes. Comparison Exam: None | | Right: PSV / Stenosis/ Doppler WaveformEIA Distal: , | | ,CIRCUITS ENGINEER Prox: 111.9, , triphasicCFA Distal: , ,DFA Prox: 66.3, , triphasicSFA Prox: 96.1, , | | triphasicSFA Mid: 123, , triphasicSFA Distal: 65, , triphasicPOP Prox: 53, , | | triphasicPOP Mid: , ,POP Distal: 58.5, , triphasicATA Prox: 40.3, , triphasicATA Distal: | | 25.9, , triphasicPTA Prox: 43.6, , triphasicPTA Distal: 49.9, , triphasicPERA Prox: | | 42.1, , triphasicPERA Distal: 27.9, , triphasic IMPRESSION: 1. Arteries of the right | | lower leg are widely patent at all levels, without evidence of intramural hematoma, | | thrombosis, or mass displacement.2. Triphasic waveforms are visualized throughout all | | arteries. No stenosis identified.3. Three-vessel runoff is visualized in the calf. | | | |SFA Prox: 96.1, , triphasic | |SFA Mid: 123, , triphasic | |SFA Distal: 65, , triphasic | |POP Prox: 53, , triphasic | |POP Mid: , , | |POP Distal: 58.5, , triphasic | |TRUE Prox: 40.3, , triphasic | |TRUE Distal: 25.9, , triphasic | |MULTIPLE SPINDLE SCREW MACHINE OPERATOR Prox: 43.6, , triphasic | |MULTIPLE SPINDLE SCREW MACHINE OPERATOR Distal: 49.9, , triphasic | |DAE Prox: 42.1, , triphasic | |DAE Distal: 27.9, , triphasic | | | | | |IMPRESSION: | |1. Arteries of the right lower leg are widely patent at all levels, without evidence of in tramural hematoma, thrombosis, or mass displacement. | |2. Triphasic waveforms are visualized throughout all arteries. No stenosis identified. | |3. Three-vessel runoff is visualized in the calf. | | | | | + + HISTORICAL LAB PANEL RESULT (03/19/2017 4:09 PM PDT) + + + + + -+ | Component | Value | Ref Range | Performed | Pathologist | | | | | At | Signature | + + + + + -+ | WBC | 10.58 | 3.80 - 11.00 | EXTERNAL | | | | | K/uL | LAB | | + + + + + -+ | Red Blood | 4.10 | 3.70 - 5.10 | EXTERNAL | | | Cells | | M/uL | LAB | | | Counted | | | | | + + + + + -+ | Hemoglobin | 12.2 | 11.3 - 15.5 | EXTERNAL | | | | | g/dL | LAB | | + + + + + -+ | Hematocrit, | 35.9 | 34.0 - 46.0 % | EXTERNAL | | | POC | | | LAB | | + + + + + -+ | MCV | 87.4 | 80.0 - 100.0 fl | EXTERNAL | | | | | | LAB | | + + + + + -+ | MCH | 29.6 | 27.0 - 34.0 pg | EXTERNAL | | | | | | LAB | | + + + + + -+ | MCHC | 33.9 | 32.0 - 35.5 | EXTERNAL | | | | | g/dL | LAB | | + + + + + -+ | RDW-CV | 44.2 | 37 - 53 fl | EXTERNAL | | | | | | LAB | | + + + + + -+ | Platelet | 331 | 150 - 400 K/uL | EXTERNAL | | | Count | | | LAB | | | Plasma | | | | | + + + + + -+ | MPV | 8.5 | fl | EXTERNAL | | | | | | LAB | | + + + + + -+ | Differentia | AUTOMATED | | EXTERNAL | | | l Type | | | LAB | | + + + + + -+ | % Segmented | 49.06 | % | EXTERNAL | | | | | | LAB | | | Neutrophils | | | | | + + + + + -+ | % | 33.79 | % | EXTERNAL | | | Lymphocytes | | | LAB | | + + + + + -+ | % Monocytes | 7.23 | % | EXTERNAL | | | | | | LAB | | + + + + + -+ | % | 9.16 | % | EXTERNAL | | | Eosinophils | | | LAB | | + + + + + -+ | % Basophils | 0.76 | % | EXTERNAL | | | | | | LAB | | + + + + + -+ | Absolute | 5.19 | 1.90 - 7.40 | EXTERNAL | | | Segmented | | K/uL | LAB | | | Neutrophils | | | | | + + + + + -+ | Absolute | 3.58 | 1.00 - 3.90 | EXTERNAL | | | Lymphocytes | | K/uL | LAB | | + + + + + -+ | Absolute | 0.77 | 0.00 - 0.80 | EXTERNAL | | | Monocytes | | K/uL | LAB | | + + + + + -+ | Absolute | 0.97 (H) | 0.00 - 0.50 | EXTERNAL | | | Eosinophils | | K/uL | LAB | | + + + + + -+ | Absolute | 0.08 | 0.00 - 0.10 | EXTERNAL | | | Basophils | | K/uL | LAB | | + + + + + -+ | Na | 139 | 135 - 145 | EXTERNAL | | | | | mmol/L | LAB | | + + + + + -+ | K | 3.9 | 3.5 - 4.9 | EXTERNAL | | | | | mmol/L | LAB | | + + + + + -+ | Cl | 104 | 99 - 109 mmol/L | EXTERNAL | | | | | | LAB | | + + + + + -+ | CO2 | 28 | 23 - 32 mmol/L | EXTERNAL | | | | | | LAB | | + + + + + -+ | Anion Gap | 11 | 5 - 20 mmol/L | EXTERNAL | | | | | | LAB | | + + + + + -+ | Glucose, | 87 | 65 - 99 mg/dL | EXTERNAL | | | Fasting | | | LAB | | + + + + + -+ | BUN | 10 | 8 - 25 mg/dL | EXTERNAL | | | | | | LAB | | + + + + + -+ | Creatinine | 0.79 | 0.50 - 1.00 | EXTERNAL | | | | | mg/dL | LAB | | + + + + + -+ | BUN/Creatin | 12 | | EXTERNAL | | | ine Ratio | | | LAB | | + + + + + -+ | Calcium | 8.4 (L) | 8.5 - 10.5 | EXTERNAL | | | | | mg/dL | LAB | | + + + + + -+ | Protein, | 6.6 | 6.3 - 8.2 g/dL | EXTERNAL | | | Total | | | LAB | | + + + + + -+ | Albumin | 3.3 (L) | 3.6 - 5.0 g/dL | EXTERNAL | | | | | | LAB | | + + + + + -+ | Globulin | 3.2 | 1.3 - 4.9 g/dL | EXTERNAL | | | | | | LAB | | + + + + + -+ | A/G Ratio | 1.0 | 1.0 - 2.4 | EXTERNAL | | | | | | LAB | | + + + + + -+ | Bilirubin | 0.2 | 0.1 - 1.5 mg/dL | EXTERNAL | | | Total | | | LAB | | + + + + + -+ | ALP, | 61 | 35 - 115 U/L | EXTERNAL | | | External | | | LAB | | + + + + + -+ | AST | 14 | 10 - 45 U/L | EXTERNAL | | | | | | LAB | | + + + + + -+ | ALT | 25 | 10 - 65 U/L | EXTERNAL | | | | | | LAB | | + + + + + -+ | Estimated | >60Comment: GFR <60: | [...] | | | | CALCULATED GFR BY 1.210. | | | | | | | | | | + + + + + -+ | CK, Total | 161 | 30 - 240 U/L | EXTERNAL | | | | | | LAB | | + + + + + -+ | INR | 1.0Comment: REFERENCE | | EXTERNAL | | | | RANGE:0.9 - 1.2 | | LAB | | | | NON-ANTICOAGULATED2.0 | | | | | | - 3.0 ALL OTHER | | | | | | THERAPEUTIC | | | | | | INDICATIONS2.5 - 3.5 | | | | | | MECHANICAL HEART VALVES, | | | | | | RECURRENT OR SYSTEMIC | | | | | | EMBOLISM | | | | + + + + + -+ | aPTT, | 30 | 23 - 32 seconds | EXTERNAL | | | Patient | | | LAB | | + + + + + -+ | CK-MB | 2.1 | 0.5 - 3.6 ng/mL | EXTERNAL | | | | | | LAB | | + + + + + -+ | CK-MB Index | 1.3Comment: CK INDEX | | EXTERNAL | | | | INTERPRETATION: | | LAB | | | | MMB ng/mL | | | | | | | | | | | |CK INDEX INTERPRETATION: | | | | | | MMB ng/mL | | | | | | | | | | + + + + + -+ + + | Specimen | + + | | + + + +---------+ + + | Performing | Address | City/State/Zipcode | Phone Number | | Organization | | | | + +---------+ + + | EXTERNAL LAB | | | | + +---------+ + + documented in this encounter Visit Diagnoses + + | Diagnosis | + + | Contusion of right thigh, initial encounter | + + | Elevated BP Elevated blood pressure reading without diagnosis of hypertension | + + | Personal history of fibromyalgia Personal history of other musculoskeletal disorders | + + | Acute leg pain, right | + + documented in this encounter"
--- OUTSIDE RECORDS SUMMARY | ~2020-03-19 | XMS | Encounter Summary ---
Demographics + + + | Address | [address] | | | [place] [address] | + + + | Home Phone | | + + + | Preferred Language | Unknown | + + + | Marital Status | Single | + + + | Anabaptist Affiliation | Unknown | + + + | Race | Unknown | + + + | Ethnic Group | Unknown | + + + Author + + + | Author | [facility] | | | and [place] | + + + | Organization | [facility] | | | and [...] Team Providers + +------+ + | Care Jordan Man Name | Role | Phone | + +------+ + | Mindy Stewart | PCP | | | PA | | | + +------+ + Reason for Visit + + + | Reason | Comments | + + + | Appointment | | + + + Encounter Details +--------+ + + + + | Date | Type | Department | Care Team | Description | +--------+ + + + + | 01/28/ | Telephone | [facility] | Pedro Brock, | Appointment | | 2018 | | [facility] | [facility] | | | | | CLINIC [address] | | | | | | [address] [place], | | | | | | [place] [address] | | | | | | [phone] | | | +--------+ + + + [...] [place] | | | | | | [address] | | | | | | | | +--------+---------+ + + + documented as of this encounter Procedures + +--------+ + + + | Procedure Name | Priori | Date/Time | Associated Diagnosis | Comments | | | ty | | | | + +--------+ + + + | LIZETTE DURÁN, | Routin | 03/13/2019 | | Results for this | | REFLEX | e | 2:03 PM | | procedure are in the | | | | PDT | | results section. | + +--------+ + + + | VITAMIN B-12 | Routin | 03/13/2019 | | Results for this | | | e | 2:03 PM | | procedure are in the | | | | PDT | | results section. | + +--------+ + + + | CRYOGLOBULIN | Routin | 03/13/2019 | | Results for this | | | e | 2:03 PM | | procedure are in the | | | | PDT | | results section. | + +--------+ + + + | PROTEIN | Routin | 03/13/2019 | | Results for this | | ELECTROPHORESIS, | e | 2:03 PM | | procedure are in the | | SERUM | | PDT | | results section. | + +--------+ + + + documented in this encounter Results Cryoglobulin (03/13/2019 2:03 PM PDT) + + + + + + | Component | Value | Ref Range | Performed | Pathologist | | | | | At | Signature | + + + + + + | CRYOGLOBULI | NONE DETECTED | none detected | REFERENCE | | | N | | | LAB | | | | | | [facility] | | + + + + + + + + | Specimen | + + | | + + + + + | Narrative | Performed At | + + + | Testing Performed at: [facility] CLIA: [id number] - [address] | REFERENCE LAB | | [place] [address] | [facility] | + + + + + + + + | Performing | Address | City/State/Zipcode | Phone Number | | Organization | | | | + + + + + | REFERENCE LAB | [address] | [place] | [phone] | | [facility] | | [address] | | + + + + + | REFERENCE LAB | [address] [facility] [address] [facility] | [place] | [phone] | | [facility] | | [address] | | + + + + + Protein Electrophoresis, Serum (03/13/2019 2:03 PM PDT) + + + + + + | Component | Value | Ref Range | Performed | Pathologist | | | | | At | Signature | + + + + + + | Protein, | 6.8 | 6.0 - 8.3 | REFERENCE | | | Total | | | LAB | | | | | | [facility] | | + + + + + + | ELP Albumin | 4.40 | 3.5 - 5 | REFERENCE | | | | | | LAB | | | | | | [facility] | | + + + + + + | Alpha-1-Lucinda | 0.21 | 0.1 - 0.32 | REFERENCE | | | bulin | | | LAB | | | | | | [facility] | | + + + + + + | Alpha-2-Lucinda | 0.74 | 0.54 - 0.90 | REFERENCE | | | bulin | | | LAB | | | | | | [facility] | | + + + + + + | Beta 1 | 0.72 | 0.60 - 1.09 | REFERENCE | | | Globulin | | | LAB | | | | | | [facility] | | + + + + + + | Gamma | 0.73 | 0.36 - 1.8 | REFERENCE | | | Globulin | | | LAB | | | | | | [facility] | | + + + + + + | SPEP | SEE COMMENTComment: | | REFERENCE | | | Interpretat | NORMAL SERUM PROTEIN | | LAB | | | ion | ELECTROPHORETIC | | [facility] | | | | PATTERN.INTERPRETATION | | | | | | IS BASED ON WHAT IS | | | | | | VISIBLE TO THE NAKED EYE | | | | | | ON THE ACTUAL GEL. | | | | | | THE IMAGE OF THE GEL | | | | | | IN THE REPORT IS | | | | | | VIRTUAL, AND MAY NOT | | | | | | REPRESENT WHAT CAN BE | | | | | | DETECTED ON THE | | | | | | GEL.REFLEX PAPA IS NOT | | | | | | INDICATED BASED ON SPEP | | | | | | RESULTS.Ulices Marin | | | | | | Lashawn Dan Please note | | | | | | reference range changed | | | | | | for Albumin as of | | | | | | 02/27/2019 | | | | + + + + + + + + | Specimen | + + | | + + + + + | Narrative | Performed At | + + + | Testing Performed at: [facility] CLIA: [id number] - [address] | REFERENCE LAB | | [place] [address] | [facility] | + + + + + + + + | Performing | Address | City/State/Zipcode | Phone Number | | Organization | | | | + + + + + | REFERENCE LAB | [address] | [place] | [phone] | | [facility] | | [address] | | + + + + + | REFERENCE LAB | [address] | [place] | [phone] | | [facility] | | [address] | | + + + + + Lizette Durán Reflex (03/13/2019 2:03 PM PDT) + + + + + + | Component | Value | Ref Range | Performed | Pathologist | | | | | At | Signature | + + + + + + | ADINA Titer | <1:80 | <1:80 | REFERENCE | | | | | | LAB | | | | | | [facility] | | + + + + + + | ADINA Pattern | N/A | | REFERENCE | | | | | | LAB | | | | | | [facility] | | + + + + + + | AD[place] Screen, | NOComment: Although a | | REFERENCE | | | Qual | negative ADINA does not | | LAB | | | | rule out systemic | | [facility] | | | | autoimmune disease, an | | | | | | alternative diagnosis | | | | | | should also be | | | | | | considered. | | | | + + + + + + + + | Specimen | + + | | + + + + + | Narrative | Performed At | + + + | Testing Performed at: [facility] CLIA: [id number] - [address] | REFERENCE LAB | | [place] [address] | [facility] | + + + + + + + + | Performing | Address | City/State/Zipcode | Phone Number | | Organization | | | | + + + + + | REFERENCE LAB | [address] | [place] | [phone] | | [place] [facility] [place] | | [address] | | + + + + + | REFERENCE LAB | [address] | [place], [place] | [phone] | | [facility] | | [address] | | + + + + + Vitamin B-12 (03/13/2019 2:03 PM PDT) + + + + + + | Component | Value | Ref Range | Performed | Pathologist | | | | | At | Signature | + + + + + + | Vitamin B12 | 1108Comment: Please | 232 124 | REFERENCE | | | | note reference range | | LAB | | | | change as of 07/19/2017. | | [facility] | | | | Biotin in specimens | | | | | | taken from patients on | | | | | | high-dose biotin therapy | | | | | | or supplements may | | | | | | intefere with this test | | | | | | and cause inaccurate | | | | | | test results. It is | | | | | | recommended that for | | | | | | patients receiving | | | | | | therapy with high biotin | | | | | | doses (> 5 mg/day), no | | | | | | laboratory test specimen | | | | | | should be collected | | | | | | until at least 8 hours | | | | | | after the last biotin | | | | | | administration. | | | | + + + + + + + + | Specimen | + + | | + + + + + | Narrative | Performed At | + + + | Testing Performed at: [facility] CLIA: [id number] [address] | REFERENCE LAB | | [place] [address] | [facility] | + + + + + + + + | Performing | Address | City/State/Zipcode | Phone Number | | Organization | | | | + + + + + | REFERENCE LAB | [facility] | [place] | [phone] | | [facility] | | [address] | | + + + + + | REFERENCE LAB | [address] [place] [address] [place] | [place] | [phone] | | [facility] | | [address] | | + + + + + documented in this encounter Visit Diagnoses Not on filedocumented in this encounter"
--- OUTSIDE RECORDS SUMMARY | ~2020-03-19 | XMS | Encounter Summary ---
Demographics + + + | Address | [address] | | | [place] [address] | + + + | Home Phone | | + + + | Preferred Language | Unknown | + + + | Marital Status | Single | + + + | Hoahaoism Affiliation | NON | + + + | Race | White | + + + | Ethnic Group | Not or | + + + Author + + + | Author | [facility] | + + + | Organization | [facility] | + + + | [...] Team Providers + +------+ + | Care Social Work Specialist Name | Role | Phone | + [...] | | | uncertain | Good | [address] [facility] | | | | | behavior of | Carlos | [place] | | | | | connective | Medical | [address] | | | | | and other | [place] [address] | [place], [place] | | | | | soft tissue | Nw | [address] | | | | | Neoplasm of | [place], | Phone: | | | | | uncertain | [place] [address] | [phone] | | | | | behavior of | Phone: | Fax: | | | | | bone and | [phone] | [phone] | | | | | articular | Fax: | | | | | | cartilage | [phone] | | | | | | Procedures | | | | | | | REQUEST TO | | | | | | | SURGERY | | | | | | | DIRECTOR MOTION PICTURE | | | | | | | OK EXCIS | | | | | | | SOFT TISSUE | | | | | | | LESION HAND | | | | | | | DEEP OK EXC | | | | | | | HAND TURN | | | | | | | DEEP>1.5CM | | | | | | | OK EXCIS | | | | | | | BENIGN BONE | | | | | | | LESN,PHALANX | | | | | | | OK PART | | | | | | | REMV | | | | | | | BONE,PROX/ID | | | | | | | D PHALANX | | | | | | | OK PART REMV | | | | | [...] | 2019 | Orders | [facility] [place] | [address] | | | | | for [facility] and | [place] | | | | | Healing [address] | [place], [place] | | | | | Marcie Mailcode: | [address] | | | | | [facility] | [phone] | | | | | Health and Healing, | | | | | | [facility] | | | | | | Floor [place], [place] | | | | | | [address] | | | | | | [phone] | | | +--------+ + + + [...]
--- OUTSIDE RECORDS SUMMARY | ~2020-03-19 | XMS | Encounter Summary ---
Demographics + + + | Address | [address] | | | [place] [address] | + + + | Home Phone | | + + + | Preferred Language | Unknown | + + + | Marital Status | Single | + + + | Restoration Affiliation | Unknown | + + + | Race | Unknown | + + + | Ethnic Group | Unknown | + + + Author + + + | Author | [facility] | | | and [place] | + + + | Organization | [facility] | | | and [place] | + + + | Address | Unknown | + + + | Phone | Unavailable | + + + Support + + +---------+ + | Name | Relationship | Address | Phone | + + +---------+ + | Clolette Benavides | ECON | Unknown | | + + +---------+ + Care Team Providers + +------+ + | Care Blending Tank Tender Name | Role | Phone | [...] | | | unspecified | [place], | [address] Phone: | | | | | Procedures | [place] | [phone] | | | | | Evaluate & | [address] | Fax: | | | | | Treat | Phone: | [phone] | | | | | | [phone] | | | | | | | Fax: | | | | | | | [phone] | | +--------+ + + + + + Encounter Details +--------+---------+ + + + | Date | Type | Department | Care Team | Description | +--------+---------+ + + + | 06/06/ | Office | [facility] | [place], | Chronic bilateral | | 2019 | Visit | [facility] | Jax, FINDING FASTENER [address] | low back pain with | | | | CLINIC [address] | [address] [place], | left-sided sciatica | | | | [address] [place], | [place] [address] | (Primary Dx); | | | | [place] [address] | [phone] | 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 You may use daqn-vnj-fejjjjn medicine to control pain, unless another pain [...] by your healthcare provider Date Last Reviewed: 04/10/201619999507-4978 [employer]. [address] [place] [address]. All righ ts reserved. This information is [...] you take. This includes prescription an d eihe-uoh-rojpelq medicines, vitamins, and herbs. Ask if any [...] speaking, walking, or seeing Date Last Reviewed: 12/09/201719996754-6895 [employer]. [address] [place] [address]. All [facility] ts reserved. This information is not intended as a substitute for professional medical care. Always follow your healthcare professional's instructions. documented in this encounter Progress Notes Jax Black FNP - 03/16/2019 9:45 AM PDT Patient: Linda Singleton Medical Record: [id number] Date of Services: 03/16/2019 Referring Doctor: MADHAV [...] find a primary care provider in the [employer] area after her PCP suddenly lef t. [...] are intact. There is no dysmetria on qsfwdg-sl-ybgi and xjao-pafw-vify. There are no abnormal or extraneous movements. [...] [place] | | | | | | [id number] | | | | | | | | +--------+---------+ + + + documented as of this encounter Results Trigger Point Injection Procedure (09/19/2019 1:30 PM PST) + + + | Narrative | Performed At | + + + | Jax [place], [facility] 09/19/2019 2:00 PM WAYNE LUMBAR | | [...] | such as acupuncture treatments, massage therapy, ycqa-pum-xepdozw | | | heat patches, relaxation therapy, [...] + + | IMPRESSION: Transitional vertebrae lowest qyz-tpw-mxqcfbg | [facility] | | vertebrae. This [...] | vertebrae is present at the lowest txl-mih-bkhpvff vertebrae with the | | | left transverse process articulating with the sacrum. Sclerosis is | | | present at this articulation. 5 jpy-ikn-bzdlpeu vertebrae are | | | present. For numbering purposes the lowest csv-jxf-zialtie vertebrae | | | will be termed [...] | | is present at the lowest ptl-fxz-amvefco vertebrae with the left transverse process | | articulating with the sacrum. Sclerosis is present at this articulation.5 | | pfl-nwi-nnfbkko vertebrae are present. For numbering purposes the lowest | | spc-noh-ofdciwg vertebrae will be termed L5.Pedicles are intact. The disc spaces and | | vertebral body heights are maintained. IUD device present..IMPRESSION: | | IMPRESSION:Transitional vertebrae lowest uqc-wrk-bgdjvsw vertebrae. This finding can be | | associated with back pain.Dictated by: Bobby Chamberlain | |A transitional vertebrae is present at the lowest efd-qkj-nnnajdg vertebrae with the left t ransverse process articulating with the sacrum. Sclerosis is present at this articulation. | | | |5 mtq-dgk-yobooqv vertebrae are present. For numbering purposes the lowest rvy-vgm-yberwds vertebrae will be termed L5. | | | |Pedicles are intact. The disc spaces and vertebral body heights are maintained. IUD devic e present.. | | | |IMPRESSION: | |IMPRESSION: | |Transitional vertebrae lowest woj-fxw-cznkzvb vertebrae. This finding can be associated wi [...]
--- OUTSIDE RECORDS SUMMARY | ~2020-03-19 | XMS | Encounter Summary ---
Demographics + + + | Address | [address] | | | [place] [address] | + + + | Home Phone [...] Author + + + | Author | [facility] | + + + | Organization | [facility] | + + + | [...] Team Providers + +------+ + | Care Fire Investigation Lieutenant Name | Role | Phone | + +------+ + | No Pcp Per Patient | PCP | Unavailable | + +------+ + Reason for Visit + + + | Reason | Comments | + + + | Follow-up visit | | + + + Encounter Details +--------+---------+ + + + | Date | Type | Department | Care Team | Description | +--------+---------+ + + + | 07/12/ | Office | Dermatology | Magdi Matthew | Surgery follow-up | | 2019 | Visit | Medical at [facility] [address] | [address] | examination (Primary | | | | [address] | [place] | Dx) | | | | Mailcode: [id number] | [address] [place], [place] | | | | | [facility] | [address] | | | | | and [place], | | | | | | Building | | | | | | Floor [place], [place] | | | | | | [address] | | | | | | [phone] | | | +--------+---------+ + + + [...] documented as of this encounter Progress Notes Penelope Morgan LPN - 07/12/2019 1:15 PM PDTPatient here for 16 day follow-up visit statu s post procedure on 06/26/19 Right thumb granulation site appears healing well with pink granulation tissue except for c enter that has fibrin covering. Patient advised to gently remove fibrin build up. She report s she has decreased range of motion in thumb, but has been trying to exercise gently to impr ove. Wound cleaned with saline and covered with petroleum jelly. Patient bandages her thumb with telfa bandaid. Patient was told to continue petroleum jelly and cover when out for wound ca re. Patient was told to expect time during the healing process. Patient instructed to follow-up as needed. Patient was assessed by Charlotte Morgan LPN.Electronically signed by Penelope Morgan LPN at 5:30 PM PDTdocumented in this encounter Plan of Treatment Not on filedocumented as of this encounter Visit Diagnoses + + | Diagnosis | + + | Surgery follow-up examination - Primary Follow-up examination, following unspecified | | surgery | + + documented in this encounter"
--- OUTSIDE RECORDS SUMMARY | ~2020-03-19 | XMS | Encounter Summary ---
Demographics + + + | Address | [address] | | | [place] [address] | + + + | Home Phone | | + + + | Preferred Language | Unknown | + + + | Marital Status | Single | + + + | Mandaen Affiliation | Unknown | + + + | Race | Unknown | + + + | Ethnic Group | Unknown | + + + Author + + + | Author | [facility] | | | and [place] | + + + | Organization | [facility] | | [...] Team Providers + +------+ + | Care Liquor Rectifier Name | Role | Phone | + [...] [address] | | | | | [place] [address] | | | | | | [phone] | | | +--------+ + + + [...] [place] | | | | | | [id number] | | | | | | | | +--------+---------+ + + + documented as of this encounter Visit Diagnoses Not on filedocumented in this encounter"
--- OUTSIDE RECORDS SUMMARY | ~2020-03-19 | XMS | Encounter Summary ---
Demographics + + + | Address | [address] | | | [place] [address] | + + + | Home Phone | | + + + | Preferred Language | Unknown | + + + | Marital Status | Single | + + + | Jew Affiliation | Unknown | + + + | Race | Unknown | + + + | Ethnic Group | Unknown | + + + Author + + + | Author | [facility] | | | and [place] | + + + | Organization | [facility] | | | [...] Team Providers + +------+ + | Care Stunt Woman Name | Role | Phone | + [...] | | [address] [place], [place] | [place] [address] | extremities | | | | [address] | [phone] | | | | | [phone] | | | +--------+ + + + [...] [place] | | | | | | [address] | | | | | | | [...] was | | | reviewed using the [employer]er[employer] EEG digital system. During the | | [...]
--- OUTSIDE RECORDS SUMMARY | ~2020-03-19 | XMS | Encounter Summary ---
Demographics + + + | Address | [address] | | | [place] [address] | + + + | Home Phone | | + + + | Preferred Language | Unknown | + + + | Marital Status | Single | + + + | Moravian Affiliation | Unknown | + + + [...] Team Providers + +------+ + | Care Dining Host Name | Role | Phone | + [...] | | | | CENTER [address] | [address] [place] | (Primary Dx) | | | | [place], [place] | [place] [address] | | | | | [address] | [phone] | | | | | [phone] | | | +--------+ + + + [...] be sent through Care Everywhere.Abdominal Pain, Adult (Frisian)documented in this encounter Medications at Time of [...] [place] | | | | | | [address] | | | | | | | [...] - [address] | [facility] | | | [place], | | | [facility] | | [...] [address] | [place] | [phone] | | [facility] | | [address] | | | - LABORATORY | | [...] + | [facility] | [address] | [place] | [phone] | | [facility] | | [address] | | | - LABORATORY | | [...] [address] | [place] | [phone] | | [facility] | | [address] | | | - LABORATORY | | [...] | [employer] | | | [facility] | | | | | | [...] [address] | [place] | [phone] | | [facility] | | [address] | | | - LABORATORY | | [...] + | [facility] | [address] | [place] | [phone] | | [facility] | | [address] | | | - LABORATORY | | [...] + | [facility] | [address] | [place] | [phone] | | [facility] | | [address] | | | - LABORATORY | | [...] mL/min/1.73m2 | [facility] | | | FINNISH | RATE,ESTIMATED | | MEDICAL | | | | mL/min/1.20j7Kknp than | | CENTER - | | [...] + | [facility] | [address] | [place] | [phone] | | [facility] | | [address] | | | - LABORATORY | | [...] | [address] | [place] | [phone] | | [facility] | | [address] | | | - LABORATORY | | [...]
--- OUTSIDE RECORDS SUMMARY | ~2020-03-19 | XMS | Encounter Summary ---
Demographics + + + | Address | [address] | | | [place] [address] | + + + | Home Phone | | + + + | Preferred Language | Unknown | + + + | Marital Status | Single | + + + | Gnosticism Affiliation | NON | + + + | Race | White | + + + | Ethnic Group | Not or | + + + Author + + + | Author | [facility] | + + + | Organization | [facility] | + + + | Address [...] Team Providers + +------+ + | Care Pan Dumper Name | Role | Phone | + +------+ + PCP | Unavailable | + +------+ + Encounter Details +--------+ + + + + | Date | Type | Department | Care Team | Description | +--------+ + + + + | 07/18/ | Office | [facility] | Note, Outpatient | Progress Note | | 1998 | Visit-Trans | MEDICINE | Clinic | | | | cribed | | | | +--------+ + + [...] documented as of this encounter Progress Notes Interface, Software Lead In - 10/21/2006 1:03 AM PSTCLINIC DATE: 07/18/1998 MULTIDISCIPLINARY BREAST CLINIC REFERRING PHYSICIAN: Unknown. CHIEF COMPLAINT: Breast mass. HISTORY OF THE PRESENT ILLNESS: This is a 8-year-old female who recently noticed a breast lump on one side. Her mother says that a physician in [place] was concerned with possible cancer and may require breast biopsy. The mother sought further advice in the Multidisciplinary Breast Clinic. Since that time, the daughter now complains of masses on both sides. She denies any tenderness, fevers, discharge, or skin changes. PAST MEDICAL HISTORY: Unremarkable. OBJECTIVE: GENERAL: Physical examination reveals a well-developed, friendly 8-year-old child. BREASTS: Bilateral normal breast buds with no axillary adenopathy and no evidence for malignancy. ASSESSMENT: Normal pubertal development in this 8-year-old female. The mother was counseled to not let anyone biopsy these masses and was reassured that this was normal development. PLAN: Education, as above. The patient is discharged from Breast Clinic at this time. The patient was examined by Dr. Aparicio, who agrees with this assessment and plan. Keisha Mcginnis M.D. Resident, General Surgery Shubham Aparicio M.D. Automated Equipment Engineer Technician, General Surgery Section of Surgical Oncology UGO/curtis cc: documente d in this encounter Plan of Treatment Not on filedocumented as of this encounter Visit Diagnoses Not on filedocumented in this encounter"
--- OUTSIDE RECORDS SUMMARY | ~2020-03-19 | XMS | Encounter Summary ---
Demographics + + + | Address | [address] | | | [place] [address] | + + + | Home Phone | | + + + | Preferred Language | Unknown | + + + | Marital Status | Single | + + + | Episcopal Affiliation | Unknown | + + + | Race | Unknown | + + + | Ethnic Group | Unknown | + + + Author + + + | Author | [facility] | | | and [place] | + + + | Organization | [facility] | | | [...] Team Providers + +------+ + | Care Turbo Electric Operator Name | Role | Phone | + +------+ + | Jerica Martinez | PCP | | + +------+ + Reason for Visit + + + | Reason | Comments | + + + | Back Pain | | + + + | Neuropathy | | + + + Encounter Details +--------+---------+ + + + | Date | Type | Department | Care Team | Description | +--------+---------+ + + + | 02/20/ | Office | [facility] | [place], | Idiopathic | | 2020 | Visit | HOSPITAL NEUROLOGY | Jax, COMPACTING MACHINE OPERATOR/TENDER [address] | peripheral | | | | CLINIC [address] | [address] [place], | neuropathy (Primary | | | | [address] [place], | [place] [address] | Dx); Lumbosacral | | | | [place] [address] | [phone] | radiculopathy; | | | | [phone] | | Fibromyalgia | +--------+---------+ + + [...] Instructions Patient Instructions Jax Black FNP - 02/21/2020 9:30 AM PDT General Neck and Back Pain [...] are taking other medicines. You may use rvca-nxw-xudykcx medicine to control pain, unless another pain [...] by your healthcare provider Date Last Reviewed: 04/10/201619996124-4175 [email or web address]. [address] [place] [address]. All righ ts reserved. This information is not intended as a substitute for professional medical care. Always follow your healthcare professional's instructions. documented in this encounter Progress Notes Jax Black, COMPACTING MACHINE OPERATOR/TENDER - 02/21/2020 9:30 AM PDT Patient: Linda Singleton Medical Record: [id number] Date of Services: 02/21/2020 Referring Doctor: MADHAV Domingo Chief Complaint: Chronic low back pain, fibromyalgia, peripheral neuropathy History of Present Illness: The patient presents to the Neurology Clinic today for follow u p. The patient has a long-standing history, greater [...] injecti on of the lumbar region done in November 2019 with significant relief of her symptoms. The patient reports that she's been taking gabapentin 300 mg 4 times daily to help with her neur opathic pain. She also has cyclobenzaprine 10 mg 3 times daily to help with continued muscl e spasms. She reports that using this regimen, her pain is very tolerable. The patient has previously tried physical therapy in the past without improvement of her symptoms. She als o had been following with a chiropractor without any improvement in her symptoms. [facility] also [facility] essential [facility], massage therapy, muscle [...] some of her neuropathic symptoms. The patient reports that she has been [...] having episodes that she does not remember. The patient had an EEG done in November 2019 which was within normal limits. It did not show any evidence of seizures. The patient's mother does have a history of epilepsy . The patient does have an appointment with Dr. Warren for sleep consult on February 28, 2020. Her symptoms will be further investigated at that time. Encounter Problem List Idiopathic peripheral neuropathy (Primary) Overview: Current Treatment:Gabapentin September 15, 2019: EMG/NCS: No evidence of peripheral neuropathy Lumbosacral radiculopathy Overview: September 15, 2018: EMG/NCS: No evidence of lumbosacral radiculopathy. Fibromyalgia Past Surgical History: Procedure Laterality Date DILATION AND CURETTAGE OF UTERUS ORTHOPEDIC SURGERY Right ankle repair TONSILLECTOMY Allergies Allergen Reactions Sulfa Antibiotics Nausea And Vomiting Sulfamethoxazole-Trimethoprim Anxiety "out of body experience." buprenorphine-naloxone busPIRone cyclobenzaprine diclofenac doxycycline ergocalciferol fluconazole fluticasone gabapentin HYDROcodone-acetaminophen hydrOXYzine pamoate lamoTRIgine levonorgestrel levothyroxine melatonin metoprolol succinate ondansetron spironolactone SUMAtriptan tamsulosin traZODone valACYclovir venlafaxine VENTOLIN HFA ziprasidone Review of Symptoms: CONSTITUTIONAL: [...] No depression or anxiety. Neurological Examination: Vitals: 02/21/20 0957 BP: 126/75 Pulse: 102 Resp: 16 Temp: 36.4 C (97.5 F) PainSc: 9 PainLoc: Hand Mental status: The patient is alert, attentive, [...] are intact. There is no dysmetria on mebogl-gh-dxzd and akha-qzkz-aphc. There are no abnormal or extraneous movements. Romberg is absent. Gait/Stance: Posture is normal. Gait is steady with normal steps, base, arm swing, and turning. Heel and toe walking with mild difficulty. Clinical Impression: ICD-10-CM ICD-9-CM 1. Idiopathic peripheral neuropathy G60.9 356.9 2. Lumbosacral radiculopathy M54.17 724.4 3. Fibromyalgia M79.7 729.1 Plan: Chronic low back pain: Continue taking gabapentin 300 mg 4 times daily to help with neuropa thic pain. The patient reports that trigger point injections to help her symptoms. However , due to recent injuries the patient will need to have surgery. Plan to delay additional tr igger point injections until after surgery. Continue taking Flexeril 10 mg 3 times daily as needed for muscle spasms. We also discussed home exercise and weight loss regimen Which ca n help her manage her chronic pain symptoms. [...] level of consciousness which occurred during sleep: EEG was negative fo r seizure activity or epileptiform discharges. The patient has a sleep consultation sched ed with Dr. Warren next week. Follow-up with Dr. Warren for additional help with characteri zation of spells. Plan to follow up in 3-4 months with me and next available with [...] [place] | | | | | | [address] | | | | | | | [...]
--- OUTSIDE RECORDS SUMMARY | ~2020-03-19 | XMS | Encounter Summary ---
Demographics + + + | Address | [address] | | | [place] [address] | + + + | Home Phone | | + + + | Preferred Language | Unknown | + + + | Marital Status | Single | + + + | Advent Affiliation | NON | + + + | Race | White | + + + | Ethnic Group | Not or | + + + Author + + + | Author | [facility] | + + + | Organization | [facility] | + + + | Address [...] Team Providers + +------+ + | Care Meat Hanger Name | Role | Phone | + +------+ + | No Pcp Per Patient | PCP | Unavailable | + +------+ + Reason for Visit + + + | Reason | Comments | + + + | New patient | right thumb | | consultation | | + + + Benefits Check (Urgent) + +--------+ + + + + | Status | Reason | Specialty | Diagnoses / | Referred By | Referred To | | | | | Procedures | Contact | Contact | + +--------+ + + + + | Authorized | | Orthopedics | Diagnoses | Non-[facility] | [facility] | | | | | Right thumb | Epic Dept | Melo Bronson MD | | | | | tumor | | [address] | | | | | | | [address] | | | | | | | [place], [place] | | | | | | | [address] | | | | | | | Phone: | | | | | | | [phone] | | | | | | | Fax: | | | | | | | [phone] | + +--------+ + + + + Encounter Details +--------+---------+ + + + | Date | Type | Department | Care Team | Description | +--------+---------+ + + + | 03/29/ | Office | Orthopaedics | Isael Champion, | Finger mass, right | | 2019 | Visit | [facility] at [place] | [address] | (Primary Dx); | | | | for Health and | [address] | Tobacco dependence | | | | Healing [address] | [place], [place] | due to cigarettes; | | | | Ave Mailcode: | [address] | Cigarette smoker | | | | [address] [facility] | [phone] | | | | | Health and Healing, | | | | | | [facility] | | | | | | Floor [place], [place] | | | | | | [address] | | | | | | [phone] | | | +--------+---------+ + + + Social History + +-------+ [...] + + + | Blood Pressure | 116/74 | 03/29/2019 7:58 AM | | | | | PDT | | + + + + + | Pulse | 86 | 03/29/2019 7:58 AM | | | | | PDT | | + + + + + | Temperature | 36.8 C (98.2 F) | 03/29/2019 7:58 AM | | | | | PDT [...] + + + + | Weight | 101.6 kg (224 lb) | 03/29/2019 7:58 AM | | | | | PDT | | + + + + + | Height | 170.2 cm (5' 7") | 03/29/2019 7:58 AM | | | | | PDT | | + + + + + | Body Mass Index | 35.08 | 03/29/2019 7:58 AM | | | | | PDT | | + + + + + documented in this encounter Progress Notes Nishi Bautista MA - 03/29/2019 8:00 AM PDTI fitted a thumb spica wrist brace on this patie nt s right wrist. 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 We will plan to proceed with an excisional biopsy and some degree of bony curettage. ----- Linda Singleton has an appointment in the orthopaedic oncology clinic today, 03/28/2019. She was kindly referred from by Dr Fraser from the [facility] ED for a Chief Concern of right rene mb possible tumor. HPI: Ms Singleton is a 28 year old woman who lives in the [facility] who is here for evaluation of her right thumb. She 4 months ago noticed a mass in her right thumb. Has been slowly nela wing. It is painful she went to urgent care and ED's for eval multiple times. She had a "la ncing" procedure initially with no improvement. She uses an aluminum finger splint. That he lps it prevent getting bumped which hurts. It seems to be hurting worse. No fevers or chil ls. Denies lumps or bumps elsewhere. Tobacco use about .5ppd. On 03/26 had local anaesthesia via digital block. Wound left open. No purulent material note d. She states pain has been worsening. It is very tender to touch, and when she bumps it sta jose luis she has pain radiating up to her shoulder. History obtained through patient and previous medical records. Previous medical records wer e reviewed and details are summarized. No past medical history on file. No past surgical history on file. Notes having depression bipolar and fibromyalgia. She had an ankle surgery fracture in 2013 2016, a D&C in 2009, and tonsillectomy in 1995. Allergies Allergies Allergen Reactions Sulfa (Sulfonamide Antibiotics) Nausea and Vomiting Medications Current Outpatient Medications: cephalexin (KEFLEX ORAL), Take by mouth., Disp: , Rfl: cyclobenzaprine 10 mg oral tablet, Take 10 mg by mouth., Disp: , Rfl: diclofenac 1 % topical gel, Apply to affected area four times daily as needed., Disp: 100 g , Rfl: 3 gabapentin 300 mg oral capsule, Take 300 mg by mouth., Disp: , Rfl: HYDROcodone-acetaminophen 5-325 mg oral tablet, Take by mouth., Disp: , Rfl: lamoTRIgine 200 mg oral tablet, Take 200 mg by mouth., Disp: , Rfl: traZODone 150 mg oral tablet, Take 150 mg by mouth., Disp: , Rfl: venlafaxine XR (EFFEXOR XR) 150 mg oral capsule,extended release 24hr, Take 250 mg by mouth ., Disp: , Rfl: ziprasidone (GEODON) 40 mg oral capsule, Take 40 mg by mouth., Disp: , Rfl: SH: Is single, lives in [facility], works in [employer], smokes half pack a day, and d enies other drug use. Family history: Family history of thyroid issues and cancer Review of systems A complete review of systems was performed, including the following: Constitutional Eyes Ears, nose mouth, throat Cardiovascular Respiratory Gastrointestinal Genitourinary Musculoskeletal Skin Neurologic General Health Hematologic or Lymphatic Allergic or immunologic For pertinent positives and negatives please refer to the patient's intake form which was r eviewed and signed by me. Was diffusely negative. Physical exam BP 116/74 (BP Location: Left upper arm, Patient Position: Sitting) | Pulse 86 | Temp 36.8 C (98.2 F) (Oral) | Ht 1.702 m (5' 7") | Wt 101.6 kg (224 lb) | BMI 35.08 kg/m | BSA 2.19 m Today s vital signs are noted as recorded by the [employer]. General: Alert, awake, and oriented x 3. No acute distress. Head, eyes, ears, nose, throat: Normocephalic, atraumatic. Extra-ocular muscles intact. No jugular venous distension. Chest: No increased work of breathing, no cyanosis, no wheezing. Focused Examination RUE: 2x2cm firm mass radial and proximal to the nail. Tender to touch. No cellulitis. Appears to have some involvement of the germinal matrix Finger warm and well perfused Decreased sensation to light touch radial distal thumb more so than the ulnar aspect, 30% a nd 60% compared to contralateral. Denies numbness in the dorsal first webspace and index pa d and small finger pad. No epitrochlear lymphadenopathy. Full elbow range of motion. Has active [employer] EPL but limited excursion due to pain. Imaging Xrays from 03/17/19 were interpreted by me, and show a dorsal soft tissue mass by nailbed MRI from 03/26/19 was not immediately available (is at [facility]) but report notes possible per iosteal chondroma. 1.2x1.2x1cm mass to level of IP joint with saucerization of underlying charo ne. Prominent peripheral contrast. CT scan from 03/17/19 was interpreted by me, and shows radial aspect of thumb lesion 1x1cm by 1.2cm craniocaudal, with some bony abutment and erosion. Not a typical appearance of an abs cess. Labs/pathology: 03/26/19 with WBC 8.5, Hct 40, Plt 408 Cr 0.86 CRP <0.4, ESR 16 INR 1.0 Assessment: Right thumb radial sided mass with a differential diagnosis including periostea l chondroma. Plan: I reviewed all clinical and imaging data with the patient today, and we discussed op tions for next steps. Recommend an excisional biopsy and likely partial curettage. This is to get a diagnosis but also should help with her pain and symptoms. We discussed risks and benefits of nonoperative management and surgical treatment options. We discussed excisional biopsy of the tumor in the operating theater. This will allow us als o a tissue diagnosis. A PARQ session was held, additional questions with discussion were com pleted. We also provided a cock-up wrist splint in clinic today for symptomatic control. Risks inc lude recurrence, small but nonzero risk of a malignant diagnosis for which we then recommend further surgery, which could even include a thumb amputation. Also would anticipate her re maining numb and parts of the thumb and there is also risk of damage to surrounding structur es including her nailbed. We also talked about the patient s tobacco use. I assessed current readiness to quit, adv ised that tobacco cessation is one of the best things for overall health, and discussed saleh iers. Additionally, tobacco use is a major risk factor for infection and other healing probl ems after surgery. Were the patient to quit smoking, even now, it could decrease these risks . I provided information about tobacco cessation resources, including nicotine replacement. We spent more than 3 minutes and less than 10 minutes in counseling. In the end, we decided on consideration of nicotine replacement as the next step. Follow-up: The patient should follow up for surgery. Imaging at next visit: none. Will get MRI pushed Please note - Dragon Dictation Software may be used in the creation of this note. While yessica cked, errors may still occur. Contact if questions/concerns. Isael Champion MD Systems Development Consultant, Orthopaedic Oncology [facility] | Department of Orthopaedics & Rehabilitation documented in this encounter Plan of Treatment Not on filedocumented as of this encounter Procedures + +--------+ + + + | Procedure Name | Priori | Date/Time | Associated Diagnosis | Comments | | | ty | | | | + +--------+ + + + | ORDERS OTHER | | 03/29/2019 | | Results for this | | | | 12:00 AM | | procedure are in the | | | | PDT | | results section. | + +--------+ + + + documented in this encounter Results ORDERS OTHER (03/29/2019 12:00 AM PDT) + + + | Narrative | Performed At | + + + | | | + + + documented in this encounter Visit Diagnoses + + | Diagnosis | + + | Finger mass, right - Primary Localized superficial swelling, mass, or lump | + + | Tobacco dependence due to cigarettes | + + | Cigarette smoker Tobacco use disorder | + + documented in this encounter
--- OUTSIDE RECORDS SUMMARY | ~2020-03-19 | XMS | Encounter Summary ---
Demographics + + + | Address | [address] | | | [place] [address] | + + + | Home Phone | | + + + | Preferred Language | Unknown | + + + | Marital Status | Single | + + + | Catholic Affiliation | Unknown | + + + | Race | Unknown | + + + | Ethnic Group | Unknown | + + + Author + + + | Author | [facility] | | | and [place] | + + + | Organization | [facility] | | | [...] Team Providers + +------+ + | Care Feed Mixer Helper Name | Role | Phone | [...] | | | | | | [place] [address] | | | | | | [phone] | | | +--------+ + + + [...] [place] | | | | | | [address] | | | | | | | | +--------+---------+ + + + documented as of this encounter Visit Diagnoses Not on filedocumented in this encounter"
--- OUTSIDE RECORDS SUMMARY | ~2020-03-19 | XMS | Encounter Summary ---
Demographics + + + | Address | [address] | | | [place] [address] | + + + | Home Phone [...] Team Providers + +------+ + | Care Landscape Management Technician Name | Role | Phone | [...]
--- OUTSIDE RECORDS SUMMARY | ~2020-03-19 | XMS | Encounter Summary ---
Demographics + + + | Address | [address] | | | [place] [address] | + + + | Home Phone | | + + + | Preferred Language | Unknown | + + + | Marital Status | Single | + + + | Yazdanism Affiliation | Unknown | + + + | Race | Unknown | + + + | Ethnic Group | Unknown | + + + Author + + + | Author | [facility] | | | and [place] | + + + | Organization | [facility] | | [...] Team Providers + +------+ + | Care Dyslexia Teacher Name | Role | Phone | + +------+ + | No, Physician | PCP | Unavailable | + +------+ + Encounter Details +--------+ + + + + | Date | Type | Department | Care Team | Description | +--------+ + + + + | 03/26/ | Emergency | [facility] | Alejo Marino | Periosteal chondroma | | 2019 | | MEDICAL CENTER | DO [address] | | | | | EMERGENCY CENTER | [address] [place], [place] | | | | | [address] [facility] | [address] | | | | | [place], [place] | | | | | | [address] | | | | | | [phone] | | | +--------+ + + + [...] [place] | | | | | | [address] | | | | | | | [...] mass is mildly hyperintense to muscle on [id number] with | | prominent predominant peripheral enhancement. [...] - 1.030 | EXTERNAL | | | [place], | | | LAB | | | [...] | | | Urine | performed at [facility] [place] | | LAB | | | | [address];[place] | | | | | | [address] | | | | + + + [...] | | | Ur | performed at [facility] [place];[address] | | LAB | | | | [address];[place], [place] | | | | | | [address] | | | | + + + [...] EXTERNAL | | | | performed at [facility] [place];888 | mmol/L | LAB | | | | [address];[place], [place] | | | | | | [address] | | | | + + + [...] EXTERNAL | | | | performed at [facility] [place];[address] | | LAB | | | | [address];[place], [place] | | | | | | [address] | | | | + + + [...] | | | Basophils | performed at [facility] [place];[address] | K/uL | LAB | | | | [address];[place], [place] | | | | | | [address] | | | | + + + [...] EXTERNAL | | | | performed at [facility] [place];[facility] | | LAB | | | | [facility];[place], [place] | | | | | | [address] | | | | + + + [...] | | | | | performed at [facility] [place];[address] | | | | | | [address];[place], [place] | | | | | | [address] | | | | + + + [...]
--- OUTSIDE RECORDS SUMMARY | ~2020-03-19 | XMS | Encounter Summary ---
Demographics + + + | Address | [address] | | | [place] [address] | + + + | Home Phone | | + + + | Preferred Language | Unknown | + + + | Marital Status | Single | + + + | Lutheran Affiliation | NON | + + + [...] Team Providers + +------+ + | Care Leather Grader Name | Role | Phone | + [...] | | 2019 | | [facility] at [facility] | [address] | | | | | for [facility] and | [address] | | | | | [place] [address] | [facility] [place] | | | | | Ave Mailcode: | [address] | | | | | [address] [facility] | [phone] | | | | | Health and Healing, | | | | | | [facility] | | | | | | [place], [place] | | | | | | [address] | | | | | | [phone] | | | +--------+ + + + [...]
--- OUTSIDE RECORDS SUMMARY | ~2020-03-19 | XMS | Encounter Summary ---
Demographics + + + | Address | [address] | | | [place] [address] | + + + | Home Phone [...] Team Providers + +------+ + | Care Injection Molding Machine Offbearer Name | Role | Phone | + [...] | | | CLINIC [address] | [address] | | | | | [address] [place], | [place] [address] | | | | | [place] [address] | [phone] | | | | | [phone] | | | +--------+ + + + [...] [place] | | | | | | [address] | | | | | | | [...]
--- OUTSIDE RECORDS SUMMARY | ~2020-03-19 | XMS | Encounter Summary ---
Demographics + + + | Address | [address] | | | [place] [address] | + + + | Home Phone [...] Author + + + | Author | [facility] | + + + | Organization | [facility] | + + + | Address [...] Team Providers + +------+ + | Care Chief Psychologist Name | Role | Phone | + [...] | | 2019 | | Surgery at [facility] [address] | Kev Ashton MD [address] | request) | | | | [address] | [address] [place], | | | | | Mailcode: [id number] | [place] [address] | | | | | [facility] | [phone] | | | | | and Healing, | | | | | | Building [address], | | | | | | Floor [place], [place] | | | | | | [address] | | | | | | [phone] | | | +--------+ + + + [...]
--- OUTSIDE RECORDS SUMMARY | ~2020-03-19 | XMS | Encounter Summary ---
Demographics + + + | Address | [address] | | | [place] [address] | + + + | Home Phone [...] + + + | Author | [facility] | | | and [place] | + + + | Organization | [facility] | | | and [...] Team Providers + +------+ + | Care Service Crew Supervisor Name | Role | Phone | + [...] + + + | Closed | | Radiology | Diagnoses | Gonzalez | Kelly Echo | | | | | Other | Misael | [address] | | | | | restrictive | MD [place] | [place], | | | | | cardiomyopat | [address] | [place] | | | | | hy (HCC) | Commercial | [address] | | | | | Procedures | [address] | Phone: | | | | | ECHO Stress | [address], | [phone] | | | | | Test | [place] | Fax: | | | | | Exercise [place] | [address] | [phone] | | | | | ECHO HEART | Phone: | | | | | | XTHORACIC, | [phone] | | | | | | STRESS/REST | Fax: | | | | | | [place] CV STRS | [phone] | | | | | | TST XERS&/OR | | | | | | | RX CONT ECG | | | | | | | W/O I&R [place] | | | | | | | CARDIAC | | | | | | | STRESS | | | | | | | TST,TRACING | | | | | | | ONLY [place] | | | | | | | CARDIAC | | | | | | | STRESS | | | | | | | TST,INTERP/R | | | | | | | EPT ONLY | | | +--------+--------+ + + + + Encounter Details +--------+ + + + + | Date | Type | Department | Care Team | Description | +--------+ + + + + | 09/27/ | Transcribed | [facility] [place] | Misael Roth | Other restrictive | | 2018 | Orders | CARDIOLOGY [address] | [address] | cardiomyopathy (HCC) | | | | [place], | [address] | | | | | [place] [address] | [address] | | | | | [phone] | [address] | | | | | | [phone] | | | | | | | [...] 2020 | Visit | | [address] | | | | | | [place] | | | | | | [id number] | | | | | | | | +--------+---------+ + + + + + +--------+ + + | Name | Type | Priori | Associated Diagnoses | Order Schedule | | | | ty | | | + + +--------+ + + | ECHO Stress Test | Echocardiog | Routin | Other restrictive | Expected: | | Exercise | aria | e | cardiomyopathy (HCC) | 09/27/2018, Expires: | | | | | | 09/27/2019 | + + +--------+ + + documented as of this encounter Visit Diagnoses + + | Diagnosis | + + | Other restrictive cardiomyopathy (HCC) | + + documented in this encounter"
--- OUTSIDE RECORDS SUMMARY | ~2020-03-19 | XMS | Encounter Summary ---
Demographics + + + | Address | [address] | | | [place] [address] | + + + | Home Phone [...] + + + | Author | [facility] | + + + | Organization | [facility] | + + + | Address | Unknown | + + + | Phone | Unavailable | + + + Support + + + + + | Name | Relationship | Address | Phone | + + + + + | Collette [place] | [place] | [place] | | + + + + + Care Team Providers + +------+ + | Care Video Journalist Name | Role | Phone | + [...] | | | Rd [address] | [address] [facility] [address] [facility] [address] | [place] | | | | Hospital Admitting | [place], [place] | | | | | Desk Located on the | [address] | | | | | 9th floor | [phone] | | | | | [place], [place] | | | | | | [address] | | | +--------+---------+ + + + [...] 04/06/2019 | | Attending Surgeon:Isael Champion MD Tinsmith Apprentice(s):Kev Strickland, | | Munir Pinon MD Preoperative [...] | | bluntly dissected off with a [place] and lesion grossly removed. I also used a rongeur | | to milk pickup driver some additional slightly abnormal-looking tissue. Once the [...] 04/06/2019 | | 10:12:33DT: 04/06/2019 10:42:16Job #: [id number] | |I, Isael Champion, was present and scrubbed for the entire procedure. | | | |Counts were correct at the end. | | | | | | | |Isael Champion MD | |DIANE/[place] | | | | | | /[id number] | + + SURGICAL PATHOLOGY (04/06/2019 9:56 [...] PathologistPathology, | | | | | | [facility] | | | | | | University [...] | | | | | | number [id number].A. | | | | | | Hand, [...] | + + + + + | [facility] | [address] | [place] [address] | | | PATHOLOGY | [address] [...] [place] | [address] | [place], [place] | | | [place] | [address] | [address] | | | TESTS | | | [...] PDT | | | | | Starting [facility] 04/06/19 at 0817, | | | | | | | Until [facility] 04/06/19 at 0900 | | | | | | + +--------+ + +------+------+ + +---+ | | | + +---+ | acetaminophen (TYLENOL) tablet | | | 1 dose, Starting [facility] 04/06/19 at | | | 0819, Until [facility] 04/06/19 at 0900 | | + +---+ | | | + +---+ | fentaNYL (SUBLIMAZE) injection | | | 25-50 mcg 25-50 mcg, | | | intravenous, POSTPROCEDURE PRN, 8 | | | doses, Starting [facility] 04/06/19 at | | | 0948, Until [facility] 04/06/19 at 1718, | | | severe [...] PDT | | | | | Starting [facility] 04/06/19 at 0817, | | | | | | | Until [facility] 04/06/19 at 0901 | | | | | | + +-------+ +--------+---+---+ + +---+ | | | + +---+ | gabapentin (NEURONTIN) capsule | | | 1 dose, Starting [facility] 04/06/19 at | | | 0820, Until [facility] 04/06/19 at 0901 | | + +---+ | | | + +---+ + +-------+ +---------+---+---+ | HYDROcodone-acetaminophen | Given | 04/06/20 | 2 | | | | (NORCO) 5-325 mg tablet 1-2 | | 19 10:31 | tablets | | | | tablet 1-2 tablet, oral, EVERY 4 | | AM PDT | | | | | HOURS NEEDED, Starting [facility] | | | | | | | 04/06/19 at 1021, Until [facility] | | | | | | | 04/06/19 at 1718, moderate pain | | | | | | + +-------+ +---------+---+---+ + +---+ | | | + +---+ | HYDROcodone-acetaminophen | | | (NORCO) 5-325 mg tablet 1 dose, | | | Starting [facility] 04/06/19 at 1025, | | | Until [facility] 04/06/19 at 1031 | | + +---+ | | | + +---+ + +-------+ +--------+---+---+ | HYDROmorphone (DILAUDID) | Given | 04/06/20 | 0.5 mg | | | | injection 0.2-0.5 mg 0.2-0.5 mg, | | 19 10:40 | | | | | intravenous, POSTPROCEDURE PRN, | | AM PDT | | | | | Starting [facility] 04/06/19 at 0948, | | | | | | | Until [facility] 04/06/19 at 1718, | | | | [...] | | | PRN, 1 dose, Starting [facility] 04/06/19 | | | at 0948, Until [facility] 04/06/19 at | | | 1718, nausea/vomiting, 1st line | | + +---+ | | | + +---+ documented in this encounter
--- OUTSIDE RECORDS SUMMARY | ~2020-03-19 | XMS | Encounter Summary ---
Demographics + + + | Address | [address] | | | [place] [address] | + + + | Home Phone [...] + + + | Author | [facility] | | | and [place] | + + + | Organization | [facility] | | [...] Team Providers + +------+ + | Care Leasing Coordinator Name | Role | Phone | [...] | | | | CENTER [address] | [address] [place] | (Primary Dx) | | | | [place], [place] | [place] [address] | | | | | [address] | [phone] | | | | | [phone] | | | +--------+ + + + [...] be sent through Care Everywhere.Abdominal Pain, Adult (Polish)documented in this encounter Medications at Time of [...] [place] | | | | | | [address] | | | | | | | [...] - 1.030 | [facility] | | | [place], | | | [facility] | | [...] [address] | [place] | [phone] | | [facility] | | [address] | | | - LABORATORY | | [...] + | [facility] | [address] | [place] | [phone] | | [facility] | | [address] | | | - LABORATORY | | [...] [address] | [place] | [phone] | | [facility] | | [address] | | | - LABORATORY | | [...] | [employer] | | | [facility] | | | | | | MEDICAL [...] [address] | [place] | [phone] | | [facility] | | [address] | | | - LABORATORY | | [...] + | [facility] | [address] | [place] | [phone] | | [facility] | | [address] | | | - LABORATORY | | [...] + | [facility] | [address] | [place] | [phone] | | [facility] | | [address] | | | - LABORATORY | | [...] mL/min/1.73m2 | [facility] | | | [place] | RATE,ESTIMATED | | MEDICAL | | | | mL/min/1.63k2Ksuf than | | CENTER - | | [...] + | [facility] | [address] | [place] | [phone] | | [facility] | | [address] | | | - LABORATORY | | [...] [address] | [place] | [phone] | | [facility] | | [address] | | | - LABORATORY | | [...]
--- OUTSIDE RECORDS SUMMARY | ~2020-03-19 | XMS | Encounter Summary ---
Demographics + + + | Address | [address] | | | [place] [address] | + + + | Home Phone | | + + + | Preferred Language | Unknown | + + + | Marital Status | Single | + + + | Yazidism Affiliation | Unknown | + + + | Race | Unknown | + + + | Ethnic Group | Unknown | + + + Author + + + | Author | [facility] | | | and [place] | + + + | Organization | [facility] | | [...] Team Providers + +------+ + | Care Customer Advocacy Manager Name | Role | Phone | [...] | visit | HOSPITAL NEUROLOGY | Jax, CEO & BOARD DIRECTOR [address] | consciousness | | | | CLINIC [address] | [address] [place], | (Primary Dx); | | | | [address] [place], | [place] [address] | Lumbosacral | | | | [place] [address] | [phone] | radiculopathy; | | | | [phone] | | Chronic bilateral | | | [...] | + +--------+ + + + | [place] INJECT TRIGGER | Routin | 09/19/2019 | [...]
--- OUTSIDE RECORDS SUMMARY | ~2020-03-19 | XMS | Encounter Summary ---
Demographics + + + | Address | [address] | | | [place] [address] | + + + | Home Phone [...] | Author | [facility] | | | and [place] | + + + | Organization | [facility] | | | and [...] Team Providers + +------+ + | Care Occupational Therapy Program Director Name | Role | Phone | + [...] 2020 | | HOSPITAL NEUROLOGY | Jax, WAX CUTTER [address] | | | | | CLINIC [address] | [address] [place], | | | | | [address] [place], | [place] [address] | | | | | [place] [address] | [phone] | | | | | [phone] | | | +--------+ + + + [...] [place] | | | | | | [address] | | | | | | | | +--------+---------+ + + + documented as of this encounter Visit Diagnoses Not on filedocumented in this encounter"
--- OUTSIDE RECORDS SUMMARY | ~2020-03-19 | XMS | Encounter Summary ---
Demographics + + + | Address | [address] | | | [place] [address] | + + + | Home Phone | | + + + | Preferred Language | Unknown | + + + | Marital Status | Single | + + + | Pentecostal Affiliation | Unknown | + + + [...] Team Providers + +------+ + | Care Trustee Of Estate Name | Role | Phone | [...] Description | +--------+--------+ + + + | 12/10/ | Refill | [facility] [facility] | Seven Johns MD | Medication Refill | | 2019 | | HOSPITAL NEUROLOGY | [address] [place] | | | | | CLINIC [address] | [place], [place] | | | | | [address] [place], | [address] | | | | | [place] [address] | | | | | | [phone] | | | +--------+--------+ + + + [...] [place] | | | | | | [address] | | | | | | | | +--------+---------+ + + + documented as of this encounter Visit Diagnoses Not on filedocumented in this encounter"
--- OUTSIDE RECORDS SUMMARY | ~2020-03-19 | XMS | Encounter Summary ---
Demographics + + + | Address | [address] | | | [place] [address] | + + + | Home Phone | | + + + | Preferred Language | Unknown | + + + | Marital Status | Single | + + + | Mormon Affiliation | Unknown | + + + [...] Team Providers + +------+ + | Care Motorcycle Police Name | Role | Phone | + [...] | Visit | HOSPITAL NEUROLOGY | Jax, ORDER BOOKER [address] | peripheral | | | | CLINIC [address] | [address] [place], | neuropathy (Primary | | | | [place], | [place] [address] | Dx); Lumbosacral | | | | [place] [address] | [phone] | radiculopathy; | | | | [phone] | | Fibromyalgia | +--------+---------+ + + [...] are taking other medicines. You may use uudk-zet-psqwuae medicine to control pain, unless another pain [...] by your healthcare provider Date Last Reviewed: 04/10/201619999381-1382 [employer]. [address] [place] [address]. All righ ts reserved. This information is not intended as a substitute for professional medical care. Always follow your healthcare professional's instructions. documented in this encounter Progress Notes Jax Black, ORDER BOOKER - 02/21/2020 9:30 AM PDT Patient: Linda Singleton Medical Record: [id number] Date of Services: 02/21/2020 Referring Doctor: MADHAV [...] without any improvement in her symptoms. [facility] also uses essential oils, massage [...] are intact. There is no dysmetria on etcgcj-mx-rtcg and ywma-bfca-katn. There are no abnormal or extraneous movements. [...] [place] | | | | | | [address] | | | | | | | [...]
--- OUTSIDE RECORDS SUMMARY | ~2020-03-19 | XMS | Encounter Summary ---
Demographics + + + | Address | [address] | | | [place] [address] | + + + | Home Phone | | + + + | Preferred Language | Unknown | + + + | Marital Status | Single | + + + | Denominational Affiliation | NON | + + + | Race | White | + + + | Ethnic Group | Not or | + + + Author + + + | Author | [facility] | + + + | Organization | [facility] | + + + | [...] Team Providers + +------+ + | Care Welder Plasma Arc Name | Role | Phone | + [...] | 2019 | Visit | Medical at [facility] [address] | Surgical [address] | examination (Primary | | | | [address] | [address] | Dx) | | | | Mailcode: CH16D | Road [place], [place] | | | | | [facility] | [address] | | | | | and [place], | | | | | | Building | | | | | | Floor [place], [place] | | | | | | [address] | | | | | | [phone] | | | +--------+---------+ + + + [...]
--- OUTSIDE RECORDS SUMMARY | ~2020-03-19 | XMS | Encounter Summary ---
Demographics + + + | Address | [address] | | | [place] [address] | + + + | Home Phone | | + + + | Preferred Language | Unknown | + + + | Marital Status | Single | + + + | Moravian Affiliation | Unknown | + + + | Race | Unknown | + + + | Ethnic Group | Unknown | + + + Author + + + | Author | [facility] | | | and [place] | + + + | Organization | [facility] | | [...] Team Providers + +------+ + | Care Patrol Man Name | Role | Phone | [...] | | | DR [place], | [address] | | | | | [place] [address] | | | | | | [phone] | | | +--------+ + + + [...] [place] | | | | | | [address] | | | | | | | | +--------+---------+ + + + documented as of this encounter Visit Diagnoses + + | Diagnosis | + + | Chronic migraine - Primary Chronic migraine without aura, without mention of | | intractable migraine without mention of status migrainosus | + + documented in this encounter"
--- OUTSIDE RECORDS SUMMARY | ~2020-03-19 | XMS | Encounter Summary ---
Demographics + + + | Address | [address] | | | [place] [address] | + + + | Home Phone | | + + + | Preferred Language | Unknown | + + + | Marital Status | Single | + + + | Nondenominational Affiliation | NON | + + + | Race | White | + + + | Ethnic Group | Not or | + + + Author + + + | Author | [facility] | + + + | Organization | [facility] | + + + | Address [...] Providers + +------+ + | Care Senior Label Specialist Name | Role | Phone | [...] [facility] | | | | | | [address] | | | | | | Loop Physician's | | | | | | [place], [address]th Floor | | | | | | [place], [place] | | | | | | [address] | | | | | | [phone] | | | +--------+ + + + [...]
--- OUTSIDE RECORDS SUMMARY | ~2020-03-19 | XMS | Encounter Summary ---
Demographics + + + | Address | [address] | | | [place] [address] | + + + | Home Phone | | + + + | Preferred Language | Unknown | + + + | Marital Status | Single | + + + | Jain Affiliation | NON | + + + [...] Team Providers + +------+ + | Care Rn Clinical Resource Name | Role | Phone | + [...] | | | | cell cancer | [address] | Kev Ashton MD | | | | | of skin of | [address] | [address] | | | | | finger, | [address] | Ave | | | | | right | [place], [place] | [place], [place] | | | | | Procedures | [address] | [address] | | | | | CONSULT TO | Phone: | Phone: | | | | | [facility] | [phone] | [phone] | | | | | SURGERY AL | Fax: | Fax: | | | | | MOHS,1 | [phone] | [phone] | | | | | STAGE,H/N/HF | | | | | | | /G AL MOHS | | | | | | | ADDL STAGE | | | | | | | AL MOHS | | | | | | | SURG, ADDL | | | | | | | BLOCK AL | | | | | | | REPR CMPL | | | | | | | WND | | | | | | | HEAD,FAC,SMILEY | | | | | | | D 1.1-2.5 | | | | | | | AL REPR CMPL | | | | | | | WND | | | | | | | HEAD,FAC,SMILEY | | | | | | | D 2.6-7.5 | | | | | | | AL | | | | | | | REP,FACE,GEN | | | | | | | ITAL,HAND,FT | | | | | | | +5CM/< AL | | | | | | | ADJ TISS | | | | | | | XFER | | | | | | | HEAD,FAC,SMILEY | | | | | | | D <10SQCM | | | | | | | AL ADJ TISS | | | | | | | XFER | | | | | | | HEAD,FAC,SMILEY | | | | | | | D 10.1-30 | | | | | | | AL SKIN | | | | | | | TISSUE | | | | | | | REARRANGEMEN | | | | | | | T AL SKIN | | | | | | | TISSUE | | | | | | | REARRANGEMEN | | | | | | | T ADD-ON AL | | | | | | | SPLIT | | | | | | | GRFT,HEAD,FA | | | | | | | C,HAND,FEET | | | | | | | <100CM AL | | | | | | | FULL THICK | | | | | | | GRFT | | | | | | | HEAD,FAC,SMILEY | | | | | | | D <20SQC AL | | | | | | | FULL THICK | | | | | | | GRFT | | | | | | | HEAD,FAC,MAX | | | | | | | ADD 20SQ AL | | | | | | | FORM SKIN | | | | | | | PEDICLE FLAP | | | | | | | | | | | | | | FACE,GEN,SMILEY | | | | | | | D AL | | | | | | | [...] | and other | [address] | [place], [place] | | | | | soft tissue | Nw | [address] | | | | | Neoplasm of | [place], | Phone: | | | | | uncertain | [place] [address] | [phone] | | | | | behavior of | Phone: | Fax: | | | | | bone and | [phone] | [phone] | | | | | articular | Fax: | | | | | | cartilage | [phone] | | | | | | Procedures | | | | | | | REQUEST TO | | | | | | | SURGERY | | | | | | | WINCH TRUCK OPERATOR | | | | | | | AL EXCIS | | | | | | | SOFT TISSUE | | | | | | | LESION HAND | | | | | | | DEEP AL EXC | | | | | | | HAND TURN | | | | | | | DEEP>1.5CM | | | | | | | AL EXCIS | | | | | | | BENIGN BONE | | | | | | | LESN,PHALANX | | | | | | | AL PART | | | | | | | REMV | | | | | | | BONE,PROX/SD | | | | | | | D PHALANX | | | | | | | AL PART REMV | | | | | [...] | 2019 | Visit | [facility] at [facility] | Alvina Goldberg PA-C [address] | (Primary Dx); | | | | for Health and | [address] | Squamous cell cancer | | | | Healing [address] | [place], [place] | of skin of finger, | | | | Ave Mailcode: | [address] | right | | | | [facility] | [phone] | | | | | Health and Healing, | | | | | | [facility] | | | | | | Floor [place], [place] | | | | | | [address] | | | | | | [phone] | | | +--------+---------+ + + + [...] next visit. ALVINA DAILEY PA-C ORTHOPAEDICS AT [facility] [address] Mailcode: [facility] [place] [address] Associated attestation - Isael Champion [...]
--- OUTSIDE RECORDS SUMMARY | ~2020-03-19 | XMS | Encounter Summary ---
Demographics + + + | Address | [address] | | | [place] [address] | + + + | Home Phone [...] Author + + + | Author | [facility] | + + + | Organization | [facility] | + + + | Address [...] Team Providers + +------+ + | Care Gluing Machine Operator Name | Role | Phone [...] Rd | | | | | [facility] | [place], [place] | | | | | Health and Healing, | [address] | | | | | | [phone] | | | | | Floor [place], [place] | | | | | | [address] | | | | | | [phone] | | | +--------+ + + + [...]
--- OUTSIDE RECORDS SUMMARY | ~2020-03-19 | XMS | Encounter Summary ---
Demographics + + + | Address | [address] | | | [place] [address] | + + + | Home Phone [...] Team Providers + +------+ + | Care Ux Developer Name | Role | Phone | + +------+ + | No Pcp Per Patient | PCP | Unavailable | + +------+ + Encounter Details +--------+ + + + + | Date | Type | Department | Care Team | Description | +--------+ + + + + | 04/20/ | MyChart | Orthopaedics | Isael Champion, | new symptoms | | 2019 | Encounter | [facility] at [facility] | [address] | | | | | for Health and | [address] | | | | | Healing [address] | [facility] [place] | | | | | Ave Mailcode: | [address] | | | | | [facility] | [phone] | | | | | Health and Healing, | | | | | | | | | | | | Floor [place], [place] | | | | | | [address] | | | | | | [phone] | | | +--------+ + + + [...]
--- OUTSIDE RECORDS SUMMARY | ~2020-03-19 | XMS | Encounter Summary ---
Demographics + + + | Address | [address] | | | [place] [address] | + + + | Home Phone [...] Team Providers + +------+ + | Care Dental Technology Advisor Name | Role | Phone | + [...] | | JOVON TRIMBLE | [address] [place], | | | | | [place], [place] | [place] [address] | | | | | [address] | [phone] | | | | | [phone] | | | +--------+ + + + [...] [place] | | | | | | [address] | | | | | | | [...]
--- OUTSIDE RECORDS SUMMARY | ~2020-03-19 | XMS | Encounter Summary ---
Demographics + + + | Address | [address] | | | [place] [address] | + + + | Home Phone | | + + + | Preferred Language | Unknown | + + + | Marital Status | Single | + + + | Worship Affiliation | NON | + + + | Race | White | + + + | Ethnic Group | Not or | + + + Author + + + | Author | [facility] | + + + | Organization | [facility] | + + + | Address [...] Team Providers + +------+ + | Care Top Distribution Executive Name | Role | Phone | + [...] at | | | | | | [facility] | | | | | | [address] | | | | | | Mail Code: OC8PM | | | | | | [facility] | | | | | | and Healing, | | | | | | [address] | | | | | | [place], [place] | | | | | | [address] | | | | | | [phone] | | | +--------+ + + + [...] your procedure. Surgery Check in Locations Admitting [facility], ninth floor [facility] Surgery Check in Time: Someone from your surgeon's office or [facility] hospital will provide you with information [...] it is after office hours, call the [facility] roller mill operator at [phone] and ask them to page your doc tor. documented in this encounter Plan of Treatment Not on filedocumented as of this encounter Visit Diagnoses Not on filedocumented in this encounter"
--- OUTSIDE RECORDS SUMMARY | ~2020-03-19 | XMS | Encounter Summary ---
Demographics + + + | Address | [address] | | | [place] [address] | + + + | Home Phone [...] + + + | Author | [facility] | + + + | Organization | [facility] | + + + | [...] Team Providers + +------+ + | Care Station Baggage Agent Name | Role | Phone | [...] | | 2019 | | [facility] at [place] | [address] | | | | | for Health and | [address] | | | | | Healing [address] | [facility] [place] | | | | | Ave Mailcode: | [address] | | | | | [address] [facility] | [phone] | | | | | Health and Healing, | | | | | | | | | | | | Floor [place], [place] | | | | | | [address] | | | | | | [phone] | | | +--------+ + + + [...]
--- OUTSIDE RECORDS SUMMARY | ~2020-03-19 | XMS | Encounter Summary ---
Demographics + + + | Address | [address] | | | [place] [address] | + + + | Home Phone | | + + + | Preferred Language | Unknown | + + + | Marital Status | Single | + + + | Muslim Affiliation | NON | + + + | Race | White | + + + | Ethnic Group | Not or | + + + Author + + + | Author | [facility] | + + + | Organization | [facility] | + + + | Address [...] Team Providers + +------+ + | Care Metal Patternmaker Apprentice Name | Role | Phone | + +------+ + | No Pcp Per Patient | PCP | Unavailable | + +------+ + Encounter Details +--------+ + + + + | Date | Type | Department | Care Team | Description | +--------+ + + + + | 06/26/ | Pharmacy | [facility] | | | | 2019 | Visit | & [facility] Pharmacy | | | | | | [address] | | | | | | Mailcode: [place] | | | | | | [facility] and | | | | | | Healing, [address] | | | | | | [place], [place] | | | | | | [address] | | | | | | [phone] | | | +--------+ + + + [...]
--- OUTSIDE RECORDS SUMMARY | ~2020-03-19 | XMS | Encounter Summary ---
Demographics + + + | Address | [address] | | | [place] [address] | + + + | Home Phone [...] Team Providers + +------+ + | Care Asp Net C Developer Name | Role | Phone | [...] | | 2019 | | Surgery at [facility] [address] | Kev Ashton MD [address] | request) | | | | [address] | [address] [place], | | | | | Mailcode: CH16D | [place] [address] | | | | | [facility] | [phone] | | | | | and Healing, | | | | | | Building [address], | | | | | | Floor [place], [place] | | | | | | [address] | | | | | | [phone] | | | +--------+ + + + [...]
--- OUTSIDE RECORDS SUMMARY | ~2020-03-19 | XMS | Encounter Summary ---
Demographics + + + | Address | [address] | | | [place] [address] | + + + | Home Phone | | + + + | Preferred Language | Unknown | + + + | Marital Status | Single | + + + | Caodaism Affiliation | NON | + + + [...] Team Providers + +------+ + | Care News Operations Manager Name | Role | Phone | [...]
--- OUTSIDE RECORDS SUMMARY | ~2020-03-19 | XMS | Encounter Summary ---
Demographics + + + | Address | [address] | | | [place] [address] | + + + | Home Phone [...] Author + + + | Author | [facility] | + + + | Organization | [facility] | + + + | Address [...] Team Providers + +------+ + | Care Booth Manager Name | Role | Phone | [...] | 2019 | Encounter | [facility] | [address] | | | | | for Health and | [address] | | | | | Healing [address] | [facility] [place] | | | | | Ave Mailcode: | [address] | | | | | [address] [facility] | [phone] | | | | | Health and Healing, | | | | | | | | | | | | Floor [place], [place] | | | | | | [address] | | | | | | [phone] | | | +--------+ + + + [...]
--- OUTSIDE RECORDS SUMMARY | ~2020-03-19 | XMS | Encounter Summary ---
Demographics + + + | Address | [address] | | | [place] [address] | + + + | Home Phone [...] Team Providers + +------+ + | Care Storage Facility Rental Clerk Name | Role | Phone | + +------+ + | No Pcp Per Patient | PCP | Unavailable | + +------+ + Encounter Details +--------+ + + + + | Date | Type | Department | Care Team | Description | +--------+ + + + + | 03/29/ | Telephone | Orthopaedics | Isael Champion, | | | 2019 | | [facility] at [facility] | [address] | | | | | for Health and | [address] | | | | | Healing [address] | [facility] [place] | | | | | Ave Mailcode: | [address] | | | | | [address] [facility] | [phone] | | | | | Health and Healing, | | | | | | | | | | | | Floor [place], [place] | | | | | | [address] | | | | | | [phone] | | | +--------+ + + + [...]
--- OUTSIDE RECORDS SUMMARY | ~2020-03-19 | XMS | Encounter Summary ---
Demographics + + + | Address | [address] | | | [place] [address] | + + + | Home Phone [...] Team Providers + +------+ + | Care Candle Molder Machine Name | Role | Phone | + [...] as of this encounter Progress Notes Interface, Manual Lathe Machinist In - 10/21/2006 1:03 AM PSTCLINIC DATE: 07/18/1998 MULTIDISCIPLINARY BREAST CLINIC REFERRING PHYSICIAN: Unknown. CHIEF COMPLAINT: Breast mass. HISTORY OF THE PRESENT ILLNESS: This is a 8-year-old female who recently noticed a breast lump on one side. Her mother says that a physician in [place] was concerned with possible cancer and may [...] M.D. Resident, General Surgery Shubham Aparicio M.D. Clerk Secretary, General Surgery Section of Surgical Oncology UGO/curtis cc: documente d in this encounter Plan of Treatment Not on filedocumented as of this encounter Visit Diagnoses Not on filedocumented in this encounter"
--- OUTSIDE RECORDS SUMMARY | ~2020-03-19 | XMS | Encounter Summary ---
Demographics + + + | Address | [address] | | | [place] [address] | + + + | Home Phone [...] + + + | Author | [facility] | + + + | Organization | [facility] | + + + | Address [...] +------+ + | Care Commercial Real Estate Attorney Name | Role | Phone | + [...] | | | | | [facility] | | | | | | Hospital Admitting | | | | | | Desk Located on the | | | | | | 9th floor | | | | | | [place], [place] | | | | | | [address] | | | +--------+ + + + [...]
--- OUTSIDE RECORDS SUMMARY | ~2020-03-19 | XMS | Encounter Summary ---
Demographics + + + | Address | [address] | | | [place] [address] | + + + | Home Phone [...] Team Providers + +------+ + | Care Fleecer Name | Role | Phone | + [...] | | 2019 | | [facility] at [facility] | Clinic | | | | | for Health and | | | | | | Healing [address] | | | | | | Ave Mailcode: | | | | | | [facility] | | | | | | Health and Healing, | | | | | | [facility] | | | | | | Floor [place], [place] | | | | | | [address] | | | | | | [phone] | | | +--------+ + + + [...] PDT MEDICAL REVIEW #3 Patient: Linda [place] [id number] Problem: R thumb tumor, infection Records: CE Referring Provider: Dr Frsaer [facility] ED Direct referral: N o History of cancer: None Images: March XR, CT Traveling to [facility]? YES past [place] Notes: Tumor vs UE? CAMELIA needed? Can [...] Have you seen anyone for this yet? [facility] ED, Hernan Fraser CE Do you have a referring provider? 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 no Note: We do not accept WC under [place] as they do not pay at [place] rates. Other out of state claims will only be accepted if they agree to pay at [place] rates docume nted in writing from adjustor. Can you confirm the insurance we will be billing for this visit? Medicaid Note: If OHP, please note which type. E.g. [place], [employer], [employer], etc .) Reminder: Please create referrals for pts with: HMO, OHP, [place], Self-Pay, W/C, TPL an d ED Post- Ops Can you verify your Primary Care Provider? no Note: Please update Primary Care Provider in [employer]. Are you a current smoker or tobacco [...] they d like to sign up for [place] [facility] ? Don t forget to pull in CareEveryWhere Additional Comments: documented in this encounte r Plan of Treatment Not on filedocumented as of this encounter Visit Diagnoses Not on filedocumented in this encounter
--- OUTSIDE RECORDS SUMMARY | ~2020-03-19 | XMS | Encounter Summary ---
Demographics + + + | Address | [address] | | | [place] [address] | + + + | Home Phone | | + + + | Preferred Language | Unknown | + + + | Marital Status | Single | + + + | Pentecostal Affiliation | Unknown | + + + | Race | Unknown | + + + | Ethnic Group | Unknown | + + + Author + + + | Author | [facility] | | | and [place] | + + + | Organization | [facility] | | | and [...] Team Providers + +------+ + | Care Outsole Skiver Name | Role | Phone | + [...] | Appointment | | 2018 | | [facility] | CC SPACE OPERATIONS OFFICER | | | | | CLINIC [address] | | | | | | DR [place]SE[place], | | | | | | [place] [address] | | | | | | [phone] | | | +--------+ + + + [...] [place] | | | | | | [address] | | | | | | | [...] + + + | Testing Performed at: [facility] CLIA: [id number] - [address] | REFERENCE LAB | | [place] [address] | [facility] | + + + + + + + + | Performing | Address | City/State/Zipcode | Phone Number | | Organization | | | | + + + + + | REFERENCE LAB | [address] | [place] | [phone] | | [facility] | | [address] | | + + + + + | REFERENCE LAB | [address] | [place] | [phone] | | [facility] | | [address] | | + + + + + [...] Performed at: [facility] CLIA: [id number] - [address] | REFERENCE LAB | | [place] [address] | [facility] | + + + + + + + + | Performing | Address | City/State/Zipcode | Phone Number | | Organization | | | | + + + + + | REFERENCE LAB | [address] | [place] | [phone] | | [facility] | | [address] | | + + + + + | REFERENCE LAB | [address] | [place] | [phone] | | [facility] | | [address] | | + + + + + [...] Performed at: [facility] CLIA: [id number] - [address] | REFERENCE LAB | | [place] [address] | [facility] | + + + + + + + + | Performing | Address | City/State/Zipcode | Phone Number | | Organization | | | | + + + + + | REFERENCE LAB | [address] | [place] | [phone] | | [place] | | [address] | | + + + + + | REFERENCE LAB | [address] | [place], [place] | [phone] | | [facility] | | [address] | | + + + + + Vitamin B-12 (03/13/2019 2:03 PM PDT) + + + + + + | Component | Value | Ref Range | Performed | Pathologist | | | | | At | Signature | + + + + + + | Vitamin B12 | 1108Comment: Please | 232 1240 | REFERENCE | | | | note [...] Performed at: [facility] CLIA: [id number] - [address] | REFERENCE LAB | | [place] [address] | [facility] | + + + + + + + + | Performing | Address | City/State/Zipcode | Phone Number | | Organization | | | | + + + + + | REFERENCE LAB | [facility] | [place] | [phone] | | [facility] | | [address] | | + + + + + | REFERENCE LAB | [address] [place] [address] [address] [address] | [place] | [phone] | | [facility] | | [address] | | + + + + + documented in this encounter Visit Diagnoses Not on filedocumented in this encounter"
--- OUTSIDE RECORDS SUMMARY | ~2020-03-19 | XMS | Clinical Summary ---
Demographics + + + | Address | [address] | | | [place] [address] | + + + | Home Phone [...] Providers + +------+ + | Care Glass Loading Equipment Tender Name | Role | Phone | + +------+ + | No Pcp Per Patient | PCP | Unavailable | + +------+ + Source Comments CHIKI is fully live on both [facility] and [facility] Allergies + + + + + + [...] | | | + +--------+ +--------+-------+---------+--------+ | COMMISSARY REPRESENTATIVE MEDICAID | COMMISSARY REPRESENTATIVE | xxxxxxxx | 02/15/20 | | | [...] | | 1990 | [phone] | [place] [address] | | | alexandro | | | [...]
--- OUTSIDE RECORDS SUMMARY | ~2020-03-19 | XMS | Encounter Summary ---
Demographics + + + | Address | [address] | | | [place] [address] | + + + | Home Phone [...] Team Providers + +------+ + | Care Parks And Recreation Worker Name | Role | Phone | [...] | | 2019 | | Surgery at [facility] [address] | Kev Ashton MD [address] | (Pain meds | | | | [address] | [address] [facility], | question) | | | | Mailcode: CH16D | [place] [address] | | | | | [facility] | [phone] | | | | | and Healing, | | | | | | Building | | | | | | [facility] [place], [place] | | | | | | [address] | | | | | | [phone] | | | +--------+ + + + [...]
--- OUTSIDE RECORDS SUMMARY | ~2020-03-19 | XMS | Encounter Summary ---
Demographics + + + | Address | [address] | | | [place] [address] | + + + | Home Phone | | + + + | Preferred Language | Unknown | + + + | Marital Status | Single | + + + | Zoroastrian Affiliation | Unknown | + + + [...] Team Providers + +------+ + | Care Volunteer Assistant Name | Role | Phone | [...] | | | DR [place], | [address] | | | | | [place] [address] | | | | | | [phone] | | | +--------+ + + + [...] [place] | | | | | | [address] | | | | | | | | +--------+---------+ + + + documented as of this encounter Visit Diagnoses Not on filedocumented in this encounter"
--- OUTSIDE RECORDS SUMMARY | ~2020-03-19 | XMS | Encounter Summary ---
Demographics + + + | Address | [address] | | | [place] [address] | + + + | Home Phone [...] Team Providers + +------+ + | Care Svp Digital Sales Food & Cooking Name | Role | Phone | + [...] [address] | | | | | [place] [address] | | | | | | [phone] | | | +--------+ + + + [...] [place] | | | | | | [id number] | | | | | | | | +--------+---------+ + + + documented as of this encounter Visit Diagnoses Not on filedocumented in this encounter"
--- OUTSIDE RECORDS SUMMARY | ~2020-03-19 | XMS | Encounter Summary ---
Demographics + + + | Address | [address] | | | [place] [address] | + + + | Home Phone | | + + + | Preferred Language | Unknown | + + + | Marital Status | Single | + + + | Episcopalian Affiliation | Unknown | + + + | Race | Unknown | + + + | Ethnic Group | Unknown | + + + Author + + + | Author | [facility] | | | and [place] | + + + | Organization | [facility] | | [...] Team Providers + +------+ + | Care Crib Clerk Name | Role | Phone | [...] | Appointment | | 2018 | | [facility] | CC EXPANDING MACHINE OPERATOR | | | | | CLINIC [address] | | | | | | DR [place], | | | | | | [place] [address] | | | | | | [phone] | | | +--------+ + + + [...] [place] | | | | | | [address] | | | | | | | [...] Performed at: [facility] CLIA: [id number] - [address] | REFERENCE LAB | | [place] [address] | [facility] | + + + + + + + + | Performing | Address | City/State/Zipcode | Phone Number | | Organization | | | | + + + + + | REFERENCE LAB | [address] [facility] | [place] | [phone] | | [facility] | | [address] | | + + + + + | REFERENCE LAB | [address] [facility] | [place] | [phone] | | [facility] | | [address] | | + + + + + [...] Performed at: [facility] CLIA: [id number] - [address] | REFERENCE LAB | | [place] [address] | [facility] | + + + + + + + + | Performing | Address | City/State/Zipcode | Phone Number | | Organization | | | | + + + + + | REFERENCE LAB | [address] [facility] | [place] | [phone] | | [facility] | | [address] | | + + + + + | REFERENCE LAB | [address] [facility] | [place] | [phone] | | [facility] | | [address] | | + + + + + [...] Performed at: [facility] CLIA: [id number] - [address] | REFERENCE LAB | | [place] [address] | [facility] | + + + + + + + + | Performing | Address | City/State/Zipcode | Phone Number | | Organization | | | | + + + + + | REFERENCE LAB | [address] | [place] | [phone] | | [place] | | [address] | | + + + + + | REFERENCE LAB | [address] [facility] | [place], [place] | [phone] | | [facility] | | [address] | | + + + + + Vitamin B-12 (03/13/2019 2:03 PM PDT) + + + + + + | Component | Value | Ref Range | Performed | Pathologist | | | | | At | Signature | + + + + + + | Vitamin B12 | 1108Comment: Please | 232 1247 | REFERENCE | | | | note [...] Performed at: [facility] CLIA: [id number] - [address] | REFERENCE LAB | | [place] [address] | [facility] | + + + + + + + + | Performing | Address | City/State/Zipcode | Phone Number | | Organization | | | | + + + + + | REFERENCE LAB | [facility] [address] [place] | [place] | [phone] | | [facility] | | [address] | | + + + + + | REFERENCE LAB | [address] [place] [address] [place] | [place] | [phone] | | [facility] | | [address] | | + + + + + documented in this encounter Visit Diagnoses Not on filedocumented in this encounter"
--- OUTSIDE RECORDS SUMMARY | ~2020-03-19 | XMS | Encounter Summary ---
Demographics + + + | Address | [address] | | | [place] [address] | + + + | Home Phone [...] Team Providers + +------+ + | Care Terrazzo Tile Setter Name | Role | Phone | + +------+ + | No, Physician | PCP | Unavailable | + +------+ + Encounter Details +--------+ + + + + | Date | Type | Department | Care Team | Description | +--------+ + + + + | 03/26/ | Emergency | [facility] | Alejo Marino | Periosteal chondroma | | 2019 | | MEDICAL CENTER | DO J[address] | | | | | EMERGENCY CENTER | [address] [place], [place] | | | | | [address] [facility] | [address] | | | | | [place], [place] | | | | | | [address] | | | | | | [phone] | | | +--------+ + + + [...] [place] | | | | | | [address] | | | | | | | [...] mass is mildly hyperintense to muscle on D3bbrioxtnixf with | | prominent predominant peripheral enhancement. [...] - 1.030 | EXTERNAL | | | [place], | | | LAB | | | [...] | | | Urine | performed at [facility];888 | | LAB | | | | [address];[place] | | | | | | [address] | | | | + + + [...] | | | Ur | performed at [facility];[address] | | LAB | | | | [address];[place], [place] | | | | | | [address] | | | | + + + [...] EXTERNAL | | | | performed at [facility];888 | mmol/L | LAB | | | | [address];[place], [place] | | | | | | [address] | | | | + + + [...] EXTERNAL | | | | performed at [facility];[address] | | LAB | | | | [address];[place], [place] | | | | | | [address] | | | | + + + [...] | | | Basophils | performed at [facility];[address] | K/uL | LAB | | | | [address];[place], [place] | | | | | | [address] | | | | + + + [...] EXTERNAL | | | | performed at [facility] | | LAB | | | | [facility];[place], [place] | | | | | | [address] | | | | + + + [...] | | | | | performed at [facility];[address] | | | | | | [address];[place], [place] | | | | | | [address] | | | | + + + [...]
--- OUTSIDE RECORDS SUMMARY | ~2020-03-19 | XMS | Encounter Summary ---
Demographics + + + | Address | [address] | | | [place] [address] | + + + | Home Phone | | + + + | Preferred Language | Unknown | + + + | Marital Status | Single | + + + | Latter Day Affiliation | NON | + + + [...] Team Providers + +------+ + | Care Email Marketing Processor Name | Role | Phone | + [...] | 2019 | Encounter | Surgery at [facility] [address] | Kev Ashton MD [address] | | | | | [address] | [address], | | | | | Mailcode: CH16D | [place] [address] | | | | | [facility] | [phone] | | | | | and Healing, | | | | | | Building | | | | | | Floor [place], [place] | | | | | | [address] | | | | | | [phone] | | | +--------+ + + + [...]
--- OUTSIDE RECORDS SUMMARY | ~2020-03-19 | XMS | Encounter Summary ---
Demographics + + + | Address | [address] | | | [place] [address] | + + + | Home Phone | | + + + | Preferred Language | Unknown | + + + | Marital Status | Single | + + + | Taoist Affiliation | Unknown | + + + | Race | Unknown | + + + | Ethnic Group | Unknown | + + + Author + + + | Author | [facility] | | | and [place] | + + + | Organization | [facility] | | | [...] Team Providers + +------+ + | Care Software Integrator Name | Role | Phone | + +------+ + PCP | Unavailable | + +------+ + Encounter Details +--------+ + + + + | Date | Type | Department | Care Team | Description | +--------+ + + + + | 05/07/ | Hospital | [facility] | Stacy Crawley, | | | 2012 | Encounter | HOSPITAL EMERGENCY | [address] | | | | | [address] | [place], [place] | | | | | [address] [place], [place] | [address] | | | | | [address] | [phone] | | | | | [phone] | | | +--------+ + + + [...] [place] | | | | | | [address] | | | | | | | | +--------+---------+ + + + documented as of this encounter Visit Diagnoses Not on filedocumented in this encounter"
--- OUTSIDE RECORDS SUMMARY | ~2020-03-19 | XMS | Encounter Summary ---
Demographics + + + | Address | [address] | | | [place] [address] | + + + | Home Phone | | + + + | Preferred Language | Unknown | + + + | Marital Status | Single | + + + | Congregation Affiliation | Unknown | + + + | Race | Unknown | + + + | Ethnic Group | Unknown | + + + Author + + + | Author | [facility] | | | and [place] | + + + | Organization | [facility] | | | [...] Providers + +------+ + | Care Supervisor Harvesting Name | Role | Phone | + +------+ + PCP | Unavailable | + +------+ + Encounter Details +--------+ + + + + | Date | Type | Department | Care Team | Description | +--------+ + + + + | 11/07/ | Hospital | [facility] | | | | 2004 | Encounter | [facility] EMER[facility]Y | | | | | | CENTER [address] | | | | | | [place] | | | | | | [address] | | | | | | [phone] | | | +--------+ + + + [...] [place] | | | | | | [address] | | | | | | | | +--------+---------+ + + + documented as of this encounter Visit Diagnoses Not on filedocumented in this encounter"
--- OUTSIDE RECORDS SUMMARY | ~2020-03-19 | XMS | Encounter Summary ---
Demographics + + + | Address | [address] | | | [place] [address] | + + + | Home Phone [...] + + + | Author | [facility] | + + + | Organization | [facility] | + + + | [...] Team Providers + +------+ + | Care Trimmer Press Clippings Name | Role | Phone | + +------+ + | No Pcp Per Patient | PCP | Unavailable | + +------+ + Encounter Details +--------+ + + + + | Date | Type | Department | Care Team | Description | +--------+ + + + + | 06/26/ | Pharmacy | [facility] | | | | 2019 | Visit | & [facility] | | | | | | [address] | | | | | | Mailcode: [place] | | | | | | [facility] and | | | | | | Healing, [address] | | | | | | [place], [place] | | | | | | [address] | | | | | | [phone] | | | +--------+ + + + [...]
--- OUTSIDE RECORDS SUMMARY | ~2020-03-19 | XMS | Encounter Summary ---
Demographics + + + | Address | [address] | | | [place] [address] | + + + | Home Phone [...] Team Providers + +------+ + | Care Police Shift Commander Name | Role | Phone | + [...]
--- OUTSIDE RECORDS SUMMARY | ~2020-03-19 | XMS | Encounter Summary ---
Demographics + + + | Address | [address] | | | [place] [address] | + + + | Home Phone [...] Team Providers + +------+ + | Care Law Enforcement Director Name | Role | Phone | [...] | | | unspecified | [place], | [address] Phone: | | | | | Procedures | [place] | [phone] | | | | | Evaluate & | [address] | Fax: | | | | | Treat | Phone: | [phone] | | | | | | [phone] | | | | | | | Fax: | | | | | | | [phone] | | +--------+ + + + + + Encounter Details +--------+---------+ + + + | Date | Type | Department | Care Team | Description | +--------+---------+ + + + | 11/03/ | Office | [facility] | Seven Johns MD | Other cardiomyopathy | | 2019 | Visit | HOSPITAL NEUROLOGY | [address] [place] | ([facility]) (Primary Dx); | | | | CLINIC [address] | [place] | Fibromyalgia; | | | | DR [place], | [address] | 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 Patient Instructions [facility] Dr. Seven Johns, Neurologist [...] call JUSTINE Pearson or Dr. Johns at [facility] General Neck and Back [...] are taking other medicines. You may use pzhh-vdf-fwiuoar medicine to control pain, unless another pain [...] by your healthcare provider Date Last Reviewed: 04/10/201619998955-8793 [employer] [address] [place] [address], [place] [address]. All righ ts reserved. This information is [...] When you eat out, ask that the entry level financial analyst not add any salt to your dish. Don't eat fried or greasy foods. Be careful of bottled beverages. They can contain a lot of salt. Also check the labels of csbq-sfc-fufjtmx medicines and supplements. They may be high [...] heart. These programs may be covered by [facility]. Other tips for home care: Limit how [...] talking to your healthcare provider first. Some rvxo-dpy-trzbubw medicines and herbal supplements can increase your [...] hands, feet, or ankles Date Last Reviewed: 11/11/201619992878-[address] [employer] [place] [address], [place] [address]. All righ ts reserved. This information is [...] Arthritis Foundation www.arthritis.org National Fibromyalgia Association www.fmaware.org [place] Fibromyalgia Syndrome Association www.afsafund.org Date Last Reviewed: 11/24/201519995595-8576 [employer] [address] [place] [address], [place] [address]. All righ ts reserved. This information is [...] acupuncture, massage, and others. Date Last Reviewed: 09/10/201719996359-0343 [employer] [address] [place] [address], [place] [address]. All righ ts reserved. This information is [...] massage, and other methods. Date Last Reviewed: 10/11/201719991002-3339 [employer] [address] [place] [address], [place] [address]. All righ ts reserved. This information is [...] [place] | | | | | | [address] | | | | | | | [...]
--- OUTSIDE RECORDS SUMMARY | ~2020-03-19 | XMS | Encounter Summary ---
Demographics + + + | Address | [address] | | | [place] [address] | + + + | Home Phone | | + + + | Preferred Language | Unknown | + + + | Marital Status | Single | + + + | Shinto Affiliation | NON | + + + [...] Team Providers + +------+ + | Care Chip Applying Machine Tender Name | Role | Phone [...]
--- OUTSIDE RECORDS SUMMARY | ~2020-03-19 | XMS | Encounter Summary ---
Demographics + + + | Address | [address] | | | [place] [address] | + + + | Home Phone | | + + + | Preferred Language | Unknown | + + + | Marital Status | Single | + + + | Pentecostalism Affiliation | Unknown | + + + | Race | Unknown | + + + | Ethnic Group | Unknown | + + + Author + + + | Author | [facility] | | | and [place] | + + + | Organization | [facility] | | | [...] Team Providers + +------+ + | Care Finished Stock Inspector Name | Role | Phone | [...] [address] | | | | | [place] [address] | | | | | | [phone] | | | +--------+--------+ + + + [...] [place] | | | | | | [address] | | | | | | | | +--------+---------+ + + + documented as of this encounter Visit Diagnoses Not on filedocumented in this encounter"
--- OUTSIDE RECORDS SUMMARY | ~2020-03-19 | XMS | Encounter Summary ---
Demographics + + + | Address | [address] | | | [place] [address] | + + + | Home Phone | | + + + | Preferred Language | Unknown | + + + | Marital Status | Single | + + + | Sabianism Affiliation | Unknown | + + + | Race | Unknown | + + + | Ethnic Group | Unknown | + + + Author + + + | Author | [facility] | | | and [place] | + + + | Organization | [facility] | | | [...] Team Providers + +------+ + | Care Oceanographic Meteorologist Name | Role | Phone | + [...] 2019 | | HOSPITAL NEUROLOGY | Jax, TEACHING ASSISTANT [address] | | | | | CLINIC [address] | [address] [place], | | | | | [address] [place], | [place] [address] | | | | | [place] [address] | [phone] | | | | | [phone] | | | +--------+--------+ + + + [...] [place] | | | | | | [address] | | | | | | | [...]
--- OUTSIDE RECORDS SUMMARY | ~2020-03-19 | XMS | Encounter Summary ---
Demographics + + + | Address | [address] | | | [place] [address] | + + + | Home Phone | | + + + | Preferred Language | Unknown | + + + | Marital Status | Single | + + + | Gnosticism Affiliation | Unknown | + + + [...] Team Providers + +------+ + | Care Pharmacy Intake Coordinator Name | Role | Phone | [...] | | hy (HCC) | Commercial | [address] | | | | | Procedures | [address] | Phone: | | | | | ECHO Stress | [address], | [phone] | | | | | Test | [place] | Fax: | | | | | Exercise [place] | [address] | [phone] | | | | | ECHO HEART | Phone: | | | | | | XTHORACIC, | [phone] | | | | | | STRESS/REST | Fax: | | | | | | [place] CV STRS | [phone] | | | | | | TST XERS&/OR | | | | | | | RX CONT ECG | | | | | | | W/O I&R [place] | | | | | | | CARDIAC | | | | | | | STRESS | | | | | | | TST,TRACING | | | | | | | ONLY [place] | | | | | | | [...] | cardiomyopathy (HCC) | | | | [place], | [address] | | | | | [place] [address] | [address] | | | | | [phone] | [address] | | | | | | [phone] | | | | | | | [...] [place] | | | | | | [id number] | | | | | | | [...]
--- OUTSIDE RECORDS SUMMARY | ~2020-03-19 | XMS | Encounter Summary ---
Demographics + + + | Address | [address] | | | [place] [address] | + + + | Home Phone [...] Team Providers + +------+ + | Care Greeter Guest Services Name | Role | Phone | [...] | | | | | | | [place], [place] | | | | | | | [address] | | | | | | | Phone: | | | | | | | [phone] | | | | | | | Fax: | | | | | | | [phone] | + +--------+ + + + + Encounter Details +--------+---------+ + + + | Date | Type | Department | Care Team | Description | +--------+---------+ + + + | 03/29/ | Office | Orthopaedics | Isael Champion, | Finger mass, right | | 2019 | Visit | [facility] | [address] | (Primary Dx); | | | | for Health and | [address] | Tobacco dependence | | | | Healing [address] | [place], [place] | due to cigarettes; | | | | Ave Mailcode: | [address] | Cigarette smoker | | | | [address] [facility] | [phone] | | | | | Health and Healing, | | | | | | [facility] | | | | | | Floor [place], [place] | | | | | | [address] | | | | | | [phone] | | | +--------+---------+ + + + [...] - 03/29/2019 8:00 AM PDT [place] | [facility] Orthopaedic Oncology New Patient Visit Note [...] referred from by Dr Fraser from the [facility] ED for a Chief Concern of right rene mb possible tumor. HPI: Ms Singleton is a 28 year old woman who lives in the [facility] who is here for evaluation of her [...] , Rfl: SH: Is single, lives in [facility], works in [employer], smokes half pack a day, and d [...] signs are noted as recorded by the Sales Operations. General: Alert, awake, and oriented x 3. 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 [...] occur. Contact if questions/concerns. Isael Champion MD Violin Repairer, Orthopaedic Oncology [facility] | Department of Orthopaedics & Rehabilitation documented [...]
--- OUTSIDE RECORDS SUMMARY | ~2020-03-19 | XMS | Encounter Summary ---
Demographics + + + | Address | [address] | | | [place] [address] | + + + | Home Phone | | + + + | Preferred Language | Unknown | + + + | Marital Status | Single | + + + | Hinduism Affiliation | Unknown | + + + | Race | Unknown | + + + | Ethnic Group | Unknown | + + + Author + + + | Author | [facility] | | | and [place] | + + + | Organization | [facility] | | [...] Team Providers + +------+ + | Care Car Greaser Name | Role | Phone | + [...] | [address] [place], | [place] [address] | | | | | [place] [address] | [phone] | | | | | [phone] | | | +--------+ + + + [...] | Visit | | [address] | | | | | | [place] | | | | | | [address] | | | | | | | [...]
--- OUTSIDE RECORDS SUMMARY | ~2020-03-19 | XMS | Encounter Summary ---
Demographics + + + | Address | [address] | | | [place] [address] | + + + | Home Phone [...] | Organization | [facility] | | | and [place] | + [...] Team Providers + +------+ + | Care Qa Automation Engineer Name | Role | Phone | [...] [address] | | | | | [place] [address] | | | | | | [phone] | | | +--------+--------+ + + + [...] [place] | | | | | | [address] | | | | | | | | +--------+---------+ + + + documented as of this encounter Visit Diagnoses Not on filedocumented in this encounter"
--- OUTSIDE RECORDS SUMMARY | ~2020-03-19 | XMS | Encounter Summary ---
Demographics + + + | Address | [address] | | | [place] [address] | + + + | Home Phone | | + + + | Preferred Language | Unknown | + + + | Marital Status | Single | + + + | Scientologist Affiliation | NON | + + + [...] Team Providers + +------+ + | Care Fine Patcher Name | Role | Phone | + [...] | | | Rd [address]I Christianson | [facility] [address] | T[place] | | | | Hospital Admitting | [place], [place] | | | | | Desk Located on the | [address] | | | | | 9th floor | [phone] | | | | | [place], [place] | | | | | | [address] | | | +--------+---------+ + + + [...] 04/06/2019 | | Attending Surgeon:Isael Champion MD Irrigator(s):Kev Strickland, | | Munir Pinon MD Preoperative [...] | | bluntly dissected off with a Canyon and lesion grossly removed. I also used a rongeur | | to picker box operator some additional slightly abnormal-looking tissue. Once the [...] 04/06/2019 | | 10:12:33DT: 04/06/2019 10:42:16Job #: [id number] | |I, Isael Champion, was present and scrubbed for the entire procedure. | | | |Counts were correct at the end. | | | | | | | |Isael Champion MD | |DIANE/GHAZALA | | | | | | /[id number] | + + SURGICAL PATHOLOGY (04/06/2019 9:56 [...] PathologistPathology, | | | | | | [facility] | | | | [...] | | | | | | number [id number]. | | | | | | Hand, [...] | + + + + + | [facility] | [address] | [place] [address] | | | PATHOLOGY | [address] [...] CAL[place] | [address] | [place], [place] | | | [place] [facility] [place] | [address] | [address] | | | TESTS | | | [...] PDT | | | | | Starting [facility] 04/06/19 at 0817, | | | | | | | Until [facility] 04/06/19 at 0900 | | | | | | + +--------+ + +------+------+ + +---+ | | | + +---+ | acetaminophen (TYLENOL) tablet | | | 1 dose, Starting [facility] 04/06/19 at | | | 0819, Until [facility] 04/06/19 at 0900 | | + +---+ | | | + +---+ | fentaNYL (SUBLIMAZE) injection | | | 25-50 mcg 25-50 mcg, | | | intravenous, POSTPROCEDURE PRN, 8 | | | doses, Starting [facility] 04/06/19 at | | | 0948, Until [facility] 04/06/19 at 1718, | | | severe [...] PDT | | | | | Starting [facility] 04/06/19 at 0817, | | | | | | | Until [facility] 04/06/19 at 0901 | | | | | | + +-------+ +--------+---+---+ + +---+ | | | + +---+ | gabapentin (NEURONTIN) capsule | | | 1 dose, Starting [facility] 04/06/19 at | | | 0820, Until [facility] 04/06/19 at 0901 | | + +---+ | | | + +---+ + +-------+ +---------+---+---+ | HYDROcodone-acetaminophen | Given | 04/06/20 | 2 | | | | (NORCO) 5-325 mg tablet 1-2 | | 19 10:31 | tablets | | | | tablet 1-2 tablet, oral, EVERY 4 | | AM PDT | | | | | HOURS NEEDED, Starting [facility] | | | | | | | 04/06/19 at 1021, Until [facility] | | | | | | | 04/06/19 at 1718, moderate pain | | | | | | + +-------+ +---------+---+---+ + +---+ | | | + +---+ | HYDROcodone-acetaminophen | | | (NORCO) 5-325 mg tablet 1 dose, | | | Starting [facility] 04/06/19 at 1025, | | | Until [facility] 04/06/19 at 1031 | | + +---+ | | | + +---+ + +-------+ +--------+---+---+ | HYDROmorphone (DILAUDID) | Given | 04/06/20 | 0.5 mg | | | | injection 0.2-0.5 mg 0.2-0.5 mg, | | 19 10:40 | | | | | intravenous, POSTPROCEDURE PRN, | | AM PDT | | | | | Starting [facility] 04/06/19 at 0948, | | | | | | | Until [facility] 04/06/19 at 1718, | | | | [...] | | | PRN, 1 dose, Starting [facility] 04/06/19 | | | at 0948, Until [facility] 04/06/19 at | | | 1718, nausea/vomiting, 1st line | | + +---+ | | | + +---+ documented in this encounter
--- OUTSIDE RECORDS SUMMARY | ~2020-03-19 | XMS | Encounter Summary ---
Demographics + + + | Address | [address] | | | [place] [address] | + + + | Home Phone | | + + + | Preferred Language | Unknown | + + + | Marital Status | Single | + + + | Rastafari Affiliation | NON | + + + | Race | White | + + + | Ethnic Group | Not or | + + + Author + + + | Author | [facility] | + + + | Organization | [facility] | + + + | Address | [...] Providers + +------+ + | Care Customer Greeter Name | Role | Phone | + [...] at | | | | | | [facility] | | | | | | [address] | | | | | | Mail Code: OC8PM | | | | | | [facility] | | | | | | and Healing, | | | | | | [address] | | | | | | [place], [place] | | | | | | [address] | | | | | | [phone] | | | +--------+ + + + [...] your procedure. Surgery Check in Locations Admitting [facility], ninth floor [facility] Surgery Check in Time: Someone from your surgeon's office or [facility] hospital will provide you with [...] it is after office hours, call the [facility] head kiln operator at [phone] and ask them to page your doc tor. documented in this encounter Plan of Treatment Not on filedocumented as of this encounter Visit Diagnoses Not on filedocumented in this encounter"
--- OUTSIDE RECORDS SUMMARY | ~2020-03-19 | XMS | Encounter Summary ---
Demographics + + + | Address | [address] | | | [place] [address] | + + + | Home Phone | | + + + | Preferred Language | Unknown | + + + | Marital Status | Single | + + + | Hoahaoism Affiliation | Unknown | + + + | Race | Unknown | + + + | Ethnic Group | Unknown | + + + Author + + + | Author | [facility] | | | and [place] | + + + | Organization | [facility] | | | [...] Team Providers + +------+ + | Care Finishing Range Feeder Name | Role | Phone | + [...] | | | 2019 | on | [facility] NEUROLOGY | | | | | | CLINIC [address] | | | | | | DR [place], | | | | | | [place] [address] | | | | | | [phone] | | | +--------+ + + + [...] and faxed lab orders from 9 to [facility] lab in [facility] for pt to /JUSTINE [place] documented in [...] [place] | | | | | | [address] | | | | | | | | +--------+---------+ + + + documented as of this encounter Visit Diagnoses Not on filedocumented in this encounter"
--- OUTSIDE RECORDS SUMMARY | ~2020-03-19 | XMS | Encounter Summary ---
Demographics + + + | Address | [address] | | | [place] [address] | + + + | Home Phone [...] Providers + +------+ + | Care Senior Database Programmer Name | Role | Phone | + [...]
--- OUTSIDE RECORDS SUMMARY | ~2020-03-19 | XMS | Encounter Summary ---
Demographics + + + | Address | [address] | | | [place] [address] | + + + | Home Phone | | + + + | Preferred Language | Unknown | + + + | Marital Status | Single | + + + | Jewish Affiliation | NON | + + + [...] + | Collette [place] | [place] | [place] | | + + + + + Care Team Providers + +------+ + | Care Human Resources Receptionist Name | Role | Phone | + [...] | | | | | [place], | | | | | | [place] [address] | | | +--------+--------+ + + + [...]
--- OUTSIDE RECORDS SUMMARY | ~2020-03-19 | XMS | Encounter Summary ---
Demographics + + + | Address | [address] | | | [place] [address] | + + + | Home Phone | | + + + | Preferred Language | Unknown | + + + | Marital Status | Single | + + + | Yarsani Affiliation | Unknown | + + + | Race | Unknown | + + + | Ethnic Group | Unknown | + + + Author + + + | Author | [facility] | | | and [place] | + + + | Organization | [facility] | [...] Team Providers + +------+ + | Care Discharge Coordinator Name | Role | Phone | [...] 2019 | | HOSPITAL NEUROLOGY | Jax, [address] | | | | | CLIN[address] | [address], | | | | | [address] [place], | [place] [address] | | | | | [place] [address] | [phone] | | | | | [phone] | | | +--------+ + + + [...] [place] | | | | | | [address] | | | | | | | | +--------+---------+ + + + documented as of this encounter Visit Diagnoses Not on filedocumented in this encounter"
--- OUTSIDE RECORDS SUMMARY | ~2020-03-19 | XMS | Encounter Summary ---
Demographics + + + | Address | [address] | | | [place] [address] | + + + | Home Phone | | + + + | Preferred Language | Unknown | + + + | Marital Status | Single | + + + | Gnosticist Affiliation | Unknown | + + + | Race | Unknown | + + + | Ethnic Group | Unknown | + + + Author + + + | Author | [facility] | | | and [place] | + + + | Organization | [facility] | | [...] Team Providers + +------+ + | Care Subway Guard Name | Role | Phone | + [...] 2020 | | HOSPITAL NEUROLOGY | Jax, TEACHER VOCATIONAL TRAINING [address] | | | | | CLINIC [address] | [address] [place], | | | | | [address] [place], | [place] [address] | | | | | [place] [address] | [phone] | | | | | [phone] | | | +--------+ + + + [...] [place] | | | | | | [address] | | | | | | | | +--------+---------+ + + + documented as of this encounter Visit Diagnoses Not on filedocumented in this encounter"
--- OUTSIDE RECORDS SUMMARY | ~2020-03-19 | XMS | Encounter Summary ---
Demographics + + + | Address | [address] | | | [place] [address] | + + + | Home Phone | | + + + | Preferred Language | Unknown | + + + | Marital Status | Single | + + + | Latter Day Affiliation | Unknown | + + + | Race | Unknown | + + + | Ethnic Group | Unknown | + + + Author + + + | Author | [facility] | | | and [place] | + + + | Organization | [facility] | | [...] Team Providers + +------+ + | Care Wafer Abrading Machine Tender Name | Role | Phone [...] | | hy (HCC) | Commercial | [address] | | | | | Procedures | [address] | Phone: | | | | | ECHO Stress | [address], | [phone] | | | | | Test | [place] | Fax: | | | | | Exercise [place] | [address] | [phone] | | | | | ECHO HEART | Phone: | | | | | | XTHORACIC, | [phone] | | | | | | STRESS/REST | Fax: | | | | | | HI CV STRS | [phone] | | | | | | TST XERS&/OR | | | | | | | RX CONT ECG | | | | | | | W/O I&R HI | | | | | | | CARDIAC | | | | | | | STRESS | | | | | | | TST,TRACING | | | | | | | ONLY HI | | | | | | | [...] | cardiomyopathy (HCC) | | | | [place], | [address] | | | | | [place] [address] | [address] | | | | | [phone] | [address] | | | | | | [phone] | | | | | | | [...] [place] | | | | | | [id number] | | | | | | | [...]
--- OUTSIDE RECORDS SUMMARY | ~2020-03-19 | XMS | Encounter Summary ---
Demographics + + + | Address | [address] | | | [place] [address] | + + + | Home Phone [...] Author + + + | Author | [facility] | + + + | Organization | [facility] | + + + | [...] Team Providers + +------+ + | Care Performance Test Architect Name | Role | Phone | [...] | | | | | | [address] [place], [place] | | | | | | [address] | | | | | | [phone] | | | +--------+ + + + [...]
--- OUTSIDE RECORDS SUMMARY | ~2020-03-19 | XMS | Encounter Summary ---
Demographics + + + | Address | [address] | | | [place] [address] | + + + | Home Phone [...] Author + + + | Author | [facility] | + + + | Organization | [facility] | + + + | Address | Unknown | + + + | Phone | Unavailable | + + + Support + + + + + | Name | Relationship | Address | Phone | + + + + + | Collette [place] | [place] | [place] | | + + + + + Care Team Providers + +------+ + | Care Lap Regulator Name | Role | Phone | + [...] [address] | | | | | Rd [facility] | [facility] | | | | | Hospital Admitting | [place], [place] | | | | | Desk Located on the | [address] | | | | | 9th floor | [phone] | | | | | [place], [place] | | | | | | [address] | Coleen Carpenter, | | | | | | [address] | | | | | | [facility] | | | | | | [place], [place] | | | | | | [address] | | | | | | [phone] | | | | | | | [...]
--- OUTSIDE RECORDS SUMMARY | ~2020-03-19 | XMS | Encounter Summary ---
Demographics + + + | Address | [address] | | | [place] [address] | + + + | Home Phone | | + + + | Preferred Language | Unknown | + + + | Marital Status | Single | + + + | Temple Affiliation | NON | + + + | Race | White | + + + | Ethnic Group | Not or | + + + Author + + + | Author | [facility] | + + + | Organization | [facility] | + + + | Address [...] Team Providers + +------+ + | Care Documentation Analyst Name | Role | Phone | [...] | and other | [address] | [place], [place] | | | | | soft tissue | [address] | [address] | | | | | Neoplasm of | [place], | Phone: | | | | | uncertain | [place] [address] | [phone] | | | | | behavior of | Phone: | Fax: | | | | | bone and | [phone] | [phone] | | | | | articular | Fax: | | | | | | cartilage | [phone] | | | | | | Procedures | | | | | | | REQUEST TO | | | | | | | SURGERY | | | | | | | COST MANAGER | | | | | | | DE EXCIS | | | | | | | SOFT TISSUE | | | | | | | LESION HAND | | | | | | | DEEP DE EXC | | | | | | | HAND TURN | | | | | | | DEEP>1.5CM | | | | | | | DE EXCIS | | | | | | | BENIGN BONE | | | | | | | LESN,PHALANX | | | | | | | DE PART | | | | | | | REMV | | | | | | | BONE,PROX/UT | | | | | | | D PHALANX | | | | | | | DE PART REMV | | | | | [...] | 2019 | Visit | [facility] | [address] | of skin of finger, | | | | for Health and | [address] | right (Primary Dx) | | | | Healing [address] | [place], [place] | | | | | Ave Mailcode: | [address] | | | | | [facility] | [phone] | | | | | Health and Healing, | | | | | | [facility] | | | | | | Floor [place], [place] | | | | | | [address] | | | | | | [phone] | | | +--------+---------+ + + + [...] for consultation if would like. [facility] to [facility] on systemic surveillance/staging as well. - will follow up with me as needed. Happy to see back for amputation if that is deemed nece ssary, or post-surgery if functional issues. Patient expressed understanding and agreement with plan. Please note - [employer] may be used in the creation of this note. While yessica cked, errors may still occur. Contact if questions/concerns. Isael Champion MD Magnetometer Operator, Orthopaedic Oncology [facility] | Department of Orthopaedics & Rehabilitation [...]
--- OUTSIDE RECORDS SUMMARY | ~2020-03-19 | XMS | Encounter Summary ---
Demographics + + + | Address | [address] | | | [place] [address] | + + + | Home Phone [...] Team Providers + +------+ + | Care Polishing Machine Tender Name | Role | Phone [...] | 2019 | Encounter | [facility] | [address] | | | | | for Health and | [address] | | | | | Healing [address] | [facility] [place] | | | | | Ave Mailcode: | [address] | | | | | [facility] | [phone] | | | | | Health and Healing, | | | | | | | | | | | | Floor [place], [place] | | | | | | [address] | | | | | | [phone] | | | +--------+ + + + [...]
--- OUTSIDE RECORDS SUMMARY | ~2020-03-19 | XMS | Encounter Summary ---
Demographics + + + | Address | [address] | | | [place] [address] | + + + | Home Phone [...] Providers + +------+ + | Care Rn Progressive Care Name | Role | Phone | + [...] | | | 2019 | on | [facility]UR[facility]Y | | | | | | CLINIC [address] | | | | | | DR [place], | | | | | | [place] [address] | | | | | | [phone] | | | +--------+ + + + [...] and faxed lab orders from 9 to [facility] lab in [facility] for pt to /JUSTINE [place] documented in this encounter Plan of Treatment +--------+---------+ + + + | Date | Type | Specialty | Care Team | Description | +--------+---------+ + + + | 11/26/ | Office | Neurology | Seven Johns MD | | | 2020 | Visit | | [address] | | | | | | [place] | | | | | | [address] | | | | | | | | +--------+---------+ + + + documented as of this encounter Visit Diagnoses Not on filedocumented in this encounter"
--- OUTSIDE RECORDS SUMMARY | ~2020-03-19 | XMS | Encounter Summary ---
Demographics + + + | Address | [address] | | | [place] [address] | + + + | Home Phone [...] Team Providers + +------+ + | Care Bloom Conveyor Operator Name | Role | Phone | [...]
--- OUTSIDE RECORDS SUMMARY | ~2020-03-19 | XMS | Encounter Summary ---
Demographics + + + | Address | [address] | | | [place] [address] | + + + | Home Phone | | + + + | Preferred Language | Unknown | + + + | Marital Status | Single | + + + | Baptism Affiliation | Unknown | + + + | Race | Unknown | + + + | Ethnic Group | Unknown | + + + Author + + + | Author | [facility] | | | and [place] | + + + | Organization | [facility] | | | and [...] Team Providers + +------+ + | Care Minibus Driver Name | Role | Phone | + [...] | | | [address] [place], | [address] | | | | | [place] [address] | | | | | | [phone] | | | +--------+ + + + [...] [place] | | | | | | [address] | | | | | | | | +--------+---------+ + + + documented as of this encounter Visit Diagnoses Not on filedocumented in this encounter"
--- OUTSIDE RECORDS SUMMARY | ~2020-03-19 | XMS | Encounter Summary ---
Demographics + + + | Address | [address] | | | [place] [address] | + + + | Home Phone [...] + + + | Author | [facility] | | | and [place] | + + + | Organization | [facility] | | | and [...] Team Providers + +------+ + | Care Mechanical Maintenance Name | Role | Phone | + +------+ + PCP | Unavailable | + +------+ + Encounter Details +--------+ + + + + | Date | Type | Department | Care Team | Description | +--------+ + + + + | 11/07/ | Hospital | [facility] | | | | 2004 | Encounter | [facility] EM[facility] | | | | | | CENTER [address] | | | | | | [place] | | | | | | [address] | | | | | | [phone] | | | +--------+ + + + [...] [place] | | | | | | [address] | | | | | | | | +--------+---------+ + + + documented as of this encounter Visit Diagnoses Not on filedocumented in this encounter"
--- OUTSIDE RECORDS SUMMARY | ~2020-03-19 | XMS | Encounter Summary ---
Demographics + + + | Address | [address] | | | [place] [address] | + + + | Home Phone | | + + + | Preferred Language | Unknown | + + + | Marital Status | Single | + + + | Anglican Affiliation | NON | + + + [...] Team Providers + +------+ + | Care Hydraulic Lift Driver Name | Role | Phone | [...] | | | | | Procedures | [address] | [address] | | | | | CONSULT TO | Phone: | Phone: | | | | | [facility] | [phone] | [phone] | | | | | SURGERY [place] | Fax: | Fax: | | | | | MOHS,1 | [phone] | [phone] | | | | | STAGE,H/N/HF | | | | | | | /G [place] MOHS | | | | | | | ADDL STAGE | | | | | | | [place] MOHS | | | | | | | SURG, ADDL | | | | | | | BLOCK [place] | | | | | | | REPR CMPL | | | | | | | WND | | | | | | | HEAD,FAC,SMILEY | | | | | | | D 1.1-2.5 | | | | | | | [place] REPR CMPL | | | | | | | WND | | | | | | | HEAD,FAC,SMILEY | | | | | | | D 2.6-7.5 | | | | | | | [place] | | | | | | | REP,FACE,GEN | | | | | | | ITAL,HAND,FT | | | | | | | +5CM/< [place] | | | | | | | ADJ TISS | | | | | | | XFER | | | | | | | HEAD,FAC,SMILEY | | | | | | | D <10SQCM | | | | | | | MN ADJ TISS | | | | | | | XFER | | | | | | | HEAD,FAC,SMILEY | | | | | | | D 10.1-30 | | | | | | | [place] SKIN | | | | | | | TISSUE | | | | | | | REARRANGEMEN | | | | | | | T [place] SKIN | | | | | | | TISSUE | | | | | | | REARRANGEMEN | | | | | | | T ADD-ON [place] | | | | | | | SPLIT | | | | | | | GRFT,HEAD,FA | | | | | | | C,HAND,FEET | | | | | | | <100CM [place] | | | | | | | FULL THICK | | | | | | | GRFT | | | | | | | HEAD,FAC,SMILEY | | | | | | | D <20SQC [place] | | | | | | | FULL THICK | | | | | | | GRFT | | | | | | | HEAD,FAC,MAX | | | | | | | ADD 20SQ [place] | | | | | | | FORM SKIN | | | | | | | PEDICLE FLAP | | | | | | | | | | | | | | FACE,GEN,SMILEY | | | | | | | D [place] | | | | | | [...] | | 2019 | | Surgery at [facility] [address] | Kev Ashton MD [address] | (SCC right thumb ) | | | | [address] | [address] [place], | | | | | Mailcode: CH16D | [place] [address] | | | | | [facility] | [phone] | | | | | and Healing, | | | | | | Building | | | | | | [place], [place] | | | | | | [address] | | | | | | [phone] | | | +--------+ + + + [...] mes. Repeat this process 3-5 times daily. [facility] DEPARTMENT OF DERMATOLOGY [address] [place] [address], WOUND CARE INSTRUCTIONS General Care-All Wounds [...] the second week, the graft should become wood science professor pink and will turn flesh colored, tho [...] than the day before. How to Reach [phone] Toll-free [phone] Evenings and Weekends: [phone] [facility]ER[facility] [address] [place] [address], GRANULATING WOUND CARE INSTRUCTIONS General Care-All Wounds [...] redness, warmth and drainage) How to Reach [phone] Toll-free [phone] Evenings and Weekends: [phone] documented in this encounter Progress Notes Sumeet [...] procedure was processed, read and resulted in [facility] Dermatologic Surgery, [address] [facility] [place] [address] MOHS MICROGRAPHIC SURGERY PROCEDURE NOTE 06/26/2019 ATTENDING SURGEON: Kev [place] M.D. CRITICAL CARE CNS: Sumeet Baca M.D. Pretreatment lesion size of [...]
--- OUTSIDE RECORDS SUMMARY | ~2020-03-19 | XMS | Encounter Summary ---
Demographics + + + | Address | [address] | | | [place] [address] | + + + | Home Phone | | + + + | Preferred Language | Unknown | + + + | Marital Status | Single | + + + | Cheondoism Affiliation | NON | + + + [...] Team Providers + +------+ + | Care Zinc Skimmer Name | Role | Phone | + [...]
--- OUTSIDE RECORDS SUMMARY | ~2020-03-19 | XMS | Encounter Summary ---
Demographics + + + | Address | [address] | | | [place] [address] | + + + | Home Phone [...] Team Providers + +------+ + | Care Java Support Engineer Name | Role | Phone | [...] 2020 | | HOSPITAL NEUROLOGY | Jax, [address] | | | | | CLIN[address] | [address] [place], | | | | | [address] [place], | [place] [address] | | | | | [place] [address] | [phone] | | | | | [phone] | | | +--------+ + + + [...] [place] | | | | | | [address] | | | | | | | | +--------+---------+ + + + documented as of this encounter Visit Diagnoses Not on filedocumented in this encounter"
--- OUTSIDE RECORDS SUMMARY | ~2020-03-19 | XMS | Encounter Summary ---
Demographics + + + | Address | [address] | | | [place], [place] [address] | + + + | Home Phone [...] Providers + +------+ + | Care Rn Shift Mgr Name | Role | Phone | + [...] + + + + | 04/06/ | Hospital | [facility] [address] | Isael Champion, | | | 2019 | Encounter | [address] | [address] | | | | | [address] | [address] | | | | | [place], | [place], [place] | | | | | [place] [address] | [address] | | | | | [phone] | [phone] | | | | | | | | +--------+ + + + + Social History + + + +--------+ + | Tobacco Use | Types | Packs/Day | Years | Date | | | | | Used | | + + + +--------+ + | Current Every Day | Cigarettes | 0.5 | 10 | Started: 2007 | | Smoker | | | | [...] 04/06/2019 | | Attending Surgeon:Isael Champion MD Net Application Support Specialist(s):Kev Strickland, | | Munir Pinon MD Preoperative [...] | | bluntly dissected off with a Essie and lesion grossly removed. I also used a rongeur | | to sisal picker some additional slightly abnormal-looking tissue. Once [...] procedure. Counts were correct at the end.SAMIR Solano/JOELDD: 04/06/2019 | | 10:12:33DT: 04/06/2019 10:42:16Job #: [id number] | |I, Isael Champion, was present and scrubbed for the entire procedure. | | | |Counts were correct at the end. | | | | | | | |Isael Champion MD | |DIANE/GHAZALA | | | | | | /[id number] | + + SURGICAL PATHOLOGY (04/06/2019 9:56 [...] PathologistPathology, | | | | | | [facility] | | | | | | University [...] | | | | | | number [id number].A. | | | | | | Hand, [...] | + + + + + | [facility] | [address] | [place] [address] | | | PATHOLOGY | [address] [...] | | | POC | | | [place] | | | | | | [place], POINT | | | | | | OF [...] + + | [facility] | [address] | [place], [place] | | | [facility] | [address] | [address] | | | TESTS | | | [...] | Mass of finger of right hand Localized superficial swelling, mass, or lump | + + documented in this encounter [...] PDT | | | | | Starting [facility] 04/06/19 at 0817, | | | | | | | Until [facility] 04/06/19 at 0900 | | | | | | + +--------+ + +------+------+ + +---+ | | | + +---+ | acetaminophen (TYLENOL) tablet | | | 1 dose, Starting [facility] 04/06/19 at | | | 0819, Until [facility] 04/06/19 at 0900 | | + +---+ | | | + +---+ | fentaNYL (SUBLIMAZE) injection | | | 25-50 mcg 25-50 mcg, | | | intravenous, POSTPROCEDURE PRN, 8 | | | doses, Starting [facility] 04/06/19 at | | | 0948, Until [facility] 6/27/19 at 1718, | | | severe pain [...] PDT | | | | | Starting [facility] 04/06/19 at 0817, | | | | | | | Until [facility] 04/06/19 at 0901 | | | | | | + +-------+ +--------+---+---+ + +---+ | | | + +---+ | gabapentin (NEURONTIN) capsule | | | 1 dose, Starting [facility] 04/06/19 at | | | 0820, Until [facility] 04/06/19 at 0901 | | + +---+ | | | + +---+ + +-------+ +---------+---+---+ | HYDROcodone-acetaminophen | Given | 04/06/20 | 2 | | | | (NORCO) 5-325 mg tablet 1-2 | | 19 10:31 | tablets | | | | tablet 1-2 tablet, oral, EVERY 4 | | AM PDT | | | | | HOURS NEEDED, Starting [facility] | | | | | | | 04/06/19 at 1021, Until [facility] | | | | | | | 04/06/19 at 1718, moderate pain | | | | | | + +-------+ +---------+---+---+ + +---+ | | | + +---+ | HYDROcodone-acetaminophen | | | (NORCO) 5-325 mg tablet 1 dose, | | | Starting [facility] 04/06/19 at 1025, | | | Until [facility] 04/06/19 at 1031 | | + +---+ | | | + +---+ + +-------+ +--------+---+---+ | HYDROmorphone (DILAUDID) | Given | 04/06/20 | 0.5 mg | | | | injection 0.2-0.5 mg 0.2-0.5 mg, | | 19 10:40 | | | | | intravenous, POSTPROCEDURE PRN, | | AM PDT | | | | | Starting [facility] 04/06/19 at 0948, | | | | | | | Until [facility] 04/06/19 at 1718, | | | [...] | | | | | CONTINUOUS, Starting [facility] 04/06/19 | anesthes | AM PDT | [...] PRN, 1 | | | dose, Starting [facility] 04/06/19 at | | | 0948, [...] PRN, 1 dose, | | | Starting [facility] 04/06/19 at 0948, | | | Until [facility] 04/06/19 at 1718, | | | nausea/vomiting, 2nd line | | + +---+ | | | + +---+ | promethazine (PHENERGAN) | | | injection 6.25-12.5 mg 6.25-12.5 | | | mg, intravenous, POSTPROCEDURE | | | PRN, 1 dose, Starting [facility] 04/06/19 | | | at 0948, Until [facility] 04/06/19 at | | | 1718, nausea/vomiting, 1st line | | + +---+ | | | + +---+ documented in this encounter
--- OUTSIDE RECORDS SUMMARY | ~2020-03-19 | XMS | Encounter Summary ---
Demographics + + + | Address | [address] | | | [place] [address] | + + + | Home Phone [...] Team Providers + +------+ + | Care Communications Field Technician Name | Role | Phone | + +------+ + PCP | Unavailable | + +------+ + Encounter Details +--------+ + + + + | Date | Type | Department | Care Team | Description | +--------+ + + + + | 05/07/ | Hospital | [facility] | Stacy Crawley, | | | 2012 | Encounter | HOSPITAL EMERGENCY | [address] | | | | | [address] | [place], [place] | | | | | [address] [place], [place] | [address] | | | | | [address] | [phone] | | | | | [phone] | | | +--------+ + + + [...] [place] | | | | | | [address] | | | | | | | | +--------+---------+ + + + documented as of this encounter Visit Diagnoses Not on filedocumented in this encounter"
--- OUTSIDE RECORDS SUMMARY | ~2020-03-19 | XMS | Encounter Summary ---
Demographics + + + | Address | [address] | | | [place] [address] | + + + | Home Phone [...] Team Providers + +------+ + | Care Ocean Forwarder Name | Role | Phone | + +------+ + | No, Physician | PCP | Unavailable | + +------+ + Encounter Details +--------+ + + + + | Date | Type | Department | Care Team | Description | +--------+ + + + + | 09/22/ | Hospital | [facility] | [place], | Altered level of | | 2019 | Encounter | HOSPITAL RESPIRATORY | [address] | consciousness | | | | THERAPY [address] | [address] [place], | | | | | [address] [place], [place] | [place] [address] | | | | | [address] | [phone] | | | | | [phone] | | | +--------+ + + + [...] onset of | 20 | 2 | // | | | (IMITREX) 100 mg | [...] as of this encounter Progress Notes Lamin Palacios, GLOBAL PROGRAM MANAGER - 09/22/2019 11:00 AM PSTAwake and drowsy EEG performed, patient delmis ated study well. Win diane in this encounter Plan of Treatment +--------+---------+ + + + | Date | Type | Specialty | Care Team | Description | +--------+---------+ + + + | 11/26/ | Office | Neurology | Seven Johns MD | | | 2020 | Visit | | [address] | | | | | | [place] | | | | | | [address] | | | | | | | | +--------+---------+ + + + documented as of this encounter Procedures + +--------+ + + + | Procedure Name | Priori | Date/Time | Associated Diagnosis | Comments | | | ty | | | | + +--------+ + + + | EEG | Routin | 09/22/2019 | Altered level of | Results for this | | | e | 11:00 AM | consciousness | procedure are in the [...] Other alteration of consciousness | + + documented in this encounter"
--- OUTSIDE RECORDS SUMMARY | ~2020-03-19 | XMS | Encounter Summary ---
Demographics + + + | Address | [address] | | | [place] [address] | + + + | Home Phone [...] Providers + +------+ + | Care Financial Market Dealer Name | Role | Phone | + +------+ + | No Pcp Per Patient | PCP | Unavailable | + +------+ + Encounter Details +--------+--------+ + + + | Date | Type | Department | Care Team | Description | +--------+--------+ + + + | 06/26/ | Travel | | | | | [...]
--- OUTSIDE RECORDS SUMMARY | ~2020-03-19 | XMS | Encounter Summary ---
Demographics + + + | Address | [address] | | | [place] [address] | + + + | Home Phone [...] Team Providers + +------+ + | Care Supervisory Civil Engineer Name | Role | Phone | [...] | | | | | Aftab MONET [facility] | | | | | | Hospital Admitting | | | | | | Desk Located on the | | | | | | 9th floor | | | | | | [place], [place] | | | | | | [address] | | | +--------+ + + + [...]
--- OUTSIDE RECORDS SUMMARY | ~2020-03-19 | XMS | Encounter Summary ---
Demographics + + + | Address | [address] | | | [place] [address] | + + + | Home Phone | | + + + | Preferred Language | Unknown | + + + | Marital Status | Single | + + + | Christianity Affiliation | Unknown | + + + | Race | Unknown | + + + | Ethnic Group | Unknown | + + + Author + + + | Author | [facility] | | | and [place] | + + + | Organization | [facility] | | | [...] Team Providers + +------+ + | Care Home Help Aide Name | Role | Phone | + +------+ + PCP | Unavailable | + +------+ + Encounter Details +--------+ + + + + | Date | Type | Department | Care Team | Description | +--------+ + + + + | 03/19/ | Emergency | [facility] | Hunter Hernandez, | Contusion of right | | 2017 | | MEDICAL CENTER | [address] | thigh, initial | | | | EMERGENCY CENTER | [place], [place] | encounter; Elevated | | | | [address] | [address] | BP; Personal history | | | | [place] | | of fibromyalgia; | | | | [address] | | Acute leg pain, | | | | [phone] | | right | +--------+ + + [...] [place] | | | | | | [address] | | | | | | | [...] | | Waveform EIA Distal: , , SLIVER FORMER Prox: 111.9, , triphasic SLIVER FORMER Distal: , | | | , DFA Prox: 66.3, , triphasic SFA Prox: 96.1, , triphasic SFA Mid: | | | 123, , triphasic SFA Distal: 65, , triphasic POP Prox: 53, , | | | triphasic POP Mid: , , POP Distal: 58.5, , triphasic TRUE Prox: | | | 40.3, , triphasic TRUE Distal: 25.9, , triphasic COMPUTER TECHNICIAN Prox: 43.6, , | | | triphasic COMPUTER TECHNICIAN Distal: 49.9, , triphasic DAE Prox: 42.1, [...] Stenosis/ Doppler WaveformEIA Distal: , | | ,SLIVER FORMER Prox: 111.9, , triphasicCFA Distal: , ,DFA [...] | |TRUE Distal: 25.9, , triphasic | |COMPUTER TECHNICIAN Prox: 43.6, , triphasic | |COMPUTER TECHNICIAN Distal: 49.9, , triphasic | |DAE Prox: [...]
--- OUTSIDE RECORDS SUMMARY | ~2020-03-19 | XMS | Encounter Summary ---
Demographics + + + | Address | [address] | | | [place] [address] | + + + | Home Phone [...] Team Providers + +------+ + | Care Paving Plant Operator Name | Role | Phone | [...] | 2019 | Encounter | Surgery at [facility] [address] | Kev Ashton MD [address] | | | | | [address] | [address] [place], | | | | | Mailcode: [id number] | [place] [address] | | | | | [facility] | [phone] | | | | | and Healing, | | | | | | Building | | | | | | Floor [place], [place] | | | | | | [address] | | | | | | [phone] | | | +--------+ + + + [...]
--- OUTSIDE RECORDS SUMMARY | ~2020-03-19 | XMS | Encounter Summary ---
Demographics + + + | Address | [address] | | | [place] [address] | + + + | Home Phone | | + + + | Preferred Language | Unknown | + + + | Marital Status | Single | + + + | Jehovah'S Witness Affiliation | NON | + + + [...] Team Providers + +------+ + | Care Closing Manager Name | Role | Phone | [...]
--- OUTSIDE RECORDS SUMMARY | ~2020-03-19 | XMS | Encounter Summary ---
Demographics + + + | Address | [address] | | | [place] [address] | + + + | Home Phone [...] Providers + +------+ + | Care Packing Machine Feeder Name | Role | Phone | [...] | | | uncertain | Good | [address] [facility] | | | | | behavior of | [address] | | | | | connective | Medical | [address] | | | | | and other | [address] | [place], [place] | | | | | soft tissue | Nw | [address] | | | | | Neoplasm of | [place], | Phone: | | | | | uncertain | [place] [address] | [phone] | | | | | behavior of | Phone: | Fax: | | | | | bone and | [phone] | [phone] | | | | | articular | Fax: | | | | | | cartilage | [phone] | | | | | | Procedures | | | | | | | REQUEST TO | | | | | | | SURGERY | | | | | | | REACTOR FUELING SUPERVISOR | | | | | | | MT EXCIS | | | | | | | SOFT TISSUE | | | | | | | LESION HAND | | | | | | | DEEP MT EXC | | | | | | | HAND TURN | | | | | | | DEEP>1.5CM | | | | | | | MT EXCIS | | | | | | | BENIGN BONE | | | | | | | LESN,PHALANX | | | | | | | MT PART | | | | | | | REMV | | | | | | | BONE,PROX/DE | | | | | | | D PHALANX | | | | | | | MT PART REMV | | | | | [...] | 2019 | Orders | [facility] | [address] | | | | | for [facility] and | [address] | | | | | Healing [address] | [place], [place] | | | | | Marcie Mailcode: | [id number] | | | | | [address] [facility] | [phone] | | | | | Health and Healing, | | | | | [facility] | | | | | | Floor [place], [place] | | | | | | [address] | | | | | | [phone] | | | +--------+ + + + [...]
--- OUTSIDE RECORDS SUMMARY | ~2020-03-19 | XMS | Encounter Summary ---
Demographics + + + | Address | [address] | | | [place] [address] | + + + | Home Phone | | + + + | Preferred Language | Unknown | + + + | Marital Status | Single | + + + | Restorationism Affiliation | Unknown | + + + | Race | Unknown | + + + | Ethnic Group | Unknown | + + + Author + + + | Author | [facility] | | | and [place] | + + + | Organization | [facility] | | [...] Team Providers + +------+ + | Care Slitter Service And Setter Name | Role | Phone | [...] | Visit | HOSPITAL NEUROLOGY | Jax, FARE COLLECTOR [address] | peripheral | | | | CLINIC [address] | [address] [place], | neuropathy (Primary | | | | [address] [place], | [place] [address] | Dx); Lumbosacral | | | | [place] [address] | [phone] | radiculopathy; | | | | [phone] | | Fibromyalgia | +--------+---------+ + + [...] are taking other medicines. You may use ykfd-smm-nslhazt medicine to control pain, unless another pain [...] by your healthcare provider Date Last Reviewed: 04/10/201619993854-6385 The [employer]. [address] [place] [address]. All righ ts reserved. This information is not intended as a substitute for professional medical care. Always follow your healthcare professional's instructions. documented in this encounter Progress Notes Jax Black, FARE COLLECTOR - 02/21/2020 9:30 AM PDT Patient: [place] Medical Record: [id number] Date of Services: 02/21/2020 Referring Doctor: MADHAV [...] without any improvement in her symptoms. [facility] also uses essential oils, massage therapy, [...] are intact. There is no dysmetria on vwtenl-dl-kuux and vwag-guqz-lnol. There are no abnormal or extraneous movements. [...] a sleep consultation sched ed with Dr. aWrren next week. Follow-up with Dr. Warren for [...] [place] | | | | | | [address] | | | | | | | [...]
--- OUTSIDE RECORDS SUMMARY | ~2020-03-19 | XMS | Encounter Summary ---
Demographics + + + | Address | [address] | | | [place] [address] | + + + | Home Phone [...] + + + | Author | [facility] | | | and [place] | + + + | Organization | [facility] | | | [...] Providers + +------+ + | Care Risk Management Manager Name | Role | Phone | [...] 2020 | | HOSPITAL NEUROLOGY | Jax, LABORER ELECTROPLATING [address] | | | | | CLINIC [address] | [address] [place], | | | | | [place], | [place] [address] | | | | | [place] [address] | [phone] | | | | | [phone] | | | +--------+ + + + [...] [place] | | | | | | [address] | | | | | | | | +--------+---------+ + + + documented as of this encounter Visit Diagnoses Not on filedocumented in this encounter"
--- OUTSIDE RECORDS SUMMARY | ~2020-03-19 | XMS | Encounter Summary ---
Demographics + + + | Address | [address] | | | [place] [address] | + + + | Home Phone | | + + + | Preferred Language | Unknown | + + + | Marital Status | Single | + + + | Church Affiliation | Unknown | + + + [...] Team Providers + +------+ + | Care Talent Assistant Name | Role | Phone | [...] 2020 | | HOSPITAL NEUROLOGY | Jax, PSYCHIATRIC SECRETARY [address] | | | | | CLINIC [address] | [address] [place], | | | | | [address] [place], | [place] [address] | | | | | [place] [address] | [phone] | | | | | [phone] | | | +--------+ + + + [...] [place] | | | | | | [address] | | | | | | | | +--------+---------+ + + + documented as of this encounter Visit Diagnoses Not on filedocumented in this encounter"
--- OUTSIDE RECORDS SUMMARY | ~2020-03-19 | XMS | Encounter Summary ---
Demographics + + + | Address | [address] | | | [place] [address] | + + + | Home Phone [...] Team Providers + +------+ + | Care Automobile Painter Name | Role | Phone | + [...] | | | DR [place], | [address] | | | | | [place] [address] | | | | | | [phone] | | | +--------+ + + + [...] [place] | | | | | | [address] | | | | | | | | +--------+---------+ + + + documented as of this encounter Visit Diagnoses + + | Diagnosis | + + | Chronic migraine - Primary Chronic migraine without aura, without mention of | | intractable migraine without mention of status migrainosus | + + documented in this encounter"
--- OUTSIDE RECORDS SUMMARY | ~2020-03-19 | XMS | Encounter Summary ---
Demographics + + + | Address | [address] | | | [place] [address] | + + + | Home Phone | | + + + | Preferred Language | Unknown | + + + | Marital Status | Single | + + + | Advent Affiliation | Unknown | + + + [...] Team Providers + +------+ + | Care Barber Shop Manager Name | Role | Phone | [...] | | | | | Altered | [facility] | | | | | level of | RAW STOCK DYEING MACHINE TENDER [address] | [address] | | | | | consciousnes | [address] | [address] | | | | | s Jerking | [place], [place] | [place], [place] | | | | | movements of | [address] | [address] | | | | | extremities | Phone: | Phone: | | | | | Procedures | [phone] | [phone] | | | | | MRI Brain | Fax: | Fax: | | | | | w wo | [phone] | [phone] | | | | | Contrast | [...] | Required | | level of | RAW STOCK DYEING MACHINE TENDER [address] | [address] | | | | | consciousnes | [address] | [address], | | | | | s Jerking | [place], [place] | [place] | | | | | movements of | [address] | [place], [place] | | | | | extremities | Phone: | [address] Phone: | | | | | | [phone] | [phone] | | | | | | Fax: | Fax: | | | | | | [phone] | [phone] | + + + + + + [...] | CLINIC [address] | [address] [facility], | neuropathy (Primary | | | | [place], | [place] [address] | Dx); Lumbosacral | | | | [place] [address] | [phone] | radiculopathy; | | | | [phone] | | Fibromyalgia; | | | | [...] are taking other medicines. You may use yfnb-pia-bgpvtci medicine to control pain, unless another pain [...] by your healthcare provider Date Last Reviewed: 04/10/201619993904-9154 The [employer]. [address] [place] [address]. All righ ts reserved. This information is [...] Injection education declined by patient. TORI Diaz UPPER INSPECTOR pangler, JUVENTINO Neri - 11/08/2019 10:30 AM PST . Patient: [place] Medical Record: [id number] Date of Services: 11/08/2019 Referring Doctor: MADHAV [...] find a primary care provider in the [place] area after her PCP suddenly lef t. [...] undergoing workup with her PCP and an etcher apprentice photoengraving for sig nificant hormone and white blood cell count abnormalities. Encounter Problem List Idiopathic peripheral neuropathy (Primary) Overview: Current Treatment:Gabapentin September 15, 2019: EMG/NCS: No evidence of peripheral neuropathy Lumbosacral radiculopathy Overview: September 15, 2018: EMG/NCS: No evidence of lumbosacral radiculopathy. Orders: - ketorolac (TORADOL) injection 60 mg Fibromyalgia Altered level of consciousness - * Chad [facility] Neurology - AMB Referral - EEG [...] are intact. There is no dysmetria on xusjkm-ep-hwrt and koio-ydbo-nbec. There are no abnormal or extraneous movements. [...] [place] | | | | | | [address] | | | | | | | [...] | | Sincerely, SHERRIE JOHNS M.D. Neurologist [phone] | | | Electronically signed NOTE: Part of this report was transcribed | | | using voice recognition software. Every effort | | | was made to ensure accuracy. However, inadvertent | | | computerize administrative job titles errors may be present | | | [...] was | | | reviewed using the [employer] EEG digital system. During the | | [...]
--- OUTSIDE RECORDS SUMMARY | ~2020-03-19 | XMS | Encounter Summary ---
Demographics + + + | Address | [address] | | | [place] [address] | + + + | Home Phone | | + + + | Preferred Language | Unknown | + + + | Marital Status | Single | + + + | Mosque Affiliation | Unknown | + + + | Race | Unknown | + + + | Ethnic Group | Unknown | + + + Author + + + | Author | [facility] | | | and [place] | + + + | Organization | [facility] | | [...] Team Providers + +------+ + | Care Livestock Yard Attendant Name | Role | Phone | + [...] | | | [address] [place], | [address] | | | | | [place] [address] | | | | | | [phone] | | | +--------+ + + + [...] this encounter Progress Notes Pedro Brock CC [facility] - 12/08/2019 3:45 PM PSTTrigger Point Thoracic. Patient had no c omplaints after trigger point, BP 110/65 Pulse 95. Patient given instructions verbally and tyron thapa, patient stated understanding and ambulated to [facility] without difficulty or assistance . Electronically signed by: TORI Alicia [facility] 12/08/2019 4:17 PM documented in this enc [...] [place] | | | | | | [address] | | | | | | | | +--------+---------+ + + + documented as of this encounter Procedures + +--------+ + + + | Procedure Name | Priori | Date/Time | Associated Diagnosis | Comments | | | ty | | | | + +--------+ + + + | NC INJECT TRIGGER | Routin | 12/08/2019 | [...]
--- OUTSIDE RECORDS SUMMARY | ~2020-03-19 | XMS | Encounter Summary ---
Demographics + + + | Address | [address] | | | [place] [address] | + + + | Home Phone [...] + | Collette [place] | [place] | [place] | | + + + + + Care Team Providers + +------+ + | Care Plant Engineer Name | Role | Phone | [...]
--- OUTSIDE RECORDS SUMMARY | ~2020-03-19 | XMS | Encounter Summary ---
Demographics + + + | Address | [address] | | | [place] [address] | + + + | Home Phone [...] Team Providers + +------+ + | Care Electrical Designer Drafter Name | Role | Phone | + [...] [address] | | | | | [address] [facility] | [facility] | | | | | Hospital Admitting | [place], [place] | | | | | Desk Located on the | [address] | | | | | 9th floor | [phone] | | | | | [place], [place] | | | | | | [address] | Coleen Carpenter, | | | | | | [address] | | | | | | [facility] | | | | | | [place], [place] | | | | | | [address] | | | | | | [phone] | | | | | | | [...]
--- OUTSIDE RECORDS SUMMARY | ~2020-03-19 | XMS | Encounter Summary ---
Demographics + + + | Address | [address] | | | [place] [address] | + + + | Home Phone [...] Team Providers + +------+ + | Care Finding Fastener Name | Role | Phone | + [...]
--- OUTSIDE RECORDS SUMMARY | ~2020-03-19 | XMS | Encounter Summary ---
Demographics + + + | Address | [address] | | | [place] [address] | + + + | Home Phone [...] Providers + +------+ + | Care Multi Township Assessor Name | Role | Phone | + [...] | THERAPY [address] | [address] [place], | | | | | [place], [place] | [place] [address] | | | | | [address] | [phone] | | | | | [phone] | | | +--------+ + + + [...] of this encounter Progress Notes Lamin Palacios, PHOTO RETOUCHER - 09/22/2019 11:00 AM PSTAwake and drowsy [...] [place] | | | | | | [address] | | | | | | | [...]
--- OUTSIDE RECORDS SUMMARY | ~2020-03-19 | XMS | Encounter Summary ---
Demographics + + + | Address | [address] | | | [place] [address] | + + + | Home Phone [...] Team Providers + +------+ + | Care Veneer Slicing Machine Operator Name | Role | Phone [...]
--- OUTSIDE RECORDS SUMMARY | ~2020-03-19 | XMS | Encounter Summary ---
Demographics + + + | Address | [address] | | | [place] [address] | + + + | Home Phone [...] + + | Author | [facility] | | | and [place] | + + + | Organization | [facility] | | | [...] Team Providers + +------+ + | Care Belt Cutter Name | Role | Phone | [...] | THERAPY [address] [place], | | | | | [address] [place], [place] | [place] [address] | | | | | [address] | [phone] | | | | | [phone] | | | +--------+ + + + [...] of this encounter Progress Notes Lamin Palacios, HOOP MAKER MACHINE - 09/22/2019 11:00 AM PSTAwake and drowsy [...] [place] | | | | | | [address] | | | | | | | [...]
--- OUTSIDE RECORDS SUMMARY | ~2020-03-19 | XMS | Encounter Summary ---
Demographics + + + | Address | [address] | | | [place] [address] | + + + | Home Phone [...] | Author | [facility] | + + + | Organization | [facility] | + + + | Address | [...] Providers + +------+ + | Care Travel Registered Nurse Icu Name | Role | Phone | + [...] | 2019 | Visit | Medical at [facility] [address] | Surgical [address] | examination (Primary | | | | [address] | [address] | Dx) | | | | Mailcode: CH16D | Road [place], [place] | | | | | [facility] | [address] | | | | | and [place], | | | | | | Building | | | | | | Floor [place], [place] | | | | | | [address] | | | | | | [phone] | | | +--------+---------+ + + + [...] documented as of this encounter Progress Notes Penelpoe Morgan LPN - 07/12/2019 1:15 PM PDTPatient [...]
--- OUTSIDE RECORDS SUMMARY | ~2020-03-19 | XMS | Encounter Summary ---
Demographics + + + | Address | [address] | | | [place] [address] | + + + | Home Phone | | + + + | Preferred Language | Unknown | + + + | Marital Status | Single | + + + | Presybeterian Affiliation | Unknown | + + + | Race | Unknown | + + + | Ethnic Group | Unknown | + + + Author + + + | Author | [facility] | | | and [place] | + + + | Organization | [facility] | | | [...] Team Providers + +------+ + | Care Tea Plantation Worker Name | Role | Phone | [...] [address] | | | | | [place] [address] | | | | | | [phone] | | | +--------+ + + + [...] [place] | | | | | | [id number] | | | | | | | | +--------+---------+ + + + documented as of this encounter Visit Diagnoses Not on filedocumented in this encounter"
--- OUTSIDE RECORDS SUMMARY | ~2020-03-19 | XMS | Encounter Summary ---
Demographics + + + | Address | [address] | | | [place] [address] | + + + | Home Phone | | + + + | Preferred Language | Unknown | + + + | Marital Status | Single | + + + | Amish Affiliation | Unknown | + + + | Race | Unknown | + + + | Ethnic Group | Unknown | + + + Author + + + | Author | [facility] | | | and [place] | + + + | Organization | [facility] | | | [...] Team Providers + +------+ + | Care Capacity Planning Engineer Name | Role | Phone | [...] [address] | | | | | [place] [address] | | | | | | [phone] | | | +--------+ + + + [...] [place] | | | | | | [id number] | | | | | | | | +--------+---------+ + + + documented as of this encounter Visit Diagnoses Not on filedocumented in this encounter"
--- OUTSIDE RECORDS SUMMARY | ~2020-03-19 | XMS | Encounter Summary ---
Demographics + + + | Address | [address] | | | [place] [address] | + + + | Home Phone [...] Team Providers + +------+ + | Care Property Controller Name | Role | Phone | + [...] | | | | | | | [place], [place] | | | | | | | [address] | | | | | | | Phone: | | | | | | | [phone] | | | | | | | Fax: | | | | | | | [phone] | + +--------+ + + + + Encounter Details +--------+---------+ + + + | Date | Type | Department | Care Team | Description | +--------+---------+ + + + | 03/29/ | Office | Orthopaedics | Isael Champion, | Finger mass, right | | 2019 | Visit | [facility] [place] | [address] | (Primary Dx); | | | | for Health and | [address] | Tobacco dependence | | | | Healing [address] | [place], [place] | due to cigarettes; | | | | Ave Mailcode: | [address] | Cigarette smoker | | | | [facility] | [phone] | | | | | Health and Healing, | | | | | | [facility] | | | | | | Floor | | | | | | [address] | | | | | | [phone] | | | +--------+---------+ + + + [...] - 03/29/2019 8:00 AM PDT [place] | [facility] Orthopaedic Oncology New Patient Visit Note [...] referred from by Dr Fraser from the [facility] ED for a Chief Concern of right rene mb possible tumor. HPI: Ms Singleton is a 28 year old woman who lives in the [facility] [address] who is here for evaluation of her [...] , Rfl: SH: Is single, lives in [facility], works in [employer], smokes half pack a day, and d [...] signs are noted as recorded by the Teacher'S Aide. General: Alert, awake, and oriented x 3. 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 [...] occur. Contact if questions/concerns. Isael Champion MD Rn Clinical Trials, Orthopaedic Oncology [facility] | Department of Orthopaedics & Rehabilitation [...]
--- OUTSIDE RECORDS SUMMARY | ~2020-03-19 | XMS | Encounter Summary ---
Demographics + + + | Address | [address] | | | [place] [address] | + + + | Home Phone [...] Team Providers + +------+ + | Care Millwright Supervisor Name | Role | Phone | [...] | | | [place], [place] | [place] [address] | | | | | [address] | [phone] | | | | | [phone] | | | +--------+ + + + [...] [place] | | | | | | [address] | | | | | | | [...] + + | IMPRESSION: Transitional vertebrae lowest dfq-jxv-amgtojc | [facility] | | vertebrae. This [...] | vertebrae is present at the lowest gly-btt-aiwzjcy vertebrae with the | | | left transverse process articulating with the sacrum. Sclerosis is | | | present at this articulation. 5 ncz-yor-smogrnn vertebrae are | | | present. For numbering purposes the lowest vdp-ati-uqpsweq vertebrae | | | will be termed [...] | | is present at the lowest lkx-qgo-wqxbpol vertebrae with the left transverse process | | articulating with the sacrum. Sclerosis is present at this articulation.5 | | nar-axq-iykrxkd vertebrae are present. For numbering purposes the lowest | | ksz-lai-fnwenlq vertebrae will be termed L5.Pedicles are intact. The disc spaces and | | vertebral body heights are maintained. IUD device present..IMPRESSION: | | IMPRESSION:Transitional vertebrae lowest how-ary-tfclsru vertebrae. This finding can be | | associated with back pain.Dictated by: Bobby Chamberlain | |A transitional vertebrae is present at the lowest jni-slr-jxihfjm vertebrae with the left t ransverse process articulating with the sacrum. Sclerosis is present at this articulation. | | | |5 roa-adf-ulflecq vertebrae are present. For numbering purposes the lowest qsu-gkg-rzotkfj vertebrae will be termed L5. | | | |Pedicles are intact. The disc spaces and vertebral body heights are maintained. IUD devic e present.. | | | |IMPRESSION: | |IMPRESSION: | |Transitional vertebrae lowest wlc-yvn-tsrkbna vertebrae. This finding can be associated wi [...]
--- OUTSIDE RECORDS SUMMARY | ~2020-03-19 | XMS | Encounter Summary ---
Demographics + + + | Address | [address] | | | [place] [address] | + + + | Home Phone [...] Providers + +------+ + | Care Data Assistant Name | Role | Phone | [...] | | | | | Procedures | [address] | [address] | | | | | CONSULT TO | Phone: | Phone: | | | | | [facility] | [phone] | [phone] | | | | | SURGERY MI | Fax: | Fax: | | | | | MOHS,1 | [phone] | [phone] | | | | | STAGE,H/N/HF | | | | | | | /G MI MOHS | | | | | | | ADDL STAGE | | | | | | | MI MOHS | | | | | | | SURG, ADDL | | | | | | | BLOCK MI | | | | | | | REPR CMPL | | | | | | | WND | | | | | | | HEAD,FAC,SMILEY | | | | | | | D 1.1-2.5 | | | | | | | MI REPR CMPL | | | | | | | WND | | | | | | | HEAD,FAC,SMILEY | | | | | | | D 2.6-7.5 | | | | | | | MI | | | | | | | REP,FACE,GEN | | | | | | | ITAL,HAND,FT | | | | | | | +5CM/< MI | | | | | | | ADJ TISS | | | | | | | XFER | | | | | | | HEAD,FAC,SMILEY | | | | | | | D <10SQCM | | | | | | | MI ADJ TISS | | | | | | | XFER | | | | | | | HEAD,FAC,SMILEY | | | | | | | D 10.1-30 | | | | | | | MI SKIN | | | | | | | TISSUE | | | | | | | REARRANGEMEN | | | | | | | T MI SKIN | | | | | | | TISSUE | | | | | | | REARRANGEMEN | | | | | | | T ADD-ON MI | | | | | | | SPLIT | | | | | | | GRFT,HEAD,FA | | | | | | | C,HAND,FEET | | | | | | | <100CM MI | | | | | | | FULL THICK | | | | | | | GRFT | | | | | | | HEAD,FAC,SMILEY | | | | | | | D <20SQC MI | | | | | | | FULL THICK | | | | | | | GRFT | | | | | | | HEAD,FAC,MAX | | | | | | | ADD 20SQ MI | | | | | | | FORM SKIN | | | | | | | PEDICLE FLAP | | | | | | | | | | | | | | FACE,GEN,SMILEY | | | | | | | D MI | | | | | | | [...] | | 2019 | | Surgery at [facility] [address] | Kev Ashton MD [address] | (SCC right thumb ) | | | | [address] | [address] [place], | | | | | Mailcode: CH16D | [place] [address] | | | | | [facility] | [phone] | | | | | and Healing, | | | | | | Building | | | | | | [place], [place] | | | | | | [address] | | | | | | [phone] | | | +--------+ + + + [...] mes. Repeat this process 3-5 times daily. [facility]PART[facility]ERMAT[facility]Y [address] [place] [address], WOUND CARE INSTRUCTIONS General Care-All Wounds [...] the second week, the graft should become black belt pink and will turn flesh colored, tho [...] than the day before. How to Reach [phone] Toll-free [phone] Evenings and Weekends: [phone] [facility]Y [address] [place] [address], GRANULATING WOUND CARE INSTRUCTIONS General Care-All Wounds [...] redness, warmth and drainage) How to Reach [phone] Toll-free [phone] Evenings and Weekends: [phone] documented in this encounter Progress Notes Sumeet [...] was processed, read and resulted in [facility] Dermatologic Surgery, [address] [facility] [place] [address] MOHS MICROGRAPHIC SURGERY PROCEDURE NOTE 06/26/2019 ATTENDING SURGEON: Kev [place] M.D. RECRUITING SCHEDULER: Sumeet Baca M.D. Pretreatment lesion size of [...] pleomorphic keratinocytes extending broadly through the ent amc epidermis and papillary dermis, reticular dermis and [...]
--- OUTSIDE RECORDS SUMMARY | ~2020-03-19 | XMS | Encounter Summary ---
Demographics + + + | Address | [address] | | | [place] [address] | + + + | Home Phone [...] Team Providers + +------+ + | Care Profiling Machine Set Up Operator Tool Name | Role | Phone | + [...] | | | [place], [place] | [place] [address] | | | | | [address] | [phone] | | | | | [phone] | | | +--------+ + + + [...] [place] | | | | | | [address] | | | | | | | [...] + + | IMPRESSION: Transitional vertebrae lowest ccp-chm-xtbupym | [facility] | | vertebrae. This [...] | vertebrae is present at the lowest ktk-weq-mtvblgp vertebrae with the | | | left transverse process articulating with the sacrum. Sclerosis is | | | present at this articulation. 5 pyk-vol-yinzqmr vertebrae are | | | present. For numbering purposes the lowest hzh-clg-yfjnzwi vertebrae | | | will be termed [...] | | is present at the lowest uzf-ddv-twdyysh vertebrae with the left transverse process | | articulating with the sacrum. Sclerosis is present at this articulation.5 | | rhv-ged-damqmlz vertebrae are present. For numbering purposes the lowest | | iwp-aek-hebsuxd vertebrae will be termed L5.Pedicles are intact. The disc spaces and | | vertebral body heights are maintained. IUD device present..IMPRESSION: | | IMPRESSION:Transitional vertebrae lowest dux-yor-utodqqc vertebrae. This finding can be | | associated with back pain.Dictated by: Bobby Chamberlain | |A transitional vertebrae is present at the lowest qfo-qmc-aaqxbyd vertebrae with the left t ransverse process articulating with the sacrum. Sclerosis is present at this articulation. | | | |5 qni-vfa-hegvahb vertebrae are present. For numbering purposes the lowest fny-hkb-kgopgqu vertebrae will be termed L5. | | | |Pedicles are intact. The disc spaces and vertebral body heights are maintained. IUD devic e present.. | | | |IMPRESSION: | |IMPRESSION: | |Transitional vertebrae lowest jel-qpk-iyadryc vertebrae. This finding can be associated wi [...]
--- OUTSIDE RECORDS SUMMARY | ~2020-03-19 | XMS | Encounter Summary ---
Demographics + + + | Address | [address] | | | [place] [address] | + + + | Home Phone | | + + + | Preferred Language | Unknown | + + + | Marital Status | Single | + + + | Jain Affiliation | Unknown | + + + [...] Team Providers + +------+ + | Care Extraction Operator Name | Role | Phone | + +------+ + PCP | Unavailable | + +------+ + Encounter Details +--------+ + + + + | Date | Type | Department | Care Team | Description | +--------+ + + + + | 03/19/ | Emergency | [facility] | Hunter Hernandez, | Contusion of right | | 2017 | | MEDICAL CENTER | [address] | thigh, initial | | | | EMERGENCY CENTER | [place], [place] | encounter; Elevated | | | | [address] | [address] | BP; Personal history | | | | [place] | | of fibromyalgia; | | | | [address] | | Acute leg pain, | | | | [phone] | | right | +--------+ + + [...] [place] | | | | | | [address] | | | | | | | [...] | | Waveform EIA Distal: , , BIOLOGY DEPARTMENT CHAIR Prox: 111.9, , triphasic BIOLOGY DEPARTMENT CHAIR Distal: , | | | , DFA Prox: 66.3, , triphasic SFA Prox: 96.1, , triphasic SFA Mid: | | | 123, , triphasic SFA Distal: 65, , triphasic POP Prox: 53, , | | | triphasic POP Mid: , , POP Distal: 58.5, , triphasic TRUE Prox: | | | 40.3, , triphasic TRUE Distal: 25.9, , triphasic METAL GRINDER Prox: 43.6, , | | | triphasic METAL GRINDER Distal: 49.9, , triphasic DAE Prox: 42.1, [...] Stenosis/ Doppler WaveformEIA Distal: , | | ,BIOLOGY DEPARTMENT CHAIR Prox: 111.9, , triphasicCFA Distal: , ,DFA [...] | |TRUE Distal: 25.9, , triphasic | |METAL GRINDER Prox: 43.6, , triphasic | |METAL GRINDER Distal: 49.9, , triphasic | |DAE Prox: [...]
--- OUTSIDE RECORDS SUMMARY | ~2020-03-19 | XMS | Encounter Summary ---
Demographics + + + | Address | [address] | | | [place] [address] | + + + | Home Phone [...] Team Providers + +------+ + | Care Coater Helper Name | Role | Phone | + +------+ + | No, Physician | PCP | Unavailable | + +------+ + Encounter Details +--------+ + + + + | Date | Type | Department | Care Team | Description | +--------+ + + + + | 05/18/ | Orders Only | [facility] | Provider, | | | 2019 | | SYSTEM GENERIC OP | MD [address] | | | | | CONVERSION [address] | [place] | | | | | [address] [place], [place] | [place] [address] | | | | | [address] | | | | | | [phone] | | | +--------+ + + + [...] [place] | | | | | | [id number] | | | | | | | | +--------+---------+ + + + documented as of this encounter Visit Diagnoses Not on filedocumented in this encounter"
--- OUTSIDE RECORDS SUMMARY | ~2020-03-19 | XMS | Encounter Summary ---
Demographics + + + | Address | [address] | | | [place] [address] | + + + | Home Phone [...] Team Providers + +------+ + | Care Office Machines Teacher Name | Role | Phone | [...] | | [address] | | | | | [address] | [address] | | | | | [place] | [place] | | | | | [address] | [address] | | | | | [phone] | [phone] | | | | | | | [...] [place] | | | | | | [address] | | | | | | | [...] | color flow Doppler was perfomed at [facility]. Study: This was a technically | | [...] 0.65 m/s | | | MV Dec Hart: 3.53 m/s2 MV DecT: 141.98 ms MV E Kamron: 0.50 | | | m/s MV E/A Ratio: 0.76 MV PHT: 41.17 ms MVA By PHT: 5.34 | | | cm2 Septal e': 0.07 m/s Septal E/e': 6.62 Lateral e': 0.09 | | | m/s Lateral E/e': 5.26 TR maxP.50 mmHg TR Vmax: 1.76 | | | m/s Core Maker Helper: DBS Authenticated by: LILLIAM TEMPLE MD | [...] | color flow Doppler was perfomed at [facility].Study: This was a technically adequate study.Left | [...] cmLVIDd: 4.24 cmLVPWd: 1.03 cmLVOT Area: 3.57 df5CTHI Diam: | | 2.13 cm%FS: 24.76 %EF(Teich): [...] (A-L): 16.54 ml/m2LAAs | | A2C: 12.34 wh8XDIVI A-L A2C: 34.87 mlLALs A2C: 3.70 cmLAAs A4C: 12.94 pb1FJHUK | | A-L A4C: 37.17 mlLALs A4C: 3.82 cmRAAs: 12.97 bj0YGIDB A-L: 35.50 mlRAESV MOD: | | 33.85 mlRALs: 4.02 cmTAPSE: 1.97 cmAV maxP.44 mmHgAV meanP.72 mmHgAV | | Vmax: 1.16 m/Coco Vmean: 0.75 m/Coco VTI: 15.80 cmAVA Vmax: 2.77 cm2AVA (VTI): | | 3.00 bu6GZHD (Vmax): 0.00 cm2/m2AVAI (VTI): 0.00 cm2/m2LVOT maxP.28 mmHgLVOT | | meanP.74 mmHgLVSI Dopp: 21.48 ml/m2LVSV Dopp: 47.47 mlLVOT Vmax: 0.90 | | m/sLVOT Vmean: 0.62 m/sLVOT VTI: 13.27 cmMV A Kamron: 0.65 m/sMV Dec Hart: 3.53 | | m/s2MV DecT: 141.98 msMV E Kamron: 0.50 m/sMV E/A Ratio: 0.76MV PHT: 41.17 msMVA By | | PHT: 5.34 iz8Glsgxk e': 0.07 m/sSeptal E/e': 6.62Lateral e': 0.09 m/sLateral | | E/e': 5.26TR maxP.50 mmHgTR Vmax: 1.76 m/s Core Maker Helper: DBSAuthenticated by: | | Connie BRUNO Date/Time: [...] A Kamron: 0.65 m/s | |MV Dec Hart: 3.53 m/s2 | |MV DecT: 141.98 ms | |MV E Kamron: 0.50 m/s | |MV E/A Ratio: 0.76 | |MV PHT: 41.17 ms | |MVA By PHT: 5.34 cm2 | |Septal e': 0.07 m/s | |Septal E/e': 6.62 | |Lateral e': 0.09 m/s | |Lateral E/e': 5.26 | |TR maxP.50 mmHg | |TR Vmax: 1.76 m/s | | | |Core Maker Helper: DBS | |Authenticated by: LILLIAM TEMPLE MD [...]
--- OUTSIDE RECORDS SUMMARY | ~2020-03-19 | XMS | Encounter Summary ---
Demographics + + + | Address | [address] | | | [place] [address] | + + + | Home Phone [...] Author + + + | Author | [facility] | + + + | Organization | [facility] | + + + | Address | Unknown | + + + | Phone | Unavailable | + + + Support + + + + + | Name | Relationship | Address | Phone | + + + + + | Collette [place] | [place] | [place] | | + + + + + Care Team Providers + +------+ + | Care Wage And Hour Investigator Name | Role | Phone | + [...] [address] | | | | | [address] | [address] | | | | | [place], | [place], [place] | | | | | [place] [address] | [address] | | | | | [phone] | [phone] | | | | | | | [...] 04/06/2019 | | Attending Surgeon:Isael [place] MD Roller Mechanic(s):Kev [place], | | Munir Pinon MD Preoperative [...] | | bluntly dissected off with a Maybee and lesion grossly removed. I also used a rongeur | | to pick out hand some additional slightly abnormal-looking tissue. Once the [...] 04/06/2019 | | 10:12:33DT: 04/06/2019 10:42:16Job #: [id number] | |I, Isael Champion, was present and scrubbed for the entire procedure. | | | |Counts were correct at the end. | | | | | | | |Isael Champion MD | |DIANE/GHAZALA | | | | | | /[id number] | + + SURGICAL PATHOLOGY (04/06/2019 9:56 [...] | | | | | [facility] | | | | | | University [...] | | | | | | number [phone].A. | | | | | | Hand, [...] | + + + + + | [facility] | [address] | [place] [address] | | | PATHOLOGY | [address] [...] [place] | [address] | [place], [place] | | | [facility] | [address] | [address] | | | TESTS | | | [...] | | | 0948, Until [facility] 6/27/19 at 1718, | | | [...] | | | | | CONTINUOUS, Starting [facility] 04/06/19 | anesthes | AM PDT [...] PRN, 1 | | | dose, Starting [facility] 04/06/19 at | [...] PRN, 1 dose, | | | Starting [facility] 04/06/19 at 0948, | | | Until [facility] 04/06/19 at 1718, | | | nausea/vomiting, 2nd line | | + +---+ | | | + +---+ | promethazine (PHENERGAN) | | | injection 6.25-12.5 mg 6.25-12.5 | | | mg, intravenous, POSTPROCEDURE | | | PRN, 1 dose, Starting [facility] 04/06/19 | | | at 0948, Until [facility] 04/06/19 at | | | 1718, nausea/vomiting, 1st line | | + +---+ | | | + +---+ documented in this encounter
--- OUTSIDE RECORDS SUMMARY | ~2020-03-19 | XMS | Encounter Summary ---
Demographics + + + | Address | [address] | | | [place] [address] | + + + | Home Phone [...] Team Providers + +------+ + | Care Casket Assembler Metal Name | Role | Phone | + [...] [address] | | | | | [address] | [address] | | | | | [place], | [place], [place] | | | | | [place] [address] | [address] | | | | | [phone] | | | | | | | [...] 04/06/2019 | | Attending Surgeon:Isael Champion MD Sales Analyst(s):Kev Strickland, | | Munir Pinon MD Preoperative [...] | | bluntly dissected off with a [place] and lesion grossly removed. I also used a rongeur | | to case picker some additional slightly abnormal-looking tissue. Once [...] 04/06/2019 | | 10:12:33DT: 04/06/2019 10:42:16Job #: [id number] | |I, Isael Champion, was present and scrubbed for the entire procedure. | | | |Counts were correct at the end. | | | | | | | |Isael Champion MD | |DIANE/GHAZALA | | | | | | /[id number] | + + SURGICAL PATHOLOGY (04/06/2019 9:56 [...] PathologistPathology, | | | | | | [facility] | | | | | | University [...] | | | | | | number [id number].A. | | | | | | Hand, [...] | + + + + + | [facility] | [address] | [place] [address] | | | PATHOLOGY | [address] [...] [place] | [address] | [place], [place] | | | [facility] | [address] | [address] | | | TESTS | | | [...] PDT | | | | | Starting [facility] 04/06/19 at 0817, | | | | | | | Until [facility] 04/06/19 at 0900 | | | | | | + +--------+ + +------+------+ + +---+ | | | + +---+ | acetaminophen (TYLENOL) tablet | | | 1 dose, Starting [facility] 04/06/19 at | | | 0819, Until [facility] 04/06/19 at 0900 | | + +---+ | | | + +---+ | fentaNYL (SUBLIMAZE) injection | | | 25-50 mcg 25-50 mcg, | | | intravenous, POSTPROCEDURE PRN, 8 | | | doses, Starting [facility] 04/06/19 at | | | 0948, Until [facility] 6/27/19 at 1718, | | | [...] PDT | | | | | Starting [facility] 04/06/19 at 0817, | | | [...] PDT | | | | | Starting [facility] 04/06/19 at 0948, | | | | | | | Until [facility] 04/06/19 at 1718, | | | [...] | | | | | CONTINUOUS, Starting [facility] 04/06/19 | anesthes | AM PDT [...] PRN, 1 | | | dose, Starting [facility] 04/06/19 at | | | 0948, [...] PRN, 1 dose, | | | Starting [facility] 04/06/19 at 0948, | | | Until [facility] 04/06/19 at 1718, | | | nausea/vomiting, 2nd line | | + +---+ | | | + +---+ | promethazine (PHENERGAN) | | | injection 6.25-12.5 mg 6.25-12.5 | | | mg, intravenous, POSTPROCEDURE | | | PRN, 1 dose, Starting [facility] 04/06/19 | | | at 0948, Until [facility] 04/06/19 at | | | 1718, nausea/vomiting, 1st line | | + +---+ | | | + +---+ documented in this encounter
--- OUTSIDE RECORDS SUMMARY | ~2020-03-19 | XMS | Clinical Summary ---
Demographics + + + | Address | [address] | | | [place] [address] | + + + | Home Phone | | + + + | Preferred Language | Unknown | + + + | Marital Status | Single | + + + | Samaritan Affiliation | NON | + + + [...] + +------+ + | Care Risk Management Internship Name | Role | Phone | + +------+ + | No Pcp Per Patient | PCP | Unavailable | + +------+ + Source Comments [facility] is fully live on both [facility] and [facility] InPatient.[facility] Allergies + + + + + + [...] | | | + +--------+ +--------+-------+---------+--------+ | [employer] MEDICAID | [employer]ATOR | xxxxxxxx | 02/15/20 | | | [...] | | 1990 | [phone] | [place] [address] | | | [email or web address] | | | [...]
--- OUTSIDE RECORDS SUMMARY | ~2020-03-19 | XMS | Encounter Summary ---
Demographics + + + | Address | [address] | | | [place] [address] | + + + | Home Phone | | + + + | Preferred Language | Unknown | + + + | Marital Status | Single | + + + | Episcopal Affiliation | Unknown | + + + | Race | Unknown | + + + | Ethnic Group | Unknown | + + + Author + + + | Author | [facility] | | | and [place] | + + + | Organization | [facility] | | [...] Team Providers + +------+ + | Care Reed Polisher Name | Role | Phone | + [...] | | | DR [place], | [address] | | | | | [place] [address] | | | | | | [phone] | | | +--------+ + + + [...] this encounter Progress Notes Pedro Brock CC [facility] - 12/08/2019 3:45 PM PSTTrigger Point Thoracic. Patient had no c omplaints after trigger point, BP 110/65 Pulse 95. Patient given instructions verbally and tyron thapa, patient stated understanding and ambulated to [facility] without difficulty or assistance . Electronically signed by: TORI Alicia [facility] 12/08/2019 4:17 PM documented in this enc [...] [place] | | | | | | [address] | | | | | | | | +--------+---------+ + + + documented as of this encounter Procedures + +--------+ + + + | Procedure Name | Priori | Date/Time | Associated Diagnosis | Comments | | | ty | | | | + +--------+ + + + | SD INJECT TRIGGER | Routin | 12/08/2019 | [...]
--- OUTSIDE RECORDS SUMMARY | ~2020-03-19 | XMS | Encounter Summary ---
Demographics + + + | Address | [address] | | | [place] [address] | + + + | Home Phone [...] + + + | Author | [facility] | | | and [place] | + + + | Organization | [facility] | | [...] Team Providers + +------+ + | Care Hazard Mitigation Officer Name | Role | Phone | + +------+ + PCP | Unavailable | + +------+ + Encounter Details +--------+ + + + + | Date | Type | Department | Care Team | Description | +--------+ + + + + | 05/07/ | Hospital | [facility] | Stacy Crawley, | | | 2012 | Encounter | HOSPITAL EMERGENCY | [address] | | | | | [address] | [place], [place] | | | | | [address] [place], [place] | [address] | | | | | [address] | [phone] | | | | | [phone] | | | +--------+ + + + [...] [place] | | | | | | [address] | | | | | | | | +--------+---------+ + + + documented as of this encounter Visit Diagnoses Not on filedocumented in this encounter"
--- OUTSIDE RECORDS SUMMARY | ~2020-03-19 | XMS | Encounter Summary ---
Demographics + + + | Address | [address] | | | [place] [address] | + + + | Home Phone | | + + + | Preferred Language | Unknown | + + + | Marital Status | Single | + + + | Mormon Affiliation | Unknown | + + + | Race | Unknown | + + + | Ethnic Group | Unknown | + + + Author + + + | Author | [facility] | | | and [place] | + + + | Organization | [facility] | | | [...] Team Providers + +------+ + | Care Refiner Operator Name | Role | Phone | [...] | | [address] [place], [place] | [place] [address] | extremities | | | | [address] | [phone] | | | | | [phone] | | | +--------+ + + + [...] [place] | | | | | | [address] | | | | | | | | +--------+---------+ + + + documented as of this encounter Procedures + +--------+ + + + | Procedure Name | Priori | Date/Time | Associated Diagnosis | Comments | | | ty | | | | + +--------+ + + + | *TERMED* VA EEG | Routin | 11/27/2019 | Altered [...] was | | | reviewed using the [employer] EEG digital system. During the | | [...]
--- OUTSIDE RECORDS SUMMARY | ~2020-03-19 | XMS | Encounter Summary ---
Demographics + + + | Address | [address] | | | [place] [address] | + + + | Home Phone | | + + + | Preferred Language | Unknown | + + + | Marital Status | Single | + + + | Spiritism Affiliation | NON | + + + | Race | White | + + + | Ethnic Group | Not or | + + + Author + + + | Author | [facility] | + + + | Organization | [facility] | + + + | Address [...] Team Providers + +------+ + | Care Account Financial Manager Name | Role | Phone | [...] Rd | | | | | [facility] | [place], [place] | | | | | Health and Healing, | [address] | | | | | | [phone] | | | | | Floor [place], [place] | | | | | | [address] | | | | | | [phone] | | | +--------+ + + + [...]
--- OUTSIDE RECORDS SUMMARY | ~2020-03-19 | XMS | Encounter Summary ---
Demographics + + + | Address | [address] | | | [place] [address] | + + + | Home Phone [...] Team Providers + +------+ + | Care Lidder Name | Role | Phone | + [...] 2019 | | HOSPITAL NEUROLOGY | Jax, AIRPORT SECURITY SCREENER [address] | | | | | CLIN[address] | [address] [place], | | | | | [address] [place], | [place] [address] | | | | | [place] [address] | [phone] | | | | | [phone] | | | +--------+ + + + [...] [place] | | | | | | [address] | | | | | | | | +--------+---------+ + + + documented as of this encounter Visit Diagnoses Not on filedocumented in this encounter"
--- OUTSIDE RECORDS SUMMARY | ~2020-03-19 | XMS | Encounter Summary ---
Demographics + + + | Address | [address] | | | [place] [address] | + + + | Home Phone [...] Team Providers + +------+ + | Care Neck Band Operator Name | Role | Phone | [...] | 2019 | Encounter | [facility] | [address] | | | | | for Health and | [address] | | | | | Healing [address] | [facility] [place] | | | | | Ave Mailcode: | [address] | | | | | [facility] | [phone] | | | | | Health and Healing, | | | | | | [facility] | | | | | | Floor [place], [place] | | | | | | [address] | | | | | | [phone] | | | +--------+ + + + [...]
--- OUTSIDE RECORDS SUMMARY | ~2020-03-19 | XMS | Encounter Summary ---
Demographics + + + | Address | [address] | | | [place] [address] | + + + | Home Phone [...] + + + | Author | [facility] | + + + | Organization | [facility] | + + + | [...] Team Providers + +------+ + | Care Labor Relations Teacher Name | Role | Phone | + +------+ + | No Pcp Per Patient | PCP | Unavailable | + +------+ + Encounter Details +--------+ + + + + | Date | Type | Department | Care Team | Description | +--------+ + + + + | 05/31/ | Hospital | Radiology/Imaging | Isael Cahmpion, | | | 2019 | Encounter | Lab at [facility] [address] | [address] | | | | | [address] Mailcode: | [address] | | | | | KATHIG [facility] | [place], [place] | | | | | Health and Healing, | [address] | | | | | | [phone] | | | | | Floor [place], [place] | | | | | | [address] | | | | | | [phone] | | | +--------+ + + + [...]
--- OUTSIDE RECORDS SUMMARY | ~2020-03-19 | XMS | Encounter Summary ---
Demographics + + + | Address | [address] | | | [place] [address] | + + + | Home Phone [...] Author + + + | Author | [facility] | + + + | Organization | [facility] | + + + | [...] Team Providers + +------+ + | Care Roller Structural Mill Name | Role | Phone | + [...] | | 2019 | | Faculty at [facility] | [address] | | | | | for [facility] and | [address] | | | | | [place] [address] | [facility] [place] | | | | | Ave Mailcode: | [address] | | | | | [facility] | [phone] | | | | | Health and Healing, | | | | | | [facility] | | | | | | [place], [place] | | | | | | [address] | | | | | | [phone] | | | +--------+ + + + [...]
--- OUTSIDE RECORDS SUMMARY | ~2020-03-19 | XMS | Encounter Summary ---
Demographics + + + | Address | [address] | | | [place] [address] | + + + | Home Phone [...] Team Providers + +------+ + | Care Graining Machine Operator Name | Role | Phone [...] | 2019 | Encounter | [facility] | [address] | | | | | for Health and | [address] | | | | | Healing [address] | [place], [place] | | | | | Ave Mailcode: | [address] | | | | | [facility] | [phone] | | | | | Health and Healing, | | | | | | | | | | | | Floor [place], [place] | | | | | | [address] | | | | | | [phone] | | | +--------+ + + + [...]
--- OUTSIDE RECORDS SUMMARY | ~2020-03-19 | XMS | Encounter Summary ---
Demographics + + + | Address | [address] | | | [place] [address] | + + + | Home Phone [...] Providers + +------+ + | Care Senior Research Consultant Name | Role | Phone | [...] | | | unspecified | [place], | [address] Phone: | | | | | Procedures | [place] | [phone] | | | | | Evaluate & | [address] | Fax: | | | | | Treat | Phone: | [phone] | | | | | | [phone] | | | | | | | Fax: | | | | | | | [phone] | | +--------+ + + + + + Encounter Details +--------+---------+ + + + | Date | Type | Department | Care Team | Description | +--------+---------+ + + + | 06/06/ | Office | [place] [facility] | [place], | Chronic bilateral | | 2019 | Visit | HOSPITAL NEUROLOGY | Jax, MULTIFOCAL LENS INSPECTOR [address] | low back pain with | | | | CLINIC [address] | [address] [place], | left-sided sciatica | | | | DR [place], | [place] [address] | (Primary Dx); | | | | [place] [address] | [phone] | 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 You may use jhkh-ozu-xegrcld medicine to control pain, unless another pain [...] by your healthcare provider Date Last Reviewed: 04/10/201619991526-9742 The [employer]. [address] [place] [address]. All righ ts reserved. This information is [...] you take. This includes prescription an d jkld-frj-tyeaugz medicines, vitamins, and herbs. Ask if any [...] speaking, walking, or seeing Date Last Reviewed: 12/09/201719990953-2343 [employer]. [address] [place] [address]. All [facility] ts reserved. This information is not intended as a substitute for professional medical care. Always follow your healthcare professional's instructions. documented in this encounter Progress Notes Jax Black FNP - 03/16/2019 9:45 AM PDT Patient: Linda Singleton Medical Record: [id number] Date of Services: 03/16/2019 Referring Doctor: MADHAV [...] find a primary care provider in the [place] area after her PCP suddenly lef t. [...] are intact. There is no dysmetria on rwvjrq-nw-jzoo and ifra-hstb-luju. There are no abnormal or extraneous movements. [...] [place] | | | | | | [id number] | | | | | | | | +--------+---------+ + + + documented as of this encounter Results Trigger Point Injection Procedure (09/19/2019 1:30 PM PST) + + + | Narrative | Performed At | + + + | Jax [place], [facility] 09/19/2019 2:00 PM WAYNE LUMBAR | [...] | such as acupuncture treatments, massage therapy, kjta-owo-dscgqhx | | | heat patches, relaxation therapy, [...] + + | IMPRESSION: Transitional vertebrae lowest bco-ywi-lsrsfjt | [facility] | | vertebrae. This [...] | vertebrae is present at the lowest wjv-dqz-lhvjeyk vertebrae with the | | | left transverse process articulating with the sacrum. Sclerosis is | | | present at this articulation. 5 cgg-ybv-aqncfoq vertebrae are | | | present. For numbering purposes the lowest vlo-gha-vlxeuia vertebrae | | | will be termed [...] | | is present at the lowest fzz-gkj-khfvivr vertebrae with the left transverse process | | articulating with the sacrum. Sclerosis is present at this articulation.5 | | xsf-lun-yetkrza vertebrae are present. For numbering purposes the lowest | | zak-kzw-yoordha vertebrae will be termed L5.Pedicles are intact. The disc spaces and | | vertebral body heights are maintained. IUD device present..IMPRESSION: | | IMPRESSION:Transitional vertebrae lowest ukg-ols-wtqajyq vertebrae. This finding can be | | associated with back pain.Dictated by: Bobby Chamberlain | |A transitional vertebrae is present at the lowest ztq-ntw-yrkyhtt vertebrae with the left t ransverse process articulating with the sacrum. Sclerosis is present at this articulation. | | | |5 pof-pmp-yyghuvi vertebrae are present. For numbering purposes the lowest ylt-scb-uxmdbyb vertebrae will be termed L5. | | | |Pedicles are intact. The disc spaces and vertebral body heights are maintained. IUD devic e present.. | | | |IMPRESSION: | |IMPRESSION: | |Transitional vertebrae lowest nph-wda-cencwxa vertebrae. This finding can be associated wi [...]
--- OUTSIDE RECORDS SUMMARY | ~2020-03-19 | XMS | Encounter Summary ---
Demographics + + + | Address | [address] | | | [place] [address] | + + + | Home Phone | | + + + | Preferred Language | Unknown | + + + | Marital Status | Single | + + + | Cheondoism Affiliation | Unknown | + + + | Race | Unknown | + + + | Ethnic Group | Unknown | + + + Author + + + | Author | [facility] | | | and [place] | + + + | Organization | [facility] | | | [...] Team Providers + +------+ + | Care Tool Lapper Hand Name | Role | Phone | [...] | | | [address] [place], | [address] | | | | | [place] [address] | | | | | | [phone] | | | +--------+ + + + [...] [place] | | | | | | [address] | | | | | | | | +--------+---------+ + + + documented as of this encounter Visit Diagnoses Not on filedocumented in this encounter"
--- OUTSIDE RECORDS SUMMARY | ~2020-03-19 | XMS | Encounter Summary ---
Demographics + + + | Address | [address] | | | [place] [address] | + + + | Home Phone | | + + + | Preferred Language | Unknown | + + + | Marital Status | Single | + + + | Uatsdin Affiliation | NON | + + + [...] Team Providers + +------+ + | Care Asphalt Screed Operator Name | Role | Phone | [...]
--- OUTSIDE RECORDS SUMMARY | ~2020-03-19 | XMS | Encounter Summary ---
Demographics + + + | Address | [address] | | | [place] [address] | + + + | Home Phone | | + + + | Preferred Language | Unknown | + + + | Marital Status | Single | + + + | Mosque Affiliation | NON | + + + [...] Team Providers + +------+ + | Care Insurance Sales Professional Name | Role | Phone | [...] | | | | cell cancer | [address] | Kev Ashton MD | | | | | of skin of | Earl Gonzalez | [address] | | | | | finger, | [address] | Ave | | | | | right | [place], [place] | [place], [place] | | | | | Procedures | [address] | [address] | | | | | CONSULT TO | Phone: | Phone: | | | | | [facility] | [phone] | [phone] | | | | | SURGERY [place] | Fax: | Fax: | | | | | MOHS,1 | [phone] | [phone] | | | | | STAGE,H/N/HF | | | | | | | /G OH MOHS | | | | | | | ADDL STAGE | | | | | | | OH MOHS | | | | | | | SURG, ADDL | | | | | | | BLOCK OH | | | | | | | REPR CMPL | | | | | | | WND | | | | | | | HEAD,FAC,SMILEY | | | | | | | D 1.1-2.5 | | | | | | | OH REPR CMPL | | | | | | | WND | | | | | | | HEAD,FAC,SMILEY | | | | | | | D 2.6-7.5 | | | | | | | OH | | | | | | | REP,FACE,GEN | | | | | | | ITAL,HAND,FT | | | | | | | +5CM/< OH | | | | | | | ADJ TISS | | | | | | | XFER | | | | | | | HEAD,FAC,SMILEY | | | | | | | D <10SQCM | | | | | | | OH ADJ TISS | | | | | | | XFER | | | | | | | HEAD,FAC,SMILEY | | | | | | | D 10.1-30 | | | | | | | OH SKIN | | | | | | | TISSUE | | | | | | | REARRANGEMEN | | | | | | | T OH SKIN | | | | | | | TISSUE | | | | | | | REARRANGEMEN | | | | | | | T ADD-ON OH | | | | | | | SPLIT | | | | | | | GRFT,HEAD,FA | | | | | | | C,HAND,FEET | | | | | | | <100CM OH | | | | | | | FULL THICK | | | | | | | GRFT | | | | | | | HEAD,FAC,SMILEY | | | | | | | D <20SQC OH | | | | | | | FULL THICK | | | | | | | GRFT | | | | | | | HEAD,FAC,MAX | | | | | | | ADD 20SQ OH | | | | | | | FORM SKIN | | | | | | | PEDICLE FLAP | | | | | | | | | | | | | | FACE,GEN,SMILEY | | | | | | | D OH | | | | | | | [...] | and other | [address] | [place], [place] | | | | | soft tissue | Nw | [address] | | | | | Neoplasm of | [place], | Phone: | | | | | uncertain | [place] [address] | [phone] | | | | | behavior of | Phone: | Fax: | | | | | bone and | [phone] | [phone] | | | | | articular | Fax: | | | | | | cartilage | [phone] | | | | | | Procedures | | | | | | | REQUEST TO | | | | | | | SURGERY | | | | | | | WRAPPER SIZER | | | | | | | OH EXCIS | | | | | | | SOFT TISSUE | | | | | | | LESION HAND | | | | | | | DEEP OH EXC | | | | | | | HAND TURN | | | | | | | DEEP>1.5CM | | | | | | | OH EXCIS | | | | | | | BENIGN BONE | | | | | | | LESN,PHALANX | | | | | | | OH PART | | | | | | | REMV | | | | | | | BONE,PROX/MT | | | | | | | D PHALANX | | | | | | | OH PART REMV | | | | | [...] | 2019 | Visit | [facility] at [facility] | Alvina Goldberg PA-C [address] | (Primary Dx); | | | | for Health and | [address] | Squamous cell cancer | | | | Healing [address] | [place], [place] | of skin of finger, | | | | Ave Mailcode: | [address] | right | | | | [facility] | [phone] | | | | | Health and Healing, | | | | | | [facility] | | | | | | Floor [place], [place] | | | | | | [address] | | | | | | [phone] | | | +--------+---------+ + + + [...] next visit. ALVINA DAILEY PA-C ORTHOPAEDICS AT [facility] [address] Mailcode: [facility] [place] [address] Associated attestation - Isael Champion [...]
--- OUTSIDE RECORDS SUMMARY | ~2020-03-19 | XMS | Encounter Summary ---
Demographics + + + | Address | [address] | | | [place] [address] | + + + | Home Phone | | + + + | Preferred Language | Unknown | + + + | Marital Status | Single | + + + | Oriental Orthodox Affiliation | NON | + + [...] Providers + +------+ + | Care Supervisor Reclamation Name | Role | Phone | + [...] | 2019 | Encounter | [facility] at [place] | [address] | | | | | for Health and | [address] | | | | | Healing [address] | [facility] [place] | | | | | Ave Mailcode: | [address] | | | | | [facility] | [phone] | | | | | Health and Healing, | | | | | | [facility] | | | | | | Floor [place], [place] | | | | | | [address] | | | | | | [phone] | | | +--------+ + + + [...]
--- OUTSIDE RECORDS SUMMARY | ~2020-03-19 | XMS | Encounter Summary ---
Demographics + + + | Address | [address] | | | [place] [address] | + + + | Home Phone | | + + + | Preferred Language | Unknown | + + + | Marital Status | Single | + + + | Buddhism Affiliation | NON | + + + [...] Providers + +------+ + | Care Software Asset Management Analyst Name | Role | Phone | [...] Rd | | | | | K[address] [facility] | [place], [place] | | | | | Health and Healing, | [address] | | | | | | [phone] | | | | | Floor [place], [place] | | | | | | [address] | | | | | | [phone] | | | +--------+ + + + [...]
--- OUTSIDE RECORDS SUMMARY | ~2020-03-19 | XMS | Encounter Summary ---
Demographics + + + | Address | [address] | | | [place] [address] | + + + | Home Phone [...] Team Providers + +------+ + | Care Mud Mill Tender Name | Role | Phone | [...] | | | | | Altered | [facility] | | | | | level of | [address]CE C[address] | [address] | | | | | consciousnes | [address] | [address] | | | | | s Jerking | [place], [place] | [place], [place] | | | | | movements of | [address] | [address] | | | | | extremities | Phone: | Phone: | | | | | Procedures | [phone] | [phone] | | | | | MRI Brain | Fax: | Fax: | | | | | w wo | [phone] | [phone] | | | | | Contrast | [...] | Required | | level of | [address] | [address] | | | | | consciousnes | [address] | [address], | | | | | s Jerking | [place], [place] | [place] | | | | | movements of | [address] | [place], [place] | | | | | extremities | Phone: | [address] Phone: | | | | | | [phone] | [phone] | | | | | | Fax: | Fax: | | | | | | [phone] | [phone] | + + + + + + [...] | CLINIC [address] | [address] [facility] | neuropathy (Primary | | | | [address] [place], | [place] [address] | Dx); Lumbosacral | | | | [place] [address] | [phone] | radiculopathy; | | | | [phone] | | Fibromyalgia; | | | | [...] are taking other medicines. You may use gjnr-ttg-bpqrqls medicine to control pain, unless another pain [...] by your healthcare provider Date Last Reviewed: 04/10/201619994094-1286 [employer]. [address] [place] [address]. All righ ts reserved. This information is not intended as a substitute for professional medical care. Always follow your healthcare professional's instructions. documented in this encounter Progress Notes iNyah Merlos CC CMA - 11/08/2019 10:30 AM [...] Injection education declined by patient. TORI Diaz SENIOR DATA QUALITY ANALYST pangler, JUVENTINO Neri - 11/08/2019 10:30 AM PST . Patient: Linda [place] Medical Record: [id number] Date of Services: 11/08/2019 Referring Doctor: MADHAV [...] find a primary care provider in the [place] area after her PCP suddenly lef t. [...] undergoing workup with her PCP and an multi needle machine operator for sig nificant hormone and white blood cell count abnormalities. Encounter Problem List Idiopathic peripheral neuropathy (Primary) Overview: Current Treatment:Gabapentin September 15, 2019: EMG/NCS: No evidence of peripheral neuropathy Lumbosacral radiculopathy Overview: September 15, 2018: EMG/NCS: No evidence of lumbosacral radiculopathy. Orders: - ketorolac (TORADOL) injection 60 mg Fibromyalgia Altered level of consciousness - * Chad [facility] Neurology - AMB Referral - [...] are intact. There is no dysmetria on xtxjvp-sb-teck and hpfp-jqmq-prmm. There are no abnormal or extraneous movements. [...] [place] | | | | | | [address] | | | | | | | [...] | | Sincerely, SHERRIE JOHNS M.D. Neurologist [phone] | | | Electronically signed NOTE: Part of this report was transcribed | | | using voice recognition software. Every effort | | | was made to ensure accuracy. However, inadvertent | | | computerize dinkey driver errors may be present | | | [...] was | | | reviewed using the [employer] EEG digital system. During the | | [...] + + | Normal. Dictated by: Hernan Chaomrro | | + + + + + [...]
--- OUTSIDE RECORDS SUMMARY | ~2020-03-19 | XMS | Encounter Summary ---
Demographics + + + | Address | [address] | | | [place], [place] [address] | + + + | Home Phone [...] Team Providers + +------+ + | Care Air Analysis Engineering Technician Name | Role | Phone | [...] | | 2019 | | [facility] at [facility] | | | | | [facility] Health and | | | | | | Healing [address] | | | | | | [address] Mailcode: | | | | | | [facility] | | | | | | Health and Healing, | | | | | | [facility] | | | | | | Floor [place], [place] | | | | | | [phone] | | | | | | [phone] | | | +--------+ + + + [...] PDT MEDICAL REVIEW #3 Patient: Linda Singleton [id number] Problem: R thumb tumor, infection Records: CE Referring Provider: Dr Fraser [facility] ED Direct referral: N o History of cancer: None Images: March XR, CT Traveling to [facility]? YES past [place] Notes: Tumor vs UE? CAMELIA needed? Can [...] Have you [facility] anyone for this yet? [facility], Hernan Fraser CE Do you have a referring provider? 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 no Note: We do not accept WC under [place] as they do not pay at [place] rates. Other out of state claims will only be accepted if they agree to pay at [place] rates docume nted in writing from adjustor. Can you confirm the insurance we will be billing for this visit? Medicaid Note: If OHP, please note which type. E.g. [place], [place], [employer], etc .) Reminder: Please create referrals for pts with: HMO, OHP, [place], Self-Pay, W/C, TPL an d ED Post- Ops Can you verify your Primary Care Provider? no Note: Please update Primary Care Provider in [place]. Are you a current smoker or tobacco [...] they d like to sign up for [employer] ? Don t forget to pull in CareEveryWhere Additional Comments: documented in this encounte r Plan of Treatment Not on filedocumented as of this encounter Visit Diagnoses Not on filedocumented in this encounter
--- OUTSIDE RECORDS SUMMARY | ~2020-03-19 | XMS | Encounter Summary ---
Demographics + + + | Address | [address] | | | [place] [address] | + + + | Home Phone [...] Team Providers + +------+ + | Care Educational Resource Coordinator Name | Role | Phone | [...] as of this encounter Progress Notes Interface, Engine Assembler In - 10/21/2006 1:03 AM PSTCLINIC DATE: 07/18/1998 MULTIDISCIPLINARY BREAST CLINIC REFERRING PHYSICIAN: Unknown. CHIEF COMPLAINT: Breast mass. HISTORY OF THE PRESENT ILLNESS: This is a 8-year-old female who recently noticed a breast lump on one side. Her mother says that a physician in [place] was concerned with possible cancer and may [...] M.D. Resident, General Surgery Shubham Aparicio M.D. Complaint Specialist, General Surgery Section of Surgical Oncology UGO/curtis cc: documente d in this encounter Plan of Treatment Not on filedocumented as of this encounter Visit Diagnoses Not on filedocumented in this encounter"
[~2020-03-19 19:27] MED LIST changes: +ALDACTONE100 MG PO; +AUGMENTIN 875-1 EACH PO; +BUSPIRONE HCL30 MG PO; +DOXYCYCLINE HY100 MG PO; +FLOMAX0.4 MG PO; +IMITREX100 MG PO; +LEVOXYL75 MCG PO; +SUBOXONE 8 MG-1 EAC1 SL; +TOPROL XL25 MG PO; +TRAZODONE HCL300 MG PO; +VALTREX500 MG PO; +VISTARIL25 MG PO
--- OUTSIDE RECORDS SUMMARY | 2020-03-19 19:30 | XMS ---
PreManage Notification: SHADE WOLF Security Commercial Sales Consultant Events No recent Security Events currently on file CRITERIA MET - [facility] - Has Care Guidelines - PDMP - [facility] - 2 Visits in 30 Days CARE PROVIDERS Jeff Junior Community Health Worker 05/29/2019-Current PHONE: [phone] RENATO FERNANDEZ Physician Sleeve Ironer Current PHONE: Unknown Guidelines Source: [facility] Guidelines Date: 03/17/2019 Care Coordination: Receives mental health services with [facility].\T\nbsp; Please contact [facility] with mental health concerns.\T\nbsp; [place]/Tonny Horowitz:\T\nbsp; \T\nbsp; [place]:\T\nbsp; [id number]. E.D. VISIT COUNT (12 MO.) [address] [place] [address] [facility] TOTAL 5 NOTE: Visits indicate total known visits. ED/UCC VISIT TRACKING (12 MO.) 03/19/2020 19:28 [facility] [place] TYPE: Emergency COMPLAINT: - SOB, CHEST HURTS 02/27/2020 16:37 [facility] [place] TYPE: Emergency COMPLAINT: - SOB, HEART RACING, L ARM NUMBNESS 02/17/2020 14:09 [facility] [place] TYPE: Emergency DIAGNOSES: - Other specified soft tissue disorders - LEFT FOOT PAIN 05/26/2019 15:20 [facility] [place] TYPE: Emergency DIAGNOSES: - Headache - SEVERE HEADACHE [facility] [place] [facility] DIAGNOSES: - Thumb Pain - Hematuria - Benign neoplasm of bone and articular cartilage, unspecified INPATIENT VISIT TRACKING (12 MO.) 02/27/2020 19:[address] [facility] [place] TYPE: Medical Surgical COMPLAINT: - PNA/COVID RULEOUT DIAGNOSES: - Unspecified mood [affective] disorder - Contact with and (suspected) exposure to other viral communic - Migraine, unspecified, not intractable, without status migrai - Allergy status to sulfonamides status - Other fpc (current) drug therapy - Nicotine dependence, chewing tobacco, uncomplicated - superintendent terminal (current) use of inhaled steroids - Hypothyroidism, unspecified - Acute respiratory failure with hypoxia - Chronic pain syndrome - Fibromyalgia - Pneumonia, unspecified organism - Tachycardia, unspecified - Sepsis, unspecified organism [email or web address]
--- NOTE | 2020-03-19 22:45 | NUR ---
Patient arrives to the unit via stretcher. Patient able to ambulate independently with steady gait from stretcher to toilet, voided 1000 mls. Urine sample sent to lab. Patient returned to bed. Vitals taken, assessment complete. Lung sounds dim and tight throughout all lobes. HR in the 100's, SpO2 of 97% on RA. LR bolus infusing. Patient has vancomycin, cefepime, and levoquin infusing. PM medications given. Denies needs at this time, call light within reach.
--- NOTE | 2020-03-20 00:30 | NUR ---
Called Dr. Gaytan regarding patient's home medications. Orders acknowledged.
--- NOTE | 2020-03-20 01:00 | NUR ---
Patient sitting up in bed watching tv. IV cefepime and levoquin finished infusing. LR and vanco continuing to infuse. Medications given (see MAR). 0130 - New bag of D5LR hung at 75 mls/hr. LR bolus finished infusing. Patient denies needs at this time. Encouraged to sleep. Call light within reach.
--- NOTE | 2020-03-20 02:32 | NUR ---
Patient sleeping in bed, respirations even and unlabored. Call light within reach.
--- NOTE | 2020-03-20 03:53 | NUR ---
Patient sleeping in bed, respirations even and unlabored. Call light within reach.
--- NOTE | 2020-03-20 06:00 | NUR ---
Patient sleeping in bed, respirations even and unlabored. SpO2 of 98% on RA. Rouses to voice easily. Labs drawn. Vital signs taken, assessment complete. Patient up to toilet independently with steady gait, 1000 mls voided. Returned to bed. Water refreshed, denies further needs. Call light within reach.
--- NOTE | 2020-03-20 07:30 | NUR ---
REPORT RECIEVED. UPON LOOK THROUGH DOOR, PATIENT IS ASLEEP,NO DISTRESS NOTED.
--- NOTE | 2020-03-20 08:00 | NUR ---
IN DEEP SLEEP, DIFFICULT TO WAKE FOR ASSWSSMENT. UPON AWAKENING, IS AWARE OF PERSON PLACE AND TIME. C/O GENERAL PAIN 4/10. HAS MILD CHEST DISCOMFORT WITH DEEP BREATH UPON ASSESSING LUNGS.
--- NOTE | 2020-03-20 09:00 | NUR ---
SITTING UP IN BED TO TAKE BREAKFAST.
--- NOTE | 2020-03-20 10:00 | NUR ---
RESTFUL. IV VANCO INFUSING.
--- NOTE | 2020-03-20 12:00 | NUR ---
C/O ITCHING OF NECK, HANDS, BACK, ARMS. DENIES SHORTNESS OF BREATH. SKIN IS PINK. NO RASH NOTED.
--- NOTE | 2020-03-20 12:30 | NUR ---
DR. FRANKLIN NOTIFIED OF ITCHING.
--- NOTE | 2020-03-20 12:45 | NUR ---
VISTARIL 50 MG PO GIVEN. PHARMACY NOTIED OF ITCHING TOO. PLAN IS TO GIVE VISTARIL 50 MG PRIOR TO EACH DOSE OF VANCOMYCIN. PATIENT IS SITTING UP IN BED EATING LUNCH.
--- NOTE | 2020-03-20 13:25 | NUR ---
STATES ITCHING IS MUCH LESS NOW. SITTING UP IN BED WATCHING TV.
--- NOTE | 2020-03-20 13:43 | NUR ---
PT UNDER PRECAUTIONS, UNABLE TO VISIT AT THIS TIME
--- NOTE | 2020-03-20 15:10 | NUR ---
dr. botello here to see patient. lab orders recieved.
--- NOTE | 2020-03-20 16:00 | NUR ---
COVID TEST MEGATIVE. PAIENT AWARE.
--- NOTE | 2020-03-20 16:40 | NUR ---
ASSESSMENT UNCHANGED. WILL BE TRANSFERRED TO [facility] THIS EVENING.
--- NOTE | 2020-03-20 17:11 | NUR ---
Spoke with pt by phone as she is awaiting covid result. Pt was here recently. Returned home and to work. Began to have issues yesterday. Difficulty walking upstairs (13 steps) into her home. Denies use of DMe. 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 Pt denies vaping.
[2020-03-20] MEDS ORDERED: NICOTINE1 EAC2 TD (17:13)
--- NOTE | 2020-03-20 17:17 | NUR ---
MED REC COMPLETE
--- NOTE | 2020-03-20 17:20 | NUR ---
REPORT TO [facility]SUR[facility].
--- NOTE | 2020-03-20 17:45 | NUR ---
TO [facility] VIA CHAIR.
--- NOTE | 2020-03-20 17:54 | NUR ---
PATIENT ARRIVED FROM CCU, VIA CHAIR, AND IS EATING HER DINNER.
--- NOTE | 2020-03-20 18:32 | NUR ---
PATIENT SITTING UP IN CHAIR, FINISHING DINNER. VITALS AND I&OS DONE AND CHARTED. SBA WITH PATIENT TO BED. CALL LIGHT WITHIN REACH. NO OTHER NEEDS AT THIS TIME
--- NOTE | 2020-03-20 19:30 | NUR ---
bedside report from zenia - pt request diet pepsi and advised that her mom could vist. she deies needs at this time and has call light in reach.
--- NOTE | 2020-03-20 22:29 | NUR ---
CALL LIGHT ANSWERED, IVF PUMP ALARMING, INFUSING WNL ORDERED. pt DENIES ANY REQUESTS AT THIS TIME. MOTHER IN ROOM VISITING WITH pt.
--- NOTE | 2020-03-20 23:18 | NUR ---
LET PT KNOW THAT I PUT A NOTE IN COMPUTER TO THE DR TO ASK ABOUT HER DAILY HOME MED OF TRAZADONE FOR SLEEP - PT WOULD LIKE TO START TAKING IT REGULARLY AGAIN.
--- NOTE | 2020-03-21 03:14 | NUR ---
pt denies needs, call light in reach - walked to br to void well. i/o and vitals done at this time.
--- NOTE | 2020-03-21 03:38 | NUR ---
BOTH IV ARE CURRENTLY SL - CHECKED ORDER WITH PIPING SUPERVISOR.
--- NOTE | 2020-03-21 04:41 | NUR ---
Report received from JUSTINE Guido.
--- NOTE | 2020-03-21 05:44 | NUR ---
Patient sleeping in bed, respirations even and unlabored. IV abx hung at 27.5 mls/hr. Rouses to voice, denies needs at this time. Call light within reach.
--- NOTE | 2020-03-21 08:55 | NUR ---
IN ROOM TO COMPLETE MORNING ASSESSMENT. PT UP IN CHAIR. COMPLAINING OF PAIN 7/10 IN BACK AND KNEES. pT REPORTS PAIN CHRONIC.
--- NOTE | 2020-03-21 09:45 | NUR ---
Spoke with Linda. She complains of exrtreme fatigue. Denies needs at this time. Wanting to sleep. Rn notified she would like a sign on door she is napping.
--- NOTE | 2020-03-21 11:08 | EKG ---
[facility] [address] [place], [place] [address] Signed Sinus tachycardia Otherwise normal ECG When compared with ECG of 27-FEB-2020 16:48, No significant change was found Confirmed by LETICIA FRANKLIN MD ([id number]) on 03/21/2020 11:07:57 AM Electronically Signed By: LETICIA FRANKLIN MD 03/21/20 1108 PATIENT NAME: SHADE WOLF KOURTNEY Electrocardiogram DATE OF : 86 PHYSICIAN: LETICIA FRANKLIN MD REPORT #: [id number] REPORT IS CONFIDENTIAL AND NOT TO BE RELEASED WITHOUT AUTHORIZATION
--- NOTE | 2020-03-21 11:50 | NUR ---
PT RESTING IN BED. STATED, "IM JUST SO TIRED." FRESH ICE GIVEN. DENIES FURTHER NEEDS AT THIS TIME. CALL LIGHT WITHIN REACH.
--- NOTE | 2020-03-21 12:58 | NUR ---
PT RESTING IN BED. DENIES NEEDS AT THIS TIME. CALL LIGHT WITHIN REACH.
--- NOTE | 2020-03-21 13:58 | NUR ---
pt up to bathroom and back to bed. pt denies shortness of breath. antibiotics started at this time. call light within reach.
--- NOTE | 2020-03-21 14:22 | NUR ---
ENTERED PTS' RM, RM IS DARK TV OFF. PT RESPONDED, MENTIONED THAT SHE HAS HAD BETTER DAYS AND WAS VERY TIRED. SHE REQUESTED I RETURN LATER.
--- NOTE | 2020-03-21 15:01 | NUR ---
IN ROOM WITH PATIENT.
--- NOTE | 2020-03-21 15:10 | NUR ---
Pt up and ambulating in hallway. pt complained of mild shortness of breath but O2 sats maintianed in the 90's.
--- NOTE | 2020-03-21 15:45 | NUR ---
Pt up in room to shower. pt denied need for assistance. instructed to call when done. verbalized understanding.
--- NOTE | 2020-03-21 17:33 | NUR ---
PT RESTING IN BED WATCHING TV. DENIES NEEDS AT THIS TIME. CALL LIGHT WITHIN REACH.
--- NOTE | 2020-03-21 19:06 | NUR ---
RECEIVED REPORT FROM JUSTINE BLAIR. pt RESTING IN BED. MANAGER SOCIAL SERVICES IN TO PROVIDE ICE. NO FURTHER REQUESTS AT THIS TIME. CALL LIGHT WITHIN REACH. WHITEBOARD UPDATED.
--- NOTE | 2020-03-21 20:54 | NUR ---
VITALS AND I&OS DONE AND CHARTED. FILLED HER HYDROFLASK WITH ICE WATER AND GAVE HER A CUP OF ICE CHIPS PER HER REQUEST. HER VISITOR ALSO ASKED FOR SOME ICE WATER. GARBAGES EMPTIED.
--- NOTE | 2020-03-21 20:56 | NUR ---
pt RESTING IN BED. REQUESTED MEDICATIONS, GIVEN (SEE MAR). MOTHER AT BEDSIDE. NO FURTHER REQUESTS AT THIS TIME. CALL LIGHT WITHIN REACH.
--- NOTE | 2020-03-21 22:15 | NUR ---
PT'S IV WAS BEEPING. IT IS NOW INFUSING FINE. PT DENIES FURTHER NEEDS AT THIS TIME. CALL LIGHT IS CLOSE.
--- NOTE | 2020-03-21 22:20 | NUR ---
pt REQUESTED HOME MED. MD NOTIFIED. MD WILL ENTER NEW ORDERS.
--- NOTE | 2020-03-21 22:22 | NUR ---
PHARMACY UPDATED ON LAB VALUES. OKAY TO GIVE RADHA.
--- NOTE | 2020-03-21 22:34 | NUR ---
ASSESSMENT DONE. MEDICATIONS GIVEN (SEE MAR). pt UP TO VOID AND BACK TO BED. CALL LIGHT AND POSSESSIONS WITHIN REACH.
--- NOTE | 2020-03-22 01:44 | NUR ---
ROUNDED ON pt. RESTING WITH EYES CLOSED, RESPIRATIONS REGULAR AND UNLABORED. IV ABX INFUSING. CALL LIGHT WITHIN REACH.
--- NOTE | 2020-03-22 03:40 | NUR ---
IV PUMP BEEPING, IV ABX INFUSIONS COMPLETED. pt UP TO VOID AND BACK TO BED. ASSESSMENT DONE. NO REQUESTS AT THIS TIME. CALL LIGHT WITHIN REACH.
--- NOTE | 2020-03-22 05:43 | NUR ---
IN TO GIVE MEDS. pt RESTING WITH EYES CLOSED, RESPIRATIONS REGULAR AND UNLABORED. WOKE TO VOICE. IV ABX INFUSING, PO MED GIVEN (SEE MAR). VITALS AND I&O RECORDED. NO REQUESTS AT THIS TIME. CALL LIGHT WITHIN REACH.
--- NOTE | 2020-03-22 05:44 | NUR ---
pt RESTED MOST OF SHIFT. IV SL, IV ABX. TOLERATING REGULAR DIET, PER pt DOES NOT EAT 3 LARGE MEALS A DAY BUT IS SNACKING ON NUTS. INDEPENDENT IN ROOM WHEN SL. HAS CHRONIC PAIN, MAINTAINED BASELINE THROUGHOUT SHIFT. USES CALL LIGHT APPROPRIATELY.
--- NOTE | 2020-03-22 07:54 | NUR ---
PATIENT IS SLEEPING.
--- NOTE | 2020-03-22 09:35 | NUR ---
PT EATTING BKF AT THIS TIME, HAS BEEN UP TO THE BATHROOM AND BACK TO BED.
--- NOTE | 2020-03-22 10:15 | NUR ---
Spoke with Linda. She is unsure if she is going home today. States she just woke up. Eating breakfast, is feeling better. Remains with fatigue. Plans on going home on discharge. Will stay with her mom if needed, mom will pick her up. Pt denies any needs for dc.
--- NOTE | 2020-03-22 10:38 | NUR ---
PT BACK TO BED IV ABX'S HANGING. NO C/O'S AT THIS TIME.
--- NOTE | 2020-03-22 12:54 | NUR ---
DR FRANKLIN INTO SEE PT AND SHE WILL BE DISCHARGE ON WEDNESDAY. NEW ORDERS RECEIVED.
--- NOTE | 2020-03-22 14:39 | NUR ---
pt in bed trying to rest till her mother ets here so she can shower.
--- NOTE | 2020-03-22 17:29 | NUR ---
PATIENT IS SLEEPING.
--- NOTE | 2020-03-22 17:55 | NUR ---
PT HAS BEEN SLEEPING THIS AFTERNOON. PT OFFERED A SHOWER, BUT CONTIOUES TO WANT TO WAIT TILL HER MOTHER COMES INTO VISIT.
--- NOTE | 2020-03-22 18:37 | NUR ---
PT SITTING UP IN BED AND EATTING DINNER AT THIS TIME. CONTIOUES WANTS TO WAIT ON SHOWERING.
--- NOTE | 2020-03-22 19:06 | NUR ---
RECEIVED REPORT FROM JUSTINE DINERO. pt REQUESTED IV BE WRAPPED FOR A SHOWER. REPORTED NAUSEA, REFUSED MEDICATION AT THIS TIME WILL REQUEST AFTER THE SHOWER IF IT IS STILL AN ISSUE. MOTHER IN ROOM. ALL ITEMS PROVIDED FOR SHOWER. CALL LIGHT WITHIN REACH.
--- NOTE | 2020-03-22 19:15 | NUR ---
I ASKED PATIENT TODAY IF SHE WOULD LIKE TO TAKE A SHOWER AND SHE SAID SHE WAS WAITING FOR HER MOM TO COME IN AND HELP HER WITH HER SHOWER. PATIENT IS INDEPENDENT.
--- NOTE | 2020-03-22 21:13 | NUR ---
pt SITTING IN BED, MOTHER AT BEDSIDE. ASSESSMENT DONE. MEDICATIONS GIVEN (SEE MAR). VITALS AND I&O RECORDED. PROVIDED MORE WATER. NO FURTHER REQUESTS AT THIS TIME. CALL LIGHT WITHIN REACH.
--- NOTE | 2020-03-22 23:02 | NUR ---
CALL LIGHT ON. pt REPORTED THAT IV PUMP WAS BEEPING, INFUSION COMPLETE. pt UP TO DO PM CARES. SETTLED IN BED. MED GIVEN, IV ABX INFUSING (SEE MAR). NO FURTHER REQUESTS AT THIS TIME. CALL LIGHT AND POSSESSIONS WITHIN REACH.
--- NOTE | 2020-03-23 01:10 | NUR ---
ROUNDED ON pt. RESTING WITH EYES CLOSED, RESPIRATIONS REGULAR AND UNLABORED. CALL LIGHT WITHIN REACH.
--- NOTE | 2020-03-23 03:34 | NUR ---
IV PUMP BEEPING, INFUSION COMPLETE. pt RESTING WITH EYES CLOSED, RESPIRATIONS REGULAR AND UNLABORED. IV SL. CALL LIGHT WITHIN REACH.
--- NOTE | 2020-03-23 06:26 | NUR ---
pt WOKE TO VOICE. UP TO VOID AND BACK TO BED. ASSESSMENT DONE. VITALS AND I&O RECORDED. MEDICATIONS GIVEN (SEE MAR). NO REQUESTS AT THIS TIME. CALL LIGHT WITHIN REACH.
--- NOTE | 2020-03-23 06:27 | NUR ---
pt RESTED MOST OF SHIFT. IV SL, IV ABX. TOLERATING REGULAR DIET. INDEPENDENT IN ROOM WHEN SL. HAS CHRONIC PAIN, MAINTAINED BASELINE THROUGTH SHIFT. SHOWERED. USES CALL LIGHT APPROPRIATELY.
--- NOTE | 2020-03-23 08:38 | NUR ---
PATIENT STATES SHE IS NOT READY TO WAKE UP, REFUSES TO TAKE MEDS AT THIS TIME, ASKED I LEAVE ROOM, STATES SHE WILL GET UP WHEN SHE WAKES UP.
--- NOTE | 2020-03-23 10:00 | NUR ---
PATIENT SLEEPY. VITAL SIGNS AND I&O DONE. CALL LIGHT WITHIN REACH. NO OTHER NEEDS AT THIS TIME
--- NOTE | 2020-03-23 10:05 | NUR ---
PT WOKE BRIEFLY FOR VS BUT CONT. TO REFUSE TO SIT UP AND TAKE MEDS, DR FRANKLIN AWARE OF BEHAVIOR, WILL CONT. TO APPROACH TO GIVE MEDS, NO RESP DISTRESS, REMAINS AFEBRILE.
[2020-03-23] MEDS ORDERED: CEFPODOXIME PR200 MG PO (10:59)
[2020-03-23] MEDS ORDERED: LEVOFLOXACIN750 MG PO (10:59)
--- NOTE | 2020-03-23 11:01 | NUR ---
PT AGREED TO SIT UP AND TAKE MEDS AT THIS TIME, DR FRANKLIN IN TO SEE PT, ASSESSMENT COMPLETE. DENIES ANY NEEDS, AGREED WITH DR FRANKLIN FOR DC HOME TODAY, STATES SHE WANTS TO REST A BIT MORE SO PLAN FOR DC HOME AT 1300.
== END 2020-03-23 15:00 | disposition home or self-care (01) | DRG 179 ==
LOC: ED 19:27 → MS 21:50 → CCU 21:50 → MS 03-20 17:50
PROVIDERS: ADMIT Internal Medicine
DX: J15.6 Pneumonia due to other Gram-negative bacteria (principal); J18.8 Other pneumonia, unspecified organism; F11.21 Opioid dependence, in remission; I10 Essential (primary) hypertension; E03.9 Hypothyroidism, unspecified; M06.9 Rheumatoid arthritis, unspecified; L70.9 Acne, unspecified; M79.7 Fibromyalgia; F31.9 Bipolar disorder, unspecified; F06.4 Anxiety disorder due to known physiological condition; Z20.828 Contact with and (suspected) exposure to other viral communicable diseases; Z88.2 Allergy status to sulfonamides; Z87.891 Personal history of nicotine dependence; Z79.899 Other long term (current) drug therapy; Z79.1 Long term (current) use of non-steroidal anti-inflammatories (NSAID); Z79.51 Long term (current) use of inhaled steroids
CPT/HCPCS: 36415; 71260; 80048; 80053; 80202; 83605; 83735; 84443; 85025; 86140; 87040; 87449; 87899; 93005; 93010; 94667; 94668; 99406; J0692; J1650; J1956; J3370; J7050; J7060; J7121; Q0177; U0002